=== PATIENT | female | born 1955 | race Native Hawaiian/Other Pacific Islander ===

== ENCOUNTER 2019-10-23 14:26 | Inpatient (IN) | payer MEDICARE, SELFPAY ==
[2019-10-23] VITALS (15 sets, daily range): BP systolic 60–92; BP diastolic 25–66; PULSE 73–92; RESP 15–28; TEMP 36.1–36.7; O2SAT 91–99; BMI 44.5
--- NOTE | ~2019-10-23 | XR_ITS ---
EXAMINATION: XR chest 1V portable DATE: 10/29/2019 11:11 INDICATION: Shortness of breath. TECHNIQUE: A single frontal view of the chest was obtained. COMPARISON: Chest single view 10/25/2019, chest CT 09/04/2019 FINDINGS: There is no pneumonia, pleural effusion, or pneumothorax. Cardiomegaly is noted. There is a left chest pacer/defibrillator with leads in right atrium, right ventricle, and coronary sinus. Ther e are changes of vertebroplasty in thoracic spine. Surgical clips in the right upper quadrant are lik asa from cholecystectomy. IMPRESSION: 1. Cardiomegaly. Reviewed, dictated and finalized at location A. IMPRESSION: 1. Cardiomegaly.
--- NOTE | ~2019-10-23 | XR_ITS ---
EXAMINATION: XR chest port-a-cath/central DATE: 10/23/2019 16:11 INDICATION: Central line placement TECHNIQUE: A single frontal view of the chest was obtained. COMPARISON: Chest single view at 3:08 PM FINDINGS: There is a diffuse interstitial pattern, consistent with mild pulmonary edema. No pleural e ffusion or pneumothorax. Cardiomegaly is noted. There are changes of vertebroplasty at 2 levels. Ther e is a left chest pacer/defibrillator with lead in right atrium and 2 leads in right ventricle. A rig ht internal jugular central venous catheter is seen with tip in the right axilla. IMPRESSION: 1. Central line tip in the right axilla. Repositioning is recommended. 2. Mild pulmonary edema. 3. Cardiomegaly. Reviewed, dictated and finalized at location A. NING ROOM ATTENDANT
--- NOTE | ~2019-10-23 | US_ITS ---
EXAMINATION: US renal BI DATE: 10/24/2019 10:00 INDICATION: Acute renal insufficiency. TECHNIQUE: Multiple ultrasound grayscale images of the kidneys were obtained. COMPARISON: None. FINDINGS: The right kidney measures 11.4 x 4.2 x 5.7 cm. The left kidney measures 10.4 x 4.8 x 4.3 cm. The kidn eys demonstrate normal echogenicity. 1.7 cm anechoic cyst at the upper pole of the right kidney. Ther e is no hydronephrosis in either kidney. No stones identified. The bladder is decompressed around a Rebol[place]o catheter which limits evaluation. IMPRESSION: 1. 1.7 cm right renal cyst. Otherwise normal kidneys without hydronephrosis. Reviewed, dictated and finalized at location A. ILE COATING MACHINE OPERATOR
--- NOTE | ~2019-10-23 | XR_ITS ---
EXAMINATION: XR chest 1V portable DATE: 10/23/2019 15:18 INDICATION: Shortness of breath. TECHNIQUE: A single frontal view of the chest was obtained. COMPARISON: Thoracic spine CT 02/14/2007 FINDINGS: There is a diffuse interstitial pattern, consistent with mild pulmonary edema. No pleural e ffusion or pneumothorax. Cardiomegaly is noted. There are changes of vertebroplasty at 2 levels in th oracic spine. There is a left chest pacer/defibrillator with lead in right atrium and 2 leads in righ t ventricle. IMPRESSION: 1. Mild pulmonary edema. 2. Cardiomegaly. Reviewed, dictated and finalized at location A. TENANCE PERSON
--- NOTE | ~2019-10-23 | XR_ITS ---
EXAMINATION: XR chest 1V portable DATE: 10/25/2019 05:44 INDICATION: Septic shock. TECHNIQUE: A single frontal view of the chest was obtained. COMPARISON: Chest single view 10/23/2019, chest CT 09/04/2019 FINDINGS: There is a diffuse interstitial pattern, consistent with mild pulmonary edema. No pleural e ffusion or pneumothorax. Cardiomegaly is noted. There are changes of vertebroplasty at 2 levels in th oracic spine. There is a left chest pacer/defibrillator with lead in right atrium and 2 leads in righ t ventricle. IMPRESSION: 1. Mild pulmonary edema. 2. Cardiomegaly. Reviewed, dictated and finalized at location A. SERVICE TECHNICIAN
--- NOTE | ~2019-10-23 | XR_ITS ---
EXAMINATION: XR chest 1V portable DATE: 10/31/2019 10:46 INDICATION: Shortness of breath. Wheezing. TECHNIQUE: A single frontal view of the chest was obtained. COMPARISON: Chest single view 10/29/2019, chest CT 09/04/2019 FINDINGS: There is a diffuse interstitial pattern, consistent with mild pulmonary edema. No pleural e ffusion or pneumothorax. Cardiomegaly is noted. There is a left chest pacer with leads in right atriu m, right ventricle, and coronary sinus. There are changes of vertebroplasty at 2 levels. IMPRESSION: 1. Mild pulmonary edema. 2. Cardiomegaly. Reviewed, dictated and finalized at location A.
--- NOTE | 2019-10-23 14:34 | ED.LOWEXIN ---
HPI - Extremity Injury (Lower) General Chief Complaint: Unspecified Stated Complaint: lower leg pain. Time Seen by Provider: 10/23/19 14:31 Source: patient, EMS and RN notes reviewed Mode of arrival: EMS Limitations: other (poor historian) History of Present Illness HPI Narrative: A 64 y/o female presents to the ED via EMS from home with CHRISTINA lower leg edema and pain. The pt is a poor historian and is unable to state how long her symptoms have been going on for. She reports that the pain is aggravated when she tries to walk. She denies any numbness, tingling, fevers, or chills. complaint: other (CHRISTINA lower leg edema and pain) Onset (ago): unknown Place: home Exacerbating factors: other (tying to walk) Other symptoms: none Review of Systems Review of Systems: All systems reviewed & are unremarkable except as noted in HPI and below Constitutional: Constitutional: Denies chills and Denies fever(s) Cardiovascular: Cardiovascular: Reports leg edema (CHRISTINA lower) Musculoskeletal: Musculoskeletal: Reports other (CHRISTINA lower leg pain) Neurologic: Denies numbness and Denies tingling PMFSH Past Medical History Medical History (Updated 10/23/19 @ 18:45 by Derrell Lehman MD) CAD (coronary artery disease) CHF (congestive heart failure) CKD (chronic kidney disease) ISAURO (generalized anxiety disorder) Ischemic cardiomyopathy MDD (major depressive disorder) Medical history unknown Myocardial infarction SBO (small bowel obstruction) Surgical History Surgical History (Updated 10/23/19 @ 14:46 by Edil Sotelo) Surgical history unknown Social History Social History (Updated 10/23/19 @ 14:46 by Edil Sotelo) Smoking status: Unknown if ever smoked Exam Const: General: healthy appearing, no acute distress and lethargic Nutritional Appearance: obese Orientation/consciousness: Other orientation findings (somnolent) HENMT: Mouth: Yes lip normal and Yes moist mucous membranes Eyes: Conjunctivae: conjunctivae normal Pupils: Equal, round and reactive pupils present Resp: Effort & Inspection: normal respiratory effort Auscultation: rales diffuse Cardio: Rate: regular rate Rhythm: regular rhythm Heart sounds: no murmurs GI: GI Palp: Yes Soft to palpation and No Tenderness to palpation present (GI) Auscultation: normal bowel sounds Back/Spine/Pelvis: Other: Full ROM. Skin: General skin exam: normal color, dry skin and other (warm) Neuro: General: patient oriented x3 (alert) Speech: normal speech Extrem: General: full ROM and edema (2+ pitting edema BLE) Psych: Mental Status: mental status grossly normal Affect: normal affect Course Consultations Consultation #1: Discussed case with Dr. Hope (Network Designer). Accepts the pt to the ICU. Date: 10/23/19 Time: 18:07 Consultation #2: Discussed case with Fouzia Wolfe (WRAPPER OFF to Hospitalist). Accepts the pt. Date: 10/23/19 Time: 18:24 Vital Signs Vital signs: Vital Signs Temperature 36.6 C 10/23/19 14:36 Pulse Rate 74 10/23/19 14:36 Respiratory Rate 19 10/23/19 14:36 Blood Pressure 90/66 L 10/23/19 14:36 Pulse Oximetry 99 10/23/19 14:36 Temperature 36.7 C 10/23/19 18:39 Pulse Rate 85 10/23/19 18:39 Respiratory Rate 15 10/23/19 18:39 Blood Pressure 92/50 L 10/23/19 18:39 Pulse Oximetry 94 10/23/19 18:39 Procedures Central Line Placement Right IJ: Central Line Date: 10/23/19 Time Out Performed: Yes Patient Placed on Monitor/Pulse Ox: Yes Max. Sterile Barrier Technique: Caps, large sterile sheet and hand hygiene Central Line Prep: 2% chlorhexidine scrub and sterile drapes applied Technique: US-Guided Local Anesthetic: lidocaine 1% Ultrasound Used for Placement: Yes Central Line Lumen Inserted: triple Post Procedure: sutured in place, good blood return, all ports aspirated, flushed, capped and sterile dressing applied Post Procedure X-Ray: other (tip of catheter in
--- NOTE | 2019-10-23 14:39 | ECG_ITS ---
Measurements Intervals [place] Rate: 76 P: -67 MS: 155 QRS: -65 QRSD: 105 T: 93 QT: 393 QTc: 444 Interpretive Statements ATRIAL SENSE- ELECTRONIC VENTRICULAR PACEMAKER ATRIAL PREMATURE COMPLEX BASELINE ARTIFACT- I, II, AVR, AVL, V1 NO FURTHER INTERPRETATION IS POSSIBLE ATYPICAL ECG Electronically Signed On 10-23-2019 15:00:29 RUG CLEANER HELPER by Gabe Garcia D.O.
[2019-10-23 14:59] LABS: Alveolar/Arterial O2 Gradient 18.4 mmHg; Base Excess ABG -11.9 mEq/l (+/-2.0); Fractional Inspired Oxygen 21 %; HCO3 ABG 15.7 mEq/l (22.0-26.0); Oxygen Content ABG 13.9 %vol (16.0-22.0); Oxygen Saturation ABG 93.2 % (95.0-100.0); Oxyhemoglobin 93.4 % THb (90.0-100.0); PCO2 ABG 42.1 mmHg (35.0-45.0); PO2 ABG 80.9 mmHg (80.0-100.0); PO2 FiO2 Ratio Arterial Blood 3.85 %; Total Hemoglobin 10.5 g/dL (12.0-18.0)
[2019-10-23 15:00] LABS: Device ROOM AIR; Modified Allen's Test Pass; Site Drawn RIGHT RADIAL; pH ABG 7.189 (7.350-7.450)
[2019-10-23 15:31] LABS: Basophils Percent Auto 0.3 % (0.2-1.2); Eosinophils Absolute Auto 0.1 K/mm3 (0-0.3); Eosinophils Percent Auto 1.1 % (0-4.4); Hematocrit 31.7 % (37.0-47.0); Hemoglobin 9.8 g/dL (12.0-15.0); Immature Granulocyte Absolute 0.01 K/mm3 (0.00-0.031); Immature Granulocyte Percent A 0.2 % (0-0.5); Lymphocytes Absolute Auto 0.81 K/mm3 (0.9-3.2); Lymphocytes Percent Auto 12.3 % (18.3-44.2); Mean Corpuscular HGB Conc 30.9 g/dl (32-36); Mean Corpuscular Hemoglobin 28.6 pg (26-34); Mean Corpuscular Volume 92.4 fl (80-100); Mean Platelet Volume 10.2 fl (7.4-10.4); Monocytes Absolute Auto 0.6 K/mm3 (0.1-0.6); Monocytes Percent Auto 8.4 % (2.6-8.5); Neutrophils Absolute Auto 5.1 K/mm3 (1.3-6.7); Neutrophils Percent Auto 77.7 % (45.5-73.1); Platelet Count Result 222 k/mm3 (150-375); Red Blood Count 3.43 M/mm3 (4.2-5.4); Red Cell Distribution Width 17.5 % (11.5-14.5); White Blood Count 6.6 K/mm3 (4.5-10.0)
[2019-10-23 15:41] LABS: INR 1.3; Prothrombin Time 15.7 Seconds (11.1-14.7)
[2019-10-23 15:42] LABS: Partial Thromboplastin Time 37.3 SECONDS (22.3-36.8)
[2019-10-23 15:43] LABS: Potassium 4.6 mmol/L (3.4-5.0)
[2019-10-23 15:45] LABS: Alanine Aminotransferase 10 U/L (4-35); Albumin Level 2.8 g/dL (3.5-5.1); Alkaline Phosphatase 117 U/L (38-126); Aspartate Amino Transferase 16 U/L (14-36); Bilirubin,Total 0.2 mg/dL (0.2-1.3); Blood Urea Nitrogen 53 mg/dL (7-17); Calcium 6.5 mg/dL (8.4-10.2); Carbon Dioxide 15 mmol/L (22-30); Chloride 100 mmol/L (98-107); Estimated CRCL calculation 15 ml/min; Estimated Glomerular Filt Rate 9; Glucose 84 mg/dL (65-105); Sodium 133 mmol/L (137-145)
[2019-10-23 15:47] LABS: Beta-Hydroxybutyrate/Acetoacetate 0.09 mmol/L (0.02-0.27)
[2019-10-23 15:56] LABS: NT Pro B Type Natriuretic Pept 1080 PG/ML (5-100); Troponin I < 0.012 ng/mL (0.000-0.034)
[2019-10-23] MEDS: SODIUM CHLORIDE 0.9% IV 500 ML 999 ML IV CONT (15:56)
--- NOTE | 2019-10-23 16:15 | PC.NURSE ---
Central line verification xray reveals tip in right axilla. EDP aware. Line not being used at this time.
--- NOTE | 2019-10-23 16:30 | PC.NURSE ---
Right IJ central line was removed by the EDP. site was dressed. patient tolerated well.
[2019-10-23] MEDS: NOREPINEPHRINE 8 MG/D5W 250 ML 8 MG/250 ML BAG 9.4 MG IV CONT (17:57)
[2019-10-23] MEDS: SODIUM CHLORIDE 0.9% IV 1,000 ML 30 ML IV CONT (17:57)
[2019-10-23 18:01] LABS: Add Urine Microscopic? YES; Appearance Urine Turbid (Clear); Bacteria Urine 3+ /hpf; Bilirubin Urine Negative (Negative); Blood Urine 1+ (Negative); Color Urine Yellow (Yellow); Glucose Urine UA Negative (Negative); Ketones Urine Negative (Negative); Leukocyte Esterase Ur 3+ LEU/UL (Negative); Mucus Urine Rare /lpf; Nitrate Urine Negative (Negative); Protein Urine 2+ mg/dL (Negative); RBC Urine 21-50 /hpf (0-2); Specific Grav Ur 1.013 (1.001-1.035); Urobilinogen Urine Negative mg/dL (<2.0); WBC Urine >75 /hpf
[2019-10-23 18:18] LABS: Lactic Acid Reflex < 0.5 mmol/L (0.7-2.1)
--- NOTE | 2019-10-23 19:36 | PM.IMHP ---
H&P: HPI History of Present Illness Chief complaint: Hypotension Narrative: This is a 64 year old with known history of ischemic cardiomyopathy and systolic heart failure w/ a known EF of 20%, HTN, GERD, CKD, chronic diarrhea due to several bowel resections, chronic pain syndrome with narcotic dependence who presented to the hospital for lower extremity swelling and pain. The patient is very confused and not a reliable historian. She believes that she is 56 years old and cannot tell me why she came to the hospital tonight. The patient on arrival to the hospital was found to be hypotensive. She was also found to have pulmonary congestion and a central line was placed in the ER. She was started on vasopressors for her hypotension. No family is present on my encounter with the patient. She denies any chest pain, palpitations, fevers, headache, shortness of breath, sore throat, abdominal pain, dysuria, hematuria or other symptoms. Review of Systems Review of Systems: All systems reviewed & are unremarkable except as noted in HPI and below PMFSH Past Medical History Medical History Abnormality of gait and mobility Acquired hypothyroidism Ambulatory dysfunction Anemia Chronic Anxiety Artificial pacemaker Atherosclerotic heart disease of [place] coronary artery without angina pectoris Benzodiazepine abuse Bowel obstruction With multiple bowel resections CAD (coronary artery disease) CAD (coronary artery disease) Cardiomyopathy CHF (congestive heart failure) Chronic abdominal wound infection Chronic anemia Chronic combined systolic (congestive) and diastolic (congestive) heart failure Chronic diarrhea Chronic kidney disease Chronic pain syndrome Chronic pain syndrome CKD (chronic kidney disease) Combined systolic and diastolic cardiac dysfunction Echo April 2017 demonstrating EF of 20% with diastolic dysfunction Combined systolic and diastolic heart failure DDD (degenerative disc disease) With chronic back pain Depression Edema due to congestive heart failure Essential (primary) hypertension Extreme obesity with alveolar hypoventilation ISAURO (generalized anxiety disorder) Generalized anxiety disorder GERD (gastroesophageal reflux disease) With reflux esophagitis and gastric ulcer May 2016 Headache Heart attack Hernia History of blood transfusion HTN (hypertension) Hyperlipidemia Hyponatremia Ischemic cardiomyopathy Ischemic cardiomyopathy Ischemic cardiomyopathy with implantable cardioverter-defibrillator (ICD) Echocardiogram April 2017 with EF of 20% MDD (major depressive disorder) MDD (major depressive disorder), recurrent severe, without psychosis Medical history unknown Mixed hyperlipidemia Morbid (severe) obesity due to excess calories Myocardial infarction Open wound anterior abdominal wall chronic Open wound of abdominal wall w/o penetration into peritoneal cavity Osteoporosis Pancreatitis Post-menopausal Primary generalized (osteo)arthritis Radius fracture SBO (small bowel obstruction) Slow transit constipation Urinary retention with incomplete bladder emptying UTI (urinary tract infection) With incomplete bladder emptying resulting in septic shock January 2019 Ventral incisional hernia without obstruction or gangrene Vitamin D deficiency, unspecified Vocal cord paralysis Surgical History Surgical History AICD (automatic cardioverter/defibrillator) present H/O ventral hernia repair H/O vertebroplasty H/O vertebroplasty H/O: hysterectomy H/O: hysterectomy History of angioplasty History of appendectomy History of appendectomy History of bowel resection Resulting in chronic diarrhea History of cardiac catheterization History of cholecystectomy History of cholecystectomy History of colostomy History of orthopedic surgery ORIF left radius Hx of CABG Hx of CABG Status post femorof
[2019-10-23 22:40] LABS: Amphetamine Screen Urine Negative (Negative); Barbiturate Screen Urine Negative (Negative); Benzodiazepines Screen Urine Negative (Negative); Cannabinoid Screen Urine Negative (Negative); Cocaine Screen Urine Negative (Negative); Methadone Screen Urine Negative (Negative); Opiate Screen Urine Negative (Negative); Phencyclidine Screen Urine Negative (Negative)
--- NOTE | 2019-10-23 23:45 | PC.NURSE ---
10/23/20192029 This patient, Shiela Barraza, was admitted to Intensive Care Unit-11. Patient/family oriented to hospital policies and general routines including ID bracelet, bed and alarms, visiting hours, pain management, procedures, bathroom and other care routines, personal items, smoking policy, room service/diet, and visiting hours. Valuables list has been completed. Information on how to activate the Rapid Response Team has been discussed. Patient/Family are encouraged to report perceived risks to care and to ask questions if they do not understand what they are told or what they should do.
[2019-10-24] VITALS (19 sets, daily range): BP systolic 79–149; BP diastolic 45–80; PULSE 85–109; RESP 14–26; TEMP 34.3–36.9; O2SAT 97–100
[2019-10-24] MEDS: SODIUM CHLORIDE 0.9% IV 1,000 ML 500 ML IV CONT (00:05)
[2019-10-24] MEDS: VASOPRESSIN INJ 100 UNITS in DEXTROSE 5% 95 ML IV CONT (02:07)
[2019-10-24] MEDS: HYDROCORTISONE SODIUM SUCCINATE 100 MG/2 ML VIAL IV PUSH ×4 (02:09→21:44)
[2019-10-24] MEDS: ENOXAPARIN 30 MG/0.3 ML SYRINGE SUB-Q (02:23)
[2019-10-24] MEDS: NOREPINEPHRINE 8 MG/D5W 250 ML 8 MG/250 ML BAG 46.9 MG IV CONT ×2 (03:09→09:32)
[2019-10-24 03:48] LABS: Basophils Percent Auto 0.2 % (0.2-1.2); Eosinophils Percent Auto 0.4 % (0-4.4); Hematocrit 31.6 % (37.0-47.0); Hemoglobin 9.8 g/dL (12.0-15.0); Immature Granulocyte Absolute 0.08 K/mm3 (0.00-0.031); Lymphocytes Absolute Auto 0.56 K/mm3 (0.9-3.2); Lymphocytes Percent Auto 6.7 % (18.3-44.2); Mean Corpuscular Hemoglobin 28.6 pg (26-34); Mean Corpuscular Volume 92.1 fl (80-100); Mean Platelet Volume 9.8 fl (7.4-10.4); Monocytes Absolute Auto 0.5 K/mm3 (0.1-0.6); Monocytes Percent Auto 5.7 % (2.6-8.5); Neutrophils Absolute Auto 7.2 K/mm3 (1.3-6.7); Platelet Count Result 233 k/mm3 (150-375); Red Blood Count 3.43 M/mm3 (4.2-5.4); Red Cell Distribution Width 17.4 % (11.5-14.5); White Blood Count 8.4 K/mm3 (4.5-10.0)
[2019-10-24 04:07] LABS: Blood Urea Nitrogen 50 mg/dL (7-17); Calcium 6.5 mg/dL (8.4-10.2); Carbon Dioxide 14 mmol/L (22-30); Chloride 106 mmol/L (98-107); Estimated CRCL calculation 16 ml/min; Estimated Glomerular Filt Rate 10; Glucose 103 mg/dL (65-105); Magnesium 1.3 mg/dL (1.6-2.3); Potassium 4.6 mmol/L (3.4-5.0); Sodium 132 mmol/L (137-145)
[2019-10-24 05:11] LABS: Alveolar/Arterial O2 Gradient 20.1 mmHg; Base Excess ABG -14.6 mEq/l (+/-2.0); Fractional Inspired Oxygen 28 %; HCO3 ABG 13.7 mEq/l (22.0-26.0); Oxygen Content ABG 17.3 %vol (16.0-22.0); Oxygen Saturation ABG 97.7 % (95.0-100.0); Oxyhemoglobin 96.7 % THb (90.0-100.0); PO2 ABG 131.2 mmHg (80.0-100.0); PO2 FiO2 Ratio Arterial Blood 4.69 %; Total Hemoglobin 12.6 g/dL (12.0-18.0)
[2019-10-24 05:14] LABS: Device NASAL CANNULA; Modified Allen's Test Pass; Site Drawn LEFT RADIAL; pH ABG 7.143 (7.350-7.450)
[2019-10-24] MEDS: SODIUM BICARBONATE 8.4% 50 MEQ/50 ML VIAL IV PUSH (06:07)
[2019-10-24 06:23] LABS: Lactic Acid Reflex < 0.5 mmol/L (0.7-2.1)
[2019-10-24] MEDS: SODIUM BICARBONATE 8.4% 150 MEQ in DEXTROSE 5% 1,000 ML 950 ML 100 ML IV CONT ×2 (06:29→19:00)
[2019-10-24] MEDS: PERFLUTREN LIPID MICROSPHERES 1.5 ML VIAL DILUTED TO 10 ML TOTAL VOLUME IV PUSH (08:53)
--- NOTE | 2019-10-24 09:08 | WPDCNINT ---
Assessment and Plan Assessment and plan (1) Septic shock: Code(s): A41.9 - Sepsis, unspecified organism; R65.21 - Severe sepsis with septic shock Status: Acute Assessment and Plan: patient presented with hypotension altered mental status, metabolic acidosis, acute kidney injury. - Likely source urinary tract infection - WBC count within normal limits, lactic acid is normal - patient on ceftriaxone, will add vancomycin - patient on Levophed and vasopressin, maintain mean arterial pressures > 65 mmHg - blood cultures and urine cultures have been obtained and pending (2) Acute on chronic renal failure: Qualifiers: Acute renal failure type: unspecified Chronic kidney disease stage: stage 4 (severe) Qualified Code(s): N17.9 - Acute kidney failure, unspecified; N18.4 - Chronic kidney disease, stage 4 (severe) Code(s): N17.9 - Acute kidney failure, unspecified; N18.9 - Chronic kidney disease, unspecified Status: Acute Assessment and Plan: patient presented with creatinine of 4.9 ( baseline creatinine 1.1 in February 2019) - patient given will have L IV fluid bolus due to EF of 20% - patient started on bicarb infusion - urine output has picked up, creatinine down to 4.5, - will obtain renal ultrasound, urine lytes, CK level - significant metabolic acidosis, will give additional mom bicarb IV push - monitor urine output, electrolytes and kidney function (3) UTI (urinary tract infection): Qualifiers: Urinary tract infection type: site unspecified Hematuria presence: without hematuria Qualified Code(s): N39.0 - Urinary tract infection, site not specified Code(s): N39.0 - Urinary tract infection, site not specified Status: Acute Assessment and Plan: patient presented with UTI, septic shock on ceftriaxone, urine cultures pending (4) Acute encephalopathy: Code(s): G93.40 - Encephalopathy, unspecified Status: Acute Assessment and Plan: patient presented with acute encephalopathy likely related to hypotension, UTI - continue to monitor - will add ammonia level - patient also has a history of opiate overdose with encephalopathy in the past (5) Acute on chronic systolic and diastolic heart failure, NYHA class 4: Code(s): I50.43 - Acute on chronic combined systolic (congestive) and diastolic (congestive) heart failure Status: Acute Assessment and Plan: patient with history of ischemic cardiomyopathy with a known EF of 20% - proBNP of 1080 - continue to monitor hemodynamics closely, will watch for volume overload with IV fluids (6) Chronic pain syndrome: Code(s): G89.4 - Chronic pain syndrome Status: Chronic Assessment and Plan: history of chronic pain syndrome with chronic back pain - if patient complains too much about her pain will order lidocaine patches (7) Chronic abdominal wound infection: Qualifiers: Encounter type: subsequent encounter Qualified Code(s): S31.109D - Unspecified open wound of abdominal wall, unspecified quadrant without penetration into peritoneal cavity, subsequent encounter; L08.9 - Local infection of the skin and subcutaneous tissue, unspecified Code(s): S31.109A - Unspecified open wound of abdominal wall, unspecified quadrant without penetration into peritoneal cavity, initial encounter; L08.9 - Local infection of the skin and subcutaneous tissue, unspecified Status: Chronic Assessment and Plan: chronic abdominal wound infection from previous surgeries, wound Care has been consulted - patient follow-up with the wound care in the past (8) DVT prophylaxis: Code(s): Z29.9 - Encounter for prophylactic measures, unspecified Status: Acute Assessment and Plan: DVT prophylaxis: Heparin SQ stress ulcer prophylaxis: Protonix IV Additional Plan discussed with patient updated her with her condition and plan of care.
[2019-10-24] MEDS: MAGNESIUM SULF 2 GM/WATER 50ML 2 GM/50 ML BAG IVPB (09:31)
[2019-10-24] MEDS: CALCIUM GLUC 2,000 MG/NS 100ML 2,000 MG/100 ML BAG 100 MG IVPB (09:31)
[2019-10-24] MEDS: SODIUM BICARBONATE 8.4% 50 MEQ/50 ML VIAL 100 MEQ IV PUSH (09:31)
[2019-10-24] MEDS: PANTOPRAZOLE SODIUM IV 40 MG VIAL IV PUSH (10:02)
[2019-10-24 10:08] LABS: Ammonia < 9 umol/L (9-30); Creatine Kinase 36 U/L (30-135)
[2019-10-24 14:57] LABS: Blood Urea Nitrogen 47 mg/dL (7-17); Calcium 6.8 mg/dL (8.4-10.2); Carbon Dioxide 20 mmol/L (22-30); Chloride 97 mmol/L (98-107); Estimated CRCL calculation 19 ml/min; Estimated Glomerular Filt Rate 12; Glucose 260 mg/dL (65-105); Potassium 4.2 mmol/L (3.4-5.0); Sodium 132 mmol/L (137-145)
[2019-10-24] MEDS: NOREPINEPHRINE 8 MG/D5W 250 ML 8 MG/250 ML BAG 28.1 MG IV CONT (19:01)
--- NOTE | 2019-10-24 19:52 | ECHO_ITS ---
Patient Info Name: Shiela Barraza Age: 64 years : 1955 Gender: Female Ht: 67 in Wt: 271 lbs BSA: 2.47 m2 HR: 103 bpm BP: 122 / 61 mmHg Technical Quality: Good Exam Date: 10/24/2019 8:24 AM Exam Location: [facility] Patient Status: Inpatient Admit Date: 10/23/2019 Staff Ordering Physician: Roscoe Strauss MD Commodity Analyst: Marcos Guillory, TANYA, RT Attending Provider: Nicole Murcia MD Referring Physician: Carlos A JHAVERI; Exam Type: CA echo doppler color flow Study Info Indications R06.02 - Shortness of breath Complete two-dimensional, color flow and Doppler transthoracic echocardiogram is performed. Summary 1. Left ventricular chamber dimension is severely enlarged. 2. Definity contrast administered improved wall motion interpretation. 3. Entire apex and anteroapex are akinetic. 4. Left ventricular systolic function is severely reduced, estimated at 20-25%. 5. The left ventricular diastolic function is abnormal. 6. E/e' 31 is significantly elevated. 7. Left atrial chamber dimension is mildly enlarged. 8. There is mild aortic valve sclerosis. 9. There is mild to moderate mitral valve regurgitation. 10. Mild pulmonary hypertension, estimated pulmonary arterial systolic pressure is 47 mmHg. 11. Dilated inferior vena cava with <50% collapse upon inspiration consistent with significantly elevated right atrial pressure, 15 mmHg. 12. There is small circumferential pericardial effusion. Left Ventricle Definity contrast administered improved wall motion interpretation. E/e' 31 is significantly elevated. Entire apex and anteroapex are akinetic. Left ventricular chamber dimension is severely enlarged. Left ventricular systolic function is severely reduced, estimated at 20-25%. The left ventricular diastolic function is abnormal. Right Ventricle Right ventricular chamber dimension is normal. Right ventricular systolic function is normal. Left Atria Left atrial chamber dimension is mildly enlarged. Right Atria Right atrial chamber dimension is normal. Aortic Valve The aortic valve is trileaflet. There is mild aortic valve sclerosis. There is no aortic valve stenosis. There is no aortic valve regurgitation. Pulmonic Valve There is no pulmonic regurgitation. Mitral Valve There is no mitral valve stenosis. There is mild to moderate mitral valve regurgitation. Tricuspid Valve There is no tricuspid valve regurgitation. Mild pulmonary hypertension, estimated pulmonary arterial systolic pressure is 47 mmHg. Pericardium/Pleural There is small circumferential pericardial effusion. Inferior Vena Cava Dilated inferior vena cava with <50% collapse upon inspiration consistent with significantly elevated right atrial pressure, 15 mmHg. Aorta The aortic root size at the sinus of Valsalva is normal. Left Ventricular Outflow Tract Name Value Normal LVOT 2D LVOT Diameter 2.1 cm LVOT Doppler LVOT Peak Gradient 7 mmHg LVOT Mean Gradient 3 mmHg LVOT VTI 26 cm LVOT VTI/AV VTI Ratio
[2019-10-24 20:09] LABS: Creatinine Urine 47.2 mg/dL
[2019-10-24 20:11] LABS: Potassium Urine Random 36.7 meq/L; Sodium Urine Random 28 meq/L
[2019-10-24] MEDS: HEPARIN SODIUM 5,000 UNITS/ML VIAL 5000 UNITS SUB-Q (21:44)
[2019-10-25] VITALS (13 sets, daily range): BP systolic 90–119; BP diastolic 46–85; PULSE 76–110; RESP 13–23; TEMP 36.1–37.1; O2SAT 95–100
[2019-10-25] MEDS: SODIUM BICARBONATE 8.4% 150 MEQ in DEXTROSE 5% 1,000 ML 950 ML 100 ML IV CONT ×2 (03:30→16:50)
[2019-10-25 05:02] LABS: Hematocrit 24.6 % (37.0-47.0); Hemoglobin 8.2 g/dL (12.0-15.0); Mean Corpuscular HGB Conc 33.3 g/dl (32-36); Mean Corpuscular Hemoglobin 28.6 pg (26-34); Mean Corpuscular Volume 85.7 fl (80-100); Mean Platelet Volume 10.2 fl (7.4-10.4); Platelet Count Result 200 k/mm3 (150-375); Red Blood Count 2.87 M/mm3 (4.2-5.4); Red Cell Distribution Width 17.1 % (11.5-14.5)
[2019-10-25 05:14] LABS: Alanine Aminotransferase 9 U/L (4-35); Albumin Level 2.3 g/dL (3.5-5.1); Alkaline Phosphatase 97 U/L (38-126); Aspartate Amino Transferase 12 U/L (14-36); Bilirubin,Total < 0.1 mg/dL (0.2-1.3); Blood Urea Nitrogen 44 mg/dL (7-17); Calcium 7.1 mg/dL (8.4-10.2); Carbon Dioxide 24 mmol/L (22-30); Chloride 95 mmol/L (98-107); Estimated CRCL calculation 23 ml/min; Estimated Glomerular Filt Rate 15; Glucose 147 mg/dL (65-105); Lactic Acid 0.6 mmol/L (0.7-2.1); Magnesium 1.5 mg/dL (1.6-2.3); Phosphorus 5.4 mg/dL (2.5-4.5); Potassium 2.9 mmol/L (3.4-5.0); Sodium 132 mmol/L (137-145)
[2019-10-25 05:20] LABS: Alveolar/Arterial O2 Gradient 45.6 mmHg; Base Excess ABG 0.1 mEq/l (+/-2.0); Carboxyhemoglobin 0.2 % THb (0-2.0); Fractional Inspired Oxygen 21 %; HCO3 ABG 24.5 mEq/l (22.0-26.0); Methemoglobin ABG 0.2 %THb (0-1.5); Oxygen Content ABG 11.6 %vol (16.0-22.0); Oxygen Saturation ABG 90.8 % (95.0-100.0); Oxyhemoglobin 88.4 % THb (90.0-100.0); PCO2 ABG 38.5 mmHg (35.0-45.0); PO2 FiO2 Ratio Arterial Blood 2.76 %; Reduced Hemoglobin 11.2 %THb (0-5.0); Total Hemoglobin 9.3 g/dL (12.0-18.0); pH ABG 7.421 (7.350-7.450)
[2019-10-25 05:21] LABS: Device ROOM AIR; Modified Allen's Test Pass; Site Drawn LEFT RADIAL
[2019-10-25] MEDS: HYDROCORTISONE SODIUM SUCCINATE 100 MG/2 ML VIAL IV PUSH ×3 (05:48→22:02)
[2019-10-25] MEDS: MAGNESIUM SULF 2 GM/WATER 50ML 2 GM/50 ML BAG IVPB (08:48)
[2019-10-25] MEDS: HEPARIN SODIUM 5,000 UNITS/ML VIAL 5000 UNITS SUB-Q ×2 (08:58→22:02)
[2019-10-25] MEDS: PANTOPRAZOLE SODIUM IV 40 MG VIAL IV PUSH (08:58)
[2019-10-25] MEDS: SILVERGEL (ELTA) 45 ML 1 APPLIC TOPICAL (08:59)
--- NOTE | 2019-10-25 11:39 | PCOTNOTE ---
Unable to complete OT evaluation at this time due to triple Lumen femoral line. Will attempt OT evaluation when femoral line is removed and patient is medically stable.
[2019-10-25] MEDS: SUCRALFATE 1 GM TABLET PO ×3 (11:45→22:02)
[2019-10-25] MEDS: ACETAMINOPHEN 325 MG TABLET 650 MG PO ×2 (11:45→19:39)
--- NOTE | 2019-10-25 13:49 | WPDINTPN ---
Progress Note: A&P Assessment and Plan (1) Septic shock: Code(s): A41.9 - Sepsis, unspecified organism; R65.21 - Severe sepsis with septic shock Status: Acute Assessment and Plan: patient presented with hypotension altered mental status, metabolic acidosis, acute kidney injury. - Likely source urinary tract infection - WBC count within normal limits, lactic acid is normal - patient on ceftriaxone and vancomycin - patient OFF Levophed - blood cultures negative x2, cultures growing Klebsiella sensitive to ceftriaxone (2) Acute on chronic renal failure: Qualifiers: Acute renal failure type: unspecified Chronic kidney disease stage: stage 4 (severe) Qualified Code(s): N17.9 - Acute kidney failure, unspecified; N18.4 - Chronic kidney disease, stage 4 (severe) Code(s): N17.9 - Acute kidney failure, unspecified; N18.9 - Chronic kidney disease, unspecified Status: Acute Assessment and Plan: patient presented with Admission creatinine of 4.9 ( baseline creatinine 1.1 in February 2019) - patient given adequate IV fluid bolus but with caution as a EF is 20% - remains on bicarb infusion improvement in blood pressures, kidney function, urine output - urine output has picked up, creatinine down to 3.10 - renal ultrasound shows 1.7 cm right renal cyst otherwise normal kidneys without hydronephrosis. - monitor urine output, electrolytes and kidney function (3) UTI (urinary tract infection): Qualifiers: Urinary tract infection type: site unspecified Hematuria presence: without hematuria Qualified Code(s): N39.0 - Urinary tract infection, site not specified Code(s): N39.0 - Urinary tract infection, site not specified Status: Acute Assessment and Plan: patient was diagnosed with UTI in the ED, urine cultures growing Klebsiella susceptible to ceftriaxone (4) Encephalopathy: Code(s): G93.40 - Encephalopathy, unspecified Status: Acute Assessment and Plan: patient presented with acute encephalopathy likely related to hypotension, UTI, much improved this morning. Patient is awake, alert, oriented x3 - continue to monitor - ammonia levels within normal limits - patient also has a history of opiate overdose with encephalopathy in the past (5) Acute on chronic systolic and diastolic heart failure, NYHA class 4: Code(s): I50.43 - Acute on chronic combined systolic (congestive) and diastolic (congestive) heart failure Status: Acute Assessment and Plan: patient with history of ischemic cardiomyopathy with a known EF of 20% - proBNP of 1080 - continue to monitor hemodynamics closely, will watch for volume overload with IV fluids (6) Chronic pain syndrome: Code(s): G89.4 - Chronic pain syndrome Status: Acute Assessment and Plan: history of chronic pain syndrome with chronic back pain - if patient complains too much about her pain will order lidocaine patches (7) Chronic abdominal wound infection: Qualifiers: Encounter type: subsequent encounter Qualified Code(s): S31.109D - Unspecified open wound of abdominal wall, unspecified quadrant without penetration into peritoneal cavity, subsequent encounter; L08.9 - Local infection of the skin and subcutaneous tissue, unspecified Code(s): S31.109A - Unspecified open wound of abdominal wall, unspecified quadrant without penetration into peritoneal cavity, initial encounter; L08.9 - Local infection of the skin and subcutaneous tissue, unspecified Status: Chronic Assessment and Plan: chronic abdominal wound infection from previous surgeries, wound Care has been consulted - patient follow-up with the wound care in the past - Tylenol for pain (8) DVT prophylaxis: Code(s): Z29.9 - Encounter for prophylactic measures, unspecified Status: Acute Assessment and Plan: DVT prophylaxis: Heparin SQ stress ulcer pro
[2019-10-25] MEDS: GABAPENTIN 100 MG CAPSULE PO ×2 (13:50→16:52)
--- NOTE | 2019-10-25 14:46 | PCPTNOTE ---
Unable to complete PT evaluation at this time due to triple Lumen femoral line. Will attempt PT evaluation when femoral line is removed and patient is medically stable.
[2019-10-25] MEDS: LOPERAMIDE HCL 2 MG CAPSULE PO (16:56)
--- NOTE | 2019-10-25 18:37 | PC.NURSE ---
Patient was transferred to [facility]. Medication sent with patient.
[2019-10-25] MEDS: risperiDONE 1 MG TABLET 2 MG PO (22:02)
[2019-10-25] MEDS: ATORVASTATIN 10 MG TABLET PO (22:02)
[2019-10-26] VITALS (11 sets, daily range): BP systolic 105–145; BP diastolic 65–107; PULSE 50–101; RESP 14–18; TEMP 36.2–36.5; O2SAT 97–100
[2019-10-26] MEDS: ACETAMINOPHEN 325 MG TABLET 650 MG PO ×4 (02:40→21:06)
[2019-10-26] MEDS: HYDROCORTISONE SODIUM SUCCINATE 100 MG/2 ML VIAL IV PUSH ×3 (06:45→21:04)
[2019-10-26] MEDS: SUCRALFATE 1 GM TABLET PO ×4 (06:45→21:04)
[2019-10-26 07:03] LABS: Hematocrit 26.4 % (37.0-47.0); Hemoglobin 8.7 g/dL (12.0-15.0); Mean Corpuscular Hemoglobin 28.3 pg (26-34); Mean Platelet Volume 10.1 fl (7.4-10.4); Platelet Count Result 194 k/mm3 (150-375); Red Blood Count 3.07 M/mm3 (4.2-5.4); Red Cell Distribution Width 17.2 % (11.5-14.5); White Blood Count 3.8 K/mm3 (4.5-10.0)
[2019-10-26 07:21] LABS: Blood Urea Nitrogen 36 mg/dL (7-17); Calcium 7.8 mg/dL (8.4-10.2); Carbon Dioxide 33 mmol/L (22-30); Chloride 93 mmol/L (98-107); Estimated CRCL calculation 31 ml/min; Estimated Glomerular Filt Rate 21; Glucose 155 mg/dL (65-105); Magnesium 1.8 mg/dL (1.6-2.3); Phosphorus 4.7 mg/dL (2.5-4.5); Potassium 2.6 mmol/L (3.4-5.0); Sodium 132 mmol/L (137-145)
[2019-10-26] MEDS: SODIUM BICARBONATE 8.4% 150 MEQ in DEXTROSE 5% 1,000 ML 950 ML 75 ML IV CONT ×2 (08:42→21:13)
[2019-10-26] MEDS: HEPARIN SODIUM 5,000 UNITS/ML VIAL 5000 UNITS SUB-Q ×2 (08:43→21:04)
[2019-10-26] MEDS: LORATADINE 10 MG TABLET PO (08:44)
[2019-10-26] MEDS: GABAPENTIN 100 MG CAPSULE PO ×3 (08:44→17:32)
[2019-10-26] MEDS: PANTOPRAZOLE SODIUM IV 40 MG VIAL IV PUSH (08:44)
[2019-10-26] MEDS: SILVERGEL (ELTA) 45 ML 1 APPLIC TOPICAL (08:45)
[2019-10-26] MEDS: buPROPion HCL XL (24 HR) 150 MG TABCR PO (08:45)
[2019-10-26] MEDS: risperiDONE 1 MG TABLET 2 MG PO ×2 (08:45→21:04)
[2019-10-26] MEDS: POTASSIUM CHLORIDE 20 MEQ TABLET 40 MEQ PO ×2 (08:55→19:23)
--- NOTE | 2019-10-26 11:21 | P.CDI_ITS ---
CDI Query Clarification Request - patient presented with acute encephalopathy likely related to hypotension, UTI has been documented Please further specify type of encephalopathy: * Metabolic * Toxic * Hepatic * Hypertensive * Other * Unable to determine
--- NOTE | 2019-10-26 11:21 | WPDCDIQUERY2 ---
CDI Query Clarification Request - patient presented with acute encephalopathy likely related to hypotension, UTI has been documented Please further specify type of encephalopathy: Metabolic Toxic Hepatic Hypertensive Other Unable to determine
[2019-10-26 14:55] LABS: Blood Urea Nitrogen 32 mg/dL (7-17); Calcium 7.9 mg/dL (8.4-10.2); Carbon Dioxide 32 mmol/L (22-30); Chloride 93 mmol/L (98-107); Estimated CRCL calculation 33 ml/min; Estimated Glomerular Filt Rate 22; Glucose 209 mg/dL (65-105); Potassium 3.7 mmol/L (3.4-5.0); Sodium 132 mmol/L (137-145)
--- NOTE | 2019-10-26 17:42 | PM.IMPN ---
Progress Note: A&P Assessment and Plan (1) Encephalopathy: Code(s): G93.40 - Encephalopathy, unspecified Status: Acute Assessment and Plan: Most likely secondary to metabolic due to UTI (2) Severe sepsis: Code(s): A41.9 - Sepsis, unspecified organism; R65.20 - Severe sepsis without septic shock Status: Acute Assessment and Plan: 10/26/19 17:42 Patient is 64-year-old female presented to [facility] came to emergency department patient was quite confused and was found to have hypotensive, was unable to provide any review of symptom, in the ER central line was placed and Levophed was started and transfer the patient to ICU, patient is found to have a sepsis most likely secondary to UTI urine culture is growing Klebsiella pneumonia sensitive to Rocephin patient is being treated, today patient is more alert and oriented denies any abdominal pain nausea or vomiting fever or chills, continue to monitor patient have PT OT work with the patient patient will benefit from acute rehab (3) Acute on chronic systolic and diastolic heart failure, NYHA class 4: Code(s): I50.43 - Acute on chronic combined systolic (congestive) and diastolic (congestive) heart failure Status: Acute Assessment and Plan: Patient with history of severe systolic dysfunction with ejection fraction of 20% patient presented to emergency department with sepsis and hypotension patient was vigorously hydrated however patient does not appear any volume overloaded (4) UTI (urinary tract infection): Qualifiers: Urinary tract infection type: site unspecified Hematuria presence: without hematuria Qualified Code(s): N39.0 - Urinary tract infection, site not specified Code(s): N39.0 - Urinary tract infection, site not specified Status: Acute Assessment and Plan: Patient with UTI with Klebsiella pneumonia sensitive to Rocephin will continue (5) Acute on chronic renal failure: Qualifiers: Acute renal failure type: unspecified Chronic kidney disease stage: stage 4 (severe) Qualified Code(s): N17.9 - Acute kidney failure, unspecified; N18.4 - Chronic kidney disease, stage 4 (severe) Code(s): N17.9 - Acute kidney failure, unspecified; N18.9 - Chronic kidney disease, unspecified Status: Acute Assessment and Plan: Most likely secondary to hypovolemia ATN due to sepsis and hypotension patient is being hydrated her kidney function is improving (6) Metabolic acidosis with increased anion gap and reduced excretion of inorganic acids: Code(s): E87.2 - Acidosis Status: Acute Time Spent With Patient Time with patient: 15 - 25 minutes Subjective Date/time seen: 10/26/19 17:42 Patient is 64-year-old female presented to detention came to emergency department patient was quite confused and was found to have hypotensive, was unable to provide any review of symptom, in the ER central line was placed and Levophed was started and transfer the patient to ICU, patient is found to have a sepsis most likely secondary to UTI urine culture is growing Klebsiella pneumonia sensitive to Rocephin patient is being treated, today patient is more alert and oriented denies any abdominal pain nausea or vomiting fever or chills Review of Systems Review of Systems: All systems reviewed & are unremarkable except as noted in HPI and below Exam Narrative: Exam Narrative: Morbidly obese Const: General: comfortable and no acute distress HENMT: General nose exam: Normal nares present Mouth: Yes moist mucous membranes Eyes: General: appearance normal, both eyes and all related structures Sclera: sclerae normal Neck: Neck: supple Resp: Effort & Inspection: normal respiratory effort Auscultation: clear to auscultation bilaterally Cardio: Rate: regular rate Rhythm: regular rhythm GI: Auscultation: normal bowel sounds Skin: General skin exam: normal color and no rashes or lesions note
[2019-10-26] MEDS: TOLNAFTATE 1% POWDER 45 GM BTL 1 APPLIC TOPICAL (21:03)
[2019-10-26] MEDS: ATORVASTATIN 10 MG TABLET PO (21:04)
[2019-10-27] VITALS (14 sets, daily range): BP systolic 125–130; BP diastolic 59–82; PULSE 61–135; RESP 14–18; TEMP 36–36.3; O2SAT 94–100
[2019-10-27] MEDS: HYDROCORTISONE SODIUM SUCCINATE 100 MG/2 ML VIAL IV PUSH (05:54)
[2019-10-27] MEDS: ACETAMINOPHEN 325 MG TABLET 650 MG PO (05:54)
[2019-10-27] MEDS: SUCRALFATE 1 GM TABLET PO ×4 (05:54→21:20)
[2019-10-27 06:14] LABS: Hematocrit 29.3 % (37.0-47.0); Hemoglobin 9.4 g/dL (12.0-15.0); Mean Corpuscular HGB Conc 32.1 g/dl (32-36); Mean Corpuscular Hemoglobin 28.1 pg (26-34); Mean Corpuscular Volume 87.7 fl (80-100); Mean Platelet Volume 10.1 fl (7.4-10.4); Platelet Count Result 212 k/mm3 (150-375); Red Blood Count 3.34 M/mm3 (4.2-5.4); Red Cell Distribution Width 17.2 % (11.5-14.5)
[2019-10-27 06:27] LABS: Blood Urea Nitrogen 29 mg/dL (7-17); Calcium 8.4 mg/dL (8.4-10.2); Carbon Dioxide 37 mmol/L (22-30); Chloride 93 mmol/L (98-107); Estimated CRCL calculation 40 ml/min; Estimated Glomerular Filt Rate 28; Glucose 170 mg/dL (65-105); Magnesium 1.7 mg/dL (1.6-2.3); Phosphorus 3.6 mg/dL (2.5-4.5); Potassium 3.4 mmol/L (3.4-5.0); Sodium 131 mmol/L (137-145)
[2019-10-27] MEDS: POTASSIUM CHLORIDE 20 MEQ PACKET (FOR LIQUID) 40 MEQ PO (09:14)
[2019-10-27] MEDS: GABAPENTIN 100 MG CAPSULE PO ×3 (09:15→17:15)
[2019-10-27] MEDS: TOLNAFTATE 1% POWDER 45 GM BTL 1 APPLIC TOPICAL ×2 (09:15→21:22)
[2019-10-27] MEDS: HEPARIN SODIUM 5,000 UNITS/ML VIAL 5000 UNITS SUB-Q ×2 (09:16→21:21)
[2019-10-27] MEDS: PANTOPRAZOLE SODIUM IV 40 MG VIAL IV PUSH (09:16)
[2019-10-27] MEDS: LORATADINE 10 MG TABLET PO (09:16)
[2019-10-27] MEDS: risperiDONE 1 MG TABLET 2 MG PO ×2 (09:16→21:19)
[2019-10-27] MEDS: buPROPion HCL XL (24 HR) 150 MG TABCR PO (09:16)
[2019-10-27] MEDS: SILVERGEL (ELTA) 45 ML 1 APPLIC TOPICAL (09:16)
--- NOTE | 2019-10-27 10:20 | PCPTNOTE ---
PT orders to evaluate and treat....pt still has femoral line, so unable to mobilize...nursing will check with MD to see if line is going to be dc'd anytime soon. will see later today as appropriate
[2019-10-27] MEDS: NEOMYCIN/POLYMYXIN/BACITRACIN OINTMENT PACKET 1 PACKET (11:55)
[2019-10-27] MEDS: CEFDINIR 300 MG CAPSULE PO ×2 (12:54→21:20)
[2019-10-27] MEDS: LORAZEPAM 1 MG TABLET PO (14:28)
[2019-10-27] MEDS: lisinopriL 2.5 MG TABLET PO (15:33)
[2019-10-27] MEDS: carvediloL 6.25 MG TABLET PO (15:33)
--- NOTE | 2019-10-27 16:41 | PM.IMPN ---
Progress Note: A&P Assessment and Plan (1) Encephalopathy: Code(s): G93.40 - Encephalopathy, unspecified Status: Acute Assessment and Plan: Most likely secondary to metabolic due to UTI (2) Severe sepsis: Code(s): A41.9 - Sepsis, unspecified organism; R65.20 - Severe sepsis without septic shock Status: Acute Assessment and Plan: 10/27/19 16:41 Patient is 64-year-old female presented to custodial came to emergency department patient was quite confused and was found to have hypotensive, was unable to provide any review of symptom, in the ER central line was placed and Levophed was started and transfer the patient to ICU, patient is found to have a sepsis most likely secondary to UTI urine culture is growing Klebsiella pneumonia sensitive to Rocephin patient is being treated, today patient is more alert and oriented denies any abdominal pain nausea or vomiting fever or chills, patient has PICC line in her lower extremity and unable to participate in PT, patient clinical symptoms as well BP and WBC have improved, will dc PICC swtiche over to oral abx so she participate in PT/OT, continue to monitor patient have PT OT work with the patient patient will benefit from acute rehab (3) Acute on chronic systolic and diastolic heart failure, NYHA class 4: Code(s): I50.43 - Acute on chronic combined systolic (congestive) and diastolic (congestive) heart failure Status: Acute Assessment and Plan: Patient with history of severe systolic dysfunction with ejection fraction of 20% patient presented to emergency department with sepsis and hypotension patient was vigorously hydrated however patient does not appear any volume overloaded (4) UTI (urinary tract infection): Qualifiers: Urinary tract infection type: site unspecified Hematuria presence: without hematuria Qualified Code(s): N39.0 - Urinary tract infection, site not specified Code(s): N39.0 - Urinary tract infection, site not specified Status: Acute Assessment and Plan: Patient with UTI with Klebsiella pneumonia sensitive to Rocephin, will switch her over to oral antibiotic with cefdinir (5) Acute on chronic renal failure: Qualifiers: Acute renal failure type: unspecified Chronic kidney disease stage: stage 4 (severe) Qualified Code(s): N17.9 - Acute kidney failure, unspecified; N18.4 - Chronic kidney disease, stage 4 (severe) Code(s): N17.9 - Acute kidney failure, unspecified; N18.9 - Chronic kidney disease, unspecified Status: Acute Assessment and Plan: Most likely secondary to hypovolemia ATN due to sepsis and hypotension patient is being hydrated her kidney function is improving (6) Metabolic acidosis with increased anion gap and reduced excretion of inorganic acids: Code(s): E87.2 - Acidosis Status: Acute Subjective Date/time seen: 10/27/19 16:41 Patient is 64-year-old female presented to custodial came to emergency department patient was quite confused and was found to have hypotensive, was unable to provide any review of symptom, in the ER central line was placed and Levophed was started and transfer the patient to ICU, patient is found to have a sepsis most likely secondary to UTI urine culture is growing Klebsiella pneumonia sensitive to Rocephin patient is being treated, today patient is more alert and oriented denies any abdominal pain nausea or vomiting fever or chills, patient has PICC line in her lower extremity and unable to participate in PT, patient clinical symptoms as well BP and WBC have improved, will dc PICC swtiche over to oral abx so she participate in PT/OT, continue to monitor patient have PT OT work with the patient patient will benefit from acute rehab Review of Systems Review of Systems: All systems reviewed & are unremarkable except as noted in HPI and below Exam Narrative: Exam Narrative: Patient is morbidly obese Const: General: co
--- NOTE | 2019-10-27 17:28 | PC.NURSE ---
Dr. Robison notified of persistent high HR for this patient that elevates in the range of 110s to 160s. He was notified of the time of the coreg and lisinopril given. He says that it still needs time to peek. He thinks another 2 hours. He says to contact him if it is still elevated after that time.
[2019-10-27] MEDS: ZOLPIDEM TARTRATE 5 MG TABLET 10 MG PO (21:19)
[2019-10-27] MEDS: TRAZODONE HCL 50 MG TABLET 100 MG PO (21:19)
[2019-10-27] MEDS: ATORVASTATIN 10 MG TABLET PO (21:20)
[2019-10-28] VITALS (11 sets, daily range): BP systolic 106–118; BP diastolic 54–76; PULSE 60–123; RESP 18; TEMP 36.8–36.9; O2SAT 95–99
--- NOTE | 2019-10-28 03:13 | PC.NURSE ---
Daylight Savings Time For Daylight Savings Time Ending in the Fall - Clocks are moved back. For Daylight Savings Time Beginning in the Spring - Clocks are moved ahead. For [facility], the time of change occurs at 0200 hrs. Time is taken from the fast food server. This entry on the patient's chart recognizes the change in time reflected during documentation. Example: 2 entries for vital signs may be charted for 0200 hrs.
[2019-10-28] MEDS: SUCRALFATE 1 GM TABLET PO ×4 (05:44→20:48)
[2019-10-28] MEDS: LEVOTHYROXINE SODIUM 25 MCG TABLET PO (05:44)
[2019-10-28 06:17] LABS: Hematocrit 32.9 % (37.0-47.0); Hemoglobin 10.2 g/dL (12.0-15.0); Mean Corpuscular Hemoglobin 28.5 pg (26-34); Mean Corpuscular Volume 91.9 fl (80-100); Mean Platelet Volume 10.4 fl (7.4-10.4); Platelet Count Result 250 k/mm3 (150-375); Red Blood Count 3.58 M/mm3 (4.2-5.4); Red Cell Distribution Width 17.2 % (11.5-14.5); White Blood Count 8.4 K/mm3 (4.5-10.0)
[2019-10-28 06:36] LABS: Blood Urea Nitrogen 29 mg/dL (7-17); Calcium 8.5 mg/dL (8.4-10.2); Carbon Dioxide > 40 mmol/L (22-30); Chloride 93 mmol/L (98-107); Estimated CRCL calculation 45 ml/min; Estimated Glomerular Filt Rate 32; Glucose 86 mg/dL (65-105); Magnesium 1.7 mg/dL (1.6-2.3); Phosphorus 3.2 mg/dL (2.5-4.5); Potassium 3.4 mmol/L (3.4-5.0); Sodium 134 mmol/L (137-145)
[2019-10-28] MEDS: CELECOXIB 200 MG CAPSULE PO (09:22)
[2019-10-28] MEDS: carvediloL 6.25 MG TABLET PO ×2 (09:23→17:57)
[2019-10-28] MEDS: lisinopriL 2.5 MG TABLET PO (09:23)
[2019-10-28] MEDS: SPIRONOLACTONE 25 MG TABLET 50 MG PO (09:24)
[2019-10-28] MEDS: LORATADINE 10 MG TABLET PO (09:24)
[2019-10-28] MEDS: PANTOPRAZOLE 40 MG TABLET PO (09:25)
[2019-10-28] MEDS: GABAPENTIN 100 MG CAPSULE PO ×3 (09:25→17:58)
[2019-10-28] MEDS: FUROSEMIDE 20 MG TABLET PO (09:25)
[2019-10-28] MEDS: risperiDONE 1 MG TABLET 2 MG PO ×2 (09:25→20:48)
[2019-10-28] MEDS: buPROPion HCL XL (24 HR) 150 MG TABCR PO (09:25)
[2019-10-28] MEDS: MAGNESIUM OXIDE 400 MG TABLET PO (09:25)
[2019-10-28] MEDS: POTASSIUM CHLORIDE 10 MEQ TABLET.ER PO (09:26)
[2019-10-28] MEDS: CEFDINIR 300 MG CAPSULE PO ×2 (09:26→20:48)
[2019-10-28] MEDS: CITALOPRAM HYDROBROMIDE 20 MG TABLET 40 MG PO (09:26)
[2019-10-28] MEDS: HEPARIN SODIUM 5,000 UNITS/ML VIAL 5000 UNITS SUB-Q ×2 (09:26→20:46)
[2019-10-28] MEDS: MELOXICAM 7.5 MG TABLET PO ×2 (09:26→17:58)
[2019-10-28] MEDS: TOLNAFTATE 1% POWDER 45 GM BTL 1 APPLIC TOPICAL ×2 (09:34→20:49)
[2019-10-28] MEDS: SILVERGEL (ELTA) 45 ML 1 APPLIC TOPICAL (09:35)
--- NOTE | 2019-10-28 11:56 | ECG_ITS ---
Measurements Intervals [place] Rate: 82 P: 72 MA: 134 QRS: -72 QRSD: 119 T: 91 QT: 370 QTc: 434 Interpretive Statements ATRIAL SENSE-ELECTRONIC VENTRICULAR PACEMAKER WITH INHIBITION ATRIAL AND VENTRICULAR PREMATURE COMPLEXES RIGHT BUNDLE BRANCH BLOCK BASELINE ARTIFACT- I, II, III NO FURTHER INTERPRETATION IS POSSIBLE ABNORMAL ECG Electronically Signed On 10-28-2019 15:42:37 CDT by Gabe Garcia D.O.
--- NOTE | 2019-10-28 14:23 | PM.IMPN ---
Progress Note: A&P Assessment and Plan (1) Encephalopathy: Code(s): G93.40 - Encephalopathy, unspecified Status: Acute Assessment and Plan: Most likely secondary to metabolic due to UTI (2) Severe sepsis: Code(s): A41.9 - Sepsis, unspecified organism; R65.20 - Severe sepsis without septic shock Status: Acute Assessment and Plan: 10/28/19 14:23 Patient is 64-year-old female presented to [facility] came to emergency department patient was quite confused and was found to have hypotensive, was unable to provide any review of symptom, in the ER central line was placed and Levophed was started and transfer the patient to ICU, patient is found to have a sepsis most likely secondary to UTI urine culture is growing Klebsiella pneumonia sensitive to Rocephin patient is being treated, today patient is more alert and oriented denies any abdominal pain nausea or vomiting fever or chills, patient has PICC line in her lower extremity and unable to participate in PT, patient clinical symptoms as well BP and WBC have improved, will dc PICC swtiche over to oral abx so she participate in PT/OT, continue to monitor patient have PT OT work with the patient patient will benefit from acute rehab, today patient's heart rate fluctuated and to 150s with exertion and motion, is on Coreg 6.25 mg b.i.d. patient has been the stockroom coordinator will consult further recommendation (3) Acute on chronic systolic and diastolic heart failure, NYHA class 4: Code(s): I50.43 - Acute on chronic combined systolic (congestive) and diastolic (congestive) heart failure Status: Acute Assessment and Plan: Patient with history of severe systolic dysfunction with ejection fraction of 20% patient presented to emergency department with sepsis and hypotension patient was vigorously hydrated however patient does not appear any volume overloaded (4) UTI (urinary tract infection): Qualifiers: Urinary tract infection type: site unspecified Hematuria presence: without hematuria Qualified Code(s): N39.0 - Urinary tract infection, site not specified Code(s): N39.0 - Urinary tract infection, site not specified Status: Acute Assessment and Plan: Patient with UTI with Klebsiella pneumonia sensitive to Rocephin, will switch her over to oral antibiotic with cefdinir (5) Acute on chronic renal failure: Qualifiers: Acute renal failure type: unspecified Chronic kidney disease stage: stage 4 (severe) Qualified Code(s): N17.9 - Acute kidney failure, unspecified; N18.4 - Chronic kidney disease, stage 4 (severe) Code(s): N17.9 - Acute kidney failure, unspecified; N18.9 - Chronic kidney disease, unspecified Status: Acute Assessment and Plan: Most likely secondary to hypovolemia ATN due to sepsis and hypotension patient is being hydrated her kidney function is improving (6) Metabolic acidosis with increased anion gap and reduced excretion of inorganic acids: Code(s): E87.2 - Acidosis Status: Acute Subjective Date/time seen: 10/28/19 14:23 Patient is 64-year-old female presented to [facility] came to emergency department patient was quite confused and was found to have hypotensive, was unable to provide any review of symptom, in the ER central line was placed and Levophed was started and transfer the patient to ICU, patient is found to have a sepsis most likely secondary to UTI urine culture is growing Klebsiella pneumonia sensitive to Rocephin patient is being treated, today patient is more alert and oriented denies any abdominal pain nausea or vomiting fever or chills, patient has PICC line in her lower extremity and unable to participate in PT, patient clinical symptoms as well BP and WBC have improved, will dc PICC swtiche over to oral abx so she participate in PT/OT, continue to monitor patient have PT OT work with the patient patient will benefit from acute rehab, today patient's heart ra
--- NOTE | 2019-10-28 15:16 | PCPTNOTE ---
Patient refused treatment this session due to increased fatigue. Patient asleep when LINING CEMENTER entered room. Patient woken up to participate in therapy, however patient refused. Patient states that she is too tired and closed eyes and fell back asleep. RN informed. Therapy will attempt to see patient tomorrow for PT.
--- NOTE | 2019-10-28 15:38 | PM.CNCAR ---
Assessment and Plan Assessment and plan (1) Chronic combined systolic (congestive) and diastolic (congestive) heart failure: Code(s): I50.42 - Chronic combined systolic (congestive) and diastolic (congestive) heart failure Status: Acute Assessment and Plan: reasonably euvolemic despite lower extremity edema. Monitor volume status closely. Remains on spironolactone. Balance renal function and volume status. Carvedilol and lisinopril restarted. (2) Ischemic cardiomyopathy: Code(s): I25.5 - Ischemic cardiomyopathy Status: Acute Assessment and Plan: as above. Severe LV dysfunction EF 20% as reported. History of VT status post ICD shock. Continue telemetry. Interrogate Medtronic ICD tomorrow morning to determine extent of atrial tachyarrhythmia. Continue Coreg. If ongoing tachyarrhythmia change to Toprol XL. (3) Paroxysmal atrial fibrillation: Code(s): I48.0 - Paroxysmal atrial fibrillation Status: Acute Assessment and Plan: Currently maintaining sinus rhythm. Ideally, patient high risk for embolic stroke due to atrial fibrillation, however, candidacy not entirely clear at this time. Will determine burden with ICD interrogation. CHADS2-Vasc score 5. At a minimum ASA advised, however, pt at increased risk for gastric irritation presently. (4) Acute on chronic renal failure: Qualifiers: Acute renal failure type: unspecified Chronic kidney disease stage: stage 4 (severe) Qualified Code(s): N17.9 - Acute kidney failure, unspecified; N18.4 - Chronic kidney disease, stage 4 (severe) Code(s): N17.9 - Acute kidney failure, unspecified; N18.9 - Chronic kidney disease, unspecified Status: Acute Assessment and Plan: improving. Cautious re-initiation of diuretic therapy. (5) NSVT (nonsustained ventricular tachycardia): Code(s): I47.2 - Ventricular tachycardia Status: Acute Assessment and Plan: More pronounced given critical illness, severe LV dysfunction, history of ventricular arrhythmias status post ICD, and lack of beta-kahlil therapy due to septic shock after presentation. Arrhythmia under better control with resumption of AV andree blocking agents. History of Present Illness History of Present Illness Consult date/time: Date of service: 10/28/19 15:38 This is a cardiology consultation at the request of Dr. Murcia for our opinion regarding intermittent tachycardia and atrial fibrillation on telemetry. Requesting physician: Nicole Murcia MD Consult reason: atrial fibrillation Reason For Visit: Hypotension Narrative: patient is a 64-year-old female with a significant past medical history significant for coronary disease, ischemic cardiomyopathy, severe LV systolic dysfunction EF 20% status post ICD, paroxysmal atrial fibrillation, chronic kidney disease, hypertension, morbid obesity, history depression history of small-bowel obstruction, recurrent UTI who was originally admitted October 23, 2019 with lower extremity edema and altered mental status. PT was transfer to [facility] August 2019 for management of small-bowel obstruction, vocal cord paralysis, septic shock related to SBO. Echo at that time revealed EF 20%. Due to runs of ventricular tachycardia that time she had been on amiodarone Patient was noted to be hypotensive systolic blood pressure in the 60-70 mm Hg range, acidotic with acute renal failure with creatinine of 4.9 requiring admission to the ICU with treatment including antibiotics UTI/sepsis, yazmin hugger for hypothermia, and septic shock requiring Levophed and vasopressin. Upon further review of electronic medical records she has a history of paroxysmal atrial fibrillation as well as coagulopathy during her last hospitalization at [facility]. She also has a history of ventricular tachycardia status post ICD discharge September 09, 2019 per outside medical records. Patient is mouthing answers to questions but was able
--- NOTE | 2019-10-28 15:49 | PCOTNOTE ---
The patient treatment was not able to be completed on 10/28/2019. Will plan to continue treatment per plan of care.
[2019-10-28] MEDS: ZOLPIDEM TARTRATE 5 MG TABLET 10 MG PO (20:48)
[2019-10-28] MEDS: TRAZODONE HCL 50 MG TABLET 100 MG PO (20:48)
[2019-10-28] MEDS: ATORVASTATIN 10 MG TABLET PO (20:48)
[2019-10-29] VITALS (15 sets, daily range): BP systolic 100–110; BP diastolic 44–63; PULSE 74–114; RESP 16–20; TEMP 36.2–36.9; O2SAT 91–99
[2019-10-29] MEDS: SUCRALFATE 1 GM TABLET PO ×4 (05:58→20:05)
[2019-10-29] MEDS: LEVOTHYROXINE SODIUM 25 MCG TABLET PO (05:58)
[2019-10-29 06:43] LABS: Hematocrit 33.9 % (37.0-47.0); Hemoglobin 10.8 g/dL (12.0-15.0); Mean Corpuscular HGB Conc 31.9 g/dl (32-36); Mean Corpuscular Hemoglobin 28.7 pg (26-34); Mean Corpuscular Volume 90.2 fl (80-100); Mean Platelet Volume 9.8 fl (7.4-10.4); Platelet Count Result 238 k/mm3 (150-375); Red Blood Count 3.76 M/mm3 (4.2-5.4); Red Cell Distribution Width 17.2 % (11.5-14.5); White Blood Count 15.3 K/mm3 (4.5-10.0)
[2019-10-29 06:51] LABS: Blood Urea Nitrogen 32 mg/dL (7-17); Calcium 8.4 mg/dL (8.4-10.2); Carbon Dioxide 34 mmol/L (22-30); Chloride 97 mmol/L (98-107); Estimated CRCL calculation 42 ml/min; Estimated Glomerular Filt Rate 30; Glucose 82 mg/dL (65-105); Magnesium 1.6 mg/dL (1.6-2.3); Phosphorus 3.3 mg/dL (2.5-4.5); Potassium 3.9 mmol/L (3.4-5.0); Sodium 134 mmol/L (137-145)
[2019-10-29] MEDS: LORATADINE 10 MG TABLET PO (09:35)
[2019-10-29] MEDS: POTASSIUM CHLORIDE 10 MEQ TABLET.ER PO (09:35)
[2019-10-29] MEDS: CITALOPRAM HYDROBROMIDE 20 MG TABLET 40 MG PO (09:35)
[2019-10-29] MEDS: SPIRONOLACTONE 25 MG TABLET 50 MG PO (09:35)
[2019-10-29] MEDS: PANTOPRAZOLE 40 MG TABLET PO (09:35)
[2019-10-29] MEDS: CEFDINIR 300 MG CAPSULE PO (09:35)
[2019-10-29] MEDS: carvediloL 6.25 MG TABLET PO (09:36)
[2019-10-29] MEDS: FUROSEMIDE 20 MG TABLET PO (09:36)
[2019-10-29] MEDS: CELECOXIB 200 MG CAPSULE PO (09:36)
[2019-10-29] MEDS: buPROPion HCL XL (24 HR) 150 MG TABCR PO (09:36)
[2019-10-29] MEDS: MAGNESIUM OXIDE 400 MG TABLET PO (09:37)
[2019-10-29] MEDS: SILVERGEL (ELTA) 45 ML 1 APPLIC TOPICAL (09:37)
[2019-10-29] MEDS: lisinopriL 2.5 MG TABLET PO (09:37)
[2019-10-29] MEDS: GABAPENTIN 100 MG CAPSULE PO ×3 (09:37→17:21)
[2019-10-29] MEDS: risperiDONE 1 MG TABLET 2 MG PO ×2 (09:37→20:05)
[2019-10-29] MEDS: MELOXICAM 7.5 MG TABLET PO ×2 (09:37→17:21)
[2019-10-29] MEDS: TOLNAFTATE 1% POWDER 45 GM BTL 1 APPLIC TOPICAL ×2 (09:37→20:04)
[2019-10-29] MEDS: HEPARIN SODIUM 5,000 UNITS/ML VIAL 5000 UNITS SUB-Q ×2 (09:38→20:05)
--- NOTE | 2019-10-29 11:01 | PM.PNCARD ---
Progress Note: A&P Assessment and Plan (1) Chronic combined systolic (congestive) and diastolic (congestive) heart failure: Code(s): I50.42 - Chronic combined systolic (congestive) and diastolic (congestive) heart failure Status: Acute Assessment and Plan: Medications have been restarted. Continue lisinopril 2.5 mg daily, carvedilol 6.25 mg b.i.d., spironolactone 50 mg daily. Furosemide has been resumed at 20 mg daily as well as potassium 10 mEq daily. Monitor renal function and electrolytes closely. (2) Ischemic cardiomyopathy: Code(s): I25.5 - Ischemic cardiomyopathy Status: Acute Assessment and Plan: Severe LV dysfunction. EF 20%. History of VT status post ICD shock. Had an 11 beat run of nonsustained VT this morning. ICD interrogation reveals a normally functioning Medtronic Viva XT HOME HEALTH REGISTERED NURSE-D [id number]. No sustained atrial fibrillation. Intermittent atrial fibrillation noted on interrogation. 17 nonsustained ventricular tachycardia events since September 10, 2019 (> 4 beats, > 188 beats per minute). No ICD shocks (3) Paroxysmal atrial fibrillation: Code(s): I48.0 - Paroxysmal atrial fibrillation Status: Acute Assessment and Plan: HOME HEALTH REGISTERED NURSE-D interrogation: No sustained atrial fibrillation. Tachycardia is sinus tach with appropriate biventricular pacing. Anxiety, shortness of breath could certainly be driving sinus tachycardia. Oxygen 2 L.. Stat chest x-ray. Stat nebulizer treatment with Xopenex. Furosemide 40 mg IV push now. Will not adjust any medications at this time. (4) Acute on chronic renal failure: Qualifiers: Acute renal failure type: unspecified Chronic kidney disease stage: stage 4 (severe) Qualified Code(s): N17.9 - Acute kidney failure, unspecified; N18.4 - Chronic kidney disease, stage 4 (severe) Code(s): N17.9 - Acute kidney failure, unspecified; N18.9 - Chronic kidney disease, unspecified Status: Acute Assessment and Plan: Monitor closely with diuretics. Creatinine 1.7 this morning. (5) NSVT (nonsustained ventricular tachycardia): Code(s): I47.2 - Ventricular tachycardia Status: Acute Assessment and Plan: Episode of nonsustained ventricular tachycardia as above. Asymptomatic. Potassium within normal limits. Magnesium 1.6. Will give 2 g IV piggyback today. Check potassium and magnesium in the morning. Subjective Date/time seen: 10/29/19 11:01 Interval history: Follow-up for: Chronic systolic and diastolic heart failure, ischemic cardiomyopathy, paroxysmal atrial fibrillation, sustained ventricular tachycardia, chronic kidney disease stage 4 Date of service: 10/29/2019 Subjective: Does not feel well today. Short of breath, feeling hot, coughing. Feels that her heart is racing. Denied chest discomfort. Review of Systems Constitutional: Constitutional: Denies excessive sweating, Reports fatigue, Denies headache(s) and Reports weakness Eyes: Eyes: Denies blurry vision ENT: Denies headache(s) and Denies neck pain Cardiovascular: Cardiovascular: Denies chest pain, Denies diaphoresis, Reports pedal edema, Reports leg edema, Denies lightheadedness, Reports palpitations, Reports dyspnea and Denies dyspnea on exertion Respiratory: Respiratory: Reports dyspnea and Denies dyspnea on exertion Gastrointestinal: Gastrointestinal: Denies nausea and Denies vomiting Genitourinary: Genitourinary: Denies hematuria, Denies dysuria and Denies flank pain Musculoskeletal: Musculoskeletal: Denies back pain, Denies neck pain and Denies numbness Integumentary/Breasts: Skin/Breast: Denies rash Neurologic: Denies behavioral changes, Denies headache(s), Denies numbness and Reports weakness Psychiatric: Psychiatric: Reports anxiety Endocrine: Endocrine: Denies excessive sweating, Reports fatigue and Rep
[2019-10-29] MEDS: FUROSEMIDE INJ 40 MG/4 ML VIAL IV PUSH (12:15)
[2019-10-29] MEDS: MAGNESIUM SULF 2 GM/WATER 50ML 2 GM/50 ML BAG IVPB (12:18)
[2019-10-29] MEDS: LEVALBUTEROL NEB 1.25 MG/3 ML 0.63 MG INHALATION ×2 (14:24→21:55)
[2019-10-29] MEDS: IPRATROPIUM BR 0.02% INH SOLN 0.5 MG/2.5 ML VIAL INHALATION ×2 (14:24→21:53)
[2019-10-29] MEDS: BUDESONIDE RESPULE NEB 0.5 MG/2 ML AMP INHALATION ×2 (14:24→21:53)
--- NOTE | 2019-10-29 15:54 | PM.IMPN ---
Progress Note: A&P Assessment and Plan (1) Encephalopathy: Code(s): G93.40 - Encephalopathy, unspecified Status: Acute Assessment and Plan: Most likely secondary to metabolic due to UTI (2) Severe sepsis: Code(s): A41.9 - Sepsis, unspecified organism; R65.20 - Severe sepsis without septic shock Status: Acute Assessment and Plan: 10/29/19 15:54 Patient is 64-year-old female presented to care home came to emergency department patient was quite confused and was found to have hypotensive, was unable to provide any review of symptom, in the ER central line was placed and Levophed was started and transfer the patient to ICU, patient is found to have a sepsis most likely secondary to UTI urine culture is growing Klebsiella pneumonia sensitive to Rocephin patient is being treated, today patient is more alert and oriented denies any abdominal pain nausea or vomiting fever or chills, patient has PICC line in her lower extremity and unable to participate in PT, patient clinical symptoms as well BP and WBC have improved, will dc PICC swtiche over to oral abx so she participate in PT/OT, continue to monitor patient have PT OT work with the patient patient will benefit from acute rehab, today patient's heart rate fluctuated and to 150s with exertion and motion, is on Coreg 6.25 mg b.i.d. tp c/o shortness of breath and wheezing does not feel well, Had an 11 beat run of nonsustained VT this morning. and ICD interrogation reveals a normally functioning Medtronic Viva XT LIFESTYLE COORDINATOR-D [id number]. No medication changes recommended will get the patient Xopenex Atrovent and Pulmicort neb every 6 hours as needed, patient white count is elevated too, patient is high risk of UTI will start the patient on and ceftriaxone and follow up on urine culture. (3) Acute on chronic systolic and diastolic heart failure, NYHA class 4: Code(s): I50.43 - Acute on chronic combined systolic (congestive) and diastolic (congestive) heart failure Status: Acute Assessment and Plan: Patient with history of severe systolic dysfunction with ejection fraction of 20% patient presented to emergency department with sepsis and hypotension patient was vigorously hydrated, it seems patient is now volume overload and being diuresed seen by sports lawyer (4) UTI (urinary tract infection): Qualifiers: Urinary tract infection type: site unspecified Hematuria presence: without hematuria Qualified Code(s): N39.0 - Urinary tract infection, site not specified Code(s): N39.0 - Urinary tract infection, site not specified Status: Acute Assessment and Plan: Patient with UTI with Klebsiella pneumonia sensitive to Rocephin, patient was switched to cefdinir patient white counts are trending up will do the urine culture again and start the patient on Rocephin (5) Acute on chronic renal failure: Qualifiers: Acute renal failure type: unspecified Chronic kidney disease stage: stage 4 (severe) Qualified Code(s): N17.9 - Acute kidney failure, unspecified; N18.4 - Chronic kidney disease, stage 4 (severe) Code(s): N17.9 - Acute kidney failure, unspecified; N18.9 - Chronic kidney disease, unspecified Status: Acute Assessment and Plan: Most likely secondary to hypovolemia ATN due to sepsis and hypotension patient is being hydrated her kidney function is improving (6) Metabolic acidosis with increased anion gap and reduced excretion of inorganic acids: Code(s): E87.2 - Acidosis Status: Acute Subjective Date/time seen: 10/29/19 15:54 Patient is 64-year-old female presented to care home came to emergency department patient was quite confused and was found to have hypotensive, was unable to provide any review of symptom, in the ER central line was placed and Levophed was started and transfer the patient to ICU, patient is found to have a sepsis most likely secondary to UTI urine culture is growing Klebsi
[2019-10-29] MEDS: LORAZEPAM 1 MG TABLET PO (20:04)
[2019-10-29] MEDS: ATORVASTATIN 10 MG TABLET PO (20:05)
[2019-10-29] MEDS: ZOLPIDEM TARTRATE 5 MG TABLET 10 MG PO (20:05)
[2019-10-29] MEDS: TRAZODONE HCL 50 MG TABLET 100 MG PO (20:05)
[2019-10-30] VITALS (14 sets, daily range): BP systolic 92–118; BP diastolic 45–59; PULSE 82–123; RESP 16–22; TEMP 36.3–36.6; O2SAT 90–98
[2019-10-30 06:16] LABS: Blood Urea Nitrogen 29 mg/dL (7-17); Calcium 8.2 mg/dL (8.4-10.2); Carbon Dioxide 36 mmol/L (22-30); Chloride 94 mmol/L (98-107); Estimated CRCL calculation 45 ml/min; Estimated Glomerular Filt Rate 32; Glucose 99 mg/dL (65-105); Magnesium 1.7 mg/dL (1.6-2.3); Potassium 3.7 mmol/L (3.4-5.0); Sodium 132 mmol/L (137-145)
[2019-10-30] MEDS: SUCRALFATE 1 GM TABLET PO ×4 (06:52→20:05)
[2019-10-30] MEDS: LEVOTHYROXINE SODIUM 25 MCG TABLET PO (06:52)
[2019-10-30 08:36] LABS: Hematocrit 29.1 % (37.0-47.0); Hemoglobin 8.9 g/dL (12.0-15.0); Mean Corpuscular HGB Conc 30.6 g/dl (32-36); Mean Corpuscular Hemoglobin 28.4 pg (26-34); Mean Platelet Volume 10.7 fl (7.4-10.4); Platelet Count Result 226 k/mm3 (150-375); Red Blood Count 3.13 M/mm3 (4.2-5.4); Red Cell Distribution Width 17.7 % (11.5-14.5); White Blood Count 13.7 K/mm3 (4.5-10.0)
[2019-10-30] MEDS: risperiDONE 1 MG TABLET 2 MG PO ×2 (09:29→20:05)
[2019-10-30] MEDS: HEPARIN SODIUM 5,000 UNITS/ML VIAL 5000 UNITS SUB-Q ×2 (09:29→20:04)
[2019-10-30] MEDS: MAGNESIUM OXIDE 400 MG TABLET PO (09:30)
[2019-10-30] MEDS: CITALOPRAM HYDROBROMIDE 20 MG TABLET 40 MG PO (09:30)
[2019-10-30] MEDS: MELOXICAM 7.5 MG TABLET PO (09:30)
[2019-10-30] MEDS: GABAPENTIN 100 MG CAPSULE PO ×3 (09:30→17:18)
[2019-10-30] MEDS: TOLNAFTATE 1% POWDER 45 GM BTL 1 APPLIC TOPICAL ×2 (09:30→20:06)
[2019-10-30] MEDS: PANTOPRAZOLE 40 MG TABLET PO (09:30)
[2019-10-30] MEDS: LORATADINE 10 MG TABLET PO (09:30)
[2019-10-30] MEDS: POTASSIUM CHLORIDE 10 MEQ TABLET.ER PO (09:30)
[2019-10-30] MEDS: CELECOXIB 200 MG CAPSULE PO (09:30)
[2019-10-30] MEDS: SILVERGEL (ELTA) 45 ML 1 APPLIC TOPICAL (09:30)
[2019-10-30] MEDS: buPROPion HCL XL (24 HR) 150 MG TABCR PO (09:30)
[2019-10-30] MEDS: IPRATROPIUM BR 0.02% INH SOLN 0.5 MG/2.5 ML VIAL INHALATION ×2 (10:04→21:18)
[2019-10-30] MEDS: LEVALBUTEROL NEB 1.25 MG/3 ML 0.63 MG INHALATION ×2 (10:04→21:18)
[2019-10-30] MEDS: BUDESONIDE RESPULE NEB 0.5 MG/2 ML AMP INHALATION ×2 (10:04→21:18)
--- NOTE | 2019-10-30 10:16 | PM.PNCARD ---
Progress Note: A&P Assessment and Plan (1) Chronic combined systolic (congestive) and diastolic (congestive) heart failure: Code(s): I50.42 - Chronic combined systolic (congestive) and diastolic (congestive) heart failure Status: Acute Assessment and Plan: Medications have been restarted. Continue lisinopril 2.5 mg daily, carvedilol 6.25 mg b.i.d., spironolactone 50 mg daily. Furosemide has been resumed at 20 mg daily as well as potassium 10 mEq daily. Monitor renal function and electrolytes closely. (2) Ischemic cardiomyopathy: Code(s): I25.5 - Ischemic cardiomyopathy Status: Acute Assessment and Plan: Severe LV dysfunction. EF 20%. History of VT status post ICD shock. No nonsustained VT on telemetry for the last 24 hours Blood pressure this morning 92/48. Will hold furosemide, spironolactone, carvedilol and lisinopril. Will restart as able. Supplement potassium (potassium 3.7). Supplement magnesium with 3 gm IV piggyback (magnesium 1.7). (3) Paroxysmal atrial fibrillation: Code(s): I48.0 - Paroxysmal atrial fibrillation Status: Acute Assessment and Plan: RUBBER GASKET INSPECTOR TRIMMER-D interrogation 10/29/2019 did not reveal any sustained episodes of atrial fibrillation. (4) Acute on chronic renal failure: Qualifiers: Acute renal failure type: unspecified Chronic kidney disease stage: stage 4 (severe) Qualified Code(s): N17.9 - Acute kidney failure, unspecified; N18.4 - Chronic kidney disease, stage 4 (severe) Code(s): N17.9 - Acute kidney failure, unspecified; N18.9 - Chronic kidney disease, unspecified Status: Acute Assessment and Plan: Stable. Creatinine 1.6 this morning. Continue to monitor. (5) NSVT (nonsustained ventricular tachycardia): Code(s): I47.2 - Ventricular tachycardia Status: Acute Assessment and Plan: Potassium and magnesium supplementation as above. Additional Plan Respiratory treatments continue q.6 hours. PT/OT. Plan discussed with Dr Hammond 1045 10/30/2019 Time Spent With Patient Time with patient: less than 15 minutes Subjective Date/time seen: 10/30/19 10:00 Interval history: Follow-up for: Chronic systolic and diastolic heart failure, ischemic cardiomyopathy, paroxysmal atrial fibrillation, sustained ventricular tachycardia, chronic kidney disease stage 4 Date of service: 10/30/2019 Subjective: Just woke up so she is not sure how she feels today. Cough with some chest tightness and wheezing. Chronic back pain. No lightheadedness or palpitations. Review of Systems Constitutional: Constitutional: Denies excessive sweating, Reports fatigue, Denies headache(s) and Reports weakness Eyes: Eyes: Denies blurry vision ENT: Denies headache(s) and Denies neck pain Cardiovascular: Cardiovascular: Denies chest pain, Denies diaphoresis, Reports pedal edema, Reports leg edema, Denies lightheadedness, Reports palpitations, Reports dyspnea and Denies dyspnea on exertion Respiratory: Respiratory: Reports dyspnea and Denies dyspnea on exertion Gastrointestinal: Gastrointestinal: Denies nausea and Denies vomiting Genitourinary: Genitourinary: Denies hematuria, Denies dysuria and Denies flank pain Musculoskeletal: Musculoskeletal: Denies back pain, Denies neck pain and Denies numbness Integumentary/Breasts: Skin/Breast: Denies rash Neurologic: Denies headache(s), Denies numbness and Reports weakness Psychiatric: Psychiatric: Reports anxiety Endocrine: Endocrine: Denies excessive sweating, Reports fatigue and Reports palpitations Hematologic/Lymphatic: Hematologic/Lymphatic: Denies easy bleeding and Denies easy bruising Allergic/Immunologic: Allergic/Immunologic: Denies GI upset with certain foods Exam Narrative: Exam Narrative: General: Morbidly obese female whis
[2019-10-30] MEDS: POTASSIUM CHLORIDE 20 MEQ TABLET 40 MEQ PO (10:30)
[2019-10-30] MEDS: MAGNESIUM SULF 2 GM/WATER 50ML 2 GM/50 ML BAG IVPB (10:31)
[2019-10-30] MEDS: MAGNESIUM SULF 1 GM/D5W 100 ML 1 GM/100 ML BAG IVPB (11:23)
--- NOTE | 2019-10-30 14:39 | PCRCNOTE ---
patient refusing to take treatment
--- NOTE | 2019-10-30 15:41 | PCPTNOTE ---
The PT treatment was unable to be completed today. Will continue per Plan of Care frequency and duration.
--- NOTE | 2019-10-30 16:52 | PM.IMPN ---
Progress Note: A&P Assessment and Plan (1) Encephalopathy: Code(s): G93.40 - Encephalopathy, unspecified Status: Acute Assessment and Plan: Most likely secondary to metabolic due to UTI (2) Severe sepsis: Code(s): A41.9 - Sepsis, unspecified organism; R65.20 - Severe sepsis without septic shock Status: Acute Assessment and Plan: 10/30/19 16:52 Patient is 64-year-old female presented to [facility] came to emergency department patient was quite confused and was found to have hypotensive, was unable to provide any review of symptom, in the ER central line was placed and Levophed was started and transfer the patient to ICU, patient is found to have a sepsis most likely secondary to UTI urine culture is growing Klebsiella pneumonia sensitive to Rocephin patient is being treated, today patient is more alert and oriented denies any abdominal pain nausea or vomiting fever or chills, patient has PICC line in her lower extremity and unable to participate in PT, patient clinical symptoms as well BP and WBC have improved, will dc PICC swtiche over to oral abx so she participate in PT/OT, continue to monitor patient have PT OT work with the patient patient will benefit from acute rehab, today patient's heart rate fluctuated and to 150s with exertion and motion, is on Coreg 6.25 mg b.i.d. tp c/o shortness of breath and wheezing does not feel well, Had an 11 beat run of nonsustained VT this morning. and ICD interrogation reveals a normally functioning Medtronic Viva XT TASSEL MAKING MACHINE OPERATOR-D [id number]. No medication changes recommended will get the patient Xopenex Atrovent and Pulmicort neb every 6 hours as needed, patient white count is elevated too, patient is high risk of UTI will start the patient on and ceftriaxone and follow up on urine culture. on 10/29 repeat culture a pending, patient is will pressure is soft heart rates are low patient Coreg lisinopril were on hold this morning patient was seen by heat treat furnace operator and resume her medication patient clinically stable (3) Acute on chronic systolic and diastolic heart failure, NYHA class 4: Code(s): I50.43 - Acute on chronic combined systolic (congestive) and diastolic (congestive) heart failure Status: Acute Assessment and Plan: Patient with history of severe systolic dysfunction with ejection fraction of 20% patient presented to emergency department with sepsis and hypotension patient was vigorously hydrated, it seems patient is now volume overload and being diuresed seen by heat treat furnace operator (4) UTI (urinary tract infection): Qualifiers: Urinary tract infection type: site unspecified Hematuria presence: without hematuria Qualified Code(s): N39.0 - Urinary tract infection, site not specified Code(s): N39.0 - Urinary tract infection, site not specified Status: Acute Assessment and Plan: Patient with UTI with Klebsiella pneumonia sensitive to Rocephin, patient was switched to cefdinir patient white counts are trending up will do the urine culture again and start the patient on Rocephin (5) Acute on chronic renal failure: Qualifiers: Acute renal failure type: unspecified Chronic kidney disease stage: stage 4 (severe) Qualified Code(s): N17.9 - Acute kidney failure, unspecified; N18.4 - Chronic kidney disease, stage 4 (severe) Code(s): N17.9 - Acute kidney failure, unspecified; N18.9 - Chronic kidney disease, unspecified Status: Acute Assessment and Plan: Most likely secondary to hypovolemia ATN due to sepsis and hypotension patient is being hydrated her kidney function is improving (6) Metabolic acidosis with increased anion gap and reduced excretion of inorganic acids: Code(s): E87.2 - Acidosis Status: Acute Subjective Date/time seen: 10/30/19 16:52 Patient is 64-year-old female presented [facility] came to emergency department patient was quite confused and was found to have hypotensive, was unabl
[2019-10-30] MEDS: carvediloL 6.25 MG TABLET PO (17:18)
[2019-10-30] MEDS: TRAZODONE HCL 50 MG TABLET 100 MG PO (20:05)
[2019-10-30] MEDS: ATORVASTATIN 10 MG TABLET PO (20:05)
[2019-10-30] MEDS: ACETAMINOPHEN 325 MG TABLET 650 MG PO (22:25)
[2019-10-31] VITALS (18 sets, daily range): BP systolic 109; BP diastolic 60–63; PULSE 69–118; RESP 16–18; TEMP 36.6–36.8; O2SAT 93–95
[2019-10-31] MEDS: LIDOCAINE 5% PATCH 1 PATCH TRANSDERM (00:27)
--- NOTE | 2019-10-31 04:05 | PCRCNOTE ---
patient refused 0200 neb tx; pt did not want to be awakened for tx
[2019-10-31] MEDS: ACETAMINOPHEN 325 MG TABLET 650 MG PO ×2 (05:41→20:34)
[2019-10-31] MEDS: SUCRALFATE 1 GM TABLET PO ×4 (05:42→20:36)
[2019-10-31] MEDS: LEVOTHYROXINE SODIUM 25 MCG TABLET PO (05:42)
[2019-10-31 05:53] LABS: Hematocrit 28.2 % (37.0-47.0); Hemoglobin 8.8 g/dL (12.0-15.0); Mean Corpuscular HGB Conc 31.2 g/dl (32-36); Mean Corpuscular Hemoglobin 28.3 pg (26-34); Mean Corpuscular Volume 90.7 fl (80-100); Mean Platelet Volume 10.2 fl (7.4-10.4); Platelet Count Result 233 k/mm3 (150-375); Red Blood Count 3.11 M/mm3 (4.2-5.4); Red Cell Distribution Width 17.6 % (11.5-14.5); White Blood Count 13.7 K/mm3 (4.5-10.0)
[2019-10-31 06:28] LABS: Blood Urea Nitrogen 24 mg/dL (7-17); Calcium 8.1 mg/dL (8.4-10.2); Carbon Dioxide 35 mmol/L (22-30); Chloride 97 mmol/L (98-107); Estimated CRCL calculation 52 ml/min; Estimated Glomerular Filt Rate 38; Glucose 117 mg/dL (65-105); Potassium 3.5 mmol/L (3.4-5.0); Sodium 136 mmol/L (137-145)
[2019-10-31] MEDS: lisinopriL 2.5 MG TABLET PO (09:06)
[2019-10-31] MEDS: carvediloL 6.25 MG TABLET PO ×2 (09:06→16:48)
[2019-10-31] MEDS: SPIRONOLACTONE 25 MG TABLET 50 MG PO (09:07)
[2019-10-31] MEDS: PANTOPRAZOLE 40 MG TABLET PO (09:08)
[2019-10-31] MEDS: GABAPENTIN 100 MG CAPSULE PO ×3 (09:08→16:49)
[2019-10-31] MEDS: FUROSEMIDE 20 MG TABLET PO (09:08)
[2019-10-31] MEDS: LORATADINE 10 MG TABLET PO (09:08)
[2019-10-31] MEDS: MAGNESIUM OXIDE 400 MG TABLET PO (09:08)
[2019-10-31] MEDS: risperiDONE 1 MG TABLET 2 MG PO ×2 (09:09→20:36)
[2019-10-31] MEDS: buPROPion HCL XL (24 HR) 150 MG TABCR PO (09:09)
[2019-10-31] MEDS: CITALOPRAM HYDROBROMIDE 20 MG TABLET 40 MG PO (09:09)
[2019-10-31] MEDS: CELECOXIB 200 MG CAPSULE PO (09:09)
[2019-10-31] MEDS: POTASSIUM CHLORIDE 10 MEQ TABLET.ER PO (09:10)
[2019-10-31] MEDS: HEPARIN SODIUM 5,000 UNITS/ML VIAL 5000 UNITS SUB-Q ×2 (09:10→20:36)
[2019-10-31] MEDS: SILVERGEL (ELTA) 45 ML 1 APPLIC TOPICAL (09:11)
[2019-10-31] MEDS: TOLNAFTATE 1% POWDER 45 GM BTL 1 APPLIC TOPICAL ×2 (09:11→20:35)
[2019-10-31] MEDS: LEVALBUTEROL NEB 1.25 MG/3 ML 0.63 MG INHALATION ×3 (09:36→21:09)
[2019-10-31] MEDS: BUDESONIDE RESPULE NEB 0.5 MG/2 ML AMP INHALATION ×2 (09:36→21:10)
[2019-10-31] MEDS: IPRATROPIUM BR 0.02% INH SOLN 0.5 MG/2.5 ML VIAL INHALATION ×3 (09:36→21:10)
--- NOTE | 2019-10-31 10:16 | PM.IMPN ---
Progress Note: A&P Assessment and Plan (1) Encephalopathy: Code(s): G93.40 - Encephalopathy, unspecified Status: Resolved (2) Severe sepsis: Code(s): A41.9 - Sepsis, unspecified organism; R65.20 - Severe sepsis without septic shock Status: Resolved (3) Chronic abdominal wound infection: Qualifiers: Encounter type: subsequent encounter Qualified Code(s): S31.109D - Unspecified open wound of abdominal wall, unspecified quadrant without penetration into peritoneal cavity, subsequent encounter; L08.9 - Local infection of the skin and subcutaneous tissue, unspecified Code(s): S31.109A - Unspecified open wound of abdominal wall, unspecified quadrant without penetration into peritoneal cavity, initial encounter; L08.9 - Local infection of the skin and subcutaneous tissue, unspecified Status: Chronic Assessment and Plan: Chronic wound (4) Acute on chronic systolic and diastolic heart failure, NYHA class 4: Code(s): I50.43 - Acute on chronic combined systolic (congestive) and diastolic (congestive) heart failure Status: Acute Assessment and Plan: Today is swollen up to groin and is sob and wheezy in her lungs. Pt is on Xopenex Atrovent and Pulmicort neb every 6 hours as needed, Wcc still high. CXr shows enlarged heart. from 10/28 no infiltrates. will encourage PT/ OT and add iv lasix. Hopeful discharge tomorrow to [facility] (5) UTI (urinary tract infection): Qualifiers: Urinary tract infection type: site unspecified Hematuria presence: without hematuria Qualified Code(s): N39.0 - Urinary tract infection, site not specified Code(s): N39.0 - Urinary tract infection, site not specified Status: Resolved (6) NSVT (nonsustained ventricular tachycardia): Code(s): I47.2 - Ventricular tachycardia Status: Resolved Assessment and Plan: ICD checked over. Pt sen by cardiology, no chamges made with medications. (7) DVT prophylaxis: Code(s): Z29.9 - Encounter for prophylactic measures, unspecified Status: Acute Assessment and Plan: On heparin Subjective Date/time seen: 10/31/19 10:16 Interval history: Patient is 64-year-old female [facility] came to emergency department patient was quite confused and was found to have hypotensive, was unable to provide any review of symptom, in the ER central line was placed and Levophed was started and transfer the patient to ICU, patient is found to have a sepsis most likely secondary to UTI urine culture is growing Klebsiella pneumonia sensitive to Rocephin patient is being treated, today patient is more alert and oriented denies any abdominal pain nausea or vomiting fever or chills, patient has PICC line in her lower extremity and unable to participate in PT, patient clinical symptoms as well BP and WBC have improved, will dc PICC switched over to oral abx so she participate in PT/OT, continue to monitor patient have PT OT work with the patient patient will benefit from acute rehab. Pt had some fluctation in HR. pt is on Medtronic Viva XT SUPERVISOR COLOR PASTE MIXING-D [id number]. pt seen by cardiology. ICD interrogation reveals a normally functioning . No medication changes recommended will get the patient. As per previous notes. Today is swollen up to groin and is sob and wheezy in her lungs. Pt is on Xopenex Atrovent and Pulmicort neb every 6 hours as needed, Wcc still high. CXr shows enlarged heart. from 10/28 no infiltrates. Pt has barker cathter in situ complains of back pain, morbidly obese. Pt has chronic abdominal wound which is healing slowly, looks fine. Review of Systems Review of Systems: All systems reviewed & are unremarkable except as noted in HPI and below Musculoskeletal: Musculoskeletal: Reports back pain Exam Narrative: Exam Narrative: Morbidly obese Const: General: comfortable and no acute distress Nutritional Appearance: obese morbidly obese Resp: Effort & Inspecti
--- NOTE | 2019-10-31 10:33 | PCPTNOTE ---
Patient refused treatment this session due to low back pain and not being able to sleep last night. Patient reports she was not able to sleep at all last night and is having pain in her lower back. Attempted to educate patient on the importance of therapy, however patient refused education and wanted therapy to leave her room. Notified RN of patient's pain.
[2019-10-31] MEDS: CYCLOBENZAPRINE HCL 10 MG TABLET PO (10:48)
[2019-10-31] MEDS: FUROSEMIDE INJ 40 MG/4 ML VIAL 20 MG IV PUSH (11:29)
--- NOTE | 2019-10-31 11:41 | PM.PNCARD ---
Progress Note: A&P Additional Plan 64-year-old lady with advanced ischemic cardiomyopathy with low ejection fraction. She is back on her baseline medical regimen and appears to be hemodynamically stable. No adjustments in medications to be made today. The notes in the chart do not indicate this patient has longstanding outpatient cake inspector who is this following this lady. That is unclear to me as I read the chart Hung Krause MD [facility] Subjective Date/time seen: Date of service:10/31/19 11:41 Interval history: Follow-up visit for 64-year-old lady with severe ischemic cardiomyopathy. Originally seeing the patient because of hypotension. Patient is currently back on her baseline medical regimen and no longer is hypotensive. No cardiovascular complaints today. Has a variety of complaints including back pain and having a poor night's sleep last night Exam Const: General: uncomfortable HENMT: Mouth: Yes dry mucous membranes Eyes: General: appearance normal, both eyes and all related structures Neck: Neck: supple and no JVD Thyroid: thyroid normal Resp: Effort & Inspection: normal respiratory effort Auscultation: clear to auscultation bilaterally Cardio: Rhythm: abnormal rhythm irregularly irregular GI: Auscultation: normal bowel sounds Skin: General skin exam: normal color Neuro: Cognition (Neuro): normal cognition Extrem: Other: lower extremities well perfused, still has moderate chronic appearing edema Objective Data Vital Signs Vital Signs: Vital Signs - 24 hr 10/30/19 12:00 10/30/19 16:00 10/30/19 17:16 Temperature 36.6 C Pulse Rate 113 H 86 Respiratory Rate 22 H Blood Pressure 103/56 L 116/59 L Pulse Oximetry 98 10/30/19 17:18 10/30/19 19:45 10/30/19 20:00 Temperature 36.4 C Pulse Rate 97 90 94 Respiratory Rate 16 Blood Pressure 118/45 L Pulse Oximetry 95 10/30/19 21:20 10/30/19 21:46 10/31/19 00:00 Temperature Pulse Rate 85 82 87 Respiratory Rate 20 20 Blood Pressure Pulse Oximetry 90 10/31/19 04:00 10/31/19 09:06 10/31/19 09:19 Temperature 36.8 C Pulse Rate 98 102 H 118 H Respiratory Rate 16 Blood Pressure 109/63 Pulse Oximetry 95 10/31/19 09:37 Temperature Pulse Rate 69 Respiratory Rate 16 Blood Pressure Pulse Oximetry Intake/Output Intake/Output: Intake & Output 10/28/19 10/29/19 10/30/19 10/31/19 23:59 23:59 23:59 23:59 Intake Total 1210 1250 240 Output Total 750 2350 1000 Balance 460 1100 -760 Meds/Results Medications: Active Medications Generic Name Dose Route Start Last Admin Trade Name Freq PRN Reason Stop Dose Admin Acetaminophen 650 mg 10/25/19 11:39 10/31/19 05:41 Tylenol Tablet PO 650 mg Q4H PRN Administration Headache Albuterol 2.5 mg 10/27/19 11:26 Albuterol Sulf Neb 2.5mg/0.5ml INHALATION QIDRT PRN shortness of breath Atorvastatin Calcium 10 mg 10/25/19 21:00 10/30/19 20:05 Lipitor PO 10 mg HS ASHVIN Administration Budesonide 0.5 mg 10/29/19 11:05 10/31/19 09:36 Pulmicort Respule Neb INHALATION 0.5 mg Q12HRT ASHVIN Administration Bupropion HCl 150 mg 10/26/19 09:00 10/31/19 09:09 Wellbutrin Xl (24 Hr) PO 150 mg DAILY ASHVIN Administration Carvedilol 6.25 mg 10/27/19 17:00 10/31/19 09:06 Coreg PO 6.25 mg BID ASHVIN Administration Celecoxib 200 mg 10/28/19 09:00 10/31/19 09:09 Celebrex PO 200 mg DAILY ASHVIN Administration Citalopram Hydrobromide 40 mg 10/28/19 09:00 10/31/19 09:09 Celexa PO 40 mg DAILY ASHVIN Administration Cyclobenzaprine HCl 10 mg 10/27/19 11:26 10/31/19 10:48 Flexeril PO 10 mg TID PRN Administration Muscle Spasm Ergocalciferol 50,000 unit 11/02/19 09:00 Drisdol PO Fr@0900 [facility] Furosemide 20 mg 10/31/19 10:55 Lasix Inj IV PUSH DAILY [facility] Gabapentin 100 mg 10/25/19 13:00 10/31/19 09:08 Neurontin PO 100 mg TID [facility] A
--- NOTE | 2019-10-31 12:02 | PCNWS ---
Weekly nutritional screen. Patient is tolerating current diet with adequate intake. No weight loss reported. No nutritional needs at this time.
[2019-10-31 13:42] LABS: Chloride Rand Ur 34 mmol/L (32-290); Chloride/Creatinine Rand Ur 74 (38-318); Creatinine Random Urine 46 mg/dL (20-275)
[2019-10-31] MEDS: ZOLPIDEM TARTRATE 5 MG TABLET 10 MG PO (20:35)
[2019-10-31] MEDS: TRAZODONE HCL 50 MG TABLET 100 MG PO (20:37)
[2019-10-31] MEDS: ATORVASTATIN 10 MG TABLET PO (20:37)
[2019-11-01] VITALS (14 sets, daily range): BP systolic 114–137; BP diastolic 65; PULSE 76–116; RESP 16–18; TEMP 36.3–36.5; O2SAT 90–94
[2019-11-01] MEDS: IPRATROPIUM BR 0.02% INH SOLN 0.5 MG/2.5 ML VIAL INHALATION ×3 (02:46→16:15)
[2019-11-01] MEDS: LEVALBUTEROL NEB 1.25 MG/3 ML 0.63 MG INHALATION ×3 (02:46→16:14)
[2019-11-01 06:21] LABS: Hematocrit 27.7 % (37.0-47.0); Hemoglobin 8.7 g/dL (12.0-15.0); Mean Corpuscular HGB Conc 31.4 g/dl (32-36); Mean Corpuscular Hemoglobin 28.4 pg (26-34); Mean Corpuscular Volume 90.5 fl (80-100); Platelet Count Result 229 k/mm3 (150-375); Red Blood Count 3.06 M/mm3 (4.2-5.4); Red Cell Distribution Width 17.6 % (11.5-14.5)
[2019-11-01 06:45] LABS: Blood Urea Nitrogen 23 mg/dL (7-17); Calcium 8.1 mg/dL (8.4-10.2); Carbon Dioxide 37 mmol/L (22-30); Chloride 95 mmol/L (98-107); Estimated CRCL calculation 56 ml/min; Estimated Glomerular Filt Rate 41; Glucose 73 mg/dL (65-105); Potassium 3.8 mmol/L (3.4-5.0); Sodium 133 mmol/L (137-145)
[2019-11-01] MEDS: SUCRALFATE 1 GM TABLET PO ×4 (06:57→21:23)
[2019-11-01] MEDS: LEVOTHYROXINE SODIUM 25 MCG TABLET PO (06:57)
[2019-11-01] MEDS: ACETAMINOPHEN 325 MG TABLET 650 MG PO ×3 (07:39→18:59)
[2019-11-01] MEDS: CYCLOBENZAPRINE HCL 10 MG TABLET PO ×2 (07:41→13:32)
[2019-11-01] MEDS: FUROSEMIDE INJ 40 MG/4 ML VIAL 20 MG IV PUSH (09:53)
[2019-11-01] MEDS: CELECOXIB 200 MG CAPSULE PO (09:53)
[2019-11-01] MEDS: lisinopriL 2.5 MG TABLET PO (09:53)
[2019-11-01] MEDS: carvediloL 6.25 MG TABLET PO ×2 (09:54→16:39)
[2019-11-01] MEDS: CITALOPRAM HYDROBROMIDE 20 MG TABLET 40 MG PO (09:55)
[2019-11-01] MEDS: POTASSIUM CHLORIDE 10 MEQ TABLET.ER PO (09:55)
[2019-11-01] MEDS: SPIRONOLACTONE 25 MG TABLET 50 MG PO (09:56)
[2019-11-01] MEDS: SILVERGEL (ELTA) 45 ML 1 APPLIC TOPICAL (09:56)
[2019-11-01] MEDS: PANTOPRAZOLE 40 MG TABLET PO (09:56)
[2019-11-01] MEDS: LORATADINE 10 MG TABLET PO (09:57)
[2019-11-01] MEDS: risperiDONE 1 MG TABLET 2 MG PO ×2 (09:57→21:22)
[2019-11-01] MEDS: MAGNESIUM OXIDE 400 MG TABLET PO (09:57)
[2019-11-01] MEDS: HEPARIN SODIUM 5,000 UNITS/ML VIAL 5000 UNITS SUB-Q ×2 (09:58→21:23)
[2019-11-01] MEDS: GABAPENTIN 100 MG CAPSULE PO ×3 (09:58→16:38)
[2019-11-01] MEDS: buPROPion HCL XL (24 HR) 150 MG TABCR PO (09:59)
[2019-11-01] MEDS: TOLNAFTATE 1% POWDER 45 GM BTL 1 APPLIC TOPICAL ×2 (10:00→21:26)
[2019-11-01] MEDS: BUDESONIDE RESPULE NEB 0.5 MG/2 ML AMP INHALATION (10:37)
--- NOTE | 2019-11-01 11:19 | PM.PNCARD ---
Progress Note: A&P Assessment and Plan (1) Chronic combined systolic (congestive) and diastolic (congestive) heart failure: Code(s): I50.42 - Chronic combined systolic (congestive) and diastolic (congestive) heart failure Status: Acute Assessment and Plan: Medications have been restarted. Continue lisinopril 2.5 mg daily, carvedilol 6.25 mg b.i.d., spironolactone 50 mg daily. Received furosemide 20 mg IV push yesterday and today. May need a higher dose than 20 mg of furosemide daily. Monitor renal function and electrolytes an outpatient (2) Ischemic cardiomyopathy: Code(s): I25.5 - Ischemic cardiomyopathy Status: Acute Assessment and Plan: Severe LV dysfunction. EF 20%. History of VT status post ICD shock. No nonsustained VT on telemetry for the last 24 hours Discussed follow-up with supervisor mold yard. She does not want to follow-up with Dr. Krause. She believes that her daughter will be making an appointment to follow-up with supervisor mold yard at [place]. (3) Paroxysmal atrial fibrillation: Code(s): I48.0 - Paroxysmal atrial fibrillation Status: Acute Assessment and Plan: INTEGRATION PROJECT MANAGER-D interrogation 10/29/2019 did not reveal any sustained episodes of atrial fibrillation. (4) Acute on chronic renal failure: Qualifiers: Acute renal failure type: unspecified Chronic kidney disease stage: stage 4 (severe) Qualified Code(s): N17.9 - Acute kidney failure, unspecified; N18.4 - Chronic kidney disease, stage 4 (severe) Code(s): N17.9 - Acute kidney failure, unspecified; N18.9 - Chronic kidney disease, unspecified Status: Acute Assessment and Plan: Stable. Creatinine 1.6 this morning. Continue to monitor. (5) NSVT (nonsustained ventricular tachycardia): Code(s): I47.2 - Ventricular tachycardia Status: Resolved Assessment and Plan: Telemetry has revealed rare episodes of nonsustained VT. No longer than 6 beats. Discontinue telemetry. Additional Plan OK to discharge from cardiac standpoint. She is to make follow-up appointment to see a supervisor mold yard within the next [address] Plan discussed with Dr Hammond 1125 11/01/2019 Subjective Date/time seen: 11/01/19 11:19 Interval history: Follow-up for: Chronic systolic and diastolic heart failure, ischemic cardiomyopathy, paroxysmal atrial fibrillation, sustained ventricular tachycardia, chronic kidney disease stage 4 Date of service: 11/01/2019 Subjective: Nervous about leaving today. Denied any chest discomfort. Short of breath with exertional activities but is improved.. Review of Systems Constitutional: Constitutional: Denies excessive sweating, Reports fatigue, Denies headache(s) and Reports weakness Eyes: Eyes: Denies blurry vision ENT: Denies headache(s) and Denies neck pain Cardiovascular: Cardiovascular: Denies chest pain, Denies diaphoresis, Reports pedal edema, Reports leg edema ( improved), Denies lightheadedness, Denies palpitations and Reports dyspnea on exertion ( Improved) Respiratory: Respiratory: Reports dyspnea and Reports dyspnea on exertion ( improving) Gastrointestinal: Gastrointestinal: Denies nausea and Denies vomiting Genitourinary: Genitourinary: Denies hematuria, Denies dysuria and Denies flank pain Musculoskeletal: Musculoskeletal: Reports back pain, Denies neck pain and Denies numbness Integumentary/Breasts: Skin/Breast: Denies rash Neurologic: Denies headache(s), Denies numbness and Reports weakness Psychiatric: Psychiatric: Reports anxiety Endocrine: Endocrine: Denies excessive sweating, Reports fatigue and Reports palpitations Hematologic/Lymphatic: Hematologic/Lymphatic: Denies easy bleeding and Denies easy bruising Allergic/Immunologic: Allergic/Immunologic: Denies GI upset with certain foods
--- NOTE | 2019-11-01 11:26 | PCPTNOTE ---
Attempted to see patient for PT, however patient refused. As soon as therapy walked into patient's room, patient reports she is getting to leave and is not working with therapy today at all. Patient then started to point figure at [employer] and then to the door for therapy to leave. RN was present in room.
[2019-11-01] MEDS: LIDOCAINE 5% PATCH 1 PATCH TRANSDERM (11:49)
--- NOTE | 2019-11-01 12:34 | PM.DS ---
DS: Diagnosis Admitting Diagnosis Admitting Diagnosis: Sepsis, unspecified organism Discharge Diagnosis (1) Encephalopathy: Code(s): G93.40 - Encephalopathy, unspecified Status: Resolved (2) Severe sepsis: Code(s): A41.9 - Sepsis, unspecified organism; R65.20 - Severe sepsis without septic shock Status: Resolved (3) Chronic abdominal wound infection: Qualifiers: Encounter type: subsequent encounter Qualified Code(s): S31.109D - Unspecified open wound of abdominal wall, unspecified quadrant without penetration into peritoneal cavity, subsequent encounter; L08.9 - Local infection of the skin and subcutaneous tissue, unspecified Code(s): S31.109A - Unspecified open wound of abdominal wall, unspecified quadrant without penetration into peritoneal cavity, initial encounter; L08.9 - Local infection of the skin and subcutaneous tissue, unspecified Status: Chronic Assessment and Plan: Chronic wound (4) Acute on chronic systolic and diastolic heart failure, NYHA class 4: Code(s): I50.43 - Acute on chronic combined systolic (congestive) and diastolic (congestive) heart failure Status: Acute Assessment and Plan: Today is swollen up to groin and is sob and wheezy in her lungs. Pt is on Xopenex Atrovent and Pulmicort neb every 6 hours as needed, Wcc still high. CXR shows enlarged heart from 10/28 no infiltrates. Will encourage PT/ OT and had iv lasix. Pt is stable for discharge today to rehab placement. Swelling improving pt discharged on lasix and spironolactone orally. (5) UTI (urinary tract infection): Qualifiers: Hematuria presence: without hematuria Urinary tract infection type: site unspecified Qualified Code(s): N39.0 - Urinary tract infection, site not specified Code(s): N39.0 - Urinary tract infection, site not specified Status: Resolved (6) NSVT (nonsustained ventricular tachycardia): Code(s): I47.2 - Ventricular tachycardia Status: Resolved Assessment and Plan: ICD checked over. Pt seen by cardiology, no changes made with medications. DS: Summary Time Spent with Patient Time attestation: Total time spent providing and/or coordinating discharge services:38 minutes on day of discharge Exam Narrative: Exam Narrative: Morbidly obese Const: General: comfortable and no acute distress Nutritional Appearance: obese morbidly obese Orientation/consciousness: oriented to person HENMT: Head: normal to inspection General nose exam: Normal external nose present and Normal nares present Face and sinus: normal facial exam Mouth: Yes Normal oral and palatal mucosa present, Yes oropharynx normal and Yes moist mucous membranes Eyes: General: appearance normal, both eyes and all related structures Sclera: sclerae normal Pupils: Equal, round and reactive pupils present EOM: EOMs intact bilaterally Neck: Neck: supple and no JVD Thyroid: thyroid normal Lymphatic: lymphadenopathy not noted Resp: Effort & Inspection: normal respiratory effort Auscultation: clear to auscultation bilaterally and crackles bilateral and diffuse Other: Clear lungs Cardio: Rate: regular rate Rhythm: regular rhythm Heart sounds: no murmurs GI: Inspection: other (chronic andominal wound healing well with granulation tissue ) Auscultation: normal bowel sounds Skin: General skin exam: normal color, no rashes or lesions noted and other (abdominal wound w/ dressing++ ) Neuro: General: oriented to person Cranial nerves: Yes CN's II-XII intact bilaterally and Yes Equal, round and reactive pupils present Speech: normal speech Motor exam (neuro): 5/5 motor strength present throughout Sensory Exam: normal sensation Extrem: General: edema (4 plus up to her groin ) bilateral Psych: Mental Status: mental status grossly abnormal Affect: Anxious affect present DS: Data Data Completed and Pending Labs on day of discharge: Labs from last 24 hours
[2019-11-01] MEDS: FLUCONAZOLE 150 MG TABLET PO (14:05)
[2019-11-01] MEDS: TRAZODONE HCL 50 MG TABLET 100 MG PO (21:22)
[2019-11-01] MEDS: ATORVASTATIN 10 MG TABLET PO (21:23)
[2019-11-01] MEDS: ZOLPIDEM TARTRATE 5 MG TABLET 10 MG PO (21:23)
== END 2019-11-01 22:40 | DRG 871 ==
LOC: ANHED 18:45 → ANHICU 19:40 → ANH3MED 10-26 19:12 → ANHICU 11-05 16:39
PROVIDERS: Family Medicine; Internal Medicine; Nurse Practitioner Adult Health; Admitting Provider Family Medicine; Emergency Provider Emergency Medicine; Visit Provider Family Medicine
DX: A41.9 Sepsis, unspecified organism (principal); R65.21 Severe sepsis with septic shock; G93.41 Metabolic encephalopathy; I13.0 Hypertensive heart and chronic kidney disease with heart failure and stage 1 through stage 4 chronic kidney disease, or unspecified chronic kidney disease; F11.20 Opioid dependence, uncomplicated; I50.42 Chronic combined systolic (congestive) and diastolic (congestive) heart failure; Z68.42 Body mass index [BMI] 45.0-49.9, adult; N17.9 Acute kidney failure, unspecified; N18.4 Chronic kidney disease, stage 4 (severe); E87.2 Acidosis; N39.0 Urinary tract infection, site not specified; I47.2 Ventricular tachycardia; I25.5 Ischemic cardiomyopathy; K21.9 Gastro-esophageal reflux disease without esophagitis; N18.9 Chronic kidney disease, unspecified; G89.4 Chronic pain syndrome; R19.7 Diarrhea, unspecified; R26.9 Unspecified abnormalities of gait and mobility; E03.9 Hypothyroidism, unspecified; D64.9 Anemia, unspecified; I25.10 Atherosclerotic heart disease of native coronary artery without angina pectoris; M54.9 Dorsalgia, unspecified; F41.8 Other specified anxiety disorders; I25.2 Old myocardial infarction; M81.0 Age-related osteoporosis without current pathological fracture; M15.0 Primary generalized (osteo)arthritis; E54 Ascorbic acid deficiency; J38.00 Paralysis of vocal cords and larynx, unspecified; Z95.810 Presence of automatic (implantable) cardiac defibrillator; Z90.710 Acquired absence of both cervix and uterus; Z90.49 Acquired absence of other specified parts of digestive tract; Z95.1 Presence of aortocoronary bypass graft; B96.1 Klebsiella pneumoniae [K. pneumoniae] as the cause of diseases classified elsewhere; L98.8 Other specified disorders of the skin and subcutaneous tissue; E86.1 Hypovolemia; E66.01 Morbid (severe) obesity due to excess calories; I48.0 Paroxysmal atrial fibrillation
CPT/HCPCS: 36415; 36556; 36600; 51701; 71045; 76775; 80048; 80053; 80202; 80307; 81001; 82010; 82140; 82375; 82436; 82550; 82570; 82805; 83050; 83605; 83735; 83880; 84100; 84133; 84300; 84443; 84484; 85025; 85027; 85610; 85730; 85999; 87040; 87070; 87077; 87081; 87086; 87088; 87186; 87205; 93005; 93306; 94640; 96361; 96365; 97110; 97161; 97165; 97530; 97535; 99285; A9270; C1751; C9113; J0131; J0610; J0696; J1644; J1650; J1720; J1940; J3370; J3475; J3480; J7030; J7040; J7070; Q9957

== ENCOUNTER 2020-02-01 20:05 | Emergency (ER) | payer MEDICARE, MEDICAID, SELFPAY ==
--- NOTE | ~2020-02-01 | CT_ITS ---
EXAMINATION: CT brain wo con DATE: 02/01/2020 20:28 INDICATION: Altered mental status. TECHNIQUE: Computed tomography (CT) of the head was performed without intravenous contrast. The mA wa s adjusted according to patient size. Iterative reconstruction technique was employed. The dose-lengt h product was 1437.67 mGy-cm. COMPARISON: Head CT 09/04/2019 FINDINGS: There are scattered areas of low attenuation in the cerebral white matter. There is no intr acranial hemorrhage, acute infarction, or abnormal intracranial mass lesion. The ventricles are guerda l in size. The paranasal sinuses are clear. The mastoid air cells are normal. There is a 10 mm subepi dermal mass in the left cheek, likely benign. The orbits are normal. IMPRESSION: 1. Stable mild nonspecific cerebral white matter disease, which likely represents chronic small vesse l ischemic disease. Reviewed, dictated and finalized at location A. IMPRESSION: 1. Stable mild nonspecific cerebral white matter disease, which likely represen ts chronic small vessel ischemic disease.
[2020-02-01 19:58] VITALS: BP 118/57; PULSE 102; RESP 15; TEMP 37; O2SAT 96
--- NOTE | 2020-02-01 20:06 | ECG_ITS ---
Measurements Intervals [place] Rate: 101 P: -44 [place]: 160 QRS: -75 QRSD: 102 T: 99 QT: 321 QTc: 416 Interpretive Statements ATRIAL SENSE- ELECTRONIC VENTRICULAR PACEMAKER UNDERLYING SINUS TACHYCARDIA BASELINE ARTIFACT- I, II, AVR, AVL NO FURTHER INTERPRETATION IS POSSIBLE BORDERLINE ECG Electronically Signed On 02-02-2020 7:20:07 CDT by Gabe Garcia D.O.
--- NOTE | 2020-02-01 20:11 | ED.AMS ---
HPI - Altered Mental Status General Chief Complaint: Altered Mental Status Stated Complaint: increasing confusion Time Seen by Provider: 02/01/20 20:06 History of Present Illness HPI narrative: She was feeling weak today and used life alert to call for help getting to the bathroom. When EMS arrived the patient seemed to be confused and her BP was low, about 80 systolic. EMS states that they are familiar with the patient and this was unusual for her. On arrival to the ED she is fully oriented. She complains of mild abdominal discomfort. She is noted to have extensive bruising of face and extremities from a fall 1 week ago. History limited by poor historian. Related Data Home Medications Medication Instructions Recorded Confirmed bupropion HCl 150 mg PO DAILY 10/23/19 10/24/19 cetirizine 10 mg PO DAILY 10/23/19 10/24/19 cyclobenzaprine 10 mg PO TID PRN 10/23/19 10/24/19 ergocalciferol (vitamin D2) 50,000 unit PO WEEKLY 10/23/19 10/24/19 [Vitamin D2] loperamide 2 mg PO TID PRN 10/23/19 10/24/19 magnesium oxide 400 mg PO DAILY 10/23/19 10/24/19 risperidone 2 mg PO BID 10/23/19 10/24/19 trazodone 100 mg PO HS 10/23/19 10/24/19 zolpidem 10 mg PO HS 10/23/19 10/24/19 carvedilol 6.25 mg PO BID 10/27/19 10/27/19 citalopram 40 mg DAILY 10/27/19 10/27/19 pantoprazole 40 mg PO DAILY 10/27/19 10/27/19 Allergies Allergy/AdvReac Type Severity Reaction Status Date / Time No Known Allergies Allergy Verified 02/01/20 20:05 Review of Systems Review of Systems: All systems reviewed & are unremarkable except as noted in HPI and below Constitutional: Constitutional: Denies fever(s) Cardiovascular: Cardiovascular: Denies chest pain Respiratory: Respiratory: Denies dyspnea Gastrointestinal: Gastrointestinal: Reports abdominal pain Genitourinary: Genitourinary: Denies dysuria Neurologic: Denies dizziness and Reports weakness PMFSH Past Medical History Medical History Abnormality of gait and mobility Acquired hypothyroidism Ambulatory dysfunction Anemia Chronic Anxiety Artificial pacemaker Atherosclerotic heart disease of [place] coronary artery without angina pectoris Benzodiazepine abuse Bowel obstruction With multiple bowel resections CAD (coronary artery disease) CAD (coronary artery disease) Cardiomyopathy CHF (congestive heart failure) Chronic abdominal wound infection Chronic anemia Chronic combined systolic (congestive) and diastolic (congestive) heart failure Chronic diarrhea Chronic kidney disease Chronic pain syndrome Chronic pain syndrome CKD (chronic kidney disease) Combined systolic and diastolic cardiac dysfunction Echo April 2017 demonstrating EF of 20% with diastolic dysfunction Combined systolic and diastolic heart failure DDD (degenerative disc disease) With chronic back pain Depression Edema due to congestive heart failure Essential (primary) hypertension Extreme obesity with alveolar hypoventilation ISAURO (generalized anxiety disorder) Generalized anxiety disorder GERD (gastroesophageal reflux disease) With reflux esophagitis and gastric ulcer May 2016 Headache Heart attack Hernia History of blood transfusion HTN (hypertension) Hyperlipidemia Hyponatremia Ischemic cardiomyopathy Ischemic cardiomyopathy Ischemic cardiomyopathy with implantable cardioverter-defibrillator (ICD) Echocardiogram April 2017 with EF of 20% MDD (major depressive disorder) MDD (major depressive disorder), recurrent severe, without psychosis Medical history unknown Mixed hyperlipidemia Morbid (severe) obesity due to excess calories Myocardial infarction Open wound anterior abdominal wall chronic Open wound of abdominal wall w/o penetration into peritoneal cavity Osteoporosis Pancreatitis Post-menopausal Primary generalized (osteo)arthritis Radius fracture SBO (small bowel obstruction) Slow transit constipation Urinary retention with incomplete bl
--- NOTE | 2020-02-01 21:10 | PC.NURSE ---
ATTEMPT IV X1. UNSUCCESSFUL. ANOTHER RN ATTEMPT X2. UNSUCESSFUL. LAB CALLED TO DRAW PT BLOOD. ALARM SIGNALER AND MD NOTIFIED.
[2020-02-01 21:11] VITALS: BP 114/96; PULSE 101; RESP 20; O2SAT 100
[2020-02-01 21:27] LABS: Add Urine Microscopic? YES; Appearance Urine Clear (Clear); Bacteria Urine Trace /hpf; Bilirubin Urine Negative (Negative); Blood Urine Negative (Negative); Color Urine Straw (Yellow); Glucose Urine UA Negative (Negative); Hyaline Casts Urine 15-19 /lpf; Ketones Urine Negative (Negative); Leukocyte Esterase Ur Negative LEU/UL (Negative); Mucus Urine Few /lpf; Nitrate Urine Positive (Negative); Protein Urine Negative (Negative); RBC Urine 0-2 /hpf (0-2); Specific Grav Ur 1.015 (1.001-1.035); Squamous Epithelial Cell Urine Rare /hpf (Few); Urobilinogen Urine Negative mg/dL (<2.0); WBC Urine 0-3 /hpf
[2020-02-01 21:28] LABS: Basophils Percent Auto 0.2 % (0.2-1.2); Eosinophils Percent Auto 0.4 % (0-4.4); Hemoglobin 10.6 g/dL (12.0-15.0); Immature Granulocyte Absolute 0.05 K/mm3 (0.00-0.031); Immature Granulocyte Percent A 0.4 % (0-0.5); Lymphocytes Absolute Auto 0.55 K/mm3 (0.9-3.2); Lymphocytes Percent Auto 4.9 % (18.3-44.2); Mean Corpuscular HGB Conc 32.1 g/dl (32-36); Mean Corpuscular Hemoglobin 31.1 pg (26-34); Mean Corpuscular Volume 96.8 fl (80-100); Mean Platelet Volume 9.4 fl (7.4-10.4); Monocytes Absolute Auto 0.7 K/mm3 (0.1-0.6); Monocytes Percent Auto 5.9 % (2.6-8.5); Neutrophils Percent Auto 88.2 % (45.5-73.1); Platelet Count Result 169 k/mm3 (150-375); Red Blood Count 3.41 M/mm3 (4.2-5.4); Red Cell Distribution Width 19.8 % (11.5-14.5); White Blood Count 11.3 K/mm3 (4.5-10.0)
[2020-02-01 21:39] LABS: INR 1.2; Lactic Acid Reflex 0.5 mmol/L (0.7-2.1); Prothrombin Time 14.8 Seconds (11.1-14.7)
[2020-02-01 21:40] LABS: Alanine Aminotransferase 13 U/L (4-35); Albumin Level 3.2 g/dL (3.5-5.1); Alkaline Phosphatase 122 U/L (38-126); Aspartate Amino Transferase 16 U/L (14-36); Bilirubin,Total 0.3 mg/dL (0.2-1.3); Blood Urea Nitrogen 38 mg/dL (7-17); Calcium 8.9 mg/dL (8.4-10.2); Carbon Dioxide 19 mmol/L (22-30); Chloride 102 mmol/L (98-107); Estimated CRCL calculation 40 ml/min; Estimated Glomerular Filt Rate 30; Glucose 76 mg/dL (65-105); Partial Thromboplastin Time 32.2 SECONDS (22.3-36.8); Potassium 4.9 mmol/L (3.4-5.0); Sodium 128 mmol/L (137-145)
--- NOTE | 2020-02-01 22:18 | PC.NURSE ---
SPOKE WITH PT DAUGHTER TANYA (RAJAN) UPDATES GIVEN.
[2020-02-01 22:19] VITALS: BP 109/70; PULSE 97; RESP 20; O2SAT 98
[2020-02-01 23:35] VITALS: BP 113/69; PULSE 100; RESP 20; O2SAT 98
[2020-02-01] MEDS: CIPROFLOXACIN 500 MG TAB PO (23:38)
[2020-02-02 00:32] VITALS: BP 111/97; PULSE 105; RESP 20; O2SAT 99
--- NOTE | 2020-02-02 00:32 | PC.NURSE ---
PT AMBULATED TO ROOM DOOR AND BACK WITH WALKER WITH STEADY GAIT
--- NOTE | 2020-02-02 01:22 | PC.NURSE ---
Called [facility] to transport to residence....[phone]
[2020-02-02 01:34] VITALS: BP 106/67; PULSE 88; RESP 20; O2SAT 98
[2020-02-02 01:35] VITALS: BP 106/67; PULSE 88; RESP 20; O2SAT 98
[2020-02-02 02:55] VITALS: BP 107/58; PULSE 90; RESP 20; O2SAT 98
--- NOTE | 2020-02-02 03:49 | PC.NURSE ---
EMS HERE TO TO TRANSPORT PT BACK HOME. REPORT GIVEN.
== END 2020-02-02 03:50 | disposition home or self-care (01) ==
PROVIDERS: Emergency Provider Emergency Medicine; PCP Family Medicine
DX: N39.0 Urinary tract infection, site not specified (principal); E03.9 Hypothyroidism, unspecified; Z95.0 Presence of cardiac pacemaker; F41.9 Anxiety disorder, unspecified; F32.9 Major depressive disorder, single episode, unspecified; I25.10 Atherosclerotic heart disease of native coronary artery without angina pectoris; I50.42 Chronic combined systolic (congestive) and diastolic (congestive) heart failure; I13.0 Hypertensive heart and chronic kidney disease with heart failure and stage 1 through stage 4 chronic kidney disease, or unspecified chronic kidney disease; N18.9 Chronic kidney disease, unspecified; K21.9 Gastro-esophageal reflux disease without esophagitis; I25.2 Old myocardial infarction; I25.5 Ischemic cardiomyopathy; E78.2 Mixed hyperlipidemia; E66.01 Morbid (severe) obesity due to excess calories; Z68.42 Body mass index [BMI] 45.0-49.9, adult; M81.0 Age-related osteoporosis without current pathological fracture; E55.9 Vitamin D deficiency, unspecified
CPT/HCPCS: 36415; 51701; 70450; 80053; 81001; 83605; 85025; 85610; 85730; 87040; 87077; 87086; 87088; 87186; 93005; 99284; A9270

== ENCOUNTER 2020-02-11 15:09 | Inpatient (IN) | payer MEDICARE, MEDICAID, SELFPAY ==
[2020-02-11] VITALS (11 sets, daily range): BP systolic 95–143; BP diastolic 42–108; PULSE 72–84; RESP 13–20; TEMP 36.6; O2SAT 94–98; BMI 39.8
--- NOTE | ~2020-02-11 | CT_ITS ---
EXAMINATION: CT cervical spine wo con DATE: 02/11/2020 20:10 INDICATION: Neck pain TECHNIQUE: Computed tomography (CT) of the cervical spine was performed without intravenous contrast. The dose-length product (DLP) was 474.65 mGy-cm. Automated exposure control and iterative reconstruc tion technique were employed. COMPARISON: 01/19/2019 FINDINGS: There is no fracture. Severe loss of intervertebral disc space height at C5-6 and C6-7 is u nchanged. There are 2 mm of unchanged retrolisthesis of C5 on C6. The vertebral body heights are main tained. The odontoid is intact. There is fusion of the C2-C4 facets with severe facet osteoarthritis throughout the remainder of the cervical spine. IMPRESSION: 1. Severe cervical spondylosis without acute findings or significant interval change. Reviewed, dictated and finalized at location A. IMPRESSION: 1. Severe cervical spondylosis without acute findings or significant interval el finley
--- NOTE | ~2020-02-11 | US_ITS ---
EXAMINATION: US renal BI EXAM DATE: 02/12/2020 15:26 INDICATION: Acute kidney insufficiency. TECHNIQUE: Multiple grayscale and Doppler images of the kidneys were obtained (by a technologist who performed the scan) and subsequently reviewed. Comparison is made to prior examination from 10/24/2019. FINDINGS: Right kidney: There is normal contour and echogenicity. It measures 9.8 x 5.1 x 6.4 centimeters. Sev eral small lesions consistent with cysts, largest measuring 2.3 cm. There is no hydronephrosis. Left kidney: There is normal contour and echogenicity. It measures 10.3 x 5.1 x 5.8 centimeters. Sma ll lesion likely cyst measuring 1.5 cm. There is no hydronephrosis. Bladder unremarkable. IMPRESSION: 1. Small renal cysts. Reviewed, dictated and finalized at location B. IMPRESSION: 1. Small renal cysts.
--- NOTE | ~2020-02-11 | XR_ITS ---
EXAMINATION: XR chest 2V DATE: 02/11/2020 16:14 INDICATION: Weakness, overdose TECHNIQUE: AP and lateral views of the chest are obtained. COMPARISON: 10/31/2019, 09/04/2019 FINDINGS: The lungs are free of acute opacities. There is no pleural effusion or pneumothorax. There is stable cardiomegaly. Vertebroplasty changes noted at T5 and T6 and there is a chronic T11 burst fr acture. A triple lead cardiac pacemaker of the left chest wall ends with leads in expected locations. IMPRESSION: 1. No acute cardiopulmonary abnormality. 2. Stable cardiomegaly. Reviewed, dictated and finalized at location A.
--- NOTE | ~2020-02-11 | CT_ITS ---
EXAMINATION: CT brain wo con INDICATION: Head injury COMPARISON: 02/01/2020 TECHNIQUE: Standard unenhanced head CT. The dose-length product (DLP) was 832.33 mGy-cm. The mA was a djusted according to patient size. Iterative reconstruction technique was employed. FINDINGS: There is no acute intraparenchymal hemorrhage. No evidence of mass lesion. No evidence of a cute infarction. There is mild periventricular and subcortical hypodensity probably related to small vessel ischemic disease. There is mild prominence of the sulci and ventricles related to cerebral atr ophy. Intracranial calcified cerebral atherosclerosis is noted. There are no extra-axial collections. There is no mass effect or midline shift. The orbits and soft tissues are unremarkable. The visuali zed sinuses and mastoid air cells are well aerated. IMPRESSION: 1. No acute intracranial abnormality. 2. Age related findings. Reviewed, dictated and finalized at location A.
--- NOTE | 2020-02-11 15:09 | ECG_ITS ---
Measurements Intervals [place] Rate: 76 P: -77 [place]: 146 QRS: -70 QRSD: 100 T: 161 QT: 410 QTc: 461 Interpretive Statements ELECTRONIC ATRIAL PACEMAKER WITH INHIBITION ELECTRONIC VENTRICULAR PACEMAKER ATRIAL PREMATURE COMPLEX BASELINE WANDER- I, II, AVR, AVL, AVF, V1-V6 NO FURTHER INTERPRETATION IS POSSIBLE ATYPICAL ECG Electronically Signed On 02-11-2020 17:41:34 CDT by Gabe Garcia D.O.
[2020-02-11 15:18] LABS: Glucose Point of Care 99 (65-105)
--- NOTE | 2020-02-11 15:42 | PC.NURSE ---
Unsuccessful IV/LAB draw attempt. Efforts to contact [facility] x 4 unsuccessful. This RN will have another nurse attempt.
[2020-02-11 15:57] LABS: Add Urine Microscopic? YES; Appearance Urine Cloudy (Clear); Bacteria Urine 2+ /hpf; Bilirubin Urine Negative (Negative); Blood Urine 1+ (Negative); Color Urine Yellow (Yellow); Glucose Urine UA Negative (Negative); Hyaline Casts Urine 20-29 /lpf; Ketones Urine Negative (Negative); Leukocyte Esterase Ur 3+ LEU/UL (Negative); Mucus Urine Rare /lpf; Nitrate Urine Negative (Negative); Protein Urine 1+ mg/dL (Negative); Specific Grav Ur 1.017 (1.001-1.035); Squamous Epithelial Cell Urine Occasional /hpf (Few); Urobilinogen Urine Negative mg/dL (<2.0); WBC Urine >75 /hpf
[2020-02-11 16:37] LABS: Basophils Percent Auto 0.3 % (0.2-1.2); Eosinophils Absolute Auto 0.1 K/mm3 (0-0.3); Eosinophils Percent Auto 1.6 % (0-4.4); Hematocrit 34.4 % (37.0-47.0); Hemoglobin 10.8 g/dL (12.0-15.0); Immature Granulocyte Absolute 0.03 K/mm3 (0.00-0.031); Immature Granulocyte Percent A 0.4 % (0-0.5); Lymphocytes Absolute Auto 0.73 K/mm3 (0.9-3.2); Mean Corpuscular HGB Conc 31.4 g/dl (32-36); Mean Corpuscular Hemoglobin 31.7 pg (26-34); Mean Corpuscular Volume 100.9 fl (80-100); Mean Platelet Volume 9.4 fl (7.4-10.4); Monocytes Absolute Auto 0.3 K/mm3 (0.1-0.6); Monocytes Percent Auto 4.4 % (2.6-8.5); Neutrophils Absolute Auto 6.1 K/mm3 (1.3-6.7); Neutrophils Percent Auto 83.3 % (45.5-73.1); Nucleated Red Blood Cells Perc 0.4 % (0.0-0.2); Platelet Count Result 183 k/mm3 (150-375); Red Blood Count 3.41 M/mm3 (4.2-5.4); Red Cell Distribution Width 20.5 % (11.5-14.5); White Blood Count 7.3 K/mm3 (4.5-10.0)
[2020-02-11 16:48] LABS: Amphetamine Screen Urine Negative (Negative); Barbiturate Screen Urine Negative (Negative); Benzodiazepines Screen Urine Negative (Negative); Cannabinoid Screen Urine Negative (Negative); Cocaine Screen Urine Negative (Negative); Methadone Screen Urine Negative (Negative); Opiate Screen Urine Positive (Negative); Phencyclidine Screen Urine Negative (Negative)
--- NOTE | 2020-02-11 16:57 | ED.GENADULT ---
HPI - General Adult General Chief complaint: Weakness Stated complaint: weakness Time Seen by Provider: 02/11/20 15:22 History of Present Illness HPI narrative: Patient is a 64 y/o female complaining of severe, generalized weakness for 2 days. There is no alleviating or exacerbating factor. EMS suspects that patient may have taken too much Ambien. However, patient denies when asked about this. She states that she fell recently about 1-2 weeks ago. She denies any pain. Related Data Home Medications Medication Instructions Recorded Confirmed bupropion HCl 150 mg PO DAILY 10/23/19 10/24/19 cetirizine 10 mg PO DAILY 10/23/19 10/24/19 ergocalciferol (vitamin D2) 50,000 unit PO WEEKLY 10/23/19 10/24/19 [Vitamin D2] magnesium oxide 400 mg PO DAILY 10/23/19 10/24/19 risperidone 2 mg PO BID 10/23/19 10/24/19 zolpidem 10 mg PO HS 10/23/19 10/24/19 carvedilol 6.25 mg PO BID 10/27/19 10/27/19 citalopram 40 mg DAILY 10/27/19 10/27/19 pantoprazole 40 mg PO DAILY 10/27/19 10/27/19 lorazepam 0.5 mg PO 6XD PRN 02/11/20 Allergies Allergy/AdvReac Type Severity Reaction Status Date / Time No Known Allergies Allergy Verified 02/11/20 17:51 Review of Systems Constitutional: Constitutional: Denies chills, Denies fever(s), Denies headache(s), Reports malaise and Reports weakness Eyes: Eyes: Denies blurry vision ENT: Denies headache(s) and Denies neck pain Cardiovascular: Cardiovascular: Denies chest pain and Denies dyspnea Respiratory: Respiratory: Denies cough and Denies dyspnea Gastrointestinal: Gastrointestinal: Denies abdominal pain, Denies diarrhea, Denies nausea and Denies vomiting Genitourinary: Genitourinary: Denies hematuria and Denies dysuria Musculoskeletal: Musculoskeletal: Denies back pain and Denies neck pain Neurologic: Denies headache(s) and Denies weakness PMFSH Past Medical History Medical History Abnormality of gait and mobility Acquired hypothyroidism Ambulatory dysfunction Anemia Chronic Anxiety Artificial pacemaker Atherosclerotic heart disease of [place] coronary artery without angina pectoris Benzodiazepine abuse Bowel obstruction With multiple bowel resections CAD (coronary artery disease) CAD (coronary artery disease) Cardiomyopathy CHF (congestive heart failure) Chronic abdominal wound infection Chronic anemia Chronic combined systolic (congestive) and diastolic (congestive) heart failure Chronic diarrhea Chronic kidney disease Chronic pain syndrome Chronic pain syndrome CKD (chronic kidney disease) Combined systolic and diastolic cardiac dysfunction Echo April 2017 demonstrating EF of 20% with diastolic dysfunction Combined systolic and diastolic heart failure DDD (degenerative disc disease) With chronic back pain Depression Edema due to congestive heart failure Essential (primary) hypertension Extreme obesity with alveolar hypoventilation ISAURO (generalized anxiety disorder) Generalized anxiety disorder GERD (gastroesophageal reflux disease) With reflux esophagitis and gastric ulcer May 2016 Headache Heart attack Hernia History of blood transfusion HTN (hypertension) Hyperlipidemia Hyponatremia Ischemic cardiomyopathy Ischemic cardiomyopathy Ischemic cardiomyopathy with implantable cardioverter-defibrillator (ICD) Echocardiogram April 2017 with EF of 20% MDD (major depressive disorder) MDD (major depressive disorder), recurrent severe, without psychosis Medical history unknown Mixed hyperlipidemia Morbid (severe) obesity due to excess calories Myocardial infarction Open wound anterior abdominal wall chronic Open wound of abdominal wall w/o penetration into peritoneal cavity Osteoporosis Pancreatitis Post-menopausal Primary generalized (osteo)arthritis Radius fracture SBO (small bowel obstruction) Slow transit constipation Urinary retention with incomplete bladder emptying UTI (urinary tract infection) With in
[2020-02-11 17:23] LABS: Alanine Aminotransferase 9 U/L (4-35); Albumin Level 2.8 g/dL (3.5-5.1); Alkaline Phosphatase 108 U/L (38-126); Aspartate Amino Transferase 12 U/L (14-36); Bilirubin,Total < 0.1 mg/dL (0.2-1.3); Blood Urea Nitrogen 51 mg/dL (7-17); Calcium 8.4 mg/dL (8.4-10.2); Carbon Dioxide 12 mmol/L (22-30); Chloride 109 mmol/L (98-107); Estimated Glomerular Filt Rate 16; Glucose 91 mg/dL (65-105); Potassium 4.7 mmol/L (3.4-5.0); Sodium 132 mmol/L (137-145)
[2020-02-11 17:25] LABS: Acetaminophen 11 ug/mL (10-30)
[2020-02-11 17:26] LABS: Base Excess ABG -16.9 mEq/l (+/-2.0); Fractional Inspired Oxygen 21 %; HCO3 ABG 12.8 mEq/l (22.0-26.0); Oxygen Saturation ABG 93.3 % (95.0-100.0); Oxyhemoglobin 93.8 % THb (90.0-100.0); PCO2 ABG 45.8 mmHg (35.0-45.0); PO2 ABG 91.9 mmHg (80.0-100.0); PO2 FiO2 Ratio Arterial Blood 4.38 %; Total Hemoglobin 11.3 g/dL (12.0-18.0)
[2020-02-11 17:28] LABS: Device ROOM AIR; Site Drawn RIGHT BRACHIAL; pH ABG 7.064 (7.350-7.450)
--- NOTE | 2020-02-11 18:38 | PC.NURSE ---
Fani from Phlebotomy unable to draw ordered Lactic. Mult attempts by mult RNs and techs were unsuccessful. EDP aware.
[2020-02-11] MEDS: SODIUM CHLORIDE 0.9% IV 1,000 ML 150 ML IV CONT (18:52)
--- NOTE | 2020-02-11 19:56 | PM.IMHP ---
H&P: HPI History of Present Illness Chief complaint: casey, weakness Narrative: This is a 64 year old female with a myriad of chronic illnesses including combined systolic and diastolic heart failure, chronic pain syndrome, CKD, HTN with a chronic ventral abdominal wound among other comorbidites who presented to the hospital today with a complaint of increased weakness for the past two days. The patient is very somnolent during my encounter with her and cannot answer my questions appropriately. She falls asleep as she begins to answer my questions. The patient has brusing under her eyes bilaterally and does admit to falling this past week. She was evaluated in the ER tonight and found to have a significant metabolic acidosis with a pH of 7.0 and a serum bicarbonate level of 12. Her Cr has gone from 1.7 to 3.0 and her urinalysis is suspicious for an acute urinary tract infection. Nursing reports that the patient was refusing a brain CT scan today. Its unknown whether or not the patient has had any further falls. Review of Systems Review of Systems: ROS unobtainable: Yes unobtainable due to mental status [facility] Past Medical History Medical History Abnormality of gait and mobility Acquired hypothyroidism Ambulatory dysfunction Anemia Chronic Anxiety Artificial pacemaker Atherosclerotic heart disease of [place] coronary artery without angina pectoris Benzodiazepine abuse Bowel obstruction With multiple bowel resections CAD (coronary artery disease) CAD (coronary artery disease) Cardiomyopathy CHF (congestive heart failure) Chronic abdominal wound infection Chronic anemia Chronic combined systolic (congestive) and diastolic (congestive) heart failure Chronic diarrhea Chronic kidney disease Chronic pain syndrome Chronic pain syndrome CKD (chronic kidney disease) Combined systolic and diastolic cardiac dysfunction Echo April 2017 demonstrating EF of 20% with diastolic dysfunction Combined systolic and diastolic heart failure DDD (degenerative disc disease) With chronic back pain Depression Edema due to congestive heart failure Essential (primary) hypertension Extreme obesity with alveolar hypoventilation ISAURO (generalized anxiety disorder) Generalized anxiety disorder GERD (gastroesophageal reflux disease) With reflux esophagitis and gastric ulcer May 2016 Headache Heart attack Hernia History of blood transfusion HTN (hypertension) Hyperlipidemia Hyponatremia Ischemic cardiomyopathy Ischemic cardiomyopathy Ischemic cardiomyopathy with implantable cardioverter-defibrillator (ICD) Echocardiogram April 2017 with EF of 20% MDD (major depressive disorder) MDD (major depressive disorder), recurrent severe, without psychosis Medical history unknown Mixed hyperlipidemia Morbid (severe) obesity due to excess calories Myocardial infarction Open wound anterior abdominal wall chronic Open wound of abdominal wall w/o penetration into peritoneal cavity Osteoporosis Pancreatitis Post-menopausal Primary generalized (osteo)arthritis Radius fracture SBO (small bowel obstruction) Slow transit constipation Urinary retention with incomplete bladder emptying UTI (urinary tract infection) With incomplete bladder emptying resulting in septic shock January 2019 Ventral incisional hernia without obstruction or gangrene Vitamin D deficiency, unspecified Vocal cord paralysis Surgical History Surgical History AICD (automatic cardioverter/defibrillator) present H/O ventral hernia repair H/O vertebroplasty H/O vertebroplasty H/O: hysterectomy H/O: hysterectomy History of angioplasty History of appendectomy History of appendectomy History of bowel resection Resulting in chronic diarrhea History of cardiac catheterization History of cholecystectomy History of cholecystectomy History of colostomy History of orthopedic surgery
[2020-02-11 20:39] LABS: Alveolar/Arterial O2 Gradient 7.2 mmHg; Base Excess ABG -17.3 mEq/l (+/-2.0); Fractional Inspired Oxygen 21 %; HCO3 ABG 12.3 mEq/l (22.0-26.0); Oxygen Content ABG 14.2 %vol (16.0-22.0); Oxygen Saturation ABG 92.6 % (95.0-100.0); Oxyhemoglobin 93.7 % THb (90.0-100.0); PCO2 ABG 44.7 mmHg (35.0-45.0); PO2 FiO2 Ratio Arterial Blood 4.24 %; Total Hemoglobin 10.7 g/dL (12.0-18.0)
[2020-02-11 20:42] LABS: Site Drawn RIGHT BRACHIAL; pH ABG 7.059 (7.350-7.450)
[2020-02-11 20:43] LABS: Device ROOM AIR
[2020-02-11 21:12] LABS: Lactic Acid Reflex < 0.5 mmol/L (0.7-2.1)
--- NOTE | 2020-02-11 21:17 | ADMGEN ---
This patient, Princess Barraza, was admitted to IMU Room 204-01 on 02/11/20 at 2100. Patient/family oriented to hospital policies and general routines including ID bracelet, bed and alarms, visiting hours, pain management, procedures, bathroom and other care routines, personal items, smoking policy, room service/diet, and visiting hours. Valuables list has been completed. Information on how to activate the Rapid Response Team has been discussed. Patient/Family are encouraged to report perceived risks to care and to ask questions if they do not understand what they are told or what they should do.
[2020-02-11] MEDS: SODIUM CHLORIDE 0.9% IV 1,000 ML 100 ML IV CONT (21:37)
[2020-02-11 21:41] LABS: Ammonia < 9 umol/L (9-30)
--- NOTE | 2020-02-11 22:02 | PCRCNOTE ---
abg late in er due to pt in ct scan
[2020-02-11] MEDS: ALBUTEROL SULFATE NEB 2.5 MG/0.5 ML INH INHALATION (22:10)
[2020-02-11 22:58] LABS: Folic Acid 5.4 ng/mL (2.76->20)
[2020-02-11 23:00] LABS: Free T4 Free Thyroxine Reflex 0.87 ng/dL (0.78-2.19)
[2020-02-11 23:58] LABS: Total Triiodothyronine (T3) 0.81 NG/ML (0.97-1.69)
[2020-02-12] VITALS (22 sets, daily range): BP systolic 85–134; BP diastolic 43–98; PULSE 70–109; RESP 16–20; TEMP 33.7–36.8; O2SAT 95–100
[2020-02-12 04:46] LABS: Basophils Percent Auto 0.3 % (0.2-1.2); Eosinophils Absolute Auto 0.1 K/mm3 (0-0.3); Eosinophils Percent Auto 1.8 % (0-4.4); Hematocrit 29.7 % (37.0-47.0); Hemoglobin 9.5 g/dL (12.0-15.0); Immature Granulocyte Absolute 0.05 K/mm3 (0.00-0.031); Immature Granulocyte Percent A 0.7 % (0-0.5); Lymphocytes Absolute Auto 0.63 K/mm3 (0.9-3.2); Lymphocytes Percent Auto 8.8 % (18.3-44.2); Mean Corpuscular Hemoglobin 32.3 pg (26-34); Mean Platelet Volume 9.6 fl (7.4-10.4); Monocytes Absolute Auto 0.4 K/mm3 (0.1-0.6); Monocytes Percent Auto 6.1 % (2.6-8.5); Neutrophils Absolute Auto 5.9 K/mm3 (1.3-6.7); Neutrophils Percent Auto 82.3 % (45.5-73.1); Platelet Count Result 150 k/mm3 (150-375); Red Blood Count 2.94 M/mm3 (4.2-5.4); Red Cell Distribution Width 20.3 % (11.5-14.5); White Blood Count 7.2 K/mm3 (4.5-10.0)
[2020-02-12 04:59] LABS: Blood Urea Nitrogen 55 mg/dL (7-17); Calcium 7.9 mg/dL (8.4-10.2); Carbon Dioxide 11 mmol/L (22-30); Chloride 112 mmol/L (98-107); Estimated CRCL calculation 24 ml/min; Estimated Glomerular Filt Rate 15; Glucose 75 mg/dL (65-105); Sodium 130 mmol/L (137-145)
[2020-02-12 06:02] LABS: Alveolar/Arterial O2 Gradient 4.3 mmHg; Base Excess ABG -17.7 mEq/l (+/-2.0); Device ROOM AIR; Fractional Inspired Oxygen 21 %; HCO3 ABG 11.7 mEq/l (22.0-26.0); Oxyhemoglobin 94.1 % THb (90.0-100.0); PCO2 ABG 41.8 mmHg (35.0-45.0); PO2 ABG 95.4 mmHg (80.0-100.0); PO2 FiO2 Ratio Arterial Blood 4.54 %; Site Drawn RIGHT BRACHIAL; Total Hemoglobin 10.5 g/dL (12.0-18.0); pH ABG 7.065 (7.350-7.450)
[2020-02-12] MEDS: SODIUM BICARBONATE 8.4% 150 MEQ in DEXTROSE 5% 1,000 ML 950 ML 100 MEQ IV CONT ×2 (06:25→17:31)
[2020-02-12] MEDS: LEVOTHYROXINE SODIUM INJ 100 MCG/5 ML VIAL 12.5 MCG IV PUSH (06:25)
[2020-02-12] MEDS: ACETAMINOPHEN 325 MG TABLET 650 MG PO (06:28)
[2020-02-12] MEDS: ALBUTEROL SULFATE NEB 2.5 MG/0.5 ML INH INHALATION ×3 (08:12→19:52)
--- NOTE | 2020-02-12 09:27 | PM.IMPN ---
Progress Note: A&P Assessment and Plan (1) Encephalopathy: Code(s): G93.40 - Encephalopathy, unspecified Status: Acute Assessment and Plan: May be secondary to overmedication, renal failure with acidosis, and/or UTI consistent with metabolic encephalopathy. Brain CT showing no acute findings. Appears improved but with emotional lability. Will resume some of her psychiatric mediations and monitor. Okay to start diet. (2) Acute on chronic renal failure: Qualifiers: Acute renal failure type: unspecified Chronic kidney disease stage: stage 4 (severe) Qualified Code(s): N17.9 - Acute kidney failure, unspecified; N18.4 - Chronic kidney disease, stage 4 (severe) Code(s): N17.9 - Acute kidney failure, unspecified; N18.9 - Chronic kidney disease, unspecified Status: Acute Assessment and Plan: Creatinine 3.0 on admission and higher this morning. May be seconadry to poor PO intake given the patient's mental status. Currently on IV fluids with bicarb related to the severe metabolic acidosis. Will check renal ultrasound to exclude urine retention given the physical findings and lack of urine output. Nephrology consult. pH still 7.09 but better. Suspect mixed venous gas. Bicarb better at 14 but BUN 54 and Cr 3.3. COntinue IV fluids with bicarb. (3) Metabolic acidosis: Code(s): E87.2 - Acidosis Status: Acute Assessment and Plan: Likely secondary to UTI, acute renal failure, and poor PO intake. Patient a bicarb drip. Will have nephrology consulted since renal function is not improved significantly. Repeat lab work later today. Follow closely. (4) UTI (urinary tract infection): Qualifiers: Hematuria presence: without hematuria Urinary tract infection type: site unspecified Qualified Code(s): N39.0 - Urinary tract infection, site not specified Code(s): N39.0 - Urinary tract infection, site not specified Status: Acute Assessment and Plan: UA noted. Urine culture pending. Continue ceftriaxone. (5) Chronic anemia: Code(s): D64.9 - Anemia, unspecified Status: Chronic Assessment and Plan: Hemoglobin in the 9-10 range chronically and currently at baseline. No signs of acute blood loss. Monitor H/H periodically and transfuse prn. (6) Chronic pain syndrome: Code(s): G89.4 - Chronic pain syndrome Status: Chronic Assessment and Plan: We are currently holding narcotics secondary to encephalopathy. Patient more awake and alert. Add back medications as tolerated. (7) Chronic combined systolic (congestive) and diastolic (congestive) heart failure: Code(s): I50.42 - Chronic combined systolic (congestive) and diastolic (congestive) heart failure Status: Chronic Assessment and Plan: Currently compensated. Monitor fluid status closely on IV fluids. Resume home CHF meds as tolerated. (8) Open wound anterior abdominal wall: Qualifiers: Encounter type: initial encounter Qualified Code(s): S31.109A - Unspecified open wound of abdominal wall, unspecified quadrant without penetration into peritoneal cavity, initial encounter Code(s): S31.109A - Unspecified open wound of abdominal wall, unspecified quadrant without penetration into peritoneal cavity, initial encounter Status: Chronic Assessment and Plan: Continue local wound care. Continue surgery recommendations. (9) Essential (primary) hypertension: Code(s): I10 - Essential (primary) hypertension Status: Chronic Assessment and Plan: Blood pressure reviewed on 02/12/2020. Blood pressure better controlled. Will add back Coreg. Monitor blood pressure and resume other home meds when appropriate. Subjective Date/time seen: 02/12/20 09:27 Interval history: 64yo female with CHF, CKD stage 3 and chronic pain syndrome here for weakness and altered mental status an
--- NOTE | 2020-02-12 10:33 | PM.CNNEP ---
Assessment and Plan Assessment and plan (1) ISABELLE (acute kidney injury): Code(s): N17.9 - Acute kidney failure, unspecified Status: Acute (2) Chronic kidney disease, stage 3: Code(s): N18.3 - Chronic kidney disease, stage 3 (moderate) Status: Chronic (3) Metabolic acidosis: Code(s): E87.2 - Acidosis Status: Acute (4) Altered mental status: Qualifiers: Altered mental status type: unspecified Qualified Code(s): R41.82 - Altered mental status, unspecified Code(s): R41.82 - Altered mental status, unspecified Status: Acute (5) UTI (urinary tract infection): Qualifiers: Hematuria presence: without hematuria Urinary tract infection type: site unspecified Qualified Code(s): N39.0 - Urinary tract infection, site not specified Code(s): N39.0 - Urinary tract infection, site not specified Status: Acute Assessment and Plan: . Additional Plan Princess has acute kidney injury/acute renal failure on top of her baseline kidney disease in association with a severe metabolic acidosis. I am not entirely clear on the chronological issue/events that led to these abnormalities but the assumption is that her urinary tract infection may have caused her acute kidney injury which thereby worsen and/or exacerbated her underlying metabolic acidosis. She has already been instituted on bicarb IV fluids in effort trying compensate for her metabolic acidosis which is probably worsened by her acute kidney injury on top of things. My better concern of course is that she is not making very much urine but if she is significantly volume depleted, and may require further aggressive IV fluids to actually assess urine output in general. For further evaluation of her acute kidney injury, a renal ultrasound has been ordered and I will also check urine electrolytes, urine eosinophilia, and follow up on her urine culture as for urinary tract infection may be partly responsible for her worsening kidney disease. Her acute kidney injury may have been also precipitated by her continued use of an AR-inhibitor as well as NSAID therapy based on her outpatient medication list. I will continue follow the patient with you while she remains hospitalized and make further recommendations during hospital course. Thank for allowing me to participate in the care this patient. History of Present Illness Reason for Consult Consult date: 02/12/20 Reason for consult: acute renal failure (on chronic kidney disease) and metabolic acidosis Chief Complaint Chief complaint: isabelle, weakness History of Present Illness Narrative: The patient is a 64 year old female with multiple medical problems as outlined below who presented to the [facility] ER with complaints of increased weakness for the past 2 - 3 days. Apparently on presentation, she was quite lethargic and there was significant difficulty in assess the events that led to her presentaton. Her mentation has improved but still difficult to a full and complete history. She apparently has been falling over the past week with noted trauma (bilateral bruising around her eyes) and reports significant soreness from these falls. Work-up and evaluation in the ER demonstrated a severe metabolic acidosis in association with acute kidney injury on top of her known CKD along with a urinalysis suggestive for an acute urinary tract infection. Given these significant findings, she was admitted to the hospital for further evaluation and therapy. Renal consultation was requested due to her acute kidney injury on chronic kidney disease in association with her severe metabolic acidosis. Since admission, she has been on bicarb fluids in effort to correct this abnormality but more concerning is the fact that she is not making much urine despite the institution of IV fluids. Her baseline creatinine normally runs around 1.3-1.7 mg/dL but has fluctuated to signifi
[2020-02-12 10:39] LABS: Alveolar/Arterial O2 Gradient 49.3 mmHg; Base Excess ABG -15.6 mEq/l (+/-2.0); Fractional Inspired Oxygen 21 %; HCO3 ABG 13.4 mEq/l (22.0-26.0); Oxygen Content ABG 12.4 %vol (16.0-22.0); Oxyhemoglobin 82.2 % THb (90.0-100.0); PCO2 ABG 44.9 mmHg (35.0-45.0); PO2 FiO2 Ratio Arterial Blood 2.22 %; Total Hemoglobin 10.7 g/dL (12.0-18.0)
[2020-02-12 10:45] LABS: pH ABG 7.094 (7.350-7.450)
[2020-02-12 10:46] LABS: Device ROOM AIR; Modified Allen's Test Pass; PO2 ABG 46.7 mmHg (80.0-100.0); Site Drawn LEFT RADIAL
[2020-02-12] MEDS: PANTOPRAZOLE 40 MG TABLET PO (11:00)
[2020-02-12] MEDS: CITALOPRAM HYDROBROMIDE 20 MG TABLET 40 MG PO (11:00)
[2020-02-12] MEDS: risperiDONE 1 MG TABLET 2 MG PO ×2 (11:00→20:44)
[2020-02-12] MEDS: carvediloL 6.25 MG TABLET PO ×2 (11:02→17:32)
[2020-02-12] MEDS: buPROPion HCL XL (24 HR) 150 MG TABCR PO (11:03)
[2020-02-12] MEDS: GABAPENTIN 100 MG CAPSULE PO ×3 (11:03→17:32)
[2020-02-12] MEDS: SILVERGEL (ELTA) 45 ML 1 APPLIC TOPICAL (11:05)
[2020-02-12] MEDS: ENOXAPARIN 30 MG/0.3 ML SYRINGE SUB-Q (11:05)
[2020-02-12] MEDS: LORAZEPAM 1 MG TABLET 0.5 MG PO ×2 (11:07→17:36)
[2020-02-12 13:26] LABS: Blood Urea Nitrogen 54 mg/dL (7-17); Carbon Dioxide 14 mmol/L (22-30); Chloride 108 mmol/L (98-107); Estimated CRCL calculation 23 ml/min; Estimated Glomerular Filt Rate 14; Glucose 109 mg/dL (65-105); Potassium 3.7 mmol/L (3.4-5.0); Sodium 130 mmol/L (137-145)
[2020-02-12] MEDS: ATORVASTATIN 10 MG TABLET PO (20:44)
[2020-02-13] VITALS (9 sets, daily range): BP systolic 83–155; BP diastolic 42–69; PULSE 69–89; RESP 12–20; TEMP 35.2–36.9; O2SAT 92–99
[2020-02-13] MEDS: LORAZEPAM 1 MG TABLET 0.5 MG PO ×3 (00:34→22:22)
[2020-02-13 02:39] LABS: Creatinine Urine 65.5 mg/dL; Total Protein Urine Random 25 mg/dL
[2020-02-13 03:11] LABS: Sodium Urine Random 27 meq/L
[2020-02-13] MEDS: SODIUM BICARBONATE 8.4% 150 MEQ in DEXTROSE 5% 1,000 ML 950 ML 100 MEQ IV CONT (04:54)
[2020-02-13] MEDS: LEVOTHYROXINE SODIUM INJ 100 MCG/5 ML VIAL 12.5 MCG IV PUSH (04:54)
[2020-02-13 05:37] LABS: Albumin Level 2.1 g/dL (3.5-5.1); Blood Urea Nitrogen 58 mg/dL (7-17); Calcium 7.8 mg/dL (8.4-10.2); Carbon Dioxide 15 mmol/L (22-30); Chloride 106 mmol/L (98-107); Estimated CRCL calculation 28 ml/min; Estimated Glomerular Filt Rate 18; Glucose 97 mg/dL (65-105); Magnesium 1.8 mg/dL (1.6-2.3); Phosphorus 5.6 mg/dL (2.5-4.5); Potassium 3.4 mmol/L (3.4-5.0); Sodium 128 mmol/L (137-145)
[2020-02-13 07:09] LABS: Hematocrit 27.7 % (37.0-47.0); Hemoglobin 9.1 g/dL (12.0-15.0); Mean Corpuscular HGB Conc 32.9 g/dl (32-36); Mean Corpuscular Hemoglobin 31.9 pg (26-34); Mean Corpuscular Volume 97.2 fl (80-100); Mean Platelet Volume 9.9 fl (7.4-10.4); Platelet Count Result 131 k/mm3 (150-375); Red Blood Count 2.85 M/mm3 (4.2-5.4)
--- NOTE | 2020-02-13 07:42 | PCRCNOTE ---
pt refused breathing tx
[2020-02-13] MEDS: SILVERGEL (ELTA) 45 ML 1 APPLIC TOPICAL (08:41)
[2020-02-13] MEDS: risperiDONE 1 MG TABLET 2 MG PO ×2 (08:41→21:07)
[2020-02-13] MEDS: GABAPENTIN 100 MG CAPSULE PO ×3 (08:41→18:14)
[2020-02-13] MEDS: ENOXAPARIN 30 MG/0.3 ML SYRINGE SUB-Q (08:41)
[2020-02-13] MEDS: PANTOPRAZOLE 40 MG TABLET PO (08:41)
[2020-02-13] MEDS: carvediloL 6.25 MG TABLET PO (08:42)
[2020-02-13] MEDS: CITALOPRAM HYDROBROMIDE 20 MG TABLET 40 MG PO (08:44)
[2020-02-13] MEDS: buPROPion HCL XL (24 HR) 150 MG TABCR PO (08:44)
[2020-02-13] MEDS: ACETAMINOPHEN 325 MG TABLET 650 MG PO ×2 (08:50→22:11)
--- NOTE | 2020-02-13 09:00 | P.CDI_ITS ---
CDI Query Clarification Request - Encephalopathy, May be secondary to overmedication, renal failure, and/or UTI has been documented. Please further clarify type of encephalopathy: * Metabolic * Toxic * Hypertensive * Hepatic * Other * Unable to determine <Lauryn Llanos RN - Last Filed: 02/13/20 09:08>
--- NOTE | 2020-02-13 09:00 | WPDCDIQUERY2 ---
CDI Query Clarification Request - Encephalopathy, May be secondary to overmedication, renal failure, and/or UTI has been documented. Please further clarify type of encephalopathy: Metabolic Toxic Hypertensive Hepatic Other Unable to determine <Lauryn Llanos RN - Last Filed: 02/13/20 09:08>
--- NOTE | 2020-02-13 10:17 | PM.IMPN ---
Progress Note: A&P Assessment and Plan (1) Metabolic encephalopathy: Code(s): G93.41 - Metabolic encephalopathy Status: Acute Assessment and Plan: May be secondary to overmedication, renal failure with acidosis, and/or UTI consistent with metabolic encephalopathy. Brain CT showing no acute findings. Mental status improved. Patient with significant complaints of back pain. Stable with the emotionally ability despite resuming her Wellbutrin, Celexa and Risperdal. Will add pain medications and monitor blood pressure and mental status closely. Ativan available for anxiety and can be used for muscle spasm. Advance diet. Continue PT and OT. (2) Acute on chronic renal failure: Qualifiers: Acute renal failure type: unspecified Chronic kidney disease stage: stage 4 (severe) Qualified Code(s): N17.9 - Acute kidney failure, unspecified; N18.4 - Chronic kidney disease, stage 4 (severe) Code(s): N17.9 - Acute kidney failure, unspecified; N18.9 - Chronic kidney disease, unspecified Status: Acute Assessment and Plan: Creatinine 3.0 on admission and peaked to 3.3. May be seconadry to poor PO intake given the patient's mental status. Currently on IV fluids with bicarb related to the severe metabolic acidosis. Creatinine today is 2.7. Renal ultrasound showing no acute findings. Appreciate Nephrology input. (3) Metabolic acidosis: Code(s): E87.2 - Acidosis Status: Acute Assessment and Plan: Likely secondary to UTI, acute renal failure, and poor PO intake. Patient on a bicarb drip. Metabolic acidosis slowly improving. Continue bicarb drip. Appreciate Nephrology input. (4) UTI (urinary tract infection): Qualifiers: Hematuria presence: without hematuria Urinary tract infection type: site unspecified Qualified Code(s): N39.0 - Urinary tract infection, site not specified Code(s): N39.0 - Urinary tract infection, site not specified Status: Acute Assessment and Plan: UA noted. Urine culture EColi sensitive to ceftriaxone. Continue the same. (5) Chronic anemia: Code(s): D64.9 - Anemia, unspecified Status: Chronic Assessment and Plan: Hemoglobin in the 9-10 range chronically and currently at baseline. No signs of acute blood loss. Monitor H/H periodically and transfuse prn. (6) Chronic pain syndrome: Code(s): G89.4 - Chronic pain syndrome Status: Chronic Assessment and Plan: We are currently holding narcotics secondary to encephalopathy. Patient more awake and alert so will add back [place]. Called by RN about low BP (at 1850). She had dose of [place] at 1814. Could be causing the HoTN. Hold narcotics again (7) Chronic combined systolic (congestive) and diastolic (congestive) heart failure: Code(s): I50.42 - Chronic combined systolic (congestive) and diastolic (congestive) heart failure Status: Chronic Assessment and Plan: Currently compensated. Monitor fluid status closely on IV fluids. Resume home CHF meds as tolerated. (8) Open wound anterior abdominal wall: Qualifiers: Encounter type: initial encounter Qualified Code(s): S31.109A - Unspecified open wound of abdominal wall, unspecified quadrant without penetration into peritoneal cavity, initial encounter Code(s): S31.109A - Unspecified open wound of abdominal wall, unspecified quadrant without penetration into peritoneal cavity, initial encounter Status: Chronic Assessment and Plan: Continue local wound care. Continue surgery wound care recommendations. (9) Essential (primary) hypertension: Code(s): I10 - Essential (primary) hypertension Status: Chronic Assessment and Plan: Blood pressure reviewed on 02/13/2020. Blood pressure low at times still so will continue to monitor. Monitor blood pressure and resume other home meds when appropriate. Jhonatan
[2020-02-13] MEDS: LORATADINE 10 MG TABLET PO (12:02)
[2020-02-13] MEDS: MAGNESIUM OXIDE 400 MG TABLET PO (12:02)
--- NOTE | 2020-02-13 13:10 | PC.NURSE ---
This patient, Princess Barraza, was transferred to [facility] on 02/13/20 at 1310. Personal belongings sent with patient. Report given to DAVID Corbett. Appropriate documentation sent with patient.
--- NOTE | 2020-02-13 13:13 | PCRCNOTE ---
pt continues to refuse tx
[2020-02-13] MEDS: SODIUM BICARBONATE 8.4% 150 MEQ in DEXTROSE 5% 1,000 ML 950 ML 50 MEQ IV CONT (16:40)
--- NOTE | 2020-02-13 16:50 | PM.PNNEP ---
Progress Note: A&P Assessment and Plan (1) ISABELLE (acute kidney injury): Code(s): N17.9 - Acute kidney failure, unspecified Status: Acute Assessment and Plan: presumed secondary: - volume depletion/dehydration - acute infection (UTI) - concurrent use of AR-I - NSAID use (?) -- meloxicam listed as outpatient medication some improvement in BUN and creatinine better UOP today follow repeat labs and urine output (2) Chronic kidney disease, stage 3: Code(s): N18.3 - Chronic kidney disease, stage 3 (moderate) Status: Chronic Assessment and Plan: creatinine has fluctuated to extremes over the last few years creatinine seems to average ~ 1.3 - 1.7mg/dl presumably secondary to cardiovascular disease and age (3) Metabolic acidosis: Code(s): E87.2 - Acidosis Status: Acute Assessment and Plan: some improvement noted with use of bicarb IVFs etiology? - probably UTI + renal failure + diminished oral intake continue supporitve therapy (4) Altered mental status: Qualifiers: Altered mental status type: unspecified Qualified Code(s): R41.82 - Altered mental status, unspecified Code(s): R41.82 - Altered mental status, unspecified Status: Acute Assessment and Plan: improvement noted follow trend of mentation (5) UTI (urinary tract infection): Qualifiers: Hematuria presence: without hematuria Urinary tract infection type: site unspecified Qualified Code(s): N39.0 - Urinary tract infection, site not specified Code(s): N39.0 - Urinary tract infection, site not specified Status: Acute Assessment and Plan: urine culture with E. coli on antibiotics Will continue to follow. Subjective Date/time seen: 02/13/20 16:50 Mentation seems to be slowly improving but on the verge of tears at the time of my visit secondary to her chronic pain issues; better urine output since after midnight; no new issues/events overnight or earlier today. Exam Narrative: Exam Narrative: General: WD/WN female in NAD Heart: normal S1 and S2; no rub Lungs: clear to auscultation Abdomen: soft and nondistended, positive bowel sounds; + suprapubic pain Extremities: no cyanosis or clubbing; 1+ edema Skin: warm and dry Objective Data Vital Signs Vital Signs: Vital Signs Temp Pulse Resp BP Pulse Ox 02/13/20 14:15 35.9 C L 69 16 101/69 95 02/13/20 10:00 76 02/13/20 08:42 86 02/13/20 08:00 35.2 C L 89 12 107/52 L 92 02/13/20 06:00 71 02/13/20 04:00 36.9 C 72 20 90/42 L 99 02/13/20 02:00 81 02/13/20 00:00 36.6 C 78 18 155/62 H 97 02/12/20 22:00 70 02/12/20 20:04 77 18 02/12/20 20:00 36.8 C 73 20 86/43 L 98 02/12/20 19:52 71 18 02/12/20 18:00 74 02/12/20 17:32 76 Intake/Output Intake/Output: Intake & Output 02/10/20 02/11/20 02/12/20 02/13/20 23:59 23:59 23:59 23:59 Intake Total 200 1660 3558 Output Total 400 1350 Balance -200 1660 2208 Meds/Results Medications: Active Medications Generic Name Dose Route Start Last Admin Trade Name Freq PRN Reason Stop Dose Admin Acetaminophen 650 mg 02/11/20 20:02 02/13/20 08:50 Tylenol Tablet PO 650 mg Q4H PRN Administration Mild Pain (1-3) or Fever Hydrocodone Bitart/Acetaminophen 1 tab 02/13/20 10:25 02/13/20 12:02 [place] 5-325 Mg PO 1 tab Q6H PRN Administration Pain Rated 4-6 Albuterol 2.5 mg 02/13/20 16:49 Albuterol Sulf Neb 2.5mg/0.5ml INHALATION Q6HRT PRN Shortness Of Breath Or Wheezing Atorvastatin Calcium 10 mg 02/12/20 21:00 02/12/20 20:44 Lipitor PO 10 mg HS ASHVIN Administration Bupropion HCl 150 mg 02/12/20 09:00 02/13/20 08:44 Wellbutrin Xl (24 Hr) PO 150 mg DAILY ASHVIN Administration Carvedilol 6.25 mg 02/12/20 09:00 02/13/20 08:42 Coreg PO 6.25 mg BID ASHVIN
[2020-02-13] MEDS: ATORVASTATIN 10 MG TABLET PO (21:08)
[2020-02-14] VITALS (7 sets, daily range): BP systolic 80–110; BP diastolic 44–89; PULSE 64–98; RESP 18–20; TEMP 36.3–36.4; O2SAT 98–99
[2020-02-14 05:04] LABS: Base Excess ABG -5.9 mEq/l (+/-2.0); Fractional Inspired Oxygen 21 %; HCO3 ABG 20.9 mEq/l (22.0-26.0); Oxygen Content ABG 13.5 %vol (16.0-22.0); Oxygen Saturation ABG 95.1 % (95.0-100.0); Oxyhemoglobin 93.5 % THb (90.0-100.0); PCO2 ABG 46.9 mmHg (35.0-45.0); PO2 ABG 85.6 mmHg (80.0-100.0); PO2 FiO2 Ratio Arterial Blood 4.08 %; Total Hemoglobin 10.2 g/dL (12.0-18.0)
[2020-02-14 05:06] LABS: Device ROOM AIR; Modified Allen's Test Pass; Site Drawn RIGHT RADIAL; pH ABG 7.267 (7.350-7.450)
[2020-02-14 05:51] LABS: Hematocrit 29.1 % (37.0-47.0); Hemoglobin 9.7 g/dL (12.0-15.0); Mean Corpuscular HGB Conc 33.3 g/dl (32-36); Mean Corpuscular Hemoglobin 31.7 pg (26-34); Mean Corpuscular Volume 95.1 fl (80-100); Mean Platelet Volume 9.8 fl (7.4-10.4); Platelet Count Result 156 k/mm3 (150-375); Red Blood Count 3.06 M/mm3 (4.2-5.4); Red Cell Distribution Width 20.1 % (11.5-14.5); White Blood Count 4.5 K/mm3 (4.5-10.0)
[2020-02-14 06:05] LABS: Albumin Level 2.4 g/dL (3.5-5.1); Blood Urea Nitrogen 52 mg/dL (7-17); Carbon Dioxide 24 mmol/L (22-30); Chloride 100 mmol/L (98-107); Estimated CRCL calculation 30 ml/min; Estimated Glomerular Filt Rate 19; Glucose 84 mg/dL (65-105); Magnesium 1.7 mg/dL (1.6-2.3); Phosphorus 5.5 mg/dL (2.5-4.5); Potassium 3.3 mmol/L (3.4-5.0); Sodium 130 mmol/L (137-145)
[2020-02-14] MEDS: MAGNESIUM SULF 1 GM/D5W 100 ML 1 GM/100 ML BAG IVPB (08:22)
[2020-02-14] MEDS: POTASSIUM CHLORIDE 20 MEQ TABLET PO (08:25)
[2020-02-14] MEDS: SILVERGEL (ELTA) 45 ML 1 APPLIC TOPICAL (08:36)
[2020-02-14] MEDS: LEVOTHYROXINE SODIUM 25 MCG TABLET PO (08:36)
[2020-02-14] MEDS: carvediloL 3.125 MG TABLET PO ×2 (08:36→18:10)
[2020-02-14] MEDS: risperiDONE 1 MG TABLET 2 MG PO ×2 (08:37→20:50)
[2020-02-14] MEDS: buPROPion HCL XL (24 HR) 150 MG TABCR PO (08:37)
[2020-02-14] MEDS: ENOXAPARIN 30 MG/0.3 ML SYRINGE SUB-Q (08:37)
[2020-02-14] MEDS: CITALOPRAM HYDROBROMIDE 20 MG TABLET 40 MG PO (08:37)
[2020-02-14] MEDS: PANTOPRAZOLE 40 MG TABLET PO (08:37)
[2020-02-14] MEDS: GABAPENTIN 100 MG CAPSULE PO ×3 (08:38→18:10)
[2020-02-14] MEDS: BENZOCAINE/MENTHOL (*BKC) 18 EA LOZENGE 1 LOZENGE PO (08:51)
[2020-02-14] MEDS: LORATADINE 10 MG TABLET PO (09:55)
[2020-02-14] MEDS: MAGNESIUM OXIDE 400 MG TABLET PO (09:55)
[2020-02-14] MEDS: ACETAMINOPHEN 325 MG TABLET 650 MG PO ×2 (09:58→21:56)
--- NOTE | 2020-02-14 14:13 | P.PNNP_ITS ---
Progress Note: A&P Assessment and Plan (1) ISABELLE (acute kidney injury): Code(s): N17.9 - Acute kidney failure, unspecified Status: Acute Assessment and Plan: * presumed secondary: - volume depletion/dehydration -- suspect poor oral intake [employer] -- urine electrolytes seem to support this as well - acute infection (UTI) - concurrent use of AR-I - NSAID use (?) -- meloxicam listed as outpatient medication * some improvement in BUN and creatinine with IVF hydration * better UOP in the last 24 - 48 hours * if adequate oral intake today, consider weaning off bicarb fluids * follow repeat labs and urine output (2) Chronic kidney disease, stage 3: Code(s): N18.3 - Chronic kidney disease, stage 3 (moderate) Status: Chronic Assessment and Plan: * creatinine has fluctuated to extremes over the last few years * creatinine seems to average ~ 1.3 - 1.7mg/dl * presumably secondary to cardiovascular disease and age (3) Metabolic acidosis: Code(s): E87.2 - Acidosis Status: Acute Assessment and Plan: * some improvement noted with use of bicarb IVFs - repeat ABG this AM noted * etiology? - probably UTI + renal failure + diminished oral intake * continue supportive therapy (4) Altered mental status: Qualifiers: Altered mental status type: unspecified Qualified Code(s): R41.82 - Altered mental status, unspecified Code(s): R41.82 - Altered mental status, unspecified Status: Acute Assessment and Plan: * improvement noted * follow trend of mentation (5) UTI (urinary tract infection): Qualifiers: Hematuria presence: without hematuria Urinary tract infection type: site unspecified Qualified Code(s): N39.0 - Urinary tract infection, site not specified Code(s): N39.0 - Urinary tract infection, site not specified Status: Acute Assessment and Plan: * urine culture with E. coli * on antibiotics Will continue to follow. Subjective Date/time seen: 02/14/20 14:13 No acute distress noted at this time; feels as though she is improving; no is sues or events overnight or earlier this AM; some emotional lability but seems stable. Exam Narrative: Exam Narrative: General: WD/WN female in NAD Heart: normal S1 and S2; no rub Lungs: clear to auscultation Abdomen: soft and nondistended, positive bowel sounds Extremities: no cyanosis or clubbing; 1+ edema (pitting + nonpitting) Skin: warm and intact Objective Data Vital Signs Vital Signs: Vital Signs Temp Pulse Resp BP Pulse Ox 02/14/20 08:36 84 02/14/20 00:00 36.3 C L 80 20 110/60 99 02/13/20 18:45 79 83/42 L 02/13/20 14:15 35.9 C L 69 16 101/69 95 Intake/Output Intake/Output: Intake & Output 02/11/20 02/12/20 02/13/20 02/14/20 23:59 23:59 23:59 23:59 Intake Total 200 1660 4031 830 Output Total 400 1700 500 Balance -200 1660 2331 330 Meds/Results Medications: Active Medications Generic Name Dose Route Start Last Admin Trade Name Freq PRN Reason Stop Dose Admin Acetaminophen 650 mg 02/11/20 20:02 02/14/20 09:58 Tylenol Tablet PO 650 mg Q4H PRN Administration Mild Pain (1-3) or Fever Hydrocodo
--- NOTE | 2020-02-14 14:13 | PM.PNNEP ---
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 as well - acute infection (UTI) - concurrent use of AR-I - NSAID use (?) -- meloxicam listed as outpatient medication some improvement in BUN and creatinine with IVF hydration better UOP in the last 24 - 48 hours if adequate oral intake today, consider weaning off bicarb fluids follow repeat labs and urine output (2) Chronic kidney disease, stage 3: Code(s): N18.3 - Chronic kidney disease, stage 3 (moderate) Status: Chronic Assessment and Plan: creatinine has fluctuated to extremes over the last few years creatinine seems to average ~ 1.3 - 1.7mg/dl presumably secondary to cardiovascular disease and age (3) Metabolic acidosis: Code(s): E87.2 - Acidosis Status: Acute Assessment and Plan: some improvement noted with use of bicarb IVFs - repeat ABG this AM noted etiology? - probably UTI + renal failure + diminished oral intake continue supportive therapy (4) Altered mental status: Qualifiers: Altered mental status type: unspecified Qualified Code(s): R41.82 - Altered mental status, unspecified Code(s): R41.82 - Altered mental status, unspecified Status: Acute Assessment and Plan: improvement noted follow trend of mentation (5) UTI (urinary tract infection): Qualifiers: Hematuria presence: without hematuria Urinary tract infection type: site unspecified Qualified Code(s): N39.0 - Urinary tract infection, site not specified Code(s): N39.0 - Urinary tract infection, site not specified Status: Acute Assessment and Plan: urine culture with E. coli on antibiotics Will continue to follow. Subjective Date/time seen: 02/14/20 14:13 No acute distress noted at this time; feels as though she is improving; no issues or events overnight or earlier this AM; some emotional lability but seems stable. Exam Narrative: Exam Narrative: General: WD/WN female in NAD Heart: normal S1 and S2; no rub Lungs: clear to auscultation Abdomen: soft and nondistended, positive bowel sounds Extremities: no cyanosis or clubbing; 1+ edema (pitting + nonpitting) Skin: warm and intact Objective Data Vital Signs Vital Signs: Vital Signs Temp Pulse Resp BP Pulse Ox 02/14/20 08:36 84 02/14/20 00:00 36.3 C L 80 20 110/60 99 02/13/20 18:45 79 83/42 L 02/13/20 14:15 35.9 C L 69 16 101/69 95 Intake/Output Intake/Output: Intake & Output 02/11/20 02/12/20 02/13/20 02/14/20 23:59 23:59 23:59 23:59 Intake Total 200 1660 4031 830 Output Total 400 1700 500 Balance -200 1660 2331 330 Meds/Results Medications: Active Medications Generic Name Dose Route Start Last Admin Trade Name Freq PRN Reason Stop Dose Admin Acetaminophen 650 mg 02/11/20 20:02 02/14/20 09:58 Tylenol Tablet PO 650 mg Q4H PRN Administration Mild Pain (1-3) or Fever Hydrocodone Bitart/Acetaminophen 1 tab 02/13/20 10:25 02/13/20 18:14 [place] 5-325 Mg PO 1 tab Q6H PRN Administration Pain Rated 4-6 Albuterol 2.5 mg 02/13/20 16:49 Albuterol Sulf Neb 2.5mg/0.5ml INHALATION Q6HRT PRN Shortness Of Breath Or Wheezing Atorvastatin Calcium 10 mg 02/15/20 21:00 Lipitor PO HS [facility] Atorvastatin Calcium 10 mg 02/14/20 21:00 Lipitor PO 02/14/20 21:01 HS [facility] Benzocaine 1 lozenge 02/14/20 06:29 02/14/20 08:51 Chloraseptic Lozenge PO 1 lozenge PRN PRN Administration Sore Throat Bupropion HCl 150 mg 02/12/20 09:00 02/14/20 08:37 Wellbutrin Xl (24 Hr) PO 150 mg DAILY ASHVIN Administration Car
--- NOTE | 2020-02-14 14:26 | PM.IMPN ---
Progress Note: A&P Assessment and Plan (1) Metabolic encephalopathy: Code(s): G93.41 - Metabolic encephalopathy Status: Acute Assessment and Plan: May be secondary to overmedication, renal failure with acidosis, and/or UTI consistent with metabolic encephalopathy. Brain CT showing no acute findings. Mental status improved and appears back to baseline. Her emotional lability improved. Continue her Wellbutrin, Celexa and Risperdal. Ativan available for anxiety and can be used for muscle spasm. Continue PT and OT. (2) Acute on chronic renal failure: Qualifiers: Acute renal failure type: unspecified Chronic kidney disease stage: stage 4 (severe) Qualified Code(s): N17.9 - Acute kidney failure, unspecified; N18.4 - Chronic kidney disease, stage 4 (severe) Code(s): N17.9 - Acute kidney failure, unspecified; N18.9 - Chronic kidney disease, unspecified Status: Acute Assessment and Plan: Baseline Cr unclear but probably 1.7 range. Creatinine 3.0 on admission and peaked to 3.3. May be secondary to poor PO intake given the patient's mental status. Currently on IV fluids with bicarb related to the severe metabolic acidosis. Creatinine today is 2.6. Renal ultrasound showing no acute findings. Appreciate Nephrology input. (3) Metabolic acidosis: Code(s): E87.2 - Acidosis Status: Acute Assessment and Plan: Likely secondary to UTI, acute renal failure, and poor PO intake. Patient on a bicarb drip still. Metabolic acidosis slowly improving. Continue bicarb drip one more day. Appreciate Nephrology input. (4) UTI (urinary tract infection): Qualifiers: Hematuria presence: without hematuria Urinary tract infection type: site unspecified Qualified Code(s): N39.0 - Urinary tract infection, site not specified Code(s): N39.0 - Urinary tract infection, site not specified Status: Acute Assessment and Plan: UA noted. Urine culture EColi sensitive to ceftriaxone. Continue the same. (5) Chronic anemia: Code(s): D64.9 - Anemia, unspecified Status: Chronic Assessment and Plan: Hemoglobin in the 9-10 range chronically and currently at baseline. No signs of acute blood loss. Monitor H/H periodically and transfuse prn. (6) Chronic pain syndrome: Code(s): G89.4 - Chronic pain syndrome Status: Chronic Assessment and Plan: We are currently holding narcotics secondary to encephalopathy and HoTN. Add lidocaine patch (7) Chronic combined systolic (congestive) and diastolic (congestive) heart failure: Code(s): I50.42 - Chronic combined systolic (congestive) and diastolic (congestive) heart failure Status: Chronic Assessment and Plan: Currently compensated. Monitor fluid status closely on IV fluids. Resume home CHF meds as tolerated. (8) Open wound anterior abdominal wall: Qualifiers: Encounter type: initial encounter Qualified Code(s): S31.109A - Unspecified open wound of abdominal wall, unspecified quadrant without penetration into peritoneal cavity, initial encounter Code(s): S31.109A - Unspecified open wound of abdominal wall, unspecified quadrant without penetration into peritoneal cavity, initial encounter Status: Chronic Assessment and Plan: Continue local wound care. Continue surgery wound care recommendations. (9) Essential (primary) hypertension: Code(s): I10 - Essential (primary) hypertension Status: Chronic Assessment and Plan: Blood pressure reviewed on 02/14/2020. Blood pressure low at times still so will continue to monitor. Monitor blood pressure and resume other home meds when appropriate. Parameters on the Coreg Subjective Date/time seen: 02/14/20 14:26 Interval history: 64yo female with CHF, CKD stage 3 and chronic pain syndrome here for weakness and altered mental status and found to have brendan
[2020-02-14] MEDS: SODIUM BICARBONATE 8.4% 150 MEQ in DEXTROSE 5% 1,000 ML 950 ML 50 MEQ IV CONT (18:08)
[2020-02-14] MEDS: LORAZEPAM 1 MG TABLET 0.5 MG PO (20:44)
[2020-02-14] MEDS: ATORVASTATIN 5 MG TABLET 10 MG PO (20:50)
--- NOTE | 2020-02-15 00:14 | PC.NURSE ---
No IV access at shift change, electrician apprentice powerhouse Lauryn was unable to place new access. Dr. Castillo informed of situation and agrees to wait for next electrician apprentice powerhouse Ruthann to attempt new access at 2230.
--- NOTE | 2020-02-15 00:25 | PC.NURSE ---
Access placed by household chores, fluids continued and antibiotic administered.
[2020-02-15] MEDS: ACETAMINOPHEN 325 MG TABLET 650 MG PO ×4 (03:51→22:32)
[2020-02-15 06:00] VITALS: BP 96/53; PULSE 91; RESP 18; TEMP 36.3; O2SAT 96
[2020-02-15 06:11] LABS: Albumin Level 2.5 g/dL (3.5-5.1); Blood Urea Nitrogen 49 mg/dL (7-17); Calcium 8.3 mg/dL (8.4-10.2); Carbon Dioxide 25 mmol/L (22-30); Chloride 103 mmol/L (98-107); Estimated CRCL calculation 38 ml/min; Estimated Glomerular Filt Rate 25; Glucose 84 mg/dL (65-105); Phosphorus 4.7 mg/dL (2.5-4.5); Potassium 3.5 mmol/L (3.4-5.0); Sodium 132 mmol/L (137-145)
[2020-02-15] MEDS: LEVOTHYROXINE SODIUM 25 MCG TABLET PO (06:50)
[2020-02-15] MEDS: CITALOPRAM HYDROBROMIDE 20 MG TABLET 40 MG PO (09:41)
[2020-02-15] MEDS: buPROPion HCL XL (24 HR) 150 MG TABCR PO (09:41)
[2020-02-15] MEDS: GABAPENTIN 100 MG CAPSULE PO ×3 (09:41→16:57)
[2020-02-15] MEDS: PANTOPRAZOLE 40 MG TABLET PO (09:42)
[2020-02-15] MEDS: MAGNESIUM OXIDE 400 MG TABLET PO (09:42)
[2020-02-15] MEDS: ENOXAPARIN 30 MG/0.3 ML SYRINGE SUB-Q (09:42)
[2020-02-15] MEDS: ERGOCALCIFEROL 50,000 UNIT CAPSULE 50000 UNITS PO (09:42)
[2020-02-15] MEDS: LORATADINE 10 MG TABLET PO (09:42)
[2020-02-15] MEDS: risperiDONE 1 MG TABLET 2 MG PO ×2 (09:42→20:59)
[2020-02-15 09:44] VITALS: PULSE 88
[2020-02-15] MEDS: carvediloL 3.125 MG TABLET PO ×2 (09:44→17:00)
[2020-02-15] MEDS: SILVERGEL (ELTA) 45 ML 1 APPLIC TOPICAL (09:46)
[2020-02-15] MEDS: LIDOCAINE 5% PATCH 1 PATCH TRANSDERM (09:46)
[2020-02-15] MEDS: TOLNAFTATE 1% POWDER 45 GM BTL 1 APPLIC TOPICAL ×2 (09:47→21:00)
--- NOTE | 2020-02-15 10:39 | PM.DS ---
DS: Admitting Diagnosis Admitting Diagnosis Admitting Diagnosis: Acute kidney failure, unspecified DS: Discharge Diagnosis Discharge Diagnosis (1) Metabolic encephalopathy: Code(s): G93.41 - Metabolic encephalopathy Status: Acute Assessment and Plan: May be secondary to overmedication, renal failure with acidosis, and/or UTI consistent with metabolic encephalopathy. Brain CT showing no acute findings. Mental status improved and appears back to baseline. Her emotional lability improved. We continued her Wellbutrin, Celexa and Risperdal. Ativan available for anxiety and can be used for muscle spasm. PT and OT. (2) Acute on chronic renal failure: Qualifiers: Acute renal failure type: unspecified Chronic kidney disease stage: stage 4 (severe) Qualified Code(s): N17.9 - Acute kidney failure, unspecified; N18.4 - Chronic kidney disease, stage 4 (severe) Code(s): N17.9 - Acute kidney failure, unspecified; N18.9 - Chronic kidney disease, unspecified Status: Acute Assessment and Plan: Baseline Cr unclear but probably 1.7 range. Creatinine 3.0 on admission and peaked to 3.3. May be secondary to poor PO intake given the patient's mental status. Treated with IV fluids with bicarb related for the severe metabolic acidosis. Creatinine today is 2.0. Renal ultrasound showing no acute findings. Appreciate Nephrology input. (3) Metabolic acidosis: Code(s): E87.2 - Acidosis Status: Acute Assessment and Plan: Likely secondary to UTI, acute renal failure, and poor PO intake. Patient treated with IV fluids with bicarb. Metabolic acidosis resolved. (4) UTI (urinary tract infection): Qualifiers: Hematuria presence: without hematuria Urinary tract infection type: site unspecified Qualified Code(s): N39.0 - Urinary tract infection, site not specified Code(s): N39.0 - Urinary tract infection, site not specified Status: Acute Assessment and Plan: UA noted. Urine culture EColi sensitive to ceftriaxone. Received 4 doses. (5) Chronic anemia: Code(s): D64.9 - Anemia, unspecified Status: Chronic Assessment and Plan: Hemoglobin in the 9-10 range chronically and currently at baseline. No signs of acute blood loss. (6) Chronic pain syndrome: Code(s): G89.4 - Chronic pain syndrome Status: Chronic Assessment and Plan: We are currently holding narcotics secondary to encephalopathy and HoTN. Added lidocaine patch (7) Chronic combined systolic (congestive) and diastolic (congestive) heart failure: Code(s): I50.42 - Chronic combined systolic (congestive) and diastolic (congestive) heart failure Status: Chronic Assessment and Plan: Currently compensated. We monitored fluid status closely on IV fluids. Resumed Coreg but lowered the dose due to HoTN (8) Open wound anterior abdominal wall: Qualifiers: Encounter type: initial encounter Qualified Code(s): S31.109A - Unspecified open wound of abdominal wall, unspecified quadrant without penetration into peritoneal cavity, initial encounter Code(s): S31.109A - Unspecified open wound of abdominal wall, unspecified quadrant without penetration into peritoneal cavity, initial encounter Status: Chronic Assessment and Plan: Continue local wound care. Continue surgery wound care recommendations. (9) Essential (primary) hypertension: Code(s): I10 - Essential (primary) hypertension Status: Chronic Assessment and Plan: Blood pressure monitored closely. Blood pressure low at times so antiHTN home meds held. Low dose Coreg resumed with parameters DS: Summary Hospital Course Reason for hospitalization: 64yo female with CKD here for AMS and found to have metabolic acidosis, UTI and ISABELLE. Hospital Course: As above Time Spent with Patient Time attestation: Total time spent provi
[2020-02-15] MEDS: LORAZEPAM 1 MG TABLET 0.5 MG PO ×3 (13:20→22:32)
[2020-02-15 14:00] VITALS: BP 87/52; PULSE 96; RESP 18; TEMP 36.4; O2SAT 99
--- NOTE | 2020-02-15 14:28 | PCOTNOTE ---
Attempted to see patient this pm, however patient unavailable with PT at this time.
[2020-02-15 17:00] VITALS: PULSE 92
--- NOTE | 2020-02-15 17:12 | PM.PNNEP ---
Progress Note: A&P Assessment and Plan (1) ISABELLE (acute kidney injury): Code(s): N17.9 - Acute kidney failure, unspecified Status: Acute Assessment and Plan: resolving presumed secondary: - volume depletion/dehydration -- suspect poor oral intake NURSE OB -- urine electrolytes seem to support this as well - acute infection (UTI) - concurrent use of AR-I - NSAID use (?) -- meloxicam listed as outpatient medication improvement in BUN and creatinine with IVF hydration reasonable urine output follow repeat labs and urine output (2) Chronic kidney disease, stage 3: Code(s): N18.3 - Chronic kidney disease, stage 3 (moderate) Status: Chronic Assessment and Plan: creatinine has fluctuated to extremes over the last few years creatinine seems to average ~ 1.3 - 1.7mg/dl presumably secondary to cardiovascular disease and age (3) Metabolic acidosis: Code(s): E87.2 - Acidosis Status: Acute Assessment and Plan: some improvement noted with use of bicarb IVFs etiology? - probably UTI + renal failure + diminished oral intake continue supportive therapy (4) Altered mental status: Qualifiers: Altered mental status type: unspecified Qualified Code(s): R41.82 - Altered mental status, unspecified Code(s): R41.82 - Altered mental status, unspecified Status: Acute Assessment and Plan: improvement noted follow trend of mentation (5) UTI (urinary tract infection): Qualifiers: Hematuria presence: without hematuria Urinary tract infection type: site unspecified Qualified Code(s): N39.0 - Urinary tract infection, site not specified Code(s): N39.0 - Urinary tract infection, site not specified Status: Acute Assessment and Plan: urine culture with E. coli on antibiotics Will continue to follow intermittently Not opposed to discharge from renal perspective. Subjective Date/time seen: 02/15/20 16:12 Discharge planning noted - no other acute issues or problems to report at this time; no events or issues overnight or earlier this AM; no apparent distress voiced. Exam Narrative: Exam Narrative: General: WD/WN female in NAD Heart: normal S1 and S2; no rub Lungs: clear to auscultation Abdomen: soft and nondistended, positive bowel sounds Extremities: no cyanosis or clubbing; 1+ edema (pitting + nonpitting) Skin: no rash or nodules Objective Data Vital Signs Vital Signs: Vital Signs Temp Pulse Resp BP Pulse Ox 02/15/20 14:00 36.4 C 96 18 87/52 L 99 02/15/20 09:44 88 02/15/20 06:00 36.3 C L 91 18 96/53 L 96 02/14/20 22:00 36.3 C L 64 20 90/45 L 98 02/14/20 18:00 98 90/48 L Intake/Output Intake/Output: Intake & Output 02/12/20 02/13/20 02/14/20 02/15/20 23:59 23:59 23:59 23:59 Intake Total 1660 4031 2137 1840 Output Total 1700 1350 1500 Balance 1660 2331 787 340 Meds/Results Medications: Active Medications Generic Name Dose Route Start Last Admin Trade Name Freq PRN Reason Stop Dose Admin Acetaminophen 650 mg 02/11/20 20:02 02/15/20 13:21 Tylenol Tablet PO 650 mg Q4H PRN Administration Mild Pain (1-3) or Fever Albuterol 2.5 mg 02/13/20 16:49 Albuterol Sulf Neb 2.5mg/0.5ml INHALATION Q6HRT PRN Shortness Of Breath Or Wheezing Atorvastatin Calcium 10 mg 02/15/20 21:00 Lipitor PO HS ASHVIN Benzocaine 1 lozenge 02/14/20 06:29 02/14/20 08:51 Chloraseptic Lozenge PO 1 lozenge PRN PRN Administration Sore Throat Bupropion HCl 150 mg 02/12/20 09:00 02/15/20 09:41 Wellbutrin Xl (24 Hr) PO 150 mg DAILY ASHVIN Administration Carvedilol 3.125 mg 02/14/20 09:00 02/15/20 17:00 Coreg PO 3.125 mg BID ASHVIN Administration Citalopram Hydrobromide 40 mg 02/12/20 09:00 02/15/20 09:41 Celexa PO 40 mg DAILY ASHVIN Administration Edyta
[2020-02-15 17:16] LABS: SARS-CoV-2 RNA PCR Negative
[2020-02-15] MEDS: ATORVASTATIN 10 MG TABLET PO (20:58)
[2020-02-15 22:00] VITALS: BP 107/71; PULSE 86; RESP 20; TEMP 36; O2SAT 99
[2020-02-16] VITALS (10 sets, daily range): BP systolic 92–113; BP diastolic 50–73; PULSE 72–116; RESP 16–20; TEMP 36.1–36.3; O2SAT 96–97
[2020-02-16 06:00] LABS: Albumin Level 2.5 g/dL (3.5-5.1); Blood Urea Nitrogen 42 mg/dL (7-17); Calcium 8.4 mg/dL (8.4-10.2); Carbon Dioxide 26 mmol/L (22-30); Chloride 105 mmol/L (98-107); Estimated CRCL calculation 54 ml/min; Estimated Glomerular Filt Rate 38; Glucose 84 mg/dL (65-105); Phosphorus 3.7 mg/dL (2.5-4.5); Potassium 3.5 mmol/L (3.4-5.0); Sodium 134 mmol/L (137-145)
[2020-02-16] MEDS: LEVOTHYROXINE SODIUM 25 MCG TABLET PO (06:05)
--- NOTE | 2020-02-16 06:34 | PC.NURSE ---
Pt refused to have her vitals done this morning.
[2020-02-16] MEDS: ACETAMINOPHEN 325 MG TABLET 650 MG PO ×3 (08:29→20:55)
[2020-02-16] MEDS: PANTOPRAZOLE 40 MG TABLET PO (08:30)
[2020-02-16] MEDS: LORATADINE 10 MG TABLET PO (08:30)
[2020-02-16] MEDS: GABAPENTIN 100 MG CAPSULE PO ×3 (08:30→17:08)
[2020-02-16] MEDS: CITALOPRAM HYDROBROMIDE 20 MG TABLET 40 MG PO (08:30)
--- NOTE | 2020-02-16 08:30 | PC.NURSE ---
Addendum entered by Mechelle Guzmán RN 02/16/20 10:47: I spoke with Dr. Anderson again about the administration of Ativan. He said he is okay if I administer the Ativan once the systolic blood pressure is over 100. Original Note: Patient is requesting PRN dose of Ativan. I explained to the patient that ativan can lower your blood pressure and since her blood pressure was only 92/50 that we would not be able to administer Ativan until her blood pressure comes up to a normal range. I discussed this with Dr. Anderson and he agreed that until the blood pressure comes up to hold the Ativan.
[2020-02-16] MEDS: LIDOCAINE 5% PATCH 1 PATCH TRANSDERM (08:31)
[2020-02-16] MEDS: buPROPion HCL XL (24 HR) 150 MG TABCR PO (08:31)
[2020-02-16] MEDS: MAGNESIUM OXIDE 400 MG TABLET PO (08:31)
[2020-02-16] MEDS: risperiDONE 1 MG TABLET 2 MG PO ×2 (08:31→20:49)
[2020-02-16] MEDS: ENOXAPARIN 30 MG/0.3 ML SYRINGE SUB-Q (08:31)
[2020-02-16] MEDS: SILVERGEL (ELTA) 45 ML 1 APPLIC TOPICAL (08:33)
[2020-02-16] MEDS: TOLNAFTATE 1% POWDER 45 GM BTL 1 APPLIC TOPICAL ×2 (08:33→20:50)
[2020-02-16] MEDS: ALBUTEROL SULFATE NEB 2.5 MG/0.5 ML INH INHALATION ×2 (10:40→17:20)
[2020-02-16] MEDS: LORAZEPAM 0.5 MG TABLET PO ×2 (15:43→20:55)
[2020-02-16] MEDS: carvediloL 3.125 MG TABLET PO (17:08)
[2020-02-16] MEDS: ATORVASTATIN 10 MG TABLET PO (20:49)
[2020-02-17] VITALS (7 sets, daily range): BP systolic 96–112; BP diastolic 50–78; PULSE 90–110; RESP 18–20; TEMP 36.3–36.4; O2SAT 95–97
[2020-02-17] MEDS: ACETAMINOPHEN 325 MG TABLET 650 MG PO ×3 (02:30→20:35)
[2020-02-17] MEDS: LORAZEPAM 0.5 MG TABLET PO ×2 (02:30→17:30)
[2020-02-17 05:23] LABS: Albumin Level 2.5 g/dL (3.5-5.1); Blood Urea Nitrogen 31 mg/dL (7-17); Calcium 8.7 mg/dL (8.4-10.2); Carbon Dioxide 27 mmol/L (22-30); Chloride 105 mmol/L (98-107); Estimated CRCL calculation 54 ml/min; Estimated Glomerular Filt Rate 38; Glucose 90 mg/dL (65-105); Magnesium 1.9 mg/dL (1.6-2.3); Phosphorus 3.5 mg/dL (2.5-4.5); Potassium 3.4 mmol/L (3.4-5.0); Sodium 134 mmol/L (137-145)
[2020-02-17] MEDS: LEVOTHYROXINE SODIUM 25 MCG TABLET PO (06:21)
[2020-02-17] MEDS: GABAPENTIN 100 MG CAPSULE PO ×3 (10:09→17:27)
[2020-02-17] MEDS: ENOXAPARIN 30 MG/0.3 ML SYRINGE SUB-Q (10:09)
[2020-02-17] MEDS: LIDOCAINE 5% PATCH 1 PATCH TRANSDERM (10:09)
[2020-02-17] MEDS: MAGNESIUM OXIDE 400 MG TABLET PO (10:10)
[2020-02-17] MEDS: buPROPion HCL XL (24 HR) 150 MG TABCR PO (10:10)
[2020-02-17] MEDS: risperiDONE 1 MG TABLET 2 MG PO ×2 (10:10→20:45)
[2020-02-17] MEDS: LORATADINE 10 MG TABLET PO (10:10)
[2020-02-17] MEDS: PANTOPRAZOLE 40 MG TABLET PO (10:10)
[2020-02-17] MEDS: SILVERGEL (ELTA) 45 ML 1 APPLIC TOPICAL (10:11)
[2020-02-17] MEDS: CITALOPRAM HYDROBROMIDE 20 MG TABLET 40 MG PO (10:11)
[2020-02-17] MEDS: TOLNAFTATE 1% POWDER 45 GM BTL 1 APPLIC TOPICAL ×2 (10:11→20:47)
[2020-02-17] MEDS: ALBUTEROL SULFATE NEB 2.5 MG/0.5 ML INH INHALATION (10:59)
--- NOTE | 2020-02-17 15:02 | PM.IMPN ---
Progress Note: A&P Assessment and Plan (1) Metabolic encephalopathy: Code(s): G93.41 - Metabolic encephalopathy Status: Acute Assessment and Plan: Metabolic encephalopathy secondary to overmedication, renal failure with acidosis, and/or UTI. Brain CT showing no acute findings. Mental status improved and appears back to baseline. Her emotional lability improved. We continued her Wellbutrin, Celexa and Risperdal. Ativan available for anxiety and can be used for muscle spasm. PT and OT. (2) Acute on chronic renal failure: Qualifiers: Acute renal failure type: unspecified Chronic kidney disease stage: stage 4 (severe) Qualified Code(s): N17.9 - Acute kidney failure, unspecified; N18.4 - Chronic kidney disease, stage 4 (severe) Code(s): N17.9 - Acute kidney failure, unspecified; N18.9 - Chronic kidney disease, unspecified Status: Acute Assessment and Plan: Baseline Cr unclear but probably 1.7 range. Creatinine 3.0 on admission and peaked to 3.3. May be secondary to poor PO intake given the patient's mental status. Treated with IV fluids with bicarb related for the severe metabolic acidosis. Creatinine dropped to 1.4. Renal ultrasound showing no acute findings. Nephrology followed along. (3) Metabolic acidosis: Code(s): E87.2 - Acidosis Status: Acute Assessment and Plan: Likely secondary to UTI, acute renal failure, and poor PO intake. Patient treated with IV fluids with bicarb. Metabolic acidosis resolved and IV fluids stopped. (4) UTI (urinary tract infection): Qualifiers: Urinary tract infection type: site unspecified Hematuria presence: without hematuria Qualified Code(s): N39.0 - Urinary tract infection, site not specified Code(s): N39.0 - Urinary tract infection, site not specified Status: Acute Assessment and Plan: UA noted. Urine culture EColi sensitive to ceftriaxone. Day 6 of abx. (5) Chronic anemia: Code(s): D64.9 - Anemia, unspecified Status: Chronic Assessment and Plan: Hemoglobin in the 9-10 range chronically and currently at baseline. No signs of acute blood loss. (6) Chronic pain syndrome: Code(s): G89.4 - Chronic pain syndrome Status: Chronic Assessment and Plan: We are currently holding narcotics secondary to encephalopathy and HoTN. Added lidocaine patch (7) Chronic combined systolic (congestive) and diastolic (congestive) heart failure: Code(s): I50.42 - Chronic combined systolic (congestive) and diastolic (congestive) heart failure Status: Chronic Assessment and Plan: Currently compensated. We monitored fluid status closely on IV fluids. Coreg resumed at lower dose due to the HoTN. (8) Open wound anterior abdominal wall: Qualifiers: Encounter type: initial encounter Qualified Code(s): S31.109A - Unspecified open wound of abdominal wall, unspecified quadrant without penetration into peritoneal cavity, initial encounter Code(s): S31.109A - Unspecified open wound of abdominal wall, unspecified quadrant without penetration into peritoneal cavity, initial encounter Status: Chronic Assessment and Plan: Stable. We continued local wound care. We continued surgery wound care recommendations. (9) Essential (primary) hypertension: Code(s): I10 - Essential (primary) hypertension Status: Chronic Assessment and Plan: Blood pressure monitored closely. Blood pressure low at times so most of her anti-HTN home meds held. Low dose Coreg resumed with parameters. Subjective Date/time seen: 02/17/20 15:02 Interval history: 64yo female with CHF, CKD stage 3 and chronic pain syndrome here for weakness and altered mental status and found to have severe metabolic acidosis. Slept well last night. No CP or SOB. Out of bed. No n/v. No CP or SOB. Eating okay. Exam Narrat
[2020-02-17] MEDS: carvediloL 3.125 MG TABLET PO (17:27)
[2020-02-17] MEDS: ATORVASTATIN 10 MG TABLET PO (20:45)
--- NOTE | 2020-02-18 01:39 | PC.NURSE ---
IV removed due to leaking following antibiotic admin, no leaking noted prior to flushing post antibiotic admin. poly area supervisor unable to acquire access, IV specialist has been called and message has been left, Dr. Castillo is aware patient has no IV access.
[2020-02-18] MEDS: ACETAMINOPHEN 325 MG TABLET 650 MG PO ×2 (02:50→10:52)
[2020-02-18] MEDS: LORAZEPAM 0.5 MG TABLET PO ×2 (05:05→13:18)
[2020-02-18 06:00] VITALS: BP 112/57; PULSE 108; RESP 18; TEMP 36.5; O2SAT 96
[2020-02-18] MEDS: LEVOTHYROXINE SODIUM 25 MCG TABLET PO (06:15)
[2020-02-18] MEDS: ENOXAPARIN 30 MG/0.3 ML SYRINGE SUB-Q (09:23)
[2020-02-18 09:24] VITALS: PULSE 100
[2020-02-18] MEDS: PANTOPRAZOLE 40 MG TABLET PO (09:24)
[2020-02-18] MEDS: LORATADINE 10 MG TABLET PO (09:24)
[2020-02-18] MEDS: MAGNESIUM OXIDE 400 MG TABLET PO (09:24)
[2020-02-18] MEDS: CITALOPRAM HYDROBROMIDE 20 MG TABLET 40 MG PO (09:24)
[2020-02-18] MEDS: LIDOCAINE 5% PATCH 1 PATCH TRANSDERM (09:24)
[2020-02-18] MEDS: carvediloL 3.125 MG TABLET PO (09:24)
[2020-02-18] MEDS: risperiDONE 1 MG TABLET 2 MG PO (09:24)
[2020-02-18] MEDS: GABAPENTIN 100 MG CAPSULE PO ×2 (09:24→13:18)
[2020-02-18] MEDS: buPROPion HCL XL (24 HR) 150 MG TABCR PO (09:24)
[2020-02-18] MEDS: SILVERGEL (ELTA) 45 ML 1 APPLIC TOPICAL (09:27)
[2020-02-18] MEDS: TOLNAFTATE 1% POWDER 45 GM BTL 1 APPLIC TOPICAL (09:27)
--- NOTE | 2020-02-18 10:08 | PM.IMPN ---
Progress Note: A&P Assessment and Plan (1) Metabolic encephalopathy: Code(s): G93.41 - Metabolic encephalopathy Status: Acute Assessment and Plan: Metabolic encephalopathy secondary to overmedication, renal failure with acidosis, and/or UTI. Brain CT showing no acute findings. Mental status improved and now back to baseline. Her emotional lability resolved. We continued her Wellbutrin, Celexa and Risperdal. Ativan available for anxiety and can be used for muscle spasm. Continue PT and OT. (2) Acute on chronic renal failure: Qualifiers: Acute renal failure type: unspecified Chronic kidney disease stage: stage 4 (severe) Qualified Code(s): N17.9 - Acute kidney failure, unspecified; N18.4 - Chronic kidney disease, stage 4 (severe) Code(s): N17.9 - Acute kidney failure, unspecified; N18.9 - Chronic kidney disease, unspecified Status: Acute Assessment and Plan: Baseline Cr unclear but probably 1.7 range. Creatinine 3.0 on admission and peaked to 3.3. May be secondary to poor PO intake given the patient's mental status. Treated with IV fluids with bicarb related for the severe metabolic acidosis. Creatinine dropped to 1.4 and has remained stable at this level. Renal ultrasound showing no acute findings. Nephrology followed along. (3) Metabolic acidosis: Code(s): E87.2 - Acidosis Status: Acute Assessment and Plan: Likely secondary to UTI, acute renal failure, and poor PO intake. Patient treated with IV fluids with bicarb. Metabolic acidosis resolved and IV fluids stopped. (4) UTI (urinary tract infection): Qualifiers: Hematuria presence: without hematuria Urinary tract infection type: site unspecified Qualified Code(s): N39.0 - Urinary tract infection, site not specified Code(s): N39.0 - Urinary tract infection, site not specified Status: Acute Assessment and Plan: UA noted. Urine culture EColi sensitive to ceftriaxone. Completed 7 days of abx. (5) Chronic anemia: Code(s): D64.9 - Anemia, unspecified Status: Chronic Assessment and Plan: Hemoglobin in the 9-10 range chronically and currently at baseline. No signs of acute blood loss. (6) Chronic pain syndrome: Code(s): G89.4 - Chronic pain syndrome Status: Chronic Assessment and Plan: We are currently holding narcotics secondary to encephalopathy and HoTN. Added lidocaine patch (7) Chronic combined systolic (congestive) and diastolic (congestive) heart failure: Code(s): I50.42 - Chronic combined systolic (congestive) and diastolic (congestive) heart failure Status: Chronic Assessment and Plan: Currently compensated. We monitored fluid status closely on IV fluids. Coreg resumed at lower dose due to the HoTN with parameters. (8) Open wound anterior abdominal wall: Qualifiers: Encounter type: initial encounter Qualified Code(s): S31.109A - Unspecified open wound of abdominal wall, unspecified quadrant without penetration into peritoneal cavity, initial encounter Code(s): S31.109A - Unspecified open wound of abdominal wall, unspecified quadrant without penetration into peritoneal cavity, initial encounter Status: Chronic Assessment and Plan: Stable. We continued local wound care. We continued surgery wound care recommendations. (9) Essential (primary) hypertension: Code(s): I10 - Essential (primary) hypertension Status: Chronic Assessment and Plan: Blood pressure monitored closely. Blood pressure low at times so most of her anti-HTN home meds held. Low dose Coreg resumed with parameters. Additional Plan Iregular rhythm - Has hx of of pAFib and ischemic cardiomyopathy with Echo in October showing EF 20-25%, diastolic dysfunction with moderate MR. No evidence of fluid overload. Coreg resumed but lisinopril and Spironolactone on hold. Was
--- NOTE | 2020-02-18 10:09 | ECG_ITS ---
Measurements Intervals [place] Rate: 113 P: -47 MI: 124 QRS: -75 QRSD: 116 T: 95 QT: 305 QTc: 418 Interpretive Statements ELECTRONIC VENTRICULAR PACEMAKER WITH INHIBITION LEFT AXIS DEVIATION UNDERLYING ATRIAL FLUTTER/ATACHYCARDIA VENTRICULAR PREMATURE COMPLEX POOR R WAVE PROGRESSION, CONSIDER ANTERIOR INFARCT HIGH LATERAL INFARCT, AGE INDETERMINATE ABNORMAL ECG Electronically Signed On 02-18-2020 11:18:40 CDT by Gabe Garcia D.O.
[2020-02-18] MEDS: CALCIUM CARBONATE (TUMS) 500 MG (200 MG ELEMENTAL) PO (10:52)
--- NOTE | 2020-02-18 11:14 | PCNWS ---
Weekly nutritional screen. Patient is tolerating current diet with adequate intake. No weight loss reported. No nutritional needs at this time.
[2020-02-18 13:20] VITALS: BP 104/64
[2020-02-18 14:00] VITALS: BP 100/71; PULSE 100; RESP 18; TEMP 36.5; O2SAT 96
--- NOTE | 2020-02-18 14:42 | PM.DS ---
DS: Admitting Diagnosis Admitting Diagnosis Admitting Diagnosis: Acute kidney failure, unspecified DS: Discharge Diagnosis Discharge Diagnosis (1) Metabolic encephalopathy: Code(s): G93.41 - Metabolic encephalopathy Status: Acute Assessment and Plan: Metabolic encephalopathy secondary to overmedication, renal failure with acidosis, and/or UTI. Brain CT showing no acute findings. Mental status improved and now back to baseline. Her emotional lability resolved. We continued her Wellbutrin, Celexa and Risperdal. Ativan available for anxiety and can be used for muscle spasm. Continue PT and OT. (2) Acute on chronic renal failure: Qualifiers: Acute renal failure type: unspecified Chronic kidney disease stage: stage 4 (severe) Qualified Code(s): N17.9 - Acute kidney failure, unspecified; N18.4 - Chronic kidney disease, stage 4 (severe) Code(s): N17.9 - Acute kidney failure, unspecified; N18.9 - Chronic kidney disease, unspecified Status: Acute Assessment and Plan: Baseline Cr unclear but probably 1.7 range. Creatinine 3.0 on admission and peaked to 3.3. May be secondary to poor PO intake given the patient's mental status. Treated with IV fluids with bicarb related for the severe metabolic acidosis. Creatinine dropped to 1.4 and has remained stable at this level. Renal ultrasound showing no acute findings. Nephrology followed along. (3) Metabolic acidosis: Code(s): E87.2 - Acidosis Status: Acute Assessment and Plan: Likely secondary to UTI, acute renal failure, and poor PO intake. Patient treated with IV fluids with bicarb. Metabolic acidosis resolved and IV fluids stopped. (4) UTI (urinary tract infection): Qualifiers: Urinary tract infection type: site unspecified Hematuria presence: without hematuria Qualified Code(s): N39.0 - Urinary tract infection, site not specified Code(s): N39.0 - Urinary tract infection, site not specified Status: Acute Assessment and Plan: UA noted. Urine culture EColi sensitive to ceftriaxone. Completed 7 days of abx. (5) Chronic anemia: Code(s): D64.9 - Anemia, unspecified Status: Chronic Assessment and Plan: Hemoglobin in the 9-10 range chronically and currently at baseline. No signs of acute blood loss. (6) Chronic pain syndrome: Code(s): G89.4 - Chronic pain syndrome Status: Chronic Assessment and Plan: We are currently holding narcotics secondary to encephalopathy and HoTN. Added lidocaine patch (7) Chronic combined systolic (congestive) and diastolic (congestive) heart failure: Code(s): I50.42 - Chronic combined systolic (congestive) and diastolic (congestive) heart failure Status: Chronic Assessment and Plan: Currently compensated. We monitored fluid status closely on IV fluids. Coreg resumed at lower dose due to the HoTN with parameters. (8) Open wound anterior abdominal wall: Qualifiers: Encounter type: initial encounter Qualified Code(s): S31.109A - Unspecified open wound of abdominal wall, unspecified quadrant without penetration into peritoneal cavity, initial encounter Code(s): S31.109A - Unspecified open wound of abdominal wall, unspecified quadrant without penetration into peritoneal cavity, initial encounter Status: Chronic Assessment and Plan: Stable. We continued local wound care. We continued surgery wound care recommendations. (9) Essential (primary) hypertension: Code(s): I10 - Essential (primary) hypertension Status: Chronic Assessment and Plan: Blood pressure monitored closely. Blood pressure low at times so most of her anti-HTN home meds held. Low dose Coreg resumed with parameters. DS: Summary Hospital Course Reason for hospitalization: 64yo female with CKD here for AMS and found to have metabolic acidosis, UTI and ISABELLE.
[2020-02-18 18:54] LABS: SARS-CoV-2 RNA PCR Negative
[2020-02-19 17:08] LABS: Chloride Rand Ur <20 mmol/L (32-290); Creatinine Random Urine 63 mg/dL (20-275)
--- NOTE | 2020-04-21 20:54 | WPDPN ---
Objective Data Meds/Results Radiology Results: ITS Impressions Chest X-Ray 02/11/20 16:17 IMPRESSION: 1. No acute cardiopulmonary abnormality. 2. Stable cardiomegaly. Head CT 02/11/20 20:15 IMPRESSION: 1. No acute intracranial abnormality. 2. Age related findings. Cervical Spine CT 02/11/20 20:18 IMPRESSION: 1. Severe cervical spondylosis without acute findings or significant interval change. Renal Ultrasound 02/12/20 15:30 IMPRESSION: 1. Small renal cysts. Quality VTE Prophylaxis VTE prophylaxis: pharmacologic ordered Subjective Date/time seen: 02/16/20 10:49 Interval history: Patient held overnight due to no insurance authorization. COVID test negative yesterday. She slept poorly last night. Complains of left sided fleeting sharp chest pain that is long standing. No appetite but denies nausea. AF, 92/50, 106. NARD. Few expiratory wheezes anteriorly. Irregular. Abs soft, obese, NT. Pitting and nonpitting edema. A/P Metabolic encephalopathy. ISABELLE. CKD 4. Metabolic acidosis. UTI. Chronic anemia. Irregular rhythm- recent EKG showing PAC. Chronic pain syndrome. S/D CHF. Open abdominal wound. Continue current treatment plan. Patient has albuterol prn: Neb treatment x 1. Awaiting insurance authorization. Spoke with dtr yesterday and she was updated. All questions answered.
== END 2020-02-18 15:50 | DRG 682 ==
LOC: ANHED 19:43 → ANHIMU 20:12 → ANH2MED 02-13 13:09
PROVIDERS: Emergency Medicine; Internal Medicine Nephrology; Admitting Provider Family Medicine; Emergency Provider Emergency Medicine; PCP Family Medicine; Visit Provider Internal Medicine
DX: N17.9 Acute kidney failure, unspecified (principal); G93.41 Metabolic encephalopathy; E87.2 Acidosis; I13.0 Hypertensive heart and chronic kidney disease with heart failure and stage 1 through stage 4 chronic kidney disease, or unspecified chronic kidney disease; I50.42 Chronic combined systolic (congestive) and diastolic (congestive) heart failure; N39.0 Urinary tract infection, site not specified; B96.20 Unspecified Escherichia coli [E. coli] as the cause of diseases classified elsewhere; T50.905A Adverse effect of unspecified drugs, medicaments and biological substances, initial encounter; N18.4 Chronic kidney disease, stage 4 (severe); Z11.59 Encounter for screening for other viral diseases; S31.109A Unspecified open wound of abdominal wall, unspecified quadrant without penetration into peritoneal cavity, initial encounter; D64.9 Anemia, unspecified; G89.4 Chronic pain syndrome; I25.10 Atherosclerotic heart disease of native coronary artery without angina pectoris; I25.5 Ischemic cardiomyopathy; F41.1 Generalized anxiety disorder; E78.2 Mixed hyperlipidemia; I25.2 Old myocardial infarction; Z87.891 Personal history of nicotine dependence; Z91.81 History of falling; Z95.1 Presence of aortocoronary bypass graft; Z95.810 Presence of automatic (implantable) cardiac defibrillator
CPT/HCPCS: 36415; 36600; 51701; 70450; 71046; 72125; 76775; 80048; 80053; 80069; 80307; 81001; 81050; 82140; 82436; 82570; 82607; 82746; 82805; 82948; 83605; 83735; 84156; 84300; 84439; 84443; 84480; 85025; 85027; 85999; 87077; 87086; 87088; 87186; 87635; 93005; 94640; 96360; 96361; 97110; 97161; 97165; 97530; 99285; A9270; C9803; J0696; J1650; J3475; J7030; J7070; U0003

== ENCOUNTER 2020-06-16 16:48 | Inpatient (IN) | payer MEDICARE, MEDICAID, SELFPAY ==
[2020-06-16] VITALS (10 sets, daily range): BP systolic 102–115; BP diastolic 67–86; PULSE 80–92; RESP 16–22; TEMP 36.6–36.8; O2SAT 96–100; BMI 44.4
--- NOTE | ~2020-06-16 | XR_ITS ---
EXAMINATION: XR chest 1V portable DATE: 06/20/2020 13:27 INDICATION: Congestive heart failure TECHNIQUE: frontal view of the chest was obtained. COMPARISON: Chest radiograph dated 06/19/2020 FINDINGS: Interval improvement in the prior pulmonary vascular congestion and diffuse pulmonary edema. There collado s however been increase in airspace opacities at the bilateral lung bases. No pneumothorax. Cardiomeg solange. Reactive pacemaker/AICD seen with only terminating in the right atrial appendage and [address] minating in the right ventricle. Dense air change of prior vertebroplasty at a couple levels in the m id thoracic spine. IMPRESSION: 1. Increasing opacities at the bilateral lung bases which could represent atelectasis, pneumonia, sma ll pleural effusions were some combination thereof. 2. Interval improvement in pulmonary vascular congestion and pulmonary edema. 3. Cardiomegaly. Reviewed, dictated and finalized at location B. IMPRESSION: 1. Increasing opacities at the bilateral lung bases which could represent atele ctasis, pneumonia, small pleural effusions were some combination thereof. 2. Interval improvement in pulmonary vascular congestion and pulmonary edema. 3. Cardiomegaly.
--- NOTE | ~2020-06-16 | XR_ITS ---
XR chest 1V portable DATE: 06/18/2020 05:41 INDICATION: Congestive heart failure TECHNIQUE: Portable AP chest on 06/18/2020 at 0540 hours COMPARISON: 06/16/2020 portable AP chest at 1719 hours 02/11/2020 AP and lateral chest FINDINGS: Cardiomegaly. There is pulmonary vascular congestion and redistribution, mild prominence of minor fissure (subpleural edema). Mild diffuse pulmonary interstitial prominence compared to 02/11/2020 may represent interstitial edema . There is chronic mild blunting of left costophrenic angle. Left-sided triple lead cardiac pacemaker device is again noted. Status post vertebroplasty at 2 contiguous levels in the mid thoracic spine. Diffuse osteopenia. No pulmonary consolidation is evident. IMPRESSION: Cardiomegaly, mild congestive heart failure, stable or minimally increased since 06/16/20 20 Reviewed, dictated and finalized at location A. IMPRESSION: Cardiomegaly, mild congestive heart failure, stable or minimally in creased since 06/16/2020
--- NOTE | ~2020-06-16 | XR_ITS ---
EXAMINATION: XR chest 1V portable DATE: 06/16/2020 17:17 INDICATION: Productive cough. TECHNIQUE: A single frontal view of the chest was obtained. COMPARISON: Chest 2 views 02/11/2020, chest CT 09/04/2019 FINDINGS: There is a diffuse interstitial pattern, consistent with mild pulmonary edema. No pleural e ffusion or pneumothorax. Cardiomegaly is noted. There is a prominent left paracardial fat pad. There is a left chest pacer with leads in right atrium, right ventricle, and coronary sinus. There are villalpando ges of vertebroplasty at 2 levels. IMPRESSION: 1. Mild pulmonary edema. 2. Cardiomegaly. Reviewed, dictated and finalized at location A.
--- NOTE | ~2020-06-16 | XR_ITS ---
XR chest 1V portable DATE: 06/19/2020 05:35 INDICATION: Congestive heart failure TECHNIQUE: Portable AP chest on 06/19/2020 at 0528 hours COMPARISON: Portable AP chest on 06/18/2020 at 0540 hours FINDINGS: Left sided triple lead pacemaker device. Cardiomegaly. There is pulmonary vascular congestion and redistribution, mild prominence of the minor fissure, probable small pleural effusions. There are left mid and bilateral lower lung infiltrates a nd/or atelectasis. Diffuse osteopenia. Vertebroplasty is noted. 2 contiguous midthoracic vertebral bodies. IMPRESSION: Cardiomegaly, congestive changes Left mid and bilateral lower lung infiltrate and/atelectasis, increased since 06/18/2020 Reviewed, dictated and finalized at location A. IMPRESSION: Cardiomegaly, congestive changes Left mid and bilateral lower lung infiltrate and/atelectasis, increased since 1
[2020-06-16 17:38] LABS: Basophils Percent Auto 0.3 % (0.2-1.2); Eosinophils Absolute Auto 0.1 K/mm3 (0-0.3); Eosinophils Percent Auto 0.7 % (0-4.4); Hematocrit 38.4 % (37.0-47.0); Hemoglobin 12.4 g/dL (12.0-15.0); Immature Granulocyte Absolute 0.03 K/mm3 (0.00-0.031); Immature Granulocyte Percent A 0.4 % (0-0.5); Lymphocytes Absolute Auto 0.96 K/mm3 (0.9-3.2); Lymphocytes Percent Auto 12.6 % (18.3-44.2); Mean Corpuscular HGB Conc 32.3 g/dl (32-36); Mean Corpuscular Hemoglobin 30.2 pg (26-34); Mean Corpuscular Volume 93.7 fl (80-100); Mean Platelet Volume 9.8 fl (7.4-10.4); Monocytes Absolute Auto 0.9 K/mm3 (0.1-0.6); Monocytes Percent Auto 12.1 % (2.6-8.5); Neutrophils Absolute Auto 5.6 K/mm3 (1.3-6.7); Neutrophils Percent Auto 73.9 % (45.5-73.1); Platelet Count Result 142 k/mm3 (150-375); Red Cell Distribution Width 20.4 % (11.5-14.5); White Blood Count 7.6 K/mm3 (4.5-10.0)
[2020-06-16 17:49] LABS: INR 1.9; Prothrombin Time 21.4 Seconds (11.1-14.7)
[2020-06-16 18:30] LABS: Alanine Aminotransferase 36 U/L (4-35); Albumin Level 2.3 g/dL (3.5-5.1); Alkaline Phosphatase 149 U/L (38-126); Anion Gap 11.99999 mmol/L (8-16); Aspartate Amino Transferase 52 U/L (14-36); Bilirubin,Total 1.5 mg/dL (0.2-1.3); Blood Urea Nitrogen 13 mg/dL (7-17); Calcium 7.5 mg/dL (8.4-10.2); Carbon Dioxide > 40 mmol/L (22-30); Chloride 85 mmol/L (98-107); Estimated CRCL calculation 73 ml/min; Estimated Glomerular Filt Rate > 60; Glucose 70 mg/dL (65-105); Potassium 2.9 mmol/L (3.4-5.0); Sodium 137 mmol/L (137-145)
[2020-06-16 18:40] LABS: NT Pro B Type Natriuretic Pept 5030 PG/ML (5-100); Troponin I < 0.012 ng/mL (0.000-0.034)
[2020-06-16] MEDS: HYDROcodone/acetaminophen (*CRX) 5-325 MG TABLET 1 TAB (19:07)
[2020-06-16] MEDS: POTASSIUM CHLORIDE 20 MEQ PACKET (FOR LIQUID) 40 MEQ PO (19:07)
--- NOTE | 2020-06-16 19:07 | PC.NURSE ---
vrbo to give pt norco 5 mg -325 po x1 for abd pain
--- NOTE | 2020-06-16 19:31 | PM.IMHP ---
H&P: HPI History of Present Illness Date/Time: 06/16/20 19:31 Chief complaint: CHF/Chest Pain Narrative: This is a 64 year old female known to me from a recent hospitalization over the summer with a myriad of chronic illnesses including combined systolic and diastolic heart failure, chronic pain syndrome, CKD, HTN with a chronic ventral abdominal wound among other comorbidites who presented to the hospital today with a complaint of increased shortness of breath and a wet cough for the past four days. The patient had a virtual visit with her Cement Mason Apprentice today who advised her to come to the hospital for evaluation. She also has been complaining of intermittent midsternal chest pain tonight as well as back pain. She admits to increased lower extremity swelling over the past few weeks. The patient was just seen by ENT for vocal cord paralysis and history is limited as she is having a hard time speaking. Associated symptoms today include nausea but she denies any vomiting or diarrhea. She also denies abdominal pain, dysuria, or focal neurological symptoms. In the ER tonight the patient was found to have pulmonary edema on CXR and she has required 3L of oxygen to maintain her oxygen saturations. She was treated with IV lasix and oral potassium for hypokalemia. Review of Systems Review of Systems: All systems reviewed & are unremarkable except as noted in HPI and below PMFSH Past Medical History Medical History Abnormality of gait and mobility Acquired hypothyroidism Ambulatory dysfunction Anemia Chronic Anxiety Artificial pacemaker Atherosclerotic heart disease of [place] coronary artery without angina pectoris Benzodiazepine abuse Bowel obstruction With multiple bowel resections CAD (coronary artery disease) CAD (coronary artery disease) Cardiomyopathy CHF (congestive heart failure) Chronic abdominal wound infection Chronic anemia Chronic combined systolic (congestive) and diastolic (congestive) heart failure Chronic diarrhea Chronic kidney disease Chronic pain syndrome Chronic pain syndrome CKD (chronic kidney disease) Combined systolic and diastolic cardiac dysfunction Echo April 2017 demonstrating EF of 20% with diastolic dysfunction Combined systolic and diastolic heart failure DDD (degenerative disc disease) With chronic back pain Depression Edema due to congestive heart failure Essential (primary) hypertension Extreme obesity with alveolar hypoventilation ISAURO (generalized anxiety disorder) Generalized anxiety disorder GERD (gastroesophageal reflux disease) With reflux esophagitis and gastric ulcer May 2016 Headache Heart attack Hernia History of blood transfusion HTN (hypertension) Hyperlipidemia Hyponatremia Ischemic cardiomyopathy Ischemic cardiomyopathy Ischemic cardiomyopathy with implantable cardioverter-defibrillator (ICD) Echocardiogram April 2017 with EF of 20% MDD (major depressive disorder) MDD (major depressive disorder), recurrent severe, without psychosis Medical history unknown Mixed hyperlipidemia Morbid (severe) obesity due to excess calories Myocardial infarction Open wound anterior abdominal wall chronic Open wound of abdominal wall w/o penetration into peritoneal cavity Osteoporosis Pancreatitis Post-menopausal Primary generalized (osteo)arthritis Radius fracture SBO (small bowel obstruction) Slow transit constipation Urinary retention with incomplete bladder emptying UTI (urinary tract infection) With incomplete bladder emptying resulting in septic shock January 2019 Ventral incisional hernia without obstruction or gangrene Vitamin D deficiency, unspecified Vocal cord paralysis Surgical History Surgical History AICD (automatic cardioverter/defibrillator) present H/O ventral hernia repair H/O vertebroplasty H/O vertebroplasty H/O: hysterectomy H/O: hysterectomy
--- NOTE | 2020-06-16 19:37 | ED.GENADULT ---
HPI - General Adult General Chief complaint: Shortness of Breath/Dyspnea Stated complaint: Wet cough Source: patient Mode of arrival: EMS Limitations: no limitations History of Present Illness HPI narrative: 64-year-old with a history of CKD, CHF, hypertension, atherosclerotic heart disease morbid obesity was sent from a halfway with the complaints of cough and shortness of breath. Patient states that she had a televisit by her petroleum refinery worker this afternoon who recommended to go to the emergency room for evaluation of possible aspiration pneumonia. Patient denies any fever or chills. No history of nausea or vomiting. She states that she has chronic cough at times. She also complains of back pain which radiates to her left side. Onset (ago): day(s) (1) Location: chest Radiation: back Severity: moderate Quality: aching Pain Consistency: constant Relieving factors: none Related Data Home Medications Medication Instructions Recorded Confirmed bupropion HCl 150 mg PO DAILY 10/23/19 02/11/20 cetirizine 10 mg PO DAILY 10/23/19 02/11/20 ergocalciferol (vitamin D2) 50,000 unit PO WEEKLY 10/23/19 02/11/20 [Vitamin D2] magnesium oxide 400 mg PO DAILY 10/23/19 02/11/20 risperidone 2 mg PO BID 10/23/19 02/11/20 citalopram 40 mg DAILY 10/27/19 02/11/20 pantoprazole 40 mg PO DAILY 10/27/19 02/11/20 Allergies Allergy/AdvReac Type Severity Reaction Status Date / Time No Known Allergies Allergy Verified 02/11/20 17:51 Review of Systems Review of Systems: All systems reviewed & are unremarkable except as noted in HPI and below Constitutional: Constitutional: Reports no additional constitutional complaints Eyes: Eyes: Reports as per HPI Cardiovascular: Cardiovascular: Reports no additional cardiovascular complaints Respiratory: Respiratory: Reports no additional respiratory complaints Gastrointestinal: Gastrointestinal: Reports as per HPI Genitourinary: Genitourinary: Reports as per HPI Musculoskeletal: Musculoskeletal: Reports no additional musculoskeletal complaints Neurologic: Reports system reviewed and no additional complaints, except as documented PMF Past Medical History Medical History (Updated 06/16/20 @ 19:43 by Roscoe Strauss MD) Abnormality of gait and mobility Acquired hypothyroidism Ambulatory dysfunction Anemia Chronic Anxiety Artificial pacemaker Atherosclerotic heart disease of [place] coronary artery without angina pectoris Benzodiazepine abuse Bowel obstruction With multiple bowel resections CAD (coronary artery disease) CAD (coronary artery disease) Cardiomyopathy CHF (congestive heart failure) Chronic abdominal wound infection Chronic anemia Chronic combined systolic (congestive) and diastolic (congestive) heart failure Chronic diarrhea Chronic kidney disease Chronic pain syndrome Chronic pain syndrome CKD (chronic kidney disease) Combined systolic and diastolic cardiac dysfunction Echo April 2017 demonstrating EF of 20% with diastolic dysfunction Combined systolic and diastolic heart failure DDD (degenerative disc disease) With chronic back pain Depression Edema due to congestive heart failure Essential (primary) hypertension Extreme obesity with alveolar hypoventilation ISAURO (generalized anxiety disorder) Generalized anxiety disorder GERD (gastroesophageal reflux disease) With reflux esophagitis and gastric ulcer May 2016 Headache Heart attack Hernia History of blood transfusion HTN (hypertension) Hyperlipidemia Hyponatremia Ischemic cardiomyopathy Ischemic cardiomyopathy Ischemic cardiomyopathy with implantable cardioverter-defibrillator (ICD) Echocardiogram April 2017 with EF of 20% MDD (major depressive disorder) MDD (major depressive disorder), recurrent severe, without psychosis Medical history unknown Mixed hyperlipidemia Morbid (severe) obesity due to excess calories Myocardial infarction Open wound anterior abdominal wall chronic Open wound of
--- NOTE | 2020-06-16 20:00 | ECG_ITS ---
Measurements Intervals Melbeta Rate: 81 P: -35 MO: 175 QRS: -59 QRSD: 91 T: 65 QT: 368 QTc: 428 Interpretive Statements ATRIAL SENSE- ELECTRONIC VENTRICULAR PACEMAKER WITH INHIBITION ATRIAL AND VENTRICULAR PREMATURE COMPLEXES BASELINE ARTIFACT- I, II, III, AVR, AVL, AVF, V1-V6 NO FURTHER INTERPRETATION IS POSSIBLE BORDERLINE ECG Electronically Signed On 06-16-2020 20:21:51 CDT by Gabe Garcia D.O.
--- NOTE | 2020-06-16 20:06 | ED.SOB ---
HPI - SOB/Dyspnea General Chief Complaint: Shortness of Breath/Dyspnea Stated Complaint: Wet cough Source: patient Mode of arrival: EMS Limitations: no limitations History of Present Illness HPI Narrative: 64-year-old with multiple medical problems here with the complaints of shortness of breath and cough. Patient states that she had a telemetry visit by her primary doctor and electric blanket wirer this morning and was told to go to the ER for possible aspiration pneumonia. Patient denies any fever or chills. Patient states that she has chronic cough. Patient also complains of left-sided pain which starts from her back and radiates to the front. She denies any nausea or vomiting. MD elicited complaint: cough Exacerbating factors: nothing Known history of: congestive heart failure Related Data Home Medications Medication Instructions Recorded Confirmed bupropion HCl 150 mg PO DAILY 10/23/19 02/11/20 cetirizine 10 mg PO DAILY 10/23/19 02/11/20 ergocalciferol (vitamin D2) 50,000 unit PO WEEKLY 10/23/19 02/11/20 [Vitamin D2] magnesium oxide 400 mg PO DAILY 10/23/19 02/11/20 risperidone 2 mg PO BID 10/23/19 02/11/20 citalopram 40 mg DAILY 10/27/19 02/11/20 pantoprazole 40 mg PO DAILY 10/27/19 02/11/20 Allergies Allergy/AdvReac Type Severity Reaction Status Date / Time No Known Allergies Allergy Verified 02/11/20 17:51 Review of Systems Review of Systems: All systems reviewed & are unremarkable except as noted in HPI and below Constitutional: Constitutional: Reports no additional constitutional complaints Eyes: Eyes: Reports no additional eye complaints ENT: Reports system reviewed and no additional complaints, except as documented Cardiovascular: Cardiovascular: Reports no additional cardiovascular complaints Respiratory: Respiratory: Reports as per HPI Gastrointestinal: Gastrointestinal: Reports no additional gastrointestinal complaints Integumentary/Breasts: Skin/Breast: Reports system reviewed and no additional complaints, except as docu Psychiatric: Psychiatric: Reports no additional psychiatric complaints [facility] Past Medical History Medical History Abnormality of gait and mobility Acquired hypothyroidism Ambulatory dysfunction Anemia Chronic Anxiety Artificial pacemaker Atherosclerotic heart disease of [place] coronary artery without angina pectoris Benzodiazepine abuse Bowel obstruction With multiple bowel resections CAD (coronary artery disease) CAD (coronary artery disease) Cardiomyopathy CHF (congestive heart failure) Chronic abdominal wound infection Chronic anemia Chronic combined systolic (congestive) and diastolic (congestive) heart failure Chronic diarrhea Chronic kidney disease Chronic pain syndrome Chronic pain syndrome CKD (chronic kidney disease) Combined systolic and diastolic cardiac dysfunction Echo April 2017 demonstrating EF of 20% with diastolic dysfunction Combined systolic and diastolic heart failure DDD (degenerative disc disease) With chronic back pain Depression Edema due to congestive heart failure Essential (primary) hypertension Extreme obesity with alveolar hypoventilation ISAURO (generalized anxiety disorder) Generalized anxiety disorder GERD (gastroesophageal reflux disease) With reflux esophagitis and gastric ulcer May 2016 Headache Heart attack Hernia History of blood transfusion HTN (hypertension) Hyperlipidemia Hyponatremia Ischemic cardiomyopathy Ischemic cardiomyopathy Ischemic cardiomyopathy with implantable cardioverter-defibrillator (ICD) Echocardiogram April 2017 with EF of 20% MDD (major depressive disorder) MDD (major depressive disorder), recurrent severe, without psychosis Medical history unknown Mixed hyperlipidemia Morbid (severe) obesity due to excess calories Myocardial infarction Open wound anterior abdominal wall chronic Open wound of abdominal wall w/o penetration into peritonea
--- NOTE | 2020-06-16 20:22 | PC.NURSE ---
Patient still refusing administration of Lasix at this time. EDP Rossy notified.
[2020-06-16] MEDS: FUROSEMIDE INJ 40 MG/4 ML VIAL IV PUSH (20:34)
--- NOTE | 2020-06-16 21:59 | PC.NURSE ---
This patient, Princess Barraza, was admitted to IMU Room 201-01 at 2130. Patient/family oriented to hospital policies and general routines including ID bracelet, bed and alarms, visiting hours, pain management, procedures, bathroom and other care routines, personal items, smoking policy, room service/diet, and visiting hours. Information on how to activate the Rapid Response Team has been discussed. Patient/Family are encouraged to report perceived risks to care and to ask questions if they do not understand what they are told or what they should do.
[2020-06-16 22:17] LABS: Anion Gap 10.99999 mmol/L (8-16); Blood Urea Nitrogen 13 mg/dL (7-17); Calcium 7.7 mg/dL (8.4-10.2); Carbon Dioxide > 40 mmol/L (22-30); Chloride 86 mmol/L (98-107); Estimated CRCL calculation 66 ml/min; Estimated Glomerular Filt Rate 56; Glucose 87 mg/dL (65-105); Sodium 137 mmol/L (137-145)
[2020-06-16 22:27] LABS: Troponin I < 0.012 ng/mL (0.000-0.034)
[2020-06-17] VITALS (22 sets, daily range): BP systolic 82–111; BP diastolic 49–66; PULSE 77–114; RESP 18–26; TEMP 36.3–37.2; O2SAT 94–100
[2020-06-17] MEDS: NITROGLYCERIN OINTMENT 1 INCH DOSE TRANSDERM ×3 (00:36→13:34)
[2020-06-17 01:04] LABS: Troponin I < 0.012 ng/mL (0.000-0.034)
[2020-06-17] MEDS: ALBUTEROL SULFATE NEB 2.5 MG/0.5 ML INH 5 MG INHALATION ×3 (02:30→19:03)
[2020-06-17 07:18] LABS: Basophils Percent Auto 0.4 % (0.2-1.2); Eosinophils Percent Auto 0.6 % (0-4.4); Hematocrit 33.9 % (37.0-47.0); Hemoglobin 11.3 g/dL (12.0-15.0); Immature Granulocyte Absolute 0.04 K/mm3 (0.00-0.031); Immature Granulocyte Percent A 0.6 % (0-0.5); Lymphocytes Absolute Auto 0.93 K/mm3 (0.9-3.2); Lymphocytes Percent Auto 13.1 % (18.3-44.2); Mean Corpuscular HGB Conc 33.3 g/dl (32-36); Mean Corpuscular Hemoglobin 30.1 pg (26-34); Mean Corpuscular Volume 90.2 fl (80-100); Monocytes Absolute Auto 0.9 K/mm3 (0.1-0.6); Monocytes Percent Auto 12.7 % (2.6-8.5); Neutrophils Absolute Auto 5.2 K/mm3 (1.3-6.7); Neutrophils Percent Auto 72.6 % (45.5-73.1); Nucleated Red Blood Cells Perc 0.3 % (0.0-0.2); Platelet Count Result 119 k/mm3 (150-375); Red Blood Count 3.76 M/mm3 (4.2-5.4); Red Cell Distribution Width 20.4 % (11.5-14.5); White Blood Count 7.1 K/mm3 (4.5-10.0)
[2020-06-17 07:47] LABS: Anion Gap 8.99999 mmol/L (8-16); Blood Urea Nitrogen 13 mg/dL (7-17); Calcium 7.3 mg/dL (8.4-10.2); Carbon Dioxide > 40 mmol/L (22-30); Chloride 86 mmol/L (98-107); Estimated CRCL calculation 81 ml/min; Estimated Glomerular Filt Rate > 60; Glucose 96 mg/dL (65-105); Magnesium 1.3 mg/dL (1.6-2.3); Potassium 3.3 mmol/L (3.4-5.0); Sodium 135 mmol/L (137-145)
[2020-06-17 09:21] LABS: Free T4 Free Thyroxine Reflex 1.16 ng/dL (0.78-2.19)
[2020-06-17 10:13] LABS: Total Triiodothyronine (T3) 0.58 NG/ML (0.97-1.69)
[2020-06-17] MEDS: MAGNESIUM SULF 2 GM/WATER 50ML 2 GM/50 ML BAG IVPB (10:17)
[2020-06-17] MEDS: LEVOTHYROXINE SODIUM 25 MCG TABLET PO (10:17)
[2020-06-17] MEDS: METOCLOPRAMIDE HCL 5 MG TABLET PO ×3 (10:20→16:12)
[2020-06-17] MEDS: POTASSIUM CHLORIDE 20 MEQ TABLET 40 MEQ PO (10:20)
[2020-06-17] MEDS: carvediloL 6.25 MG TABLET PO ×2 (10:21→20:59)
[2020-06-17] MEDS: PANTOPRAZOLE 40 MG TABLET PO (10:21)
[2020-06-17] MEDS: guaiFENesin 200 MG/10 ML UDC 400 MG PO ×2 (10:22→13:46)
[2020-06-17] MEDS: SPIRONOLACTONE 25 MG TABLET PO (10:22)
[2020-06-17] MEDS: LIDOCAINE 5% PATCH 1 PATCH TRANSDERM (10:22)
[2020-06-17] MEDS: ENOXAPARIN 40 MG/0.4 ML SYRINGE SUB-Q (10:23)
[2020-06-17] MEDS: FLUTICASONE PROPIONATE 0.05% NA SPR 16 GM BTL (*BKC) 1 SPRAY NASAL ×2 (10:23→16:13)
[2020-06-17] MEDS: FUROSEMIDE INJ 40 MG/4 ML VIAL IV PUSH (10:24)
[2020-06-17] MEDS: POTASSIUM CHLORIDE 20 MEQ TABLET.ER PO (13:34)
--- NOTE | 2020-06-17 14:01 | PCCARD ---
PER RN DENIS) PER DR. LOGAN - ECHO ON HOLD UNTIL 06/18/2020 IN AM. PATIENT HAS REFUSED ECHO 3 TIMES (10:00, 11:30, 2:00). HE WANTS US TO TRY AGAIN TOMORROW MORNING.
--- NOTE | 2020-06-17 15:05 | PM.IMPN ---
Progress Note: A&P Assessment and Plan (1) Acute respiratory failure with hypoxia: Code(s): J96.01 - Acute respiratory failure with hypoxia Status: Acute Assessment and Plan: Appears to be secondary to acute heart failure exacerbation. Continue oxygen supplementation and wean off as tolerated. Continue treatment for acute CHF. RT assess and treat. P.r.n. bronchodilators. (2) Acute on chronic systolic and diastolic heart failure, NYHA class 4: Code(s): I50.43 - Acute on chronic combined systolic (congestive) and diastolic (congestive) heart failure Status: Acute Assessment and Plan: BNP 5030. CXR showing mild pulmonary edema, She has been started on Lasix IV. Renal function remaining stable. Rebolledo ordered to obtain accurate I/Os. Continue fluid restricted sodium prudent diet. Wean O2 as toelrated. (3) Chest pain: Qualifiers: Chest pain type: unspecified Qualified Code(s): R07.9 - Chest pain, unspecified Code(s): R07.9 - Chest pain, unspecified Status: Acute Assessment and Plan: No recurrence. Troponin negative x3. EKG showing mostly paced rhythm. She is refusing Echo per RN. (4) Hypokalemia: Code(s): E87.6 - Hypokalemia Status: Acute Assessment and Plan: Potassium 2.9 on admisison and has been replaced. Repeat potassium today is 3.3. Mag low to and this was also replaced. Continue to replace. (5) Elevated liver enzymes: Code(s): R74.8 - Abnormal levels of other serum enzymes Status: Acute Assessment and Plan: AST/ALT mildly elevated felt related to acute heart failure exacerbation and hypoperfusion to the liver. We will check morning liver function tests. Consider right upper quadrant ultrasound in a.m. if patient's liver function is still abnormal. (6) Paralysis of left vocal cord: Code(s): J38.01 - Paralysis of vocal cords and larynx, unilateral Status: Acute Assessment and Plan: Stable. Continue ENT recommendations. (7) Chronic kidney disease, stage 3: Qualifiers: Chronic kidney disease stage 3 subtype: unspecified whether 3a or 3b Qualified Code(s): N18.30 - Chronic kidney disease, stage 3 unspecified Code(s): N18.3 - Chronic kidney disease, stage 3 (moderate) Status: Chronic Assessment and Plan: Stable. Creatinine normal range on admisison with CrCl 60-80 range and remaining stable. Avoid nephrotoxin agents. Renally dose medications. (8) Chronic pain syndrome: Code(s): G89.4 - Chronic pain syndrome Status: Chronic Assessment and Plan: Stable. Continue home medications (9) Open wound anterior abdominal wall: Qualifiers: Encounter type: initial encounter Qualified Code(s): S31.109A - Unspecified open wound of abdominal wall, unspecified quadrant without penetration into peritoneal cavity, initial encounter Code(s): S31.109A - Unspecified open wound of abdominal wall, unspecified quadrant without penetration into peritoneal cavity, initial encounter Status: Chronic Assessment and Plan: Stable and chronic. Continue local wound care. (10) Essential (primary) hypertension: Code(s): I10 - Essential (primary) hypertension Status: Chronic Assessment and Plan: Patient's blood pressure was reviewed on 06/17 Blood pressure remains well controlled and even low at times. Will continue current medications Coreg and lisinopril. Take off NTP. (11) Acquired hypothyroidism: Code(s): E03.9 - Hypothyroidism, unspecified Status: Chronic Assessment and Plan: TSH 10.3 now and has been climbing. Will advance Synthroid. (12) UTI (urinary tract infection): Qualifiers: Hematuria presence: without hematuria Urinary tract infection type: site unspecified Qualified Code(s): N39.0 - Urinary tract infection, site not sp
[2020-06-17 18:02] LABS: Add Urine Microscopic? YES; Appearance Urine Clear (Clear); Bacteria Urine Trace /hpf; Bilirubin Urine Negative (Negative); Blood Urine Negative (Negative); Color Urine Yellow (Yellow); Glucose Urine UA Negative (Negative); Ketones Urine Negative (Negative); Leukocyte Esterase Ur 3+ LEU/UL (Negative); Mucus Urine Rare /lpf; Nitrate Urine Negative (Negative); Protein Urine Negative (Negative); Specific Grav Ur 1.008 (1.001-1.035); Squamous Epithelial Cell Urine Rare /hpf (Few); Urobilinogen Urine Negative mg/dL (<2.0); WBC Clumps Urine Present /HPF; WBC Urine >75 /hpf
[2020-06-17] MEDS: GABAPENTIN 100 MG CAPSULE PO (20:58)
[2020-06-17] MEDS: MICONAZOLE NITRATE 2% CREAM 30 GM TUBE 1 APPLIC TOPICAL (20:58)
[2020-06-17] MEDS: traZODone HCL 50 MG TABLET PO (20:59)
[2020-06-17] MEDS: MELATONIN 5 MG TABLET 10 MG PO (20:59)
[2020-06-17] MEDS: risperiDONE 1 MG TABLET 2 MG PO (20:59)
[2020-06-17] MEDS: ATORVASTATIN 10 MG TABLET PO (21:00)
--- NOTE | 2020-06-17 21:45 | PC.NURSE ---
This patient, Princess Barraza, was received from [ [facility]] on 06/17/20 at 2146. Personal belongings list checked and signed. Patient/family oriented to unit policies and routines
[2020-06-18] VITALS (13 sets, daily range): BP systolic 95–120; BP diastolic 44–62; PULSE 57–108; RESP 16–20; TEMP 35.7–36.6; O2SAT 93–100
[2020-06-18 05:39] LABS: Hematocrit 33.8 % (37.0-47.0); Hemoglobin 11.3 g/dL (12.0-15.0); Immature Platelet Fraction Pct 4.2 % (0.9-11.2); Mean Corpuscular HGB Conc 33.4 g/dl (32-36); Mean Corpuscular Hemoglobin 30.5 pg (26-34); Mean Corpuscular Volume 91.4 fl (80-100); Mean Platelet Volume 10.3 fl (7.4-10.4); Platelet Count Result 135 k/mm3 (150-375); Red Cell Distribution Width 20.1 % (11.5-14.5); White Blood Count 5.9 K/mm3 (4.5-10.0)
[2020-06-18 05:57] LABS: Alanine Aminotransferase 25 U/L (4-35); Albumin Level 1.9 g/dL (3.5-5.1); Alkaline Phosphatase 124 U/L (38-126); Anion Gap 11.99999 mmol/L (8-16); Aspartate Amino Transferase 32 U/L (14-36); Bilirubin,Total 0.9 mg/dL (0.2-1.3); Blood Urea Nitrogen 10 mg/dL (7-17); Calcium 7.4 mg/dL (8.4-10.2); Carbon Dioxide > 40 mmol/L (22-30); Chloride 85 mmol/L (98-107); Estimated CRCL calculation 60 ml/min; Estimated Glomerular Filt Rate 50; Glucose 80 mg/dL (65-105); Magnesium 1.5 mg/dL (1.6-2.3); Potassium 3.1 mmol/L (3.4-5.0); Sodium 137 mmol/L (137-145)
[2020-06-18] MEDS: GABAPENTIN 100 MG CAPSULE PO ×3 (06:04→21:25)
[2020-06-18] MEDS: LEVOTHYROXINE SODIUM 50 MCG TABLET PO (06:04)
--- NOTE | 2020-06-18 07:00 | ECG_ITS ---
Measurements Intervals [place] Rate: 75 P: 39 CO: 127 QRS: -66 QRSD: 135 T: 78 QT: 407 QTc: 457 Interpretive Statements ATRIAL SENSE- ELECTRONIC VENTRICULAR PACEMAKER WITH INHIBITION ATRIAL AND VENTRICULAR PREMATURE COMPLEXES BASELINE ARTIFACT- I, II, AVR NO FURTHER INTERPRETATION IS POSSIBLE ATYPICAL ECG Electronically Signed On 06-18-2020 11:33:17 CDT by Gabe Garcia D.O.
[2020-06-18] MEDS: ALBUTEROL SULFATE NEB 2.5 MG/0.5 ML INH 5 MG INHALATION ×2 (07:22→21:00)
[2020-06-18] MEDS: POTASSIUM CHLORIDE 20 MEQ TABLET 40 MEQ PO (07:57)
[2020-06-18] MEDS: MAGNESIUM SULF 2 GM/WATER 50ML 2 GM/50 ML BAG IVPB (07:58)
[2020-06-18] MEDS: carvediloL 6.25 MG TABLET PO ×2 (08:19→21:25)
[2020-06-18] MEDS: FUROSEMIDE INJ 40 MG/4 ML VIAL IV PUSH (08:20)
[2020-06-18] MEDS: LORATADINE 10 MG TABLET PO (08:20)
[2020-06-18] MEDS: METOCLOPRAMIDE HCL 5 MG TABLET PO ×3 (08:20→16:58)
[2020-06-18] MEDS: FLUTICASONE PROPIONATE 0.05% NA SPR 16 GM BTL (*BKC) 1 SPRAY NASAL ×2 (08:21→16:58)
[2020-06-18] MEDS: buPROPion HCL XL (24 HR) 150 MG TABCR PO (08:21)
[2020-06-18] MEDS: POTASSIUM CHLORIDE 20 MEQ TABLET.ER PO (08:21)
[2020-06-18] MEDS: LIDOCAINE 5% PATCH 1 PATCH TRANSDERM (08:22)
[2020-06-18] MEDS: ERGOCALCIFEROL 50,000 UNIT CAPSULE 50000 UNITS PO (08:22)
[2020-06-18] MEDS: ENOXAPARIN 40 MG/0.4 ML SYRINGE SUB-Q (08:22)
[2020-06-18] MEDS: CITALOPRAM HYDROBROMIDE 20 MG TABLET 40 MG PO (08:24)
[2020-06-18] MEDS: PANTOPRAZOLE 40 MG TABLET PO (08:24)
[2020-06-18] MEDS: risperiDONE 1 MG TABLET 2 MG PO ×2 (08:24→21:25)
--- NOTE | 2020-06-18 09:26 | PM.IMPN ---
Progress Note: A&P Assessment and Plan (1) Acute respiratory failure with hypoxia: Code(s): J96.01 - Acute respiratory failure with hypoxia Status: Acute Assessment and Plan: Appears to be secondary to acute heart failure exacerbation. Continue oxygen supplementation and wean O2 as tolerated. Continue treatment for acute CHF. RT assess and treat. P.r.n. bronchodilators. (2) Acute on chronic systolic and diastolic heart failure, NYHA class 4: Code(s): I50.43 - Acute on chronic combined systolic (congestive) and diastolic (congestive) heart failure Status: Acute Assessment and Plan: BNP 5030. CXR showing mild pulmonary edema, She has been started on Lasix IV. Renal function noted. Continue fluid restricted sodium prudent diet. Wean O2 as tolerated. (3) Chest pain: Qualifiers: Chest pain type: unspecified Qualified Code(s): R07.9 - Chest pain, unspecified Code(s): R07.9 - Chest pain, unspecified Status: Acute Assessment and Plan: No recurrence. Troponin negative x3. EKG showing mostly paced rhythm. Echo pending (4) Hypokalemia: Code(s): E87.6 - Hypokalemia Status: Acute Assessment and Plan: Potassium 2.9 on admisison and has been replaced. Repeat potassium today is 3.1 with Mag 1.5. Replace Mag and Potassium again. Continue to follow (5) Elevated liver enzymes: Code(s): R74.8 - Abnormal levels of other serum enzymes Status: Acute Assessment and Plan: AST/ALT mildly elevated felt related to acute heart failure exacerbation and hypoperfusion to the liver. Repeat liver function tests normal. (6) Paralysis of left vocal cord: Code(s): J38.01 - Paralysis of vocal cords and larynx, unilateral Status: Acute Assessment and Plan: Stable. Continue ENT recommendations. (7) Chronic kidney disease, stage 3: Qualifiers: Chronic kidney disease stage 3 subtype: unspecified whether 3a or 3b Qualified Code(s): N18.30 - Chronic kidney disease, stage 3 unspecified Code(s): N18.3 - Chronic kidney disease, stage 3 (moderate) Status: Chronic Assessment and Plan: Stable. Creatinine normal range on admisison with CrCl 60-80 range and remaining stable. Cr up today felt related to the Lasix. Continue to monitor. (8) Chronic pain syndrome: Code(s): G89.4 - Chronic pain syndrome Status: Chronic Assessment and Plan: Stable. Continue home medications (9) Open wound anterior abdominal wall: Qualifiers: Encounter type: initial encounter Qualified Code(s): S31.109A - Unspecified open wound of abdominal wall, unspecified quadrant without penetration into peritoneal cavity, initial encounter Code(s): S31.109A - Unspecified open wound of abdominal wall, unspecified quadrant without penetration into peritoneal cavity, initial encounter Status: Chronic Assessment and Plan: Stable and chronic. Continue local wound care. (10) Essential (primary) hypertension: Code(s): I10 - Essential (primary) hypertension Status: Chronic Assessment and Plan: Patient's blood pressure was reviewed on 06/18 Blood pressure remains well controlled and even low at times. Will continue current medications Coreg. Aldactone held. (11) Acquired hypothyroidism: Code(s): E03.9 - Hypothyroidism, unspecified Status: Chronic Assessment and Plan: TSH 10.3 now and has been climbing. Synthroid advanced. (12) UTI (urinary tract infection): Qualifiers: Hematuria presence: without hematuria Urinary tract infection type: site unspecified Qualified Code(s): N39.0 - Urinary tract infection, site not specified Code(s): N39.0 - Urinary tract infection, site not specified Status: Acute Assessment and Plan: UA noted. UCx pending. COntinue Rocephin.
[2020-06-18] MEDS: PERFLUTREN LIPID MICROSPHERES 1.5 ML VIAL DILUTED TO 10 ML TOTAL VOLUME IV PUSH (09:34)
[2020-06-18] MEDS: MICONAZOLE NITRATE 2% CREAM 30 GM TUBE 1 APPLIC TOPICAL ×2 (10:24→21:26)
[2020-06-18] MEDS: MORPHINE SULFATE (*CRX) 4 MG/ML INJ IV PUSH (11:55)
[2020-06-18] MEDS: SILVERGEL (ELTA) 45 ML 1 APPLIC TOPICAL (15:10)
--- NOTE | 2020-06-18 19:59 | ECHO_ITS ---
Patient Info Name: Princess Barraza Age: 64 years : 1955 Gender: Female Ht: 65 in Wt: 273 lbs BSA: 2.45 m2 HR: 86 bpm BP: 93 / 54 mmHg Heart Rhythm: Indeterminant Technical Quality: Fair Exam Date: 06/18/2020 9:07 AM Exam Location: [facility] Room: 342 Patient Status: Outpatient Admit Date: 06/16/2020 Staff Ordering Physician: Roscoe Strauss MD Insulation Applicator: Lin Small RDCS Attending Provider: Deshawn Anderson MD Referring Physician: Carlos A JHAVERI; Exam Type: CA echo dop color flow w con Study Info Complete two-dimensional, color flow and Doppler transthoracic echocardiogram is performed with contrast to opacify the left ventricle and to improve the deliniation of the left ventricle endocardial borders. Contrast/Agitated Saline Contrast/Ag. Saline: Definity Amount: 1.00 ml Administered By: Duncan Schilling RN Existing IV Access: Yes IV Access Condition: patent with no signs of infiltration Summary 1. Severe left ventricular enlargement, normal left ventricular thickness. Severe left ventricular dysfunction, estimated ejection fraction 20%, measured ejection fraction 23%. Akinesis of the mid and distal septum, anterior wall and inferior wall as well as apex. Grade 2 diastolic dysfunction is present. 2. Right atrial chamber dimension is mildly enlarged. 3. Left atrial chamber dimension is severely enlarged. 4. There is mild mitral valve regurgitation. 5. There is mild tricuspid valve regurgitation. 6. Mild pulmonary hypertension, estimated pulmonary arterial systolic pressure is 39 mmHg. 7. There is trivial pericardial effusion. 8. Rhythm indeterminant. Left Ventricle Left ventricular Empty are normal with no regional wall motion abnormalities with an estimated ejection fraction of Empty. Left ventricular chamber dimension is normal. Left ventricular systolic function is severely reduced, estimated at 20-25%. There is no increased left ventricular wall thickness. Left ventricular septal wall motion is normal. The left ventricular diastolic function is grade II diastolic dysfunction. Right Ventricle Right ventricular chamber dimension is normal. Right ventricular systolic function is normal. Left Atria Left atrial chamber dimension is severely enlarged. Right Atria Right atrial chamber dimension is mildly enlarged. Aortic Valve The aortic valve is trileaflet. There is no aortic valve sclerosis. There is no aortic valve stenosis. There is no aortic valve regurgitation. Pulmonic Valve The pulmonic valve is normal. There is no pulmonic valve stenosis. There is trace pulmonic regurgitation. Mitral Valve The mitral valve has normal leaflets. There is no mitral valve stenosis. There is mild mitral valve regurgitation. Tricuspid Valve The tricuspid valve leaflets are normal. There is no significant tricuspid valve stenosis. There is mild tricuspid valve regurgitation. Mild pulmonary hypertension, estimated pulmonary arterial systolic pressure is 39 mmHg. Pericardium/Pleural The pericardium appears normal. There is trivial pericardial effusion. Inferior Vena Cava Normal inferior vena cava with >50% collapse upon inspiration consistent with normal right atrial pressure, 10 mmHg. Aorta The aortic root size at the sinus of Valsalva is normal. The prox ascending aorta size is normal. Left Ventricular Outflow Tract
[2020-06-18] MEDS: ATORVASTATIN 10 MG TABLET PO (21:25)
[2020-06-18] MEDS: MELATONIN 5 MG TABLET 10 MG PO (21:25)
[2020-06-18] MEDS: traZODone HCL 50 MG TABLET PO (21:25)
[2020-06-19] VITALS (10 sets, daily range): BP systolic 94–111; BP diastolic 47–62; PULSE 60–82; RESP 14–20; TEMP 36.2–36.6; O2SAT 92–96
[2020-06-19] MEDS: LEVOTHYROXINE SODIUM 50 MCG TABLET PO (05:13)
[2020-06-19] MEDS: GABAPENTIN 100 MG CAPSULE PO ×3 (05:13→21:01)
[2020-06-19 05:56] LABS: Albumin Level 2.2 g/dL (3.5-5.1); Anion Gap 10.99999 mmol/L (8-16); Blood Urea Nitrogen 11 mg/dL (7-17); Calcium 7.7 mg/dL (8.4-10.2); Carbon Dioxide > 40 mmol/L (22-30); Chloride 85 mmol/L (98-107); Estimated CRCL calculation 79 ml/min; Estimated Glomerular Filt Rate > 60; Glucose 104 mg/dL (65-105); Magnesium 1.8 mg/dL (1.6-2.3); Phosphorus 2.3 mg/dL (2.5-4.5); Sodium 136 mmol/L (137-145)
[2020-06-19] MEDS: ALBUTEROL SULFATE NEB 2.5 MG/0.5 ML INH 5 MG INHALATION ×2 (07:08→19:51)
--- NOTE | 2020-06-19 08:24 | PC.NURSE ---
Patient refused morning medications until breakfast is delivered; potassium will be administered past time of administration r/t delivery of breakfast tray.
[2020-06-19] MEDS: LIDOCAINE 5% PATCH 1 PATCH TRANSDERM (08:31)
[2020-06-19] MEDS: SILVERGEL (ELTA) 45 ML 1 APPLIC TOPICAL (08:31)
[2020-06-19] MEDS: MICONAZOLE NITRATE 2% CREAM 30 GM TUBE 1 APPLIC TOPICAL ×2 (08:31→20:37)
[2020-06-19] MEDS: PANTOPRAZOLE 40 MG TABLET PO (09:30)
[2020-06-19] MEDS: POTASSIUM/PHOSPHORUS/SODIUM 1.5 GM PACKET 1 PACKET PO (09:30)
[2020-06-19] MEDS: risperiDONE 1 MG TABLET 2 MG PO ×2 (09:30→20:37)
[2020-06-19] MEDS: METOCLOPRAMIDE HCL 5 MG TABLET PO ×3 (09:30→16:50)
[2020-06-19] MEDS: buPROPion HCL XL (24 HR) 150 MG TABCR PO (09:31)
[2020-06-19] MEDS: CITALOPRAM HYDROBROMIDE 20 MG TABLET 40 MG PO (09:31)
[2020-06-19] MEDS: LORATADINE 10 MG TABLET PO (09:31)
[2020-06-19] MEDS: POTASSIUM CHLORIDE 20 MEQ TABLET.ER PO (09:31)
[2020-06-19] MEDS: carvediloL 6.25 MG TABLET PO ×2 (09:32→20:38)
[2020-06-19] MEDS: ENOXAPARIN 40 MG/0.4 ML SYRINGE SUB-Q (09:33)
[2020-06-19] MEDS: FUROSEMIDE INJ 40 MG/4 ML VIAL IV PUSH (09:33)
[2020-06-19] MEDS: FLUTICASONE PROPIONATE 0.05% NA SPR 16 GM BTL (*BKC) 1 SPRAY NASAL ×2 (09:33→16:50)
--- NOTE | 2020-06-19 13:10 | PM.IMPN ---
Progress Note: A&P Assessment and Plan (1) Acute respiratory failure with hypoxia: Code(s): J96.01 - Acute respiratory failure with hypoxia Status: Acute Assessment and Plan: Appears to be secondary to acute heart failure exacerbation. Continue oxygen supplementation and wean O2 as tolerated. Continue treatment for acute CHF. RT assess and treat. P.r.n. bronchodilators. (2) Acute on chronic systolic and diastolic heart failure, NYHA class 4: Code(s): I50.43 - Acute on chronic combined systolic (congestive) and diastolic (congestive) heart failure Status: Acute Assessment and Plan: BNP 5030. CXR showing mild pulmonary edema, Echo showing EF 20% with diastolic dysfunction grade I. No change from prior Echo in October. She has been started on Lasix IV. Renal function remaining normal. Continue fluid restricted sodium prudent diet. Wean O2 as tolerated. Change to oral Lasix tomorrow. Continue Coreg. Spironolactone on hold. Add AR inhibitor if BP allows. (3) Chest pain: Qualifiers: Chest pain type: unspecified Qualified Code(s): R07.9 - Chest pain, unspecified Code(s): R07.9 - Chest pain, unspecified Status: Acute Assessment and Plan: No recurrence. Troponin negative x3. EKG showing mostly paced rhythm. Echo showing EF 20% with diastolic dysfunction grade I. No change from prior Echo in October. CP felt related to the CHF. As above. (4) Hypokalemia: Code(s): E87.6 - Hypokalemia Status: Acute Assessment and Plan: Potassium 2.9 on admisison and has been replaced. Repeat potassium today is 4 with Mag 1.8. Continue to follow (5) Elevated liver enzymes: Code(s): R74.8 - Abnormal levels of other serum enzymes Status: Acute Assessment and Plan: AST/ALT mildly elevated felt related to acute heart failure exacerbation and hypoperfusion to the liver. Repeat liver function tests normal. (6) Paralysis of left vocal cord: Code(s): J38.01 - Paralysis of vocal cords and larynx, unilateral Status: Acute Assessment and Plan: Stable. Continue ENT recommendations. (7) Chronic kidney disease, stage 3: Qualifiers: Chronic kidney disease stage 3 subtype: unspecified whether 3a or 3b Qualified Code(s): N18.30 - Chronic kidney disease, stage 3 unspecified Code(s): N18.3 - Chronic kidney disease, stage 3 (moderate) Status: Chronic Assessment and Plan: Stable. Creatinine normal range on admisison with CrCl 60-80 range and remaining stable. Cr better today. Continue to monitor. (8) Chronic pain syndrome: Code(s): G89.4 - Chronic pain syndrome Status: Chronic Assessment and Plan: Stable. Continue home medications (9) Open wound anterior abdominal wall: Qualifiers: Encounter type: initial encounter Qualified Code(s): S31.109A - Unspecified open wound of abdominal wall, unspecified quadrant without penetration into peritoneal cavity, initial encounter Code(s): S31.109A - Unspecified open wound of abdominal wall, unspecified quadrant without penetration into peritoneal cavity, initial encounter Status: Chronic Assessment and Plan: Stable and chronic. Continue local wound care. (10) Essential (primary) hypertension: Code(s): I10 - Essential (primary) hypertension Status: Chronic Assessment and Plan: Patient's blood pressure was reviewed on 06/19 Blood pressure remains well controlled and even low at times. Will continue current medications Coreg. Aldactone held. No room for AR inhibitor for now. (11) Acquired hypothyroidism: Code(s): E03.9 - Hypothyroidism, unspecified Status: Chronic Assessment and Plan: TSH 10.3 now and has been climbing. Synthroid advanced. (12) UTI (urinary tract infection): Qualifiers: Hematuria presence:
[2020-06-19] MEDS: CEPHALEXIN 250 MG CAPSULE PO ×3 (13:41→23:38)
[2020-06-19] MEDS: ACETAMINOPHEN 325 MG TABLET 650 MG PO (14:01)
[2020-06-19] MEDS: traZODone HCL 50 MG TABLET PO (20:37)
[2020-06-19] MEDS: MELATONIN 5 MG TABLET 10 MG PO (20:37)
[2020-06-19] MEDS: ATORVASTATIN 10 MG TABLET PO (20:38)
[2020-06-20] VITALS (8 sets, daily range): BP systolic 87–96; BP diastolic 38–50; PULSE 64–103; RESP 16–18; TEMP 36.1; O2SAT 90–93; BMI 10.0
[2020-06-20] MEDS: ENOXAPARIN 40 MG/0.4 ML SYRINGE SUB-Q (08:39)
[2020-06-20] MEDS: FUROSEMIDE INJ 40 MG/4 ML VIAL IV PUSH ×2 (08:39→18:37)
[2020-06-20] MEDS: METOCLOPRAMIDE HCL 5 MG TABLET PO ×3 (08:39→18:37)
[2020-06-20] MEDS: carvediloL 6.25 MG TABLET PO ×2 (08:39→21:52)
[2020-06-20] MEDS: LIDOCAINE 5% PATCH 1 PATCH TRANSDERM (08:39)
[2020-06-20] MEDS: POTASSIUM CHLORIDE 20 MEQ TABLET.ER PO (08:40)
[2020-06-20] MEDS: PANTOPRAZOLE 40 MG TABLET PO (08:40)
[2020-06-20] MEDS: LORATADINE 10 MG TABLET PO (08:40)
[2020-06-20] MEDS: CITALOPRAM HYDROBROMIDE 20 MG TABLET 40 MG PO (08:40)
[2020-06-20] MEDS: FLUTICASONE PROPIONATE 0.05% NA SPR 16 GM BTL (*BKC) 1 SPRAY NASAL ×2 (08:40→18:37)
[2020-06-20] MEDS: risperiDONE 1 MG TABLET 2 MG PO ×2 (08:40→21:52)
[2020-06-20] MEDS: buPROPion HCL XL (24 HR) 150 MG TABCR PO (08:40)
[2020-06-20] MEDS: SILVERGEL (ELTA) 45 ML 1 APPLIC TOPICAL (08:41)
[2020-06-20] MEDS: MICONAZOLE NITRATE 2% CREAM 30 GM TUBE 1 APPLIC TOPICAL ×2 (08:42→21:52)
[2020-06-20] MEDS: ALBUTEROL SULFATE NEB 2.5 MG/0.5 ML INH 5 MG INHALATION ×2 (09:23→21:01)
--- NOTE | 2020-06-20 10:49 | PM.IMPN ---
Progress Note: A&P Assessment and Plan (1) Acute respiratory failure with hypoxia: Code(s): J96.01 - Acute respiratory failure with hypoxia Status: Acute Assessment and Plan: CXR on admission showing mild pulm edema. [place] symptoms related to acute/chronic heart failure exacerbation. Treated with IV Lasix with benefit. Sputum Cx has returned positive for pseudomonas. Could be colonizer. CXR 06/19 showing left mid and bilateral lower lung infiltrate and/atelectasis, increased since 06/18/2020. Will add Cefepime and repeat CXR. Continue oxygen supplementation and wean O2 as tolerated. Continue treatment for acute CHF. RT assess and treat. P.r.n. bronchodilators. Patient tested for COVID for placement but sample inadequate so plan for repeat today. CXR reviewed and showing improved pulm congestion but persistent bibasilar disease. COVID negative. WBC normal. CRP 1.8. Potassium 3.3 so maria eugenia replace. BP soft so will stop Lasix. (2) Acute on chronic systolic and diastolic heart failure, NYHA class 4: Code(s): I50.43 - Acute on chronic combined systolic (congestive) and diastolic (congestive) heart failure Status: Acute Assessment and Plan: BNP 5030. CXR showing mild pulmonary edema, Echo showing EF 20% with diastolic dysfunction grade I. No change from prior Echo in October. She was started on Lasix IV. Renal function remaining normal. Continue fluid restricted sodium prudent diet. Wean O2 as tolerated. Continue Coreg. Spironolactone on hold. Add AR inhibitor if BP allows. Will give extra dose of Lasix tonight to help with diuresis since BP better. (3) Chest pain: Qualifiers: Chest pain type: unspecified Qualified Code(s): R07.9 - Chest pain, unspecified Code(s): R07.9 - Chest pain, unspecified Status: Acute Assessment and Plan: No recurrence. Troponin negative x3. EKG showing mostly paced rhythm. Echo showing EF 20% with diastolic dysfunction grade I. No change from prior Echo in October. CP felt related to the CHF. As above. (4) Hypokalemia: Code(s): E87.6 - Hypokalemia Status: Acute Assessment and Plan: Potassium 2.9 on admisison and has been replaced. Repeat potassium yesterday is 4 with Mag 1.8. Repeat labs (5) Elevated liver enzymes: Code(s): R74.8 - Abnormal levels of other serum enzymes Status: Acute Assessment and Plan: AST/ALT mildly elevated felt related to acute heart failure exacerbation and hypoperfusion to the liver. Repeat liver function tests normal. (6) Paralysis of left vocal cord: Code(s): J38.01 - Paralysis of vocal cords and larynx, unilateral Status: Acute Assessment and Plan: Stable. Continue ENT recommendations. (7) Chronic kidney disease, stage 3: Qualifiers: Chronic kidney disease stage 3 subtype: unspecified whether 3a or 3b Qualified Code(s): N18.30 - Chronic kidney disease, stage 3 unspecified Code(s): N18.3 - Chronic kidney disease, stage 3 (moderate) Status: Chronic Assessment and Plan: Stable. Creatinine normal range on admisison with CrCl 60-80 range and remaining stable. Repeat labs today. (8) Chronic pain syndrome: Code(s): G89.4 - Chronic pain syndrome Status: Chronic Assessment and Plan: Stable. Continue home medications (9) Open wound anterior abdominal wall: Qualifiers: Encounter type: initial encounter Qualified Code(s): S31.109A - Unspecified open wound of abdominal wall, unspecified quadrant without penetration into peritoneal cavity, initial encounter Code(s): S31.109A - Unspecified open wound of abdominal wall, unspecified quadrant without penetration into peritoneal cavity, initial encounter Status: Chronic Assessment and Plan: Stable and chronic. Continue local wound care. (10) Essential (primary) hypertension
--- NOTE | 2020-06-20 11:37 | PCOTNOTE ---
On 06/20/20, the student, Shayy Galvin, provided care and completed [facility] documentation on this patient. I have reviewed the student's documentation and agree with the findings.
[2020-06-20 11:42] LABS: Basophils Percent Auto 0.5 % (0.2-1.2); Eosinophils Absolute Auto 0.1 K/mm3 (0-0.3); Eosinophils Percent Auto 0.9 % (0-4.4); Hematocrit 36.8 % (37.0-47.0); Hemoglobin 11.8 g/dL (12.0-15.0); Immature Granulocyte Absolute 0.07 K/mm3 (0.00-0.031); Immature Granulocyte Percent A 0.8 % (0-0.5); Immature Platelet Fraction Pct 5.2 % (0.9-11.2); Lymphocytes Absolute Auto 0.68 K/mm3 (0.9-3.2); Lymphocytes Percent Auto 7.9 % (18.3-44.2); Mean Corpuscular HGB Conc 32.1 g/dl (32-36); Mean Corpuscular Hemoglobin 30.4 pg (26-34); Mean Corpuscular Volume 94.8 fl (80-100); Mean Platelet Volume 10.4 fl (7.4-10.4); Monocytes Absolute Auto 0.6 K/mm3 (0.1-0.6); Monocytes Percent Auto 7.3 % (2.6-8.5); Neutrophils Absolute Auto 7.1 K/mm3 (1.3-6.7); Neutrophils Percent Auto 82.6 % (45.5-73.1); Platelet Count Result 140 k/mm3 (150-375); Red Blood Count 3.88 M/mm3 (4.2-5.4); Red Cell Distribution Width 19.7 % (11.5-14.5); White Blood Count 8.6 K/mm3 (4.5-10.0)
[2020-06-20 11:58] LABS: Anion Gap 12.99999 mmol/L (8-16); Blood Urea Nitrogen 11 mg/dL (7-17); CRP 1.8 mg/dL (<1.0); Calcium 7.7 mg/dL (8.4-10.2); Carbon Dioxide > 40 mmol/L (22-30); Chloride 83 mmol/L (98-107); Estimated CRCL calculation 70 ml/min; Estimated Glomerular Filt Rate > 60; Glucose 137 mg/dL (65-105); Potassium 3.3 mmol/L (3.4-5.0); Sodium 136 mmol/L (137-145)
[2020-06-20] MEDS: GABAPENTIN 100 MG CAPSULE PO ×2 (14:15→21:52)
--- NOTE | 2020-06-20 15:56 | PC.NURSE ---
[facility] confirmation number: [id number] [facility] Authorization: [id number] Assigned to: Lux Alicia 5 Day Approval beginning 06/20/20-06/24/20 *For continued approval, please fax [phone]
[2020-06-20 18:02] LABS: SARS-CoV-2 RNA PCR Negative
[2020-06-20] MEDS: POTASSIUM CHLORIDE 20 MEQ TABLET 40 MEQ PO (21:50)
[2020-06-20] MEDS: ATORVASTATIN 10 MG TABLET PO (21:52)
[2020-06-20] MEDS: MELATONIN 5 MG TABLET 10 MG PO (21:52)
[2020-06-20] MEDS: traZODone HCL 50 MG TABLET PO (21:54)
[2020-06-21] VITALS (7 sets, daily range): PULSE 57–82; RESP 13–18; TEMP 36.1; O2SAT 86–96
[2020-06-21 06:31] LABS: Albumin Level 2.2 g/dL (3.5-5.1); Anion Gap 11.99999 mmol/L (8-16); Blood Urea Nitrogen 12 mg/dL (7-17); Calcium 7.5 mg/dL (8.4-10.2); Carbon Dioxide > 40 mmol/L (22-30); Chloride 82 mmol/L (98-107); Estimated CRCL calculation 78 ml/min; Estimated Glomerular Filt Rate > 60; Glucose 95 mg/dL (65-105); Magnesium 1.4 mg/dL (1.6-2.3); Potassium 3.7 mmol/L (3.4-5.0); Sodium 134 mmol/L (137-145)
[2020-06-21] MEDS: LEVOTHYROXINE SODIUM 50 MCG TABLET PO (06:42)
[2020-06-21] MEDS: GABAPENTIN 100 MG CAPSULE PO ×2 (06:42→13:44)
[2020-06-21] MEDS: MAGNESIUM SULF 2 GM/WATER 50ML 2 GM/50 ML BAG IVPB (07:44)
[2020-06-21] MEDS: POTASSIUM CHLORIDE 20 MEQ TABLET.ER PO (07:51)
[2020-06-21] MEDS: ALBUTEROL SULFATE NEB 2.5 MG/0.5 ML INH 5 MG INHALATION (07:58)
[2020-06-21] MEDS: FLUTICASONE PROPIONATE 0.05% NA SPR 16 GM BTL (*BKC) 1 SPRAY NASAL ×2 (08:38→16:46)
[2020-06-21] MEDS: ENOXAPARIN 40 MG/0.4 ML SYRINGE SUB-Q (08:38)
[2020-06-21] MEDS: risperiDONE 1 MG TABLET 2 MG PO (08:39)
[2020-06-21] MEDS: buPROPion HCL XL (24 HR) 150 MG TABCR PO (08:39)
[2020-06-21] MEDS: METOCLOPRAMIDE HCL 5 MG TABLET PO ×3 (08:40→16:47)
[2020-06-21] MEDS: LORATADINE 10 MG TABLET PO (08:40)
[2020-06-21] MEDS: PANTOPRAZOLE 40 MG TABLET PO (08:43)
[2020-06-21] MEDS: carvediloL 6.25 MG TABLET PO (08:44)
[2020-06-21] MEDS: CITALOPRAM HYDROBROMIDE 20 MG TABLET 40 MG PO (08:44)
[2020-06-21] MEDS: POTASSIUM PHOS,M-BASIC-D-BASIC 20 MMOL in SODIUM CHLORIDE 0.9% IV 250 ML 62.5 MMOL IVPB (08:45)
--- NOTE | 2020-06-21 13:22 | PM.DS ---
DS: Admitting Diagnosis Admitting Diagnosis Admitting Diagnosis: CHF/Chest Pain DS: Discharge Diagnosis Discharge Diagnosis (1) Acute respiratory failure with hypoxia: Code(s): J96.01 - Acute respiratory failure with hypoxia Status: Acute Assessment and Plan: CXR on admission showing mild pulm edema. [place] symptoms related to acute/chronic heart failure exacerbation. Treated with IV Lasix with benefit. Sputum Cx has returned positive for pseudomonas. Could be colonizer. WBC remained normal but she did have a productive cough. CXR 06/20 showing increasing opacities at the bilateral lung bases but improvement in pulmonary vascular congestion and pulmonary edema. We added Cefepime. She remained on 3L NC. Patient was tested for COVID for placement and was negative. (2) Acute on chronic systolic and diastolic heart failure, NYHA class 4: Code(s): I50.43 - Acute on chronic combined systolic (congestive) and diastolic (congestive) heart failure Status: Acute Assessment and Plan: BNP 5030. CXR showing mild pulmonary edema, Echo showing EF 20% with diastolic dysfunction grade I. No change from prior Echo in October. She was started on Lasix IV. Renal function remained normal. Continue fluid restricted sodium prudent diet. We continued Coreg. Spironolactone held. AR inhibitor not added due to soft BP. (3) Chest pain: Qualifiers: Chest pain type: unspecified Qualified Code(s): R07.9 - Chest pain, unspecified Code(s): R07.9 - Chest pain, unspecified Status: Acute Assessment and Plan: No recurrence. Troponin negative x3. EKG showing mostly paced rhythm. Echo showing EF 20% with diastolic dysfunction grade I. No change from prior Echo in October. CP felt related to the CHF. As above. (4) Hypokalemia: Code(s): E87.6 - Hypokalemia Status: Acute Assessment and Plan: Potassium 2.9 on admisison and this was replaced. Repeat potassium remained normal. (5) Elevated liver enzymes: Code(s): R74.8 - Abnormal levels of other serum enzymes Status: Acute Assessment and Plan: AST/ALT mildly elevated felt related to acute heart failure exacerbation and hypoperfusion to the liver. Repeat liver function tests normal. (6) Paralysis of left vocal cord: Code(s): J38.01 - Paralysis of vocal cords and larynx, unilateral Status: Acute Assessment and Plan: Stable. (7) Chronic kidney disease, stage 3: Qualifiers: Chronic kidney disease stage 3 subtype: unspecified whether 3a or 3b Qualified Code(s): N18.30 - Chronic kidney disease, stage 3 unspecified Code(s): N18.3 - Chronic kidney disease, stage 3 (moderate) Status: Chronic Assessment and Plan: Stable. Creatinine clearance remained within a normal range of 60-80 range throughout her hospital course. (8) Chronic pain syndrome: Code(s): G89.4 - Chronic pain syndrome Status: Chronic Assessment and Plan: Stable. We continued home medications (9) Open wound anterior abdominal wall: Qualifiers: Encounter type: initial encounter Qualified Code(s): S31.109A - Unspecified open wound of abdominal wall, unspecified quadrant without penetration into peritoneal cavity, initial encounter Code(s): S31.109A - Unspecified open wound of abdominal wall, unspecified quadrant without penetration into peritoneal cavity, initial encounter Status: Chronic Assessment and Plan: Stable and chronic. Continue local wound care. (10) Essential (primary) hypertension: Code(s): I10 - Essential (primary) hypertension Status: Chronic Assessment and Plan: Patient's blood pressure was followed closely. Blood pressure remained well controlled and even low at times. We continued Coreg but Aldactone held. No room for AR inhibitor for now. (11) Acquire
[2020-06-21] MEDS: LIDOCAINE 5% PATCH 1 PATCH TRANSDERM (13:35)
[2020-06-21] MEDS: SILVERGEL (ELTA) 45 ML 1 APPLIC TOPICAL (13:37)
[2020-06-21] MEDS: MICONAZOLE NITRATE 2% CREAM 30 GM TUBE 1 APPLIC TOPICAL (13:37)
--- NOTE | 2020-06-21 15:07 | PCOTNOTE ---
Attempted to see patient multiple times throughout day, patient with PT or declined when therapist requested to work with patient for OT. Patient not seen for OT this date. Will continue plan of care tomorrow, 06/22/2020.
[2020-06-21] MEDS: CEPHALEXIN 250 MG CAPSULE PO (17:32)
== END 2020-06-21 18:00 | DRG 291 ==
LOC: ANHED 20:20 → ANHIMU 20:36 → ANH3MED 06-17 21:44
PROVIDERS: Admitting Provider Family Medicine; Emergency Provider Family Medicine; PCP Family Medicine; Visit Provider Internal Medicine
DX: I13.0 Hypertensive heart and chronic kidney disease with heart failure and stage 1 through stage 4 chronic kidney disease, or unspecified chronic kidney disease (principal); I50.43 Acute on chronic combined systolic (congestive) and diastolic (congestive) heart failure; J96.01 Acute respiratory failure with hypoxia; N39.0 Urinary tract infection, site not specified; B96.20 Unspecified Escherichia coli [E. coli] as the cause of diseases classified elsewhere; N18.30 Chronic kidney disease, stage 3 unspecified; Z20.828 Contact with and (suspected) exposure to other viral communicable diseases; R84.5 Abnormal microbiological findings in specimens from respiratory organs and thorax; R74.8 Abnormal levels of other serum enzymes; J38.01 Paralysis of vocal cords and larynx, unilateral; R07.9 Chest pain, unspecified; E87.6 Hypokalemia; G89.4 Chronic pain syndrome; S31.109A Unspecified open wound of abdominal wall, unspecified quadrant without penetration into peritoneal cavity, initial encounter; I25.10 Atherosclerotic heart disease of native coronary artery without angina pectoris; E03.9 Hypothyroidism, unspecified; Z87.891 Personal history of nicotine dependence; Z79.899 Other long term (current) drug therapy; Z95.810 Presence of automatic (implantable) cardiac defibrillator
CPT/HCPCS: 36415; 71045; 80048; 80053; 80069; 81001; 83735; 83880; 84439; 84443; 84480; 84484; 85025; 85027; 85055; 85610; 86140; 87040; 87070; 87077; 87086; 87088; 87186; 87205; 87635; 93005; 94640; 96365; 96366; 96367; 96372; 96375; 96376; 97116; 97161; 97165; 97530; 99285; A9270; C8929; C9803; G0378; J0692; J0696; J1650; J1940; J2270; J3475; J3480; J7050; Q9957; U0003

== ENCOUNTER 2020-07-13 04:55 | Inpatient (IN) | payer MEDICARE, MEDICAID, SELFPAY ==
[2020-07-13] VITALS (41 sets, daily range): BP systolic 81–122; BP diastolic 51–98; PULSE 59–111; RESP 15–28; TEMP 31.8–36.3; O2SAT 89–100; BMI 43.4
--- NOTE | ~2020-07-13 | XR_ITS ---
EXAMINATION: XR chest 1V portable EXAM DATE: 07/14/2020 06:16 INDICATION: Acute hypercapnic respiratory failure TECHNIQUE: Portable AP frontal chest x-ray was obtained. Comparison is made to prior examination from , earlier same date and 07/13. FINDINGS: Endotracheal tube tip is 1-2 centimeters above the jose maria. There is a nasogastric tube see n with tip collimated off the study, but below the left hemidiaphragm. There is cardiomegaly and pulmonary vascular congestion. There is small right pleural effusion. Indis tinct bilateral reticulation with some more focal right perihilar airspace disease. Could be edema an d/or infection, clinical correlation. Mid thoracic vertebral plasties. Triple lead pacemaker/AICD in position. The bones are osteopenic. T here are bony degenerative changes. There are cholecystectomy clips. There is no significant interval change. IMPRESSION: 1. Tubes in position. 2. Congestive changes, possible CHF exacerbation. 3. Infection should also be considered/excluded. Reviewed, dictated and finalized at location B. GER FOREIGN
--- NOTE | ~2020-07-13 | XR_ITS ---
EXAMINATION: XR abdomen NG/feed tube insert EXAM DATE: 07/13/2020 08:41 INDICATION: Orogastric tube placement. TECHNIQUE: Frontal projection(s) of the abdomen for interpretation. Comparison is made to prior exami nation from 09/05/2019. FINDINGS: Feeding tube is in position. Nonobstructive upper abdominal bowel gas pattern. Cardiac madelin ds. There are cholecystectomy clips. Small right pleural effusion. IMPRESSION: Feeding tube in position. Reviewed, dictated and finalized at location A. EKEEPING DIRECTOR IMPRESSION: Feeding tube in position.
--- NOTE | ~2020-07-13 | XR_ITS ---
XR chest 1V portable DATE: 07/19/2020 06:21 INDICATION: Congestive heart failure TECHNIQUE: Portable AP chest on 07/19/2020 at 0602 hours COMPARISON: 07/18/2020 portable AP chest at 0541 hours FINDINGS: ET and NG tubes have been removed since 07/18/2020. Right internal jugular central venous catheter tip overlying superior vena cava. Left-sided AICD/triple lead pacemaker device again noted. Cardiomegaly. There is pulmonary vascular c ongestion and redistribution. There are mild bilateral pleural effusions. There are mild infiltrates predominating in the central and lower lung zones. Vertebroplasty at 2 contiguous midthoracic segments. Diffuse osteopenia. IMPRESSION: Removal of ET and NG tubes since 07/18/2020; no other significant change Reviewed, dictated and finalized at location A. ANICAL ENGINEERING SPECIALIST IMPRESSION: Removal of ET and NG tubes since 07/18/2020; no other significant c laura
--- NOTE | ~2020-07-13 | XR_ITS ---
XR chest 1V portable 07/16/2020 06:07 Indication: Pneumonia. Procedure: AP portable chest Comparison: Comparison to multiple prior studies sequentially, with oldest reviewed study dated 03/12. Findings: Endotracheal tube tip 2.5 cm above the jose maria. NG tube in the stomach. Diffuse bilateral ai rspace disease. No significant pleural effusion or pneumothorax. Pacemaker leads are stable. There ar e vertebroplasty changes in the thoracic spine. Impression: 1: Stable diffuse bilateral airspace disease, compatible with pneumonia. Reviewed, dictated and finalized at location A. ATIONS LEAD Impression: 1: Stable diffuse bilateral airspace disease, compatible with pneumonia.
--- NOTE | ~2020-07-13 | XR_ITS ---
XR chest 1V portable DATE: 07/18/2020 05:50 INDICATION: Congestive heart failure TECHNIQUE: Portable AP chest on 07/18/2020 at 0541 hours COMPARISON: 07/17/2020 portable AP chest at 0536 hours FINDINGS: ET tube in satisfactory position approximately 2.5 cm above jose maria. NG tube in body of stom ach. Right internal jugular central venous catheter tip overlies the cephalad aspect of the superior vena cava; no evidence of pneumothorax. Left-sided triple lead pacemaker device with leads in expected position. Cardiomegaly. There is pulmonary vascular congestion and redistribution. There are diffuse bilateral pulmonary interstitial infiltrates and mild pleural effusions. The findings are likely secondary to c ongestive heart failure and pulmonary edema. Interstitial pneumonia is not excluded. Bibasilar infiltrate and/atelectasis. Vertebroplasty is noted at 2 midthoracic vertebral bodies. Diffuse osteopenia. IMPRESSION: Cardiomegaly, congestive changes, bilateral interstitial infiltrates and bibasilar infilt rate and/atelectasis; little interval change since 07/17/2020 Reviewed, dictated and finalized at location A. L OR MOTEL RECEPTIONIST IMPRESSION: Cardiomegaly, congestive changes, bilateral interstitial infiltrate s and bibasilar infiltrate and/atelectasis; little interval change since 2019
--- NOTE | ~2020-07-13 | XR_ITS ---
XR chest 1V portable DATE: 07/17/2020 06:47 INDICATION: Pneumonia TECHNIQUE: Portable AP chest on 07/17/2020 at 0536 hours COMPARISON: 07/16/2020 portable AP chest at 0557 hours FINDINGS: ET tube tip in satisfactory position 2.9 cm above jose maria. NG tube in stomach. Right internal jugular central venous catheter tip overlies the superior vena cava. No pneumothorax. Left AICD/pacemaker device with leads overlying right atrium, right ventricle and coronary sinus. Cardiomegaly. Aortic calcification. There are bilateral lower lung infiltrates and/or atelectasis, increased since 07/16/2020. Stable interstitial infiltrates throughout the remainder of the lungs. These may be due to pulmonary interstitial edema or interstitial pneumonitis superimposed upon chronic interstitial changes. Minimal pleural effusions are suggested. No pneumothorax. Diffuse osteopenia. Vertebroplasty at 2 midthoracic vertebral bodies (T5 and T6) and chronic fracture deformity at T11. IMPRESSION: Increased bilateral lower lung infiltrate and/atelectasis Diffuse interstitial infiltrates which may be due to pulmonary interstitial pneumonitis or pulmonary interstitial edema, likely superimposed upon chronic interstitial fibrosis Reviewed, dictated and finalized at location A. ICE ART THERAPIST IMPRESSION: Increased bilateral lower lung infiltrate and/atelectasis Diffuse interstitial infiltrates which may be due to pulmonary interstitial pne umonitis or pulmonary interstitial edema, likely superimposed upon chronic inte rstitial fibrosis
--- NOTE | ~2020-07-13 | XR_ITS ---
XR chest port-a-cath/central 07/14/2020 07:14 Indication: Central line placement Procedure: AP portable chest Comparison: Comparison to multiple prior studies sequentially, with oldest reviewed study dated 05/24. Findings: Cardiomegaly. Endotracheal tube 2 cm above the jose maria. NG tube in the stomach. Mild interst itial edema. Small right pleural effusion. No pneumothorax. No acute osseous abnormality. Pacemaker l christina stable. No pneumothorax. Impression: 1: Cardiomegaly with interstitial edema. No significant change. Pneumonia less favored. 2: Small right pleural effusion. Reviewed, dictated and finalized at location A. US SECURITY DIRECTOR Impression: 1: Cardiomegaly with interstitial edema. No significant change. Pneumonia less favored. 2: Small right pleural effusion.
--- NOTE | ~2020-07-13 | XR_ITS ---
EXAMINATION: XR chest 1V portable EXAM DATE: 07/13/2020 06:34 INDICATION: Transient alteration of awareness. TECHNIQUE: Portable AP frontal chest x-ray was obtained. Comparison is made to prior examination from 06/20/2020. FINDINGS: There is cardiomegaly and pulmonary vascular congestion. There is small right pleural effus ion. Indistinct bilateral reticulation with some more focal right upper lobe airspace disease. Could be edema and/or infection, clinical correlation. Pacemaker 3 leads in position. The bones are osteope daniel. There are bony degenerative changes. There are cholecystectomy clips. IMPRESSION: 1. Congestive changes, possible CHF exacerbation. 2. Infection should also be considered/excluded. Reviewed, dictated and finalized at location A. ESTATE LOAN PROCESSOR
--- NOTE | ~2020-07-13 | XR_ITS ---
EXAMINATION: XR chest ET placement EXAM DATE: 07/13/2020 08:41 INDICATION: Endotracheal tube placement, respiratory failure. Transient alteration of awareness. TECHNIQUE: Portable AP frontal chest x-ray was obtained. Comparison is made to prior examination from , earlier same date and 06/20/2020. FINDINGS: Endotracheal tube tip is 3-4 centimeters above the jose maria (ideal range is between 2 to 5 cm ). There is a nasogastric tube seen with tip collimated off the study, but below the left hemidiaphr agm. There is cardiomegaly and pulmonary vascular congestion. There is small right pleural effusion. Indis tinct bilateral reticulation with some more focal right upper lobe airspace disease. Could be edema a nd/or infection, clinical correlation. Mid thoracic vertebral plasties. Pacemaker 3 leads in position. The bones are osteopenic. There are bony degenerative changes. There are cholecystectomy clips. IMPRESSION: 1. Tubes in position. 2. Congestive changes, possible CHF exacerbation. 3. Infection should also be considered/excluded. Reviewed, dictated and finalized at location A. ANIMAL TRAINER
--- NOTE | ~2020-07-13 | XR_ITS ---
EXAMINATION: XR barium swallow modified EXAM DATE: 07/21/2020 14:23 INDICATION: Dysphagia. TECHNIQUE: Modified barium esophagram was performed by myself to administered fluoroscopy, in conjun ction with speech pathologist who administered barium in varying consistencies as per speech patholog ist documentation. This was recorded on tape. The DAP for this procedure was 2.7 Gycm2. FINDINGS: Oral stage: Adequate function. Pharyngeal phase: Vallecular pooling. Laryngeal penetration: Demonstrated, thin liquids. Aspiration: Suspected. Laryngeal sensitivity: Absent. IMPRESSION: Oral feedings recommended with limitations as per speech pathologist. Please refer to becky gamboa pathologist findings and specific feeding recommendations. Reviewed, dictated and finalized at location A. LESOFT BUSINESS ANALYST IMPRESSION: Oral feedings recommended with limitations as per speech pathologis t. Please refer to speech pathologist findings and specific feeding recommend ations.
--- NOTE | ~2020-07-13 | CT_ITS ---
EXAMINATION: CT brain wo con EXAM DATE: 07/13/2020 06:54 INDICATION: Altered mental status. TECHNIQUE: Spiral CT of the head was performed without contrast. Axial, coronal and sagittal images were reviewed. The dose-length product (DLP) for this examination was 1059.33 mGy-cm. The exposure was tailored according to patient size, and iterative reconstruction (ASIR) was used as additional do se reduction technique. There is no prior study for comparison. FINDINGS: There is no acute intraparenchymal hemorrhage. No evidence of intraparenchymal brain mass lesion. No evidence of acute infarction. Please note that initial head CT has limited sensitivity f or small or acute infarctions. There is mild periventricular and subcortical hypodensity, nonspecific but probably related to small vessel ischemic disease. There is mild prominence of the sulci and v entricles related to cerebral atrophy. There is intracranial carotid arteriosclerosis. There are n o extra-axial collections. There is no mass effect or midline shift. The orbits are unremarkable. Soft tissue is unremarkable. The visualized sinuses and mastoid air cells are well aerated. IMPRESSION: 1. No acute intracranial findings. 2. Chronic age related findings. Reviewed, dictated and finalized at location A. RVISOR WELDING EQUIPMENT REPAIRER
--- NOTE | 2020-07-13 04:58 | ECG_ITS ---
Measurements Intervals [place] Rate: 87 P: 58 WI: 118 QRS: -87 QRSD: 158 T: 110 QT: 410 QTc: 494 Interpretive Statements AATRIAL SENSE- ELECTRONIC VENTRICULAR PACEMAKER WITH INHIBITION FUSION COMPLEXES NO FURTHER INTERPRETATION IS POSSIBLE ATYPICAL ECG Electronically Signed On 07-13-2020 8:35:13 METROLOGY TECHNICIAN by Gabe Garcia D.O.
--- NOTE | 2020-07-13 05:06 | ED.AMS ---
HPI - Altered Mental Status General Chief Complaint: Altered Mental Status <Frandy Lr DO - Last Filed: 07/13/20 20:05> Stated Complaint: AMS <Frandy Lr DO - Last Filed: 07/13/20 20:05> Time Seen by Provider: 07/13/20 08:28 <Frandy Lr DO - Last Filed: 07/13/20 20:05> Source: RN notes reviewed <Frandy Lr DO - Last Filed: 07/13/20 20:05> History of Present Illness HPI narrative: Patient presents emergency department from [facility] via EMS for altered mental status. History is per EMS and ECF were called [place] reports the patient was checked on this morning and was found to be unresponsive normally ANO x3 patient normally wears 3 L nasal cannula and had taken off of her oxygen at that time she is placed on 6 L nasal cannula and EMS was called for transport. EMS did bag assist patient in route to ED. Patient was given Narcan <Frandy Lr DO - Last Filed: 07/13/20 20:05> Related Data Home Medications: Home Medications Medication Instructions Recorded Confirmed bupropion HCl 150 mg PO DAILY 10/23/19 07/13/20 cetirizine 10 mg PO DAILY 10/23/19 07/13/20 ergocalciferol (vitamin D2) 50,000 unit PO WEEKLY 10/23/19 07/13/20 [Vitamin D2] magnesium oxide 400 mg PO BID 10/23/19 07/13/20 risperidone 2 mg PO BID 10/23/19 07/13/20 citalopram 40 mg PO DAILY 10/27/19 07/13/20 pantoprazole 40 mg PO DAILY 10/27/19 07/13/20 carvedilol 6.25 mg PO BID 06/16/20 07/13/20 fluticasone propionate 1 spray INTRANASAL BID 06/16/20 07/13/20 guaifenesin 400 mg PO TID 06/16/20 07/13/20 lidocaine [Lidoderm] 1 patch TRANSDERMAL DAILY 06/16/20 07/13/20 loperamide 2 mg PO Q4H PRN 06/16/20 07/13/20 melatonin 10 mg PO HS 06/16/20 07/13/20 metoclopramide HCl [Reglan] 5 mg PO TID 06/16/20 07/13/20 potassium chloride 10 meq PO BID 06/16/20 07/13/20 trazodone 50 mg PO HS 06/16/20 07/13/20 ascorbic acid (vitamin C) 1 g PO DAILY 07/13/20 07/13/20 atorvastatin 10 mg PO DAILY 07/13/20 07/13/20 dexamethasone 4 mg PO BID 07/13/20 07/13/20 multivitamin with minerals 1 tablet PO DAILY 07/13/20 07/13/20 [Multiple Vitamin-Minerals] zinc sulfate 220 mg PO DAILY 07/13/20 07/13/20 <Frandy Lr DO - Last Filed: 07/13/20 20:05> Allergies/Adverse Reactions: Allergies Allergy/AdvReac Type Severity Reaction Status Date / Time No Known Allergies Allergy Verified 02/11/20 17:51 <Frandy Lr DO - Last Filed: 07/13/20 20:05> Review of Systems Review of Systems: ROS unobtainable: Yes unobtainable due to medical condition <Frandy Lr DO - Last Filed: 07/13/20 20:05> [facility] Past Medical History Medical History: Medical History (Updated 07/13/20 @ 20:05 by Frandy Lr DO) Abnormality of gait and mobility Acquired hypothyroidism Ambulatory dysfunction Anemia Chronic Anxiety Artificial pacemaker Atherosclerotic heart disease of [place] coronary artery without angina pectoris Benzodiazepine abuse Bowel obstruction With multiple bowel resections CAD (coronary artery disease) CAD (coronary artery disease) Cardiomyopathy CHF (congestive heart failure) Chronic abdominal wound infection Chronic anemia Chronic combined systolic (congestive) and diastolic (congestive) heart failure Chronic diarrhea Chronic kidney disease Chronic pain syndrome Chronic pain syndrome CKD (chronic kidney disease) Combined systolic and diastolic cardiac dysfunction Echo April 2017 demonstrating EF of 20% with diastolic dysfunction Combined systolic and diastolic heart failure DDD (degenerative disc disease) With chronic back pain Depression Edema due to congestive heart failure Essential (primary) hypertension Extreme obesity with alveolar hypoventilation ISAURO (generalized anxiety disorder) Generalized anxiety disorder GERD (gastroesophageal reflux disease) With reflux esophagitis and gastric ulcer May 2016 Headache Heart attack Hernia History of blood transfusion HTN (
[2020-07-13 05:42] LABS: Hematocrit 40.4 % (37.0-47.0); Hemoglobin 12.9 g/dL (12.0-15.0); Immature Platelet Fraction Pct 6.1 % (0.9-11.2); Mean Corpuscular HGB Conc 31.9 g/dl (32-36); Mean Corpuscular Hemoglobin 32.3 pg (26-34); Mean Corpuscular Volume 101.3 fl (80-100); Mean Platelet Volume 11.1 fl (7.4-10.4); Platelet Count Result 127 k/mm3 (150-375); Red Blood Count 3.99 M/mm3 (4.2-5.4); Red Cell Distribution Width 20.8 % (11.5-14.5); White Blood Count 23.3 K/mm3 (4.5-10.0)
[2020-07-13 05:45] LABS: Fractional Inspired Oxygen 28 %; HCO3 ABG 52.6 mEq/l (22.0-26.0); Oxygen Content ABG 13.7 %vol (16.0-22.0); Oxyhemoglobin 78.2 % THb (90.0-100.0); PO2 FiO2 Ratio Arterial Blood 1.76 %; Total Hemoglobin 12.5 g/dL (12.0-18.0)
[2020-07-13 05:49] LABS: pH ABG 7.213 (7.350-7.450)
[2020-07-13] MEDS: SODIUM CHLORIDE 0.9% IV 1,000 ML 999 ML IV CONT (05:49)
[2020-07-13 05:50] LABS: PCO2 ABG 133.5 mmHg (35.0-45.0); PO2 ABG 49.3 mmHg (80.0-100.0)
[2020-07-13 05:51] LABS: Device NASAL CANNULA; Modified Allen's Test Pass; Site Drawn RIGHT RADIAL
[2020-07-13 06:01] LABS: INR 0.9; Prothrombin Time 12.4 Seconds (11.1-14.7)
[2020-07-13 06:02] LABS: Partial Thromboplastin Time 20.3 SECONDS (22.3-36.8)
[2020-07-13 06:11] LABS: Add Urine Microscopic? YES; Appearance Urine Cloudy (Clear); Bacteria Urine 2+ /hpf; Bilirubin Urine 1+ (Negative); Blood Urine Negative (Negative); Color Urine Yellow (Yellow); Glucose Urine UA Negative (Negative); Ketones Urine Negative (Negative); Leukocyte Esterase Ur Trace LEU/UL (Negative); Mucus Urine Moderate /lpf; Nitrate Urine Negative (Negative); Protein Urine 1+ mg/dL (Negative); RBC Urine 0-2 /hpf (0-2); Specific Grav Ur 1.023 (1.001-1.035); Squamous Epithelial Cell Urine Many /hpf (Few); Urobilinogen Urine Negative mg/dL (<2.0)
[2020-07-13 06:36] LABS: Band Neutrophils Percent 1 % (0-6); Lymphocytes Absolute Manual 1.86 K/mm3 (1.1-4.5); Monocytes Absolute Manual 0.69 K/mm3 (0.1-0.90); Monocytes Percent Manual 3 % (3-9); Neutrophils Absolute Manual 20.73 K/mm3 (1.7-7.2); Neutrophils Percent Manual 88 % (46-73); Target Cells 3+ (NORMAL); Total Cells Counted 100
[2020-07-13 06:37] LABS: Hypochromasia 1+ (NORMAL); Ovalocytes 1+ (NORMAL)
[2020-07-13 07:36] LABS: Alanine Aminotransferase 49 U/L (4-35); Albumin Level 2.6 g/dL (3.5-5.1); Alkaline Phosphatase 89 U/L (38-126); Anion Gap 4.99999 mmol/L (8-16); Aspartate Amino Transferase 38 U/L (14-36); Bilirubin,Total 0.8 mg/dL (0.2-1.3); Blood Urea Nitrogen 39 mg/dL (7-17); Calcium 8.1 mg/dL (8.4-10.2); Carbon Dioxide > 40 mmol/L (22-30); Chloride 96 mmol/L (98-107); Estimated Glomerular Filt Rate 45; Glucose 134 mg/dL (65-105); Potassium 3.8 mmol/L (3.4-5.0); Sodium 141 mmol/L (137-145)
[2020-07-13 07:53] LABS: Alveolar/Arterial O2 Gradient 110.1 mmHg; Base Excess ABG 17.5 mEq/l (+/-2.0); Fractional Inspired Oxygen 50 %; HCO3 ABG 52.8 mEq/l (22.0-26.0); Oxygen Content ABG 15.3 %vol (16.0-22.0); Oxyhemoglobin 86.2 % THb (90.0-100.0); PO2 ABG 67.1 mmHg (80.0-100.0); PO2 FiO2 Ratio Arterial Blood 1.34 %; Total Hemoglobin 12.6 g/dL (12.0-18.0)
[2020-07-13 07:54] LABS: Oxygen Saturation ABG 83.6 % (95.0-100.0); PCO2 ABG 159.4 mmHg (35.0-45.0); pH ABG 7.138 (7.350-7.450)
[2020-07-13 07:55] LABS: Device NON-INVASIVE VENT; Non-Invasive Expiratory Pressure 8 CMH2O; Non-Invasive Inspiratory Pressure 14 CMH2O; Non-Invasive Vent Rate 20 /MIN; Site Drawn RIGHT BRACHIAL
[2020-07-13] MEDS: MIDAZOLAM HCL (*CRX) 2 MG/2 ML VIAL IV PUSH ×2 (08:19)
[2020-07-13] MEDS: SUCCINYLCHOLINE CHLORIDE 20 MG/ML 10 ML VIAL 100 MG IV PUSH (08:20)
[2020-07-13 08:44] LABS: Lactic Acid Reflex < 0.5 mmol/L (0.7-2.1)
[2020-07-13] MEDS: ALBUTEROL SULFATE NEB 2.5 MG/0.5 ML INH 5 MG (08:45)
[2020-07-13] MEDS: IPRATROPIUM BR 0.02% INH SOLN 0.5 MG/2.5 ML VIAL (08:45)
--- NOTE | 2020-07-13 10:02 | ADMGEN ---
This patient, Princess Barraza, was admitted to Intensive Care Unit-5. Patient/family oriented to hospital policies and general routines including ID bracelet, bed and alarms, visiting hours, pain management, procedures, bathroom and other care routines, personal items, smoking policy, room service/diet, and visiting hours. Information on how to activate the Rapid Response Team has been discussed. Patient/Family are encouraged to report perceived risks to care and to ask questions if they do not understand what they are told or what they should do.
--- NOTE | 2020-07-13 11:43 | WPDCNINT ---
Assessment and Plan Assessment and plan (1) Severe sepsis: Code(s): A41.9 - Sepsis, unspecified organism; R65.20 - Severe sepsis without septic shock Status: Resolved Assessment and Plan: Elevated WBC count, acute respiratory failure likely related to pneumonia, CHF, UTI -lactic acid was normal -blood pressures have been stable -continue vancomycin and ceftriaxone -blood cultures and urine cultures have been obtained and pending (2) Acute respiratory failure: Qualifiers: Respiratory failure complication: hypercapnia Qualified Code(s): J96.02 - Acute respiratory failure with hypercapnia Code(s): J96.00 - Acute respiratory failure, unspecified whether with hypoxia or hypercapnia Status: Acute Assessment and Plan: Acute hypercapnic respiratory failure. Likely related to congestive heart failure, pneumonia -chest x-ray reveals no congestive changes but cannot rule out infection -will repeat ABGs post intubation -patient be sedated with fentanyl and Versed infusion, maintain RASS of 0 to -2, daily sedation vacation - (3) Chronic combined systolic (congestive) and diastolic (congestive) heart failure: Code(s): I50.42 - Chronic combined systolic (congestive) and diastolic (congestive) heart failure Status: Chronic Assessment and Plan: 04/10/2020 showed severe LV enlargement, severe LV dysfunction, EF 20%, grade 2 diastolic dysfunction, mild pulmonary hypertension with RVSP of 39 mmHg, left atrial chamber severely enlarged -patient does take Lasix, carvedilol at the [facility] -will diurese gentle as patient may have severe sepsis secondary to UTI/pneumonia (4) Generalized anxiety disorder: Code(s): F41.1 - Generalized anxiety disorder Status: Acute Assessment and Plan: Patient with generalized anxiety disorder will continue bupropion citalopram, gabapentin and risperidone (5) Pneumonia: Onset Date: ~09/05/19 Qualifiers: Laterality: unspecified laterality Lung location: unspecified part of lung Pneumonia type: due to unspecified organism Qualified Code(s): J18.9 - Pneumonia, unspecified organism Code(s): J18.9 - Pneumonia, unspecified organism Status: Acute Assessment and Plan: Chest x-ray shows pulmonary vascular congestion and infiltrates bilaterally right greater than left, could also be pneumonia -given elevated WBC count, acute hypercapnic respiratory failure -patient started on ceftriaxone and vancomycin (6) Acute on chronic renal failure: Qualifiers: Acute renal failure type: unspecified Chronic kidney disease stage: stage 4 (severe) Qualified Code(s): N17.9 - Acute kidney failure, unspecified; N18.4 - Chronic kidney disease, stage 4 (severe) Code(s): N17.9 - Acute kidney failure, unspecified; N18.9 - Chronic kidney disease, unspecified Status: Acute Assessment and Plan: Patient history of stage 3 chronic kidney disease, -creatinine elevated, could be related to sepsis -continue to monitor kidney functions (7) UTI (urinary tract infection): Qualifiers: Urinary tract infection type: site unspecified Hematuria presence: without hematuria Qualified Code(s): N39.0 - Urinary tract infection, site not specified Code(s): N39.0 - Urinary tract infection, site not specified Status: Acute Assessment and Plan: UA reflective of a UTI, started on ceftriaxone. Urine cultures have been obtained and pending (8) Paroxysmal atrial fibrillation: Code(s): I48.0 - Paroxysmal atrial fibrillation Status: Acute Assessment and Plan: Patient history of proximal AFib, patient has the AICD/pacemaker, currently paced rhythm, rate controlled, continue to monitor (9) Altered mental status: Qualifiers: Altered mental status type: unspecified Qualified Code(s): R41.82 - Altered mental status, unspecified Code(s): R41.82 - Altered m
[2020-07-13] MEDS: FENTANYL 2,500MCG/NS250ML(*CRX 2,500 MCG/250 ML BAG IV CONT (11:53)
[2020-07-13 12:34] LABS: Alveolar/Arterial O2 Gradient 604.4 mmHg; Base Excess ABG 10.8 mEq/l (+/-2.0); Fractional Inspired Oxygen 100 %; HCO3 ABG 35.9 mEq/l (22.0-26.0); Oxygen Saturation ABG 91.9 % (95.0-100.0); PCO2 ABG 49.5 mmHg (35.0-45.0); PO2 ABG 59.1 mmHg (80.0-100.0); PO2 FiO2 Ratio Arterial Blood 0.59 %; Total Hemoglobin 12.5 g/dL (12.0-18.0); pH ABG 7.478 (7.350-7.450)
[2020-07-13 12:37] LABS: Device VENTILATOR; Modified Allen's Test Pass; Site Drawn RIGHT BRACHIAL
[2020-07-13 12:38] LABS: Arterial Blood Gas PEEP 8 cmH2O; Arterial Blood Gas Tidal Volume 350 ml; Arterial Blood Gas Vent Mode ASSIST CONTROL; Arterial Blood Gas Ventilator rate 24 /MIN
[2020-07-13] MEDS: PANTOPRAZOLE SODIUM IV 40 MG VIAL IV PUSH (14:56)
--- NOTE | 2020-07-13 15:21 | PM.IMHP ---
H&P: HPI History of Present Illness Date/Time: 07/13/20 15:21 Chief complaint: Acute Respiratory Failure w/hypcapnia/metabolic en Narrative: Date of visit 1129. Princess Barraza is a 64 year old female with known congestive heart failure who was found on rounds at rehab to be unresponsive with her O2 off. She was hypoxic and her usual oxygen is 2 L nasal cannula was placed on 6 L. EMS was called and they had to bag her on route here. Emergency room she was at time did with elevated pCO2 which did not improve with BiPAP so she was intubated and mechanically ventilated. Presently in the ICU she is intubated and awake and able to answer yes no questions and follow simple commands. Initial chest x-ray showed what looked be increasing infiltrates compatible with failure and was admitted for evaluation treatment with COVID testing also. Review of Systems Review of Systems: Narrative: Unable to obtain accurate review CC due to mechanical ventilation. Patient did deny any abdominal or chest pain when question [facility] Past Medical History Medical History (Updated 07/13/20 @ 15:31 by David Barriga MD) Abnormality of gait and mobility Acquired hypothyroidism Ambulatory dysfunction Anemia Chronic Anxiety Artificial pacemaker Atherosclerotic heart disease of [place] coronary artery without angina pectoris Benzodiazepine abuse Bowel obstruction With multiple bowel resections CAD (coronary artery disease) CAD (coronary artery disease) Cardiomyopathy CHF (congestive heart failure) Chronic abdominal wound infection Chronic anemia Chronic combined systolic (congestive) and diastolic (congestive) heart failure Chronic diarrhea Chronic kidney disease Chronic pain syndrome Chronic pain syndrome CKD (chronic kidney disease) Combined systolic and diastolic cardiac dysfunction Echo April 2017 demonstrating EF of 20% with diastolic dysfunction Combined systolic and diastolic heart failure DDD (degenerative disc disease) With chronic back pain Depression Edema due to congestive heart failure Essential (primary) hypertension Extreme obesity with alveolar hypoventilation ISAURO (generalized anxiety disorder) Generalized anxiety disorder GERD (gastroesophageal reflux disease) With reflux esophagitis and gastric ulcer May 2016 Headache Heart attack Hernia History of blood transfusion HTN (hypertension) Hyperlipidemia Hyponatremia Ischemic cardiomyopathy Ischemic cardiomyopathy Ischemic cardiomyopathy with implantable cardioverter-defibrillator (ICD) Echocardiogram April 2017 with EF of 20% MDD (major depressive disorder) MDD (major depressive disorder), recurrent severe, without psychosis Medical history unknown Mixed hyperlipidemia Morbid (severe) obesity due to excess calories Myocardial infarction Open wound anterior abdominal wall chronic Open wound of abdominal wall w/o penetration into peritoneal cavity Osteoporosis Pancreatitis Post-menopausal Primary generalized (osteo)arthritis Radius fracture SBO (small bowel obstruction) Slow transit constipation Urinary retention with incomplete bladder emptying UTI (urinary tract infection) With incomplete bladder emptying resulting in septic shock January 2019 Ventral incisional hernia without obstruction or gangrene Vitamin D deficiency, unspecified Vocal cord paralysis Surgical History Surgical History AICD (automatic cardioverter/defibrillator) present H/O ventral hernia repair H/O vertebroplasty H/O vertebroplasty H/O: hysterectomy H/O: hysterectomy History of angioplasty History of appendectomy History of appendectomy History of bowel resection Resulting in chronic diarrhea History of cardiac catheterization History of cholecystectomy History of cholecystectomy History of colostomy History of orthopedic surgery ORIF left radius Hx of CABG Hx of CABG Status post femorofemoral bypass surgery Status
[2020-07-13 15:27] LABS: Amphetamine Screen Urine Negative (Negative); Barbiturate Screen Urine Negative (Negative); Benzodiazepines Screen Urine Positive (Negative); Cannabinoid Screen Urine Negative (Negative); Cocaine Screen Urine Negative (Negative); Methadone Screen Urine Negative (Negative); Opiate Screen Urine Negative (Negative); Phencyclidine Screen Urine Negative (Negative)
[2020-07-13] MEDS: ALBUTEROL SULFATE NEB 2.5 MG/0.5 ML INH INHALATION ×2 (15:54→22:08)
[2020-07-13] MEDS: IPRATROPIUM BR 0.02% INH SOLN 0.5 MG/2.5 ML VIAL INHALATION ×2 (15:55→22:08)
[2020-07-13] MEDS: GABAPENTIN 100 MG CAPSULE PO (17:53)
[2020-07-13] MEDS: DEXAMETHASONE 4 MG TABLET PO (17:53)
[2020-07-13] MEDS: ENOXAPARIN 40 MG/0.4 ML SYRINGE SUB-Q (20:20)
[2020-07-13] MEDS: SODIUM CHLORIDE 0.9% IV 1,000 ML 50 ML IV CONT (20:20)
[2020-07-13 22:24] LABS: SARS-CoV-2 RNA PCR Negative
[2020-07-14] VITALS (40 sets, daily range): BP systolic 79–218; BP diastolic 49–182; PULSE 60–113; RESP 18–28; TEMP 35.1–37; O2SAT 94–98; BMI 42.9
--- NOTE | 2020-07-14 | ECHO_ITS ---
Patient Info Name: Princess Barraza Age: 64 years : 1955 Gender: Female Ht: 62 in Wt: 234 lbs BSA: 2.22 m2 HR: 58 bpm BP: 97 / 63 mmHg Heart Rhythm: Indeterminant Technical Quality: Fair Exam Date: 07/14/2020 4:29 PM Exam Location: [facility] Pulmonary Exam Room: ICU5 Patient Status: Inpatient Admit Date: 07/14/2020 Staff Ordering Physician: David Barriga MD Business Office Manager: Lin Small RDCS Attending Provider: David Barriga MD Referring Physician: Nithya HAMILTON; Exam Type: CA echo dop color flow w con Study Info Indications - positive blood cultures r/o endocarditis Complete two-dimensional, color flow and Doppler transthoracic echocardiogram is performed with contrast to opacify the left ventricle and to improve the deliniation of the left ventricle endocardial borders. Contrast/Agitated Saline Contrast/Ag. Saline: Definity Amount: 1.00 ml Administered By: Duncan Schilling, DAVID Summary 1. Left ventricular chamber dimension is severely enlarged. 2. Left ventricular systolic function is severely reduced, estimated at 20-25%. 3. There is no increased left ventricular wall thickness. 4. The left ventricular diastolic function is grade I diastolic dysfunction. 5. The apical septum, apical lateral wall, apical anterior wall, apical cap, mid anterior wall, and mid anteroseptal are akinetic. 6. The inferior wall, basal anterior wall, basal inferoseptal, mid inferoseptal, basal anterolateral wall, mid anterolateral wall, basal inferolateral wall, and mid inferolateral wall are hypokinetic. 7. Left atrial chamber dimension is moderately enlarged. 8. There is mild mitral valve regurgitation. 9. There is mild tricuspid valve regurgitation. 10. Mild pulmonary hypertension, estimated pulmonary arterial systolic pressure is 41 mmHg. 11. There is mild pulmonic regurgitation. 12. There is small pericardial effusion. Left Ventricle Left ventricular chamber dimension is severely enlarged. Left ventricular systolic function is severely reduced, estimated at 20-25%. There is no increased left ventricular wall thickness. The left ventricular diastolic function is grade I diastolic dysfunction. The apical septum, apical lateral wall, apical anterior wall, apical cap, mid anterior wall, and mid anteroseptal are akinetic. The inferior wall, basal anterior wall, basal inferoseptal, mid inferoseptal, basal anterolateral wall, mid anterolateral wall, basal inferolateral wall, and mid inferolateral wall are hypokinetic. All other [place] appear normal. Right Ventricle Right ventricular chamber dimension is normal. Right ventricular systolic function is normal. Linear artifact in right ventricle suggestive of catheter(s), pacemaker lead(s), or ICD lead(s). Left Atria Left atrial chamber dimension is moderately enlarged. Right Atria Right atrial chamber dimension is normal. Atrial Septum Intact interatrial septum visualized by color flow imaging. Aortic Valve The aortic valve is trileaflet. There is mild aortic valve sclerosis. There is no aortic valve stenosis. There is trace aortic valve regurgitation. Pulmonic Valve The pulmonic valve is normal. There is no pulmonic valve stenosis. There is mild pulmonic regurgitation. Mitral Valve The mitral valve has normal leaflets. There is no mitral valve stenosis. There is mild mitral valve regurgitation. Tricuspid Valve The tricuspid valve leaflets
[2020-07-14] MEDS: ALBUTEROL SULFATE NEB 2.5 MG/0.5 ML INH INHALATION ×4 (02:41→21:02)
[2020-07-14] MEDS: IPRATROPIUM BR 0.02% INH SOLN 0.5 MG/2.5 ML VIAL INHALATION ×4 (02:41→21:01)
[2020-07-14] MEDS: SODIUM CHLORIDE 0.9% IV 250 ML 999 ML IV CONT (03:39)
[2020-07-14 04:31] LABS: Basophils Percent Auto 0.2 % (0.2-1.2); Hematocrit 31.9 % (37.0-47.0); Immature Granulocyte Absolute 0.12 K/mm3 (0.00-0.031); Immature Granulocyte Percent A 0.6 % (0-0.5); Immature Platelet Fraction Pct 7.3 % (0.9-11.2); Lymphocytes Absolute Auto 0.46 K/mm3 (0.9-3.2); Lymphocytes Percent Auto 2.3 % (18.3-44.2); Mean Corpuscular HGB Conc 34.5 g/dl (32-36); Mean Corpuscular Hemoglobin 32.4 pg (26-34); Mean Corpuscular Volume 94.1 fl (80-100); Mean Platelet Volume 11.2 fl (7.4-10.4); Monocytes Absolute Auto 0.4 K/mm3 (0.1-0.6); Monocytes Percent Auto 1.9 % (2.6-8.5); Neutrophils Absolute Auto 18.9 K/mm3 (1.3-6.7); Nucleated Red Blood Cells Perc 0.2 % (0.0-0.2); Platelet Count Result 112 k/mm3 (150-375); Red Blood Count 3.39 M/mm3 (4.2-5.4); Red Cell Distribution Width 19.8 % (11.5-14.5); White Blood Count 19.9 K/mm3 (4.5-10.0)
[2020-07-14 04:45] LABS: D Dimer 0.28 ug/mL (<0.48)
[2020-07-14 05:05] LABS: Alveolar/Arterial O2 Gradient 322.8 mmHg; Base Excess ABG 10.8 mEq/l (+/-2.0); Carboxyhemoglobin 0.2 % THb (0-2.0); Fractional Inspired Oxygen 65 %; HCO3 ABG 34.2 mEq/l (22.0-26.0); Methemoglobin ABG 0.3 %THb (0-1.5); Oxygen Content ABG 15.2 %vol (16.0-22.0); Oxyhemoglobin 95.1 % THb (90.0-100.0); PCO2 ABG 40.4 mmHg (35.0-45.0); PO2 ABG 96.7 mmHg (80.0-100.0); PO2 FiO2 Ratio Arterial Blood 1.49 %; Reduced Hemoglobin 4.4 %THb (0-5.0); Total Hemoglobin 11.3 g/dL (12.0-18.0)
[2020-07-14 05:08] LABS: pH ABG 7.545 (7.350-7.450)
[2020-07-14 05:10] LABS: Alanine Aminotransferase 36 U/L (4-35); Albumin Level 2.2 g/dL (3.5-5.1); Alkaline Phosphatase 84 U/L (38-126); Anion Gap 0 mmol/L (8-16); Aspartate Amino Transferase 32 U/L (14-36); Bilirubin,Total 0.9 mg/dL (0.2-1.3); Blood Urea Nitrogen 35 mg/dL (7-17); Carbon Dioxide 38 mmol/L (22-30); Chloride 100 mmol/L (98-107); Estimated CRCL calculation 53 ml/min; Estimated Glomerular Filt Rate 50; Glucose 104 mg/dL (65-105); Phosphorus 2.3 mg/dL (2.5-4.5); Potassium 3.5 mmol/L (3.4-5.0); Sodium 138 mmol/L (137-145)
[2020-07-14 05:10] LABS: Arterial Blood Gas PEEP 8 cmH2O; Arterial Blood Gas Vent Mode ASSIST CONTROL; Arterial Blood Gas Ventilator rate 24 /MIN; Device VENTILATOR; Modified Allen's Test Pass; Site Drawn RIGHT RADIAL
[2020-07-14 05:11] LABS: Arterial Blood Gas Tidal Volume 350 ml
[2020-07-14 06:16] LABS: Vitamin D 25 Hydroxy 23.5 ng/mL
[2020-07-14] MEDS: MIDAZOLAM HCL (*CRX) 2 MG/2 ML VIAL IV PUSH (06:50)
[2020-07-14] MEDS: ROCURONIUM BROMIDE 50 MG/5 ML VIAL 40 MG IV PUSH (06:50)
--- NOTE | 2020-07-14 06:53 | P.PCNBED_ITS ---
Procedures Central Line Placement Right IJ: Central Line Date: 07/14/20 Central Line Time: 06:33 Performed Emergently - Given emergent patient condition, temporal constraints may have precluded informed consent.: Yes Time Out Performed: Yes Patient Position: supine Patient placed on monitor/pulse ox: Yes Provider Prep: mask, sterile gown, sterile gloves, Max. sterile barrier precautions and hand hygiene with conventional soap/water or alcohol based hand rub Central line prep: 2% Chlorhexidine scrub and sterile full body sheet applied Local anesthesia used: lidocaine 2% Amount of anesthesia used (ml): 4 Sterile US Technique with sterile gel/sterile probe covers: Yes Central line lumen inserted: triple Swedish: 7 Length (cm): 17 Depth of Insertion (cm): 14 Post Procedure: sutured in place, good blood return, all ports aspirated, flushed, capped, transparent dressing, securement product and aseptic technique maintained throughout procedure Patient tolerated procedure: well Complications: none Additional comments: Date of service was 07/14/2020 at 06:30 hrs.
[2020-07-14 07:55] LABS: NT Pro B Type Natriuretic Pept 4140 PG/ML (5-100)
--- NOTE | 2020-07-14 08:08 | PC.NURSE ---
Patient's daughter updated on central line placement and patient's condition.
[2020-07-14 08:32] LABS: Free T4 Free Thyroxine Reflex 2.03 ng/dL (0.78-2.19)
[2020-07-14] MEDS: PANTOPRAZOLE SODIUM IV 40 MG VIAL IV PUSH (08:55)
[2020-07-14] MEDS: ENOXAPARIN 40 MG/0.4 ML SYRINGE SUB-Q ×2 (08:55→20:30)
[2020-07-14] MEDS: FENTANYL 2,500MCG/NS250ML(*CRX 2,500 MCG/250 ML BAG 15 MCG IV CONT (09:17)
[2020-07-14] MEDS: hetaSTARCH 6%/NACL 500 ML 250 ML IV CONT (09:26)
[2020-07-14 10:01] LABS: Total Triiodothyronine (T3) 0.65 NG/ML (0.97-1.69)
[2020-07-14] MEDS: NOREPINEPHRINE 8 MG/D5W 250 ML 8 MG/250 ML BAG 9.38 MG IV CONT ×2 (10:15→10:25)
--- NOTE | 2020-07-14 12:13 | PCDIET ---
Vital 1.2 at 50mL/hr x 22 hours/day will provide 1320kcal, 82g protein and 892mL free water. Agree with 30mL water flush every 4 hours at this time.
--- NOTE | 2020-07-14 12:48 | WPDINTPN ---
Progress Note: A&P Assessment and Plan (1) Septic shock: Code(s): A41.9 - Sepsis, unspecified organism; R65.21 - Severe sepsis with septic shock Status: Acute Assessment and Plan: Patient with presented with leukocytosis, hypotension, acute respiratory failure, UTI, CHF, pneumonia -overnight required right IJ central line insertion and started on Levophed for hypotension, maintain MAP > 65 mmHg -patient was given IV fluids overnight and this morning, continue maintenance IV fluids -continue to monitor urine output and end organ perfusion < 0.5 -a blood cultures growing Gram-positive cocci in clusters 2/2 bottles -urine culture grew E coli -continue vancomycin and ceftriaxone (2) Acute respiratory failure: Qualifiers: Respiratory failure complication: hypercapnia Qualified Code(s): J96.02 - Acute respiratory failure with hypercapnia Code(s): J96.00 - Acute respiratory failure, unspecified whether with hypoxia or hypercapnia Status: Acute Assessment and Plan: Acute hypercapnic respiratory failure. Likely related to congestive heart failure, pneumonia -chest x-ray and ABGs reviewed -patient be sedated with fentanyl and Versed infusion, maintain RASS of 0 to -2, daily sedation vacation - (3) Chronic combined systolic (congestive) and diastolic (congestive) heart failure: Code(s): I50.42 - Chronic combined systolic (congestive) and diastolic (congestive) heart failure Status: Chronic Assessment and Plan: 04/10/2020 showed severe LV enlargement, severe LV dysfunction, EF 20%, grade 2 diastolic dysfunction, mild pulmonary hypertension with RVSP of 39 mmHg, left atrial chamber severely enlarged -patient does take Lasix, carvedilol at [facility] -will continue gentle rehydration as patient currently in septic shock (4) Generalized anxiety disorder: Code(s): F41.1 - Generalized anxiety disorder Status: Acute Assessment and Plan: Patient with generalized anxiety disorder will continue bupropion citalopram, gabapentin and risperidone (5) Pneumonia: Onset Date: ~09/05/19 Qualifiers: Laterality: unspecified laterality Lung location: unspecified part of lung Pneumonia type: due to unspecified organism Qualified Code(s): J18.9 - Pneumonia, unspecified organism Code(s): J18.9 - Pneumonia, unspecified organism Status: Acute Assessment and Plan: Chest x-ray shows pulmonary vascular congestion and infiltrates bilaterally right greater than left, could also be pneumonia -given elevated WBC count, acute hypercapnic respiratory failure -patient started on ceftriaxone and vancomycin -continue bronchodilators (6) Acute on chronic renal failure: Qualifiers: Acute renal failure type: unspecified Chronic kidney disease stage: stage 4 (severe) Qualified Code(s): N17.9 - Acute kidney failure, unspecified; N18.4 - Chronic kidney disease, stage 4 (severe) Code(s): N17.9 - Acute kidney failure, unspecified; N18.9 - Chronic kidney disease, unspecified Status: Acute Assessment and Plan: Patient history of stage 3 chronic kidney disease, -creatinine improving, fluids given this morning, continue maintenance IV fluids of normal saline at 50 mL/hour -continue to monitor kidney functions (7) UTI (urinary tract infection): Qualifiers: Urinary tract infection type: site unspecified Hematuria presence: without hematuria Qualified Code(s): N39.0 - Urinary tract infection, site not specified Code(s): N39.0 - Urinary tract infection, site not specified Status: Acute Assessment and Plan: UA reflective of a UTI, Urine culture growing E coli, continue ceftriaxone (8) Paroxysmal atrial fibrillation: Code(s): I48.0 - Paroxysmal atrial fibrillation Status: Acute Assessment and Plan: Patient history of proximal AFib, patient has the AICD/pacemaker, currently paced r
[2020-07-14] MEDS: CENTRAL LINE FLUSH 10 ML IV PUSH ×3 (13:42→23:05)
[2020-07-14] MEDS: SODIUM CHLORIDE 0.9% IV 1,000 ML 50 ML IV CONT (14:44)
--- NOTE | 2020-07-14 15:02 | PM.IMPN ---
Progress Note: A&P Assessment and Plan (1) Acute respiratory failure: Qualifiers: Respiratory failure complication: hypercapnia Qualified Code(s): J96.02 - Acute respiratory failure with hypercapnia Code(s): J96.00 - Acute respiratory failure, unspecified whether with hypoxia or hypercapnia Status: Acute Assessment and Plan: Acute on chronic thought secondary to congestive heart failure and or pneumonia. Been cultured and placed on broad-spectrum antibiotics ceftriaxone and vancomycin. COVID negative. (2) Severe sepsis: Code(s): A41.9 - Sepsis, unspecified organism; R65.20 - Severe sepsis without septic shock Status: Resolved Assessment and Plan: Marked leukocytosis tachypnea and tachycardia. Afebrile lactic acid negative. Culture urine growing E coli and blood 2/2 growing g positive cocci in clusters On ceftriaxone and vancomycin (3) Acute on chronic systolic and diastolic heart failure, NYHA class 4: Code(s): I50.43 - Acute on chronic combined systolic (congestive) and diastolic (congestive) heart failure Status: Acute Assessment and Plan: Probable some component of acute on chronic combined systolic and diastolic heart failure. Last echo 04/10 was only 20% EF. BNP 4000. But lungs are clear and will continue gentle hydration with the hypotension. (4) Altered mental status: Qualifiers: Altered mental status type: unspecified Qualified Code(s): R41.82 - Altered mental status, unspecified Code(s): R41.82 - Altered mental status, unspecified Status: Acute Assessment and Plan: Secondary to hypercapnia and sepsis. Already better with mechanical ventilation (5) Thrombocytopenia: Code(s): D69.6 - Thrombocytopenia, unspecified Status: Acute Assessment and Plan: Mild thrombocytopenia which has been present intermittently in the past. B12 normal, continue to follow (6) Chronic kidney disease, stage 3: Qualifiers: Chronic kidney disease stage 3 subtype: unspecified whether 3a or 3b Qualified Code(s): N18.30 - Chronic kidney disease, stage 3 unspecified Code(s): N18.3 - Chronic kidney disease, stage 3 (moderate) Status: Chronic Assessment and Plan: Creatinine stable to better than it has been in the past, 1.1 today. Continue to monitor (7) Suspected COVID-19 virus infection: Code(s): Z20.828 - Contact with and (suspected) exposure to other viral communicable diseases Status: Acute Assessment and Plan: Initial droplet isolation and swab was taken and negative (8) UTI (urinary tract infection): Qualifiers: Urinary tract infection type: site unspecified Hematuria presence: without hematuria Qualified Code(s): N39.0 - Urinary tract infection, site not specified Code(s): N39.0 - Urinary tract infection, site not specified Status: Acute Assessment and Plan: Pyuria 10-15 wbc's by prior field with leukocyte Estrace. Cultured and growing Ecoli, placed on ceftriaxone (9) Pneumonia: Onset Date: ~09/05/19 Qualifiers: Laterality: unspecified laterality Lung location: unspecified part of lung Pneumonia type: due to unspecified organism Qualified Code(s): J18.9 - Pneumonia, unspecified organism Code(s): J18.9 - Pneumonia, unspecified organism Status: Acute Assessment and Plan: Possible pneumonia on chest x-ray. No good history of cough or fever but cultured and placed on antibiotics (10) DVT prophylaxis: Code(s): Z29.9 - Encounter for prophylactic measures, unspecified Status: Acute Assessment and Plan: With body habitus will use b.i.d. Lovenox (11) Hypothyroid: Code(s): E03.9 - Hypothyroidism, unspecified Status: Acute Assessment and Plan: TSH elevated at 30. TSH was 10, 1 month ago. Will increase levothyroxine to 75 mcg daily Subjective Date/time seen: 06/23
[2020-07-14] MEDS: PERFLUTREN LIPID MICROSPHERES 1.5 ML VIAL DILUTED TO 10 ML TOTAL VOLUME IV PUSH (16:48)
[2020-07-14 17:44] LABS: Glucose Point of Care 129 (65-105)
[2020-07-14] MEDS: DEXAMETHASONE 4 MG TABLET PO (17:48)
[2020-07-14] MEDS: POTASSIUM CHLORIDE 20 MEQ PACKET (FOR LIQUID) 40 MEQ FEED TUBE (18:58)
[2020-07-14] MEDS: risperiDONE 1 MG TABLET 2 MG PO (20:30)
[2020-07-14 22:29] LABS: Anion Gap 0 mmol/L (8-16); Blood Urea Nitrogen 27 mg/dL (7-17); Calcium 7.4 mg/dL (8.4-10.2); Carbon Dioxide 38 mmol/L (22-30); Chloride 101 mmol/L (98-107); Estimated CRCL calculation 45 ml/min; Estimated Glomerular Filt Rate 41; Glucose 161 mg/dL (65-105); Magnesium 1.9 mg/dL (1.6-2.3); Potassium 3.7 mmol/L (3.4-5.0); Sodium 139 mmol/L (137-145)
[2020-07-14] MEDS: MAGNESIUM SULF 2 GM/WATER 50ML 2 GM/50 ML BAG IVPB (23:05)
[2020-07-14] MEDS: GABAPENTIN 100 MG CAPSULE PO (23:05)
[2020-07-15] VITALS (47 sets, daily range): BP systolic 76–115; BP diastolic 46–74; PULSE 59–93; RESP 18–20; TEMP 35.8–36.9; O2SAT 92–99
[2020-07-15 00:50] LABS: Glucose Point of Care 208 (65-105)
[2020-07-15] MEDS: NOREPINEPHRINE 8 MG/D5W 250 ML 8 MG/250 ML BAG 11.25 MG IV CONT (00:59)
[2020-07-15] MEDS: SODIUM CHLORIDE 0.9% IV 1,000 ML 50 ML IV CONT (01:00)
[2020-07-15] MEDS: IPRATROPIUM BR 0.02% INH SOLN 0.5 MG/2.5 ML VIAL INHALATION ×4 (02:45→20:17)
[2020-07-15] MEDS: ALBUTEROL SULFATE NEB 2.5 MG/0.5 ML INH INHALATION ×4 (02:45→20:17)
[2020-07-15 04:38] LABS: Basophils Percent Auto 0.2 % (0.2-1.2); Hematocrit 31.5 % (37.0-47.0); Hemoglobin 10.7 g/dL (12.0-15.0); Immature Granulocyte Absolute 0.11 K/mm3 (0.00-0.031); Immature Granulocyte Percent A 0.7 % (0-0.5); Lymphocytes Percent Auto 2.5 % (18.3-44.2); Mean Corpuscular Hemoglobin 32.1 pg (26-34); Mean Corpuscular Volume 94.6 fl (80-100); Mean Platelet Volume 11.8 fl (7.4-10.4); Monocytes Absolute Auto 0.3 K/mm3 (0.1-0.6); Monocytes Percent Auto 2.1 % (2.6-8.5); Neutrophils Absolute Auto 15.1 K/mm3 (1.3-6.7); Neutrophils Percent Auto 94.5 % (45.5-73.1); Nucleated Red Blood Cells Perc 0.2 % (0.0-0.2); Platelet Count Result 107 k/mm3 (150-375); Red Blood Count 3.33 M/mm3 (4.2-5.4); Red Cell Distribution Width 21.4 % (11.5-14.5)
[2020-07-15 04:53] LABS: Anion Gap 0 mmol/L (8-16); Blood Urea Nitrogen 26 mg/dL (7-17); Calcium 7.3 mg/dL (8.4-10.2); Carbon Dioxide 37 mmol/L (22-30); Chloride 101 mmol/L (98-107); Estimated CRCL calculation 45 ml/min; Estimated Glomerular Filt Rate 41; Glucose 178 mg/dL (65-105); Magnesium 2.6 mg/dL (1.6-2.3); Sodium 138 mmol/L (137-145)
[2020-07-15] MEDS: GABAPENTIN 100 MG CAPSULE PO ×3 (05:23→23:09)
[2020-07-15] MEDS: CENTRAL LINE FLUSH 10 ML IV PUSH ×4 (05:23→23:09)
[2020-07-15] MEDS: LEVOTHYROXINE SODIUM 75 MCG TABLET PO (05:25)
[2020-07-15 05:35] LABS: Alveolar/Arterial O2 Gradient 130.2 mmHg; Base Excess ABG 6.6 mEq/l (+/-2.0); Carboxyhemoglobin 0.1 % THb (0-2.0); Device VENTILATOR; Fractional Inspired Oxygen 40 %; HCO3 ABG 30.6 mEq/l (22.0-26.0); Methemoglobin ABG 0.2 %THb (0-1.5); Modified Allen's Test Pass; Oxygen Saturation ABG 98.2 % (95.0-100.0); Oxyhemoglobin 95.5 % THb (90.0-100.0); PCO2 ABG 41.2 mmHg (35.0-45.0); PO2 ABG 107.6 mmHg (80.0-100.0); PO2 FiO2 Ratio Arterial Blood 2.69 %; Reduced Hemoglobin 4.2 %THb (0-5.0); Site Drawn RIGHT RADIAL; Total Hemoglobin 11.8 g/dL (12.0-18.0); pH ABG 7.488 (7.350-7.450)
[2020-07-15 05:36] LABS: Arterial Blood Gas PEEP 8 cmH2O; Arterial Blood Gas Tidal Volume 350 ml; Arterial Blood Gas Vent Mode ASSIST CONTROL; Arterial Blood Gas Ventilator rate 20 /MIN
[2020-07-15 07:05] LABS: Anisocytosis 2+ (NORMAL); Platelet Estimate Decreased (Adequate); Target Cells 1+ (NORMAL)
[2020-07-15] MEDS: ENOXAPARIN 40 MG/0.4 ML SYRINGE SUB-Q ×2 (09:27→19:45)
[2020-07-15] MEDS: PANTOPRAZOLE SODIUM IV 40 MG VIAL IV PUSH (09:27)
[2020-07-15] MEDS: THERAPEUTIC MULTIVITAMINS/MINERALS TAB (*BKC) 1 TABLET PO (09:27)
[2020-07-15] MEDS: risperiDONE 1 MG TABLET 2 MG PO ×2 (09:29→23:09)
[2020-07-15] MEDS: ASCORBIC ACID 500 MG TABLET 1000 MG PO (09:29)
[2020-07-15] MEDS: CITALOPRAM HYDROBROMIDE 20 MG TABLET 40 MG PO (09:29)
[2020-07-15] MEDS: buPROPion HCL XL (24 HR) 150 MG TABCR PO (09:30)
[2020-07-15] MEDS: DEXAMETHASONE 4 MG TABLET PO ×2 (09:30→18:04)
[2020-07-15] MEDS: ZINC SULFATE 220 MG CAPSULE PO (09:30)
[2020-07-15] MEDS: ATORVASTATIN 10 MG TABLET PO (09:30)
[2020-07-15] MEDS: SODIUM CHLORIDE 0.9% IV 500 ML IV CONT (10:50)
[2020-07-15] MEDS: SODIUM CHLORIDE 0.9% IV 1,000 ML 75 ML IV CONT (10:50)
[2020-07-15 12:08] LABS: Glucose Point of Care 184 (65-105)
--- NOTE | 2020-07-15 13:21 | PCDIET ---
Nutrition Follow-Up Complete: Nutrition Diagnosis: Inadequate oral intake related to oral intubation as evidenced by NPO status. Nutrition Goal: Patient to meet estimated nutritional needs. Goal in progress. Patient tolerating Vital 1.2 at 40mL/hr which is advancing toward goal of 50mL/hr with 30mL water flush every 4 hours. Last recorded weight is 107.9 kg which is increased from last review. +I/O. Bowel Motility: No documented BM. Labs Reviewed: Hgb (10.7), Hct (31.5), Glu (178), BUN (26), Cr (1.3), Alb (2.2), Sebastien Ca (8.74) Meds Noted: Albuterol, Vitamin C, Lipitor, Rocephin, Dexamethasone, Fentanyl, Atrovent, Synthroid, Versed, MVI, Levophed, Protonix, Zinc Sulfate, NS at 50mL/hr Additional Notes: No change in skin reported. Will continue to monitor with same goal. Nutrition Monitoring and Evaluation: Follow up every Tuesday/Tuesday.
--- NOTE | 2020-07-15 13:55 | WPDINTPN ---
Progress Note: A&P Assessment and Plan (1) Septic shock: Code(s): A41.9 - Sepsis, unspecified organism; R65.21 - Severe sepsis with septic shock Status: Acute Assessment and Plan: Patient with presented with leukocytosis, hypotension, acute respiratory failure, UTI, CHF, pneumonia -overnight required right IJ central line insertion and started on Levophed for hypotension, maintain MAP > 65 mmHg -patient was given IV fluids patient was given additional IV fluids this morning -continue to monitor urine output -blood cultures growing coag-negative staph 2/2, will obtain blood cultures again -urine culture grew E coli, susceptible to ceftriaxone -continue vancomycin and ceftriaxone (2) Acute respiratory failure: Qualifiers: Respiratory failure complication: hypercapnia Qualified Code(s): J96.02 - Acute respiratory failure with hypercapnia Code(s): J96.00 - Acute respiratory failure, unspecified whether with hypoxia or hypercapnia Status: Acute Assessment and Plan: Acute hypercapnic respiratory failure. Likely related to congestive heart failure, pneumonia -chest x-ray and ABGs reviewed -patient be sedated with fentanyl and Versed infusion, maintain RASS of 0 to -2, daily sedation vacation -continue FiO2 of 40% and peep of 8 (3) Chronic combined systolic (congestive) and diastolic (congestive) heart failure: Code(s): I50.42 - Chronic combined systolic (congestive) and diastolic (congestive) heart failure Status: Chronic Assessment and Plan: 04/10/2020 showed severe LV enlargement, severe LV dysfunction, EF 20%, grade 2 diastolic dysfunction, mild pulmonary hypertension with RVSP of 39 mmHg, left atrial chamber severely enlarged -patient does take [facility]ix[facility]ilol at [facility] -will continue gentle rehydration as patient currently in septic shock (4) Generalized anxiety disorder: Code(s): F41.1 - Generalized anxiety disorder Status: Acute Assessment and Plan: Patient with generalized anxiety disorder will continue bupropion citalopram, gabapentin and risperidone (5) Pneumonia: Onset Date: ~09/05/19 Qualifiers: Laterality: unspecified laterality Lung location: unspecified part of lung Pneumonia type: due to unspecified organism Qualified Code(s): J18.9 - Pneumonia, unspecified organism Code(s): J18.9 - Pneumonia, unspecified organism Status: Acute Assessment and Plan: Chest x-ray shows pulmonary vascular congestion and infiltrates bilaterally right greater than left, could also be pneumonia -given elevated WBC count, acute hypercapnic respiratory failure -patient started on ceftriaxone and vancomycin -continue bronchodilators (6) Acute on chronic renal failure: Qualifiers: Acute renal failure type: unspecified Chronic kidney disease stage: stage 4 (severe) Qualified Code(s): N17.9 - Acute kidney failure, unspecified; N18.4 - Chronic kidney disease, stage 4 (severe) Code(s): N17.9 - Acute kidney failure, unspecified; N18.9 - Chronic kidney disease, unspecified Status: Acute Assessment and Plan: Patient history of stage 3 chronic kidney disease, -creatinine improving, fluids given this morning, continue maintenance IV fluids of normal saline at 75 mL/hour -urine output improving, continue to monitor (7) UTI (urinary tract infection): Qualifiers: Urinary tract infection type: site unspecified Hematuria presence: without hematuria Qualified Code(s): N39.0 - Urinary tract infection, site not specified Code(s): N39.0 - Urinary tract infection, site not specified Status: Acute Assessment and Plan: UA reflective of a UTI, Urine culture growing E coli, continue ceftriaxone (8) Paroxysmal atrial fibrillation: Code(s): I48.0 - Paroxysmal atrial fibrillation Status: Acute Assessment and Plan: Patient history of proximal AFib, melvin
[2020-07-15 18:02] LABS: Glucose Point of Care 267 (65-105)
--- NOTE | 2020-07-15 19:25 | PM.IMPN ---
Progress Note: A&P Assessment and Plan (1) Acute respiratory failure: Qualifiers: Respiratory failure complication: hypercapnia Qualified Code(s): J96.02 - Acute respiratory failure with hypercapnia Code(s): J96.00 - Acute respiratory failure, unspecified whether with hypoxia or hypercapnia Status: Acute Assessment and Plan: Acute on chronic respiratory failure thought secondary to congestive heart failure and/or pneumonia. COVID negative. Cultures as mentioned below. Continue broad-spectrum IV antibiotics. Vent managment per wood polisher (2) Severe sepsis: Code(s): A41.9 - Sepsis, unspecified organism; R65.20 - Severe sepsis without septic shock Status: Resolved Assessment and Plan: Severe sepsis with shock seen with leukocytosisn tachypnea and tachycardia. Afebrile. Lactic acid normal. UCx growing E coli. BCx 2/2 growing coag-negative staph. On ceftriaxone and vancomycin. Continue the same. Repeat blood cultures pending. Echo showed does not show any obvious vegetations. Wean Levophed as tolerated. Not sure why she is on dexamethasone at this time but appears that was on her home med list. (3) Acute on chronic systolic and diastolic heart failure, NYHA class 4: Code(s): I50.43 - Acute on chronic combined systolic (congestive) and diastolic (congestive) heart failure Status: Acute Assessment and Plan: Probable some component of acute on chronic combined systolic and diastolic heart failure. Echo with EF 25% in grade 1 diastolic dysfunction with wall motion abnormalities. BNP 4000. But lungs are clear anteriorly. Continue gentle hydration with the hypotension. (4) Altered mental status: Qualifiers: Altered mental status type: unspecified Qualified Code(s): R41.82 - Altered mental status, unspecified Code(s): R41.82 - Altered mental status, unspecified Status: Acute Assessment and Plan: Head CT showing no acute intracranial findings. This felt her altered mental status was secondary to hypercapnia and sepsis. Further evaluation off sedation. (5) Thrombocytopenia: Code(s): D69.6 - Thrombocytopenia, unspecified Status: Acute Assessment and Plan: Mild thrombocytopenia which has been present intermittently in the past. B12 normal. Platelet count trending down slowly. Continue to monitor closely. Continue Lovenox for now. (6) Chronic kidney disease, stage 3: Qualifiers: Chronic kidney disease stage 3 subtype: unspecified whether 3a or 3b Qualified Code(s): N18.30 - Chronic kidney disease, stage 3 unspecified Code(s): N18.3 - Chronic kidney disease, stage 3 (moderate) Status: Chronic Assessment and Plan: Creatinine 1.2 on admission and has climbed to 1 3. This is above her baseline creatinine levels. Related to above. Continue to monitor closely. (7) UTI (urinary tract infection): Qualifiers: Hematuria presence: without hematuria Urinary tract infection type: site unspecified Qualified Code(s): N39.0 - Urinary tract infection, site not specified Code(s): N39.0 - Urinary tract infection, site not specified Status: Acute Assessment and Plan: UA noted. Urine culture growing Ecoli sensitive to ceftriaxone. Contnue the same. (8) Pneumonia: Onset Date: ~07/13/20 Qualifiers: Laterality: unspecified laterality Lung location: unspecified part of lung Pneumonia type: due to unspecified organism Qualified Code(s): J18.9 - Pneumonia, unspecified organism Code(s): J18.9 - Pneumonia, unspecified organism Status: Acute Assessment and Plan: Possible pneumonia on chest x-ray. No history of cough or fever but cultured and placed on antibiotics (9) DVT prophylaxis: Code(s): Z29.9 - Encounter for prophylactic measures, unspecified Status: Acute Assessment and P
[2020-07-15] MEDS: FENTANYL 2,500MCG/NS250ML(*CRX 2,500 MCG/250 ML BAG 15 MCG IV CONT (19:44)
[2020-07-15 23:20] LABS: Glucose Point of Care 272 (65-105)
[2020-07-16] VITALS (43 sets, daily range): BP systolic 93–125; BP diastolic 51–91; PULSE 59–120; RESP 13–22; TEMP 36.3–37.1; O2SAT 90–100
[2020-07-16] MEDS: SODIUM CHLORIDE 0.9% IV 1,000 ML 75 ML IV CONT (02:24)
[2020-07-16] MEDS: NOREPINEPHRINE 8 MG/D5W 250 ML 8 MG/250 ML BAG 11.25 MG IV CONT (02:24)
[2020-07-16] MEDS: IPRATROPIUM BR 0.02% INH SOLN 0.5 MG/2.5 ML VIAL INHALATION ×3 (02:51→22:06)
[2020-07-16] MEDS: ALBUTEROL SULFATE NEB 2.5 MG/0.5 ML INH INHALATION ×3 (02:52→22:07)
[2020-07-16] MEDS: GABAPENTIN 100 MG CAPSULE PO ×3 (05:23→21:10)
[2020-07-16] MEDS: CENTRAL LINE FLUSH 10 ML IV PUSH ×4 (05:23→21:10)
[2020-07-16] MEDS: LEVOTHYROXINE SODIUM 75 MCG TABLET PO (05:23)
[2020-07-16 05:24] LABS: Alveolar/Arterial O2 Gradient 140.7 mmHg; Base Excess ABG 3.9 mEq/l (+/-2.0); Carboxyhemoglobin 0.3 % THb (0-2.0); Fractional Inspired Oxygen 40 %; HCO3 ABG 28.4 mEq/l (22.0-26.0); Methemoglobin ABG 0.3 %THb (0-1.5); Oxygen Content ABG 16.3 %vol (16.0-22.0); Oxygen Saturation ABG 97.5 % (95.0-100.0); Oxyhemoglobin 94.6 % THb (90.0-100.0); PCO2 ABG 42.6 mmHg (35.0-45.0); PO2 ABG 95.5 mmHg (80.0-100.0); PO2 FiO2 Ratio Arterial Blood 2.39 %; Reduced Hemoglobin 4.8 %THb (0-5.0); Total Hemoglobin 12.2 g/dL (12.0-18.0); pH ABG 7.442 (7.350-7.450)
[2020-07-16 05:25] LABS: Arterial Blood Gas Ventilator rate 20 /MIN; Device VENTILATOR; Modified Allen's Test Pass; Site Drawn RIGHT RADIAL
[2020-07-16 05:26] LABS: Arterial Blood Gas PEEP 8 cmH2O; Arterial Blood Gas Tidal Volume 350 ml; Arterial Blood Gas Vent Mode ASSIST CONTROL
[2020-07-16 05:48] LABS: Basophils Percent Auto 0.1 % (0.2-1.2); Hematocrit 29.4 % (37.0-47.0); Immature Granulocyte Absolute 0.19 K/mm3 (0.00-0.031); Immature Granulocyte Percent A 1.4 % (0-0.5); Lymphocytes Absolute Auto 0.47 K/mm3 (0.9-3.2); Lymphocytes Percent Auto 3.5 % (18.3-44.2); Mean Corpuscular Hemoglobin 32.4 pg (26-34); Mean Corpuscular Volume 95.1 fl (80-100); Mean Platelet Volume 12.2 fl (7.4-10.4); Monocytes Absolute Auto 0.5 K/mm3 (0.1-0.6); Monocytes Percent Auto 3.4 % (2.6-8.5); Neutrophils Absolute Auto 12.3 K/mm3 (1.3-6.7); Neutrophils Percent Auto 91.6 % (45.5-73.1); Platelet Count Result 89 k/mm3 (150-375); Red Blood Count 3.09 M/mm3 (4.2-5.4); Red Cell Distribution Width 21.3 % (11.5-14.5); White Blood Count 13.4 K/mm3 (4.5-10.0)
[2020-07-16 05:59] LABS: Alanine Aminotransferase 25 U/L (4-35); Alkaline Phosphatase 110 U/L (38-126); Anion Gap 0 mmol/L (8-16); Aspartate Amino Transferase 18 U/L (14-36); Bilirubin,Total 0.4 mg/dL (0.2-1.3); Blood Urea Nitrogen 25 mg/dL (7-17); Calcium 7.3 mg/dL (8.4-10.2); Carbon Dioxide 33 mmol/L (22-30); Chloride 102 mmol/L (98-107); Estimated CRCL calculation 58 ml/min; Estimated Glomerular Filt Rate 56; Glucose 218 mg/dL (65-105); Magnesium 2.3 mg/dL (1.6-2.3); Phosphorus 2.1 mg/dL (2.5-4.5); Potassium 4.1 mmol/L (3.4-5.0); Sodium 135 mmol/L (137-145)
[2020-07-16 06:27] LABS: CRP 11.7 mg/dL (<1.0)
--- NOTE | 2020-07-16 08:31 | WPDINTPN ---
Progress Note: A&P Assessment and Plan (1) Septic shock: Code(s): A41.9 - Sepsis, unspecified organism; R65.21 - Severe sepsis with septic shock Status: Acute Assessment and Plan: Patient with presented with leukocytosis, hypotension, acute respiratory failure, UTI, CHF, pneumonia -overnight required right IJ central line insertion and started on Levophed for hypotension, maintain MAP > 65 mmHg -continue to monitor urine output -blood cultures growing coag-negative staph 2/2, repeat blood cultures pending -urine culture grew E coli, susceptible to ceftriaxone -continue vancomycin and ceftriaxone (2) Acute respiratory failure with hypercapnia: Code(s): J96.02 - Acute respiratory failure with hypercapnia Status: Acute Assessment and Plan: Acute hypercapnic respiratory failure. Likely related to congestive heart failure, pneumonia -chest x-ray and ABGs reviewed -patient be sedated with fentanyl and Versed infusion, maintain RASS of 0 to -2, daily sedation vacation. The patient is responding well to sedation vacation. -continue FiO2 of 40% and peep of 8 (3) Chronic combined systolic (congestive) and diastolic (congestive) heart failure: Code(s): I50.42 - Chronic combined systolic (congestive) and diastolic (congestive) heart failure Status: Chronic Assessment and Plan: 04/10/2020 showed severe LV enlargement, severe LV dysfunction, EF 20%, grade 2 diastolic dysfunction, mild pulmonary hypertension with RVSP of 39 mmHg, left atrial chamber severely enlarged -the patient's home beta-kahlil and AR-inhibitor and diuretic have been on hold. -Patient is 10 L positive since admission. Will discontinue additional IV fluids and give IV Lasix x1. (4) Generalized anxiety disorder: Code(s): F41.1 - Generalized anxiety disorder Status: Acute Assessment and Plan: Patient with generalized anxiety disorder will continue bupropion citalopram, gabapentin and risperidone per feeding tube (5) Pneumonia: Onset Date: ~07/13/20 Qualifiers: Laterality: unspecified laterality Lung location: unspecified part of lung Pneumonia type: due to unspecified organism Qualified Code(s): J18.9 - Pneumonia, unspecified organism Code(s): J18.9 - Pneumonia, unspecified organism Status: Acute Assessment and Plan: Chest x-ray shows pulmonary vascular congestion and infiltrates bilaterally right greater than left, could also be pneumonia -given elevated WBC count, acute hypercapnic respiratory failure -patient started on ceftriaxone and vancomycin -continue bronchodilators (6) Thrombocytopenia: Code(s): D69.6 - Thrombocytopenia, unspecified Status: Acute Assessment and Plan: Worsening thrombocytopenia. Will hold Lovenox. Hemoglobin also trending down. Will continue to monitor. (7) Renal failure (ARF), acute on chronic: Qualifiers: Acute renal failure type: unspecified Chronic kidney disease stage: stage 3 (moderate) Qualified Code(s): N17.9 - Acute kidney failure, unspecified; N18.3 - Chronic kidney disease, stage 3 (moderate) Code(s): N17.9 - Acute kidney failure, unspecified; N18.9 - Chronic kidney disease, unspecified Status: Acute Assessment and Plan: Patient has chronic kidney disease stage 3. Kidney injury has resolved with IV fluid hydration. (8) UTI (urinary tract infection): Qualifiers: Urinary tract infection type: site unspecified Hematuria presence: without hematuria Qualified Code(s): N39.0 - Urinary tract infection, site not specified Code(s): N39.0 - Urinary tract infection, site not specified Status: Acute Assessment and Plan: Grew E coli sensitive to Rocephin. Antibiotic therapy initiated on admission 07/13/2020 (9) Hyperglycemia: Code(s): R73.9 - Hyperglycemia, unspecified Status: Acute Assessment and Plan: Patient
[2020-07-16] MEDS: ASCORBIC ACID 500 MG TABLET 1000 MG PO (09:02)
[2020-07-16] MEDS: THERAPEUTIC MULTIVITAMINS/MINERALS TAB (*BKC) 1 TABLET PO (09:02)
[2020-07-16] MEDS: ZINC SULFATE 220 MG CAPSULE PO (09:03)
[2020-07-16] MEDS: CITALOPRAM HYDROBROMIDE 20 MG TABLET 40 MG PO (09:03)
[2020-07-16] MEDS: buPROPion HCL XL (24 HR) 150 MG TABCR PO (09:03)
[2020-07-16] MEDS: PANTOPRAZOLE SODIUM IV 40 MG VIAL IV PUSH (09:04)
[2020-07-16] MEDS: DEXAMETHASONE 4 MG TABLET PO ×2 (09:04→18:28)
[2020-07-16] MEDS: ATORVASTATIN 10 MG TABLET PO (09:04)
[2020-07-16] MEDS: risperiDONE 1 MG TABLET 2 MG PO ×2 (09:05→21:09)
[2020-07-16 09:20] LABS: Glucose Point of Care 202 (65-105)
[2020-07-16] MEDS: INSULIN ASPART (*BKC) 100 UNITS/ML SUB-Q (09:22)
[2020-07-16] MEDS: FUROSEMIDE INJ 40 MG/4 ML VIAL IV PUSH (12:32)
[2020-07-16 15:04] LABS: Glucose Point of Care 166 (65-105)
[2020-07-16 15:08] LABS: Alveolar/Arterial O2 Gradient 82.3 mmHg; Carboxyhemoglobin 0.8 % THb (0-2.0); Fractional Inspired Oxygen 30 %; Methemoglobin ABG 0.3 %THb (0-1.5); Oxygen Content ABG 14.1 %vol (16.0-22.0); Oxygen Saturation ABG 89.4 % (95.0-100.0); PO2 ABG 60.4 mmHg (80.0-100.0); PO2 FiO2 Ratio Arterial Blood 2.01 %; Reduced Hemoglobin 10.9 %THb (0-5.0); Total Hemoglobin 11.4 g/dL (12.0-18.0); pH ABG 7.354 (7.350-7.450)
[2020-07-16 15:09] LABS: Arterial Blood Gas PEEP 5 cmH2O; Arterial Blood Gas Pressure Support 8 cmH2O; Arterial Blood Gas Vent Mode SPONTANEOUS; Device VENTILATOR; Modified Allen's Test Pass; PCO2 ABG 60.6 mmHg (35.0-45.0); Site Drawn RIGHT RADIAL
[2020-07-16 15:55] LABS: Vancomycin Trough 17.5 ug/mL (10.0-20.0)
--- NOTE | 2020-07-16 17:36 | PM.IMPN ---
Progress Note: A&P Assessment and Plan (1) Acute respiratory failure: Qualifiers: Respiratory failure complication: hypercapnia Qualified Code(s): J96.02 - Acute respiratory failure with hypercapnia Code(s): J96.00 - Acute respiratory failure, unspecified whether with hypoxia or hypercapnia Status: Acute Assessment and Plan: Acute on chronic respiratory failure thought secondary to congestive heart failure and/or pneumonia. COVID negative. Cultures as mentioned below. Continue broad-spectrum IV antibiotics. Vent management per tire rebuilder. (2) Severe sepsis: Code(s): A41.9 - Sepsis, unspecified organism; R65.20 - Severe sepsis without septic shock Status: Resolved Assessment and Plan: Severe sepsis with shock seen with leukocytosisn tachypnea and tachycardia. Afebrile. Lactic acid normal. UCx growing E coli. BCx 2/2 growing coag-negative staph but unclear if contaminant or true infection. On ceftriaxone and vancomycin. Continue the same. Repeat blood cultures NGTD. Echo showed does not show any obvious vegetations. Able to be weaned off Levophed today. Not sure why she is on dexamethasone at this time but appears that was on her home med list. (3) Acute on chronic systolic and diastolic heart failure, NYHA class 4: Code(s): I50.43 - Acute on chronic combined systolic (congestive) and diastolic (congestive) heart failure Status: Acute Assessment and Plan: Probable some component of acute on chronic combined systolic and diastolic heart failure. Echo with EF 25% in grade 1 diastolic dysfunction with wall motion abnormalities. BNP 4000. +fluid balance (+10.7L) and much more edematous now. Lasix IV once given. Agre with limiting fluids. (4) Altered mental status: Qualifiers: Altered mental status type: unspecified Qualified Code(s): R41.82 - Altered mental status, unspecified Code(s): R41.82 - Altered mental status, unspecified Status: Acute Assessment and Plan: Head CT showing no acute intracranial findings. This felt her altered mental status was secondary to hypercapnia and sepsis. Further evaluation off sedation. (5) Thrombocytopenia: Code(s): D69.6 - Thrombocytopenia, unspecified Status: Acute Assessment and Plan: Mild thrombocytopenia which has been present intermittently in the past. B12 normal. Platelet count trending down and now at 89K. Continue to monitor closely. Lovenox on hold for now (6) Chronic kidney disease, stage 3: Qualifiers: Chronic kidney disease stage 3 subtype: unspecified whether 3a or 3b Qualified Code(s): N18.30 - Chronic kidney disease, stage 3 unspecified Code(s): N18.3 - Chronic kidney disease, stage 3 (moderate) Status: Chronic Assessment and Plan: Creatinine 1.2 on admission and has improved to 1.0. Related to above. Continue to monitor closely. (7) UTI (urinary tract infection): Qualifiers: Hematuria presence: without hematuria Urinary tract infection type: site unspecified Qualified Code(s): N39.0 - Urinary tract infection, site not specified Code(s): N39.0 - Urinary tract infection, site not specified Status: Acute Assessment and Plan: UA noted. Urine culture growing Ecoli sensitive to ceftriaxone. Contnue the same. (8) Pneumonia: Onset Date: ~07/13/20 Qualifiers: Laterality: unspecified laterality Lung location: unspecified part of lung Pneumonia type: due to unspecified organism Qualified Code(s): J18.9 - Pneumonia, unspecified organism Code(s): J18.9 - Pneumonia, unspecified organism Status: Acute Assessment and Plan: Possible pneumonia on chest x-ray. No history of cough or fever but cultured and placed on antibiotics (9) DVT prophylaxis: Code(s): Z29.9 - Encounter for prophylactic measures, unspecified S
[2020-07-16 21:09] LABS: Glucose Point of Care 191 (65-105)
[2020-07-16] MEDS: SODIUM PHOSPHATE 20 MM in DEXTROSE 5% IN WATER 250 ML 50 MM IVPB (21:22)
[2020-07-17] VITALS (27 sets, daily range): BP systolic 88–130; BP diastolic 53–91; PULSE 60–108; RESP 16–22; TEMP 35.8–36.8; O2SAT 90–99
[2020-07-17] MEDS: INSULIN ASPART (*BKC) 100 UNITS/ML SUB-Q ×2 (00:35→14:10)
[2020-07-17 00:43] LABS: Glucose Point of Care 205 (65-105)
[2020-07-17] MEDS: ALBUTEROL SULFATE NEB 2.5 MG/0.5 ML INH INHALATION ×4 (03:59→20:58)
[2020-07-17] MEDS: IPRATROPIUM BR 0.02% INH SOLN 0.5 MG/2.5 ML VIAL INHALATION ×4 (03:59→20:58)
[2020-07-17 04:02] LABS: Alveolar/Arterial O2 Gradient 176.5 mmHg; Base Excess ABG 4.5 mEq/l (+/-2.0); Fractional Inspired Oxygen 40 %; HCO3 ABG 29.1 mEq/l (22.0-26.0); Oxygen Saturation ABG 91.5 % (95.0-100.0); Oxyhemoglobin 89.6 % THb (90.0-100.0); PCO2 ABG 43.2 mmHg (35.0-45.0); PO2 FiO2 Ratio Arterial Blood 1.48 %; Total Hemoglobin 10.3 g/dL (12.0-18.0); pH ABG 7.446 (7.350-7.450)
[2020-07-17 04:04] LABS: Arterial Blood Gas Ventilator rate 20 /MIN; Device VENTILATOR; Modified Allen's Test Unable to perform; Site Drawn RIGHT RADIAL
[2020-07-17 04:05] LABS: Arterial Blood Gas PEEP 5 cmH2O; Arterial Blood Gas Tidal Volume 350 ml; Arterial Blood Gas Vent Mode ASSIST CONTROL
[2020-07-17] MEDS: CENTRAL LINE FLUSH 10 ML IV PUSH ×4 (05:06→20:50)
[2020-07-17] MEDS: LEVOTHYROXINE SODIUM 75 MCG TABLET PO (05:06)
[2020-07-17] MEDS: GABAPENTIN 100 MG CAPSULE PO ×3 (05:06→20:50)
[2020-07-17 05:24] LABS: Basophils Percent Auto 0.2 % (0.2-1.2); Hematocrit 29.2 % (37.0-47.0); Hemoglobin 9.6 g/dL (12.0-15.0); Immature Granulocyte Absolute 0.19 K/mm3 (0.00-0.031); Immature Granulocyte Percent A 1.8 % (0-0.5); Lymphocytes Absolute Auto 0.54 K/mm3 (0.9-3.2); Mean Corpuscular HGB Conc 32.9 g/dl (32-36); Mean Corpuscular Hemoglobin 31.7 pg (26-34); Mean Corpuscular Volume 96.4 fl (80-100); Monocytes Absolute Auto 0.5 K/mm3 (0.1-0.6); Monocytes Percent Auto 4.5 % (2.6-8.5); Neutrophils Absolute Auto 9.6 K/mm3 (1.3-6.7); Neutrophils Percent Auto 88.5 % (45.5-73.1); Platelet Count Result 80 k/mm3 (150-375); Red Blood Count 3.03 M/mm3 (4.2-5.4); Red Cell Distribution Width 21.3 % (11.5-14.5); White Blood Count 10.8 K/mm3 (4.5-10.0)
[2020-07-17 05:45] LABS: Alanine Aminotransferase 28 U/L (4-35); Albumin Level 2.1 g/dL (3.5-5.1); Alkaline Phosphatase 103 U/L (38-126); Anion Gap -1 mmol/L (8-16); Aspartate Amino Transferase 20 U/L (14-36); Bilirubin,Total 0.4 mg/dL (0.2-1.3); Blood Urea Nitrogen 25 mg/dL (7-17); CRP 4.9 mg/dL (<1.0); Calcium 7.5 mg/dL (8.4-10.2); Carbon Dioxide 36 mmol/L (22-30); Chloride 98 mmol/L (98-107); Estimated CRCL calculation 64 ml/min; Estimated Glomerular Filt Rate > 60; Glucose 223 mg/dL (65-105); Magnesium 2.1 mg/dL (1.6-2.3); Phosphorus 3.1 mg/dL (2.5-4.5); Potassium 3.7 mmol/L (3.4-5.0); Sodium 133 mmol/L (137-145)
[2020-07-17 06:25] LABS: Hemoglobin A1C 4.9 % (<5.7)
[2020-07-17] MEDS: FUROSEMIDE INJ 40 MG/4 ML VIAL 20 MG IV PUSH (08:18)
[2020-07-17] MEDS: CITALOPRAM HYDROBROMIDE 20 MG TABLET 40 MG PO (08:19)
[2020-07-17] MEDS: ASCORBIC ACID 500 MG TABLET 1000 MG PO (08:19)
[2020-07-17] MEDS: risperiDONE 1 MG TABLET 2 MG PO ×2 (08:19→20:50)
[2020-07-17] MEDS: ATORVASTATIN 10 MG TABLET PO (08:19)
[2020-07-17] MEDS: THERAPEUTIC MULTIVITAMINS/MINERALS TAB (*BKC) 1 TABLET PO (08:19)
[2020-07-17] MEDS: buPROPion HCL XL (24 HR) 150 MG TABCR PO (08:20)
[2020-07-17] MEDS: PANTOPRAZOLE SODIUM IV 40 MG VIAL IV PUSH (08:20)
[2020-07-17] MEDS: ZINC SULFATE 220 MG CAPSULE PO (08:20)
[2020-07-17] MEDS: DEXAMETHASONE 4 MG TABLET PO ×2 (08:20→17:59)
[2020-07-17 08:24] LABS: Glucose Point of Care 175 (65-105)
--- NOTE | 2020-07-17 09:03 | PM.IMPN ---
Progress Note: A&P Assessment and Plan (1) Acute respiratory failure: Qualifiers: Respiratory failure complication: hypercapnia Qualified Code(s): J96.02 - Acute respiratory failure with hypercapnia Code(s): J96.00 - Acute respiratory failure, unspecified whether with hypoxia or hypercapnia Status: Acute Assessment and Plan: Acute on chronic respiratory failure thought secondary to congestive heart failure and/or pneumonia. COVID negative. Cultures as mentioned below. Continue broad-spectrum IV antibiotics. Vent management per pharmacy operations manager. (2) Severe sepsis: Code(s): A41.9 - Sepsis, unspecified organism; R65.20 - Severe sepsis without septic shock Status: Resolved Assessment and Plan: Severe sepsis with shock seen with leukocytosis, tachypnea and tachycardia. Afebrile. Lactic acid normal. UCx growing E coli. BCx 2/2 growing coag-negative staph but unclear if contaminant or true infection. On ceftriaxone and vancomycin. Repeat blood cultures NGTD. Echo does not show any obvious vegetations. Able to be weaned off Levophed 07/16. Not sure why she is on dexamethasone at this time but appears that was on her home med list. Continue the same. Wean steroids as BP tolerates. (3) Acute on chronic systolic and diastolic heart failure, NYHA class 4: Code(s): I50.43 - Acute on chronic combined systolic (congestive) and diastolic (congestive) heart failure Status: Acute Assessment and Plan: Probable some component of acute on chronic combined systolic and diastolic heart failure. Echo with EF 25% in grade 1 diastolic dysfunction with wall motion abnormalities. BNP 4000. +fluid balance (+10.1L) and much more edematous now. Lasix IV given once yesterday and repeat ordered for today. Watch BP closely. Agree with limiting fluids. (4) Altered mental status: Qualifiers: Altered mental status type: unspecified Qualified Code(s): R41.82 - Altered mental status, unspecified Code(s): R41.82 - Altered mental status, unspecified Status: Acute Assessment and Plan: Head CT showing no acute intracranial findings. Her altered mental status was secondary to hypercapnia and sepsis. Further evaluation once she is off sedation. (5) Thrombocytopenia: Code(s): D69.6 - Thrombocytopenia, unspecified Status: Acute Assessment and Plan: Mild thrombocytopenia which has been present intermittently in the past. B12 normal. Platelet count still trending down and now at 80K. Continue to monitor closely. Lovenox on hold for now (6) Chronic kidney disease, stage 3: Qualifiers: Chronic kidney disease stage 3 subtype: unspecified whether 3a or 3b Qualified Code(s): N18.30 - Chronic kidney disease, stage 3 unspecified Code(s): N18.3 - Chronic kidney disease, stage 3 (moderate) Status: Chronic Assessment and Plan: Creatinine 1.2 on admission and has improved to 0.9. Related to above. Continue to monitor closely. (7) UTI (urinary tract infection): Qualifiers: Hematuria presence: without hematuria Urinary tract infection type: site unspecified Qualified Code(s): N39.0 - Urinary tract infection, site not specified Code(s): N39.0 - Urinary tract infection, site not specified Status: Acute Assessment and Plan: UA noted. Urine culture growing Ecoli sensitive to ceftriaxone. Contnue the same. (8) Pneumonia: Onset Date: ~07/13/20 Qualifiers: Laterality: unspecified laterality Lung location: unspecified part of lung Pneumonia type: due to unspecified organism Qualified Code(s): J18.9 - Pneumonia, unspecified organism Code(s): J18.9 - Pneumonia, unspecified organism Status: Acute Assessment and Plan: Possible pneumonia on chest x-ray. No history of cough or fever. BCx positive but unclear if true infection. Cont
[2020-07-17 14:11] LABS: Glucose Point of Care 202 (65-105)
--- NOTE | 2020-07-17 14:15 | WPDINTPN ---
Progress Note: A&P Assessment and Plan (1) Septic shock: Code(s): A41.9 - Sepsis, unspecified organism; R65.21 - Severe sepsis with septic shock Status: Acute Assessment and Plan: Patient with presented with leukocytosis, hypotension, acute respiratory failure, UTI, CHF, pneumonia -OFF LEVOPHED 07/16 -repeat blood cultures from 07/15/2020 1-x2, -blood cultures growing coag-negative staph 2/2, -urine culture grew E coli, susceptible to ceftriaxone -continue ceftriaxone and discontinue vancomycin since blood cultures are negative (2) Acute respiratory failure: Qualifiers: Respiratory failure complication: hypercapnia Qualified Code(s): J96.02 - Acute respiratory failure with hypercapnia Code(s): J96.00 - Acute respiratory failure, unspecified whether with hypoxia or hypercapnia Status: Acute Assessment and Plan: Acute hypercapnic respiratory failure. Likely related to congestive heart failure, pneumonia -chest x-ray and ABGs reviewed -patient be sedated with fentanyl and Versed infusion, maintain RASS of 0 to -2, daily sedation vacation -continue FiO2 of 40% and peep of 5 -patient is not fully awake for trial of his SBT, also volume overloaded, will diurese patient (3) Chronic combined systolic (congestive) and diastolic (congestive) heart failure: Code(s): I50.42 - Chronic combined systolic (congestive) and diastolic (congestive) heart failure Status: Chronic Assessment and Plan: 04/10/2020 showed severe LV enlargement, severe LV dysfunction, EF 20%, grade 2 diastolic dysfunction, mild pulmonary hypertension with RVSP of 39 mmHg, left atrial chamber severely enlarged -patient does take Lasix, [facility]ilol at the [facility] -will diurese patient now that she is off vasopressors (4) Generalized anxiety disorder: Code(s): F41.1 - Generalized anxiety disorder Status: Acute Assessment and Plan: Patient with generalized anxiety disorder will continue bupropion citalopram, gabapentin and risperidone (5) Pneumonia: Onset Date: ~07/13/20 Qualifiers: Laterality: unspecified laterality Lung location: unspecified part of lung Pneumonia type: due to unspecified organism Qualified Code(s): J18.9 - Pneumonia, unspecified organism Code(s): J18.9 - Pneumonia, unspecified organism Status: Acute Assessment and Plan: Chest x-ray shows pulmonary vascular congestion and infiltrates bilaterally right greater than left, could also be pneumonia -given elevated WBC count, acute hypercapnic respiratory failure -continue ceftriaxone -continue bronchodilators (6) Acute on chronic renal failure: Qualifiers: Acute renal failure type: unspecified Chronic kidney disease stage: stage 4 (severe) Qualified Code(s): N17.9 - Acute kidney failure, unspecified; N18.4 - Chronic kidney disease, stage 4 (severe) Code(s): N17.9 - Acute kidney failure, unspecified; N18.9 - Chronic kidney disease, unspecified Status: Acute Assessment and Plan: Patient history of stage 3 chronic kidney disease, -urine output has been adequate in response to diuresis, creatinine back to baseline -continue to monitor renal function, electrolytes and urine output (7) UTI (urinary tract infection): Qualifiers: Urinary tract infection type: site unspecified Hematuria presence: without hematuria Qualified Code(s): N39.0 - Urinary tract infection, site not specified Code(s): N39.0 - Urinary tract infection, site not specified Status: Acute Assessment and Plan: UA reflective of a UTI, Urine culture growing E coli, continue ceftriaxone (8) Paroxysmal atrial fibrillation: Code(s): I48.0 - Paroxysmal atrial fibrillation Status: Acute Assessment and Plan: Patient history of proximal AFib, patient has the AICD/pacemaker, currently paced rhythm, rate controlled, continue to monitor (9) Altered me
[2020-07-17] MEDS: FENTANYL 2,500MCG/NS250ML(*CRX 2,500 MCG/250 ML BAG IV CONT (17:59)
[2020-07-17 22:39] LABS: Glucose Point of Care 188 (65-105)
[2020-07-18] VITALS (24 sets, daily range): BP systolic 101–132; BP diastolic 57–79; PULSE 61–116; RESP 17–27; TEMP 36.1–36.9; O2SAT 92–98
[2020-07-18] MEDS: IPRATROPIUM BR 0.02% INH SOLN 0.5 MG/2.5 ML VIAL INHALATION ×4 (02:06→21:14)
[2020-07-18] MEDS: ALBUTEROL SULFATE NEB 2.5 MG/0.5 ML INH INHALATION ×4 (02:06→21:14)
[2020-07-18 03:01] LABS: Glucose Point of Care 155 (65-105)
[2020-07-18 04:47] LABS: Basophils Percent Auto 0.2 % (0.2-1.2); Hematocrit 28.1 % (37.0-47.0); Hemoglobin 9.7 g/dL (12.0-15.0); Immature Granulocyte Percent A 1.6 % (0-0.5); Lymphocytes Absolute Auto 0.62 K/mm3 (0.9-3.2); Mean Corpuscular HGB Conc 34.5 g/dl (32-36); Mean Corpuscular Hemoglobin 31.9 pg (26-34); Mean Corpuscular Volume 92.4 fl (80-100); Mean Platelet Volume 12.2 fl (7.4-10.4); Monocytes Absolute Auto 0.6 K/mm3 (0.1-0.6); Monocytes Percent Auto 4.7 % (2.6-8.5); Neutrophils Absolute Auto 10.9 K/mm3 (1.3-6.7); Neutrophils Percent Auto 88.5 % (45.5-73.1); Platelet Count Result 96 k/mm3 (150-375); Red Blood Count 3.04 M/mm3 (4.2-5.4); Red Cell Distribution Width 20.9 % (11.5-14.5); White Blood Count 12.3 K/mm3 (4.5-10.0)
[2020-07-18 04:59] LABS: Alanine Aminotransferase 31 U/L (4-35); Albumin Level 2.2 g/dL (3.5-5.1); Alkaline Phosphatase 107 U/L (38-126); Anion Gap 2 mmol/L (8-16); Aspartate Amino Transferase 22 U/L (14-36); Bilirubin,Total 0.5 mg/dL (0.2-1.3); Blood Urea Nitrogen 24 mg/dL (7-17); Calcium 7.8 mg/dL (8.4-10.2); Carbon Dioxide 36 mmol/L (22-30); Chloride 97 mmol/L (98-107); Estimated CRCL calculation 71 ml/min; Estimated Glomerular Filt Rate > 60; Glucose 179 mg/dL (65-105); Potassium 3.7 mmol/L (3.4-5.0); Sodium 135 mmol/L (137-145)
[2020-07-18] MEDS: GABAPENTIN 100 MG CAPSULE PO (05:02)
[2020-07-18] MEDS: LEVOTHYROXINE SODIUM 75 MCG TABLET PO (05:02)
[2020-07-18 05:33] LABS: Alveolar/Arterial O2 Gradient 167.7 mmHg; Base Excess ABG 6.2 mEq/l (+/-2.0); Fractional Inspired Oxygen 40 %; HCO3 ABG 29.7 mEq/l (22.0-26.0); Oxygen Content ABG 13.9 %vol (16.0-22.0); Oxygen Saturation ABG 95.9 % (95.0-100.0); Oxyhemoglobin 92.9 % THb (90.0-100.0); PCO2 ABG 38.4 mmHg (35.0-45.0); PO2 ABG 73.3 mmHg (80.0-100.0); PO2 FiO2 Ratio Arterial Blood 1.83 %; Total Hemoglobin 10.6 g/dL (12.0-18.0); pH ABG 7.506 (7.350-7.450)
[2020-07-18 05:34] LABS: Anisocytosis 1+ (NORMAL); Device VENTILATOR; Modified Allen's Test Pass; Platelet Estimate Decreased (Adequate); Site Drawn RIGHT RADIAL
[2020-07-18 05:36] LABS: Hypochromasia 1+ (NORMAL)
[2020-07-18 05:37] LABS: Arterial Blood Gas PEEP 5 cmH2O; Arterial Blood Gas Tidal Volume 350 ml; Arterial Blood Gas Vent Mode ASSIST CONTROL; Arterial Blood Gas Ventilator rate 20 /MIN
[2020-07-18] MEDS: CENTRAL LINE FLUSH 10 ML IV PUSH ×4 (07:10→21:56)
[2020-07-18] MEDS: ASCORBIC ACID 500 MG TABLET 1000 MG PO (07:44)
[2020-07-18] MEDS: buPROPion HCL XL (24 HR) 150 MG TABCR PO (07:45)
[2020-07-18] MEDS: CITALOPRAM HYDROBROMIDE 20 MG TABLET 40 MG PO (07:45)
[2020-07-18] MEDS: DEXAMETHASONE 4 MG TABLET PO (07:45)
[2020-07-18] MEDS: ATORVASTATIN 10 MG TABLET PO (07:45)
[2020-07-18] MEDS: THERAPEUTIC MULTIVITAMINS/MINERALS TAB (*BKC) 1 TABLET PO (07:46)
[2020-07-18] MEDS: risperiDONE 1 MG TABLET 2 MG PO (07:46)
[2020-07-18] MEDS: PANTOPRAZOLE SODIUM IV 40 MG VIAL IV PUSH (07:46)
[2020-07-18] MEDS: ZINC SULFATE 220 MG CAPSULE PO (07:47)
[2020-07-18 08:00] LABS: Glucose Point of Care 152 (65-105)
[2020-07-18] MEDS: FUROSEMIDE INJ 40 MG/4 ML VIAL IV PUSH (08:55)
--- NOTE | 2020-07-18 10:50 | PM.IMPN ---
Progress Note: A&P Assessment and Plan (1) Acute respiratory failure: Qualifiers: Respiratory failure complication: hypercapnia Qualified Code(s): J96.02 - Acute respiratory failure with hypercapnia Code(s): J96.00 - Acute respiratory failure, unspecified whether with hypoxia or hypercapnia Status: Acute Assessment and Plan: Acute on chronic respiratory failure thought secondary to congestive heart failure and/or pneumonia. COVID negative. Cultures as mentioned below. Continue broad-spectrum IV antibiotics. Vent management per hr receptionist. (2) Severe sepsis: Code(s): A41.9 - Sepsis, unspecified organism; R65.20 - Severe sepsis without septic shock Status: Resolved Assessment and Plan: Severe sepsis with shock seen with leukocytosis, tachypnea and tachycardia. Afebrile. Lactic acid normal. UCx growing E coli. BCx 2/2 growing coag-negative staph but unclear if contaminant or true infection. On ceftriaxone and vancomycin. Repeat blood cultures NGTD. Echo does not show any obvious vegetations. Able to be weaned off Levophed 07/16. Not sure why she is on dexamethasone at this time but appears that was on her home med list. Continue the same. Wean steroids later as BP tolerates. (3) Acute on chronic systolic and diastolic heart failure, NYHA class 4: Code(s): I50.43 - Acute on chronic combined systolic (congestive) and diastolic (congestive) heart failure Status: Acute Assessment and Plan: Probable some component of acute on chronic combined systolic and diastolic heart failure. Echo with EF 25% in grade 1 diastolic dysfunction with wall motion abnormalities. BNP 4000. +fluid balance (+10.9L) but appears less edematous. CXR showing no significant change today. Continue intermittent Lasix IV as BP tolerates. Watch BP closely. Agree with limiting fluids. (4) Altered mental status: Qualifiers: Altered mental status type: unspecified Qualified Code(s): R41.82 - Altered mental status, unspecified Code(s): R41.82 - Altered mental status, unspecified Status: Acute Assessment and Plan: Head CT showing no acute intracranial findings. Her altered mental status was secondary to hypercapnia and sepsis. Further evaluation once she is off sedation if needed. (5) Thrombocytopenia: Code(s): D69.6 - Thrombocytopenia, unspecified Status: Acute Assessment and Plan: Mild thrombocytopenia which has been present intermittently in the past. B12 normal. Platelet count better today at 96K. Continue to monitor closely. Lovenox on hold for now but will restart. (6) Chronic kidney disease, stage 3: Qualifiers: Chronic kidney disease stage 3 subtype: unspecified whether 3a or 3b Qualified Code(s): N18.30 - Chronic kidney disease, stage 3 unspecified Code(s): N18.3 - Chronic kidney disease, stage 3 (moderate) Status: Chronic Assessment and Plan: Creatinine 1.2 on admission and has become normal. Related to above. Continue to monitor closely. (7) UTI (urinary tract infection): Qualifiers: Hematuria presence: without hematuria Urinary tract infection type: site unspecified Qualified Code(s): N39.0 - Urinary tract infection, site not specified Code(s): N39.0 - Urinary tract infection, site not specified Status: Acute Assessment and Plan: UA noted. Urine culture growing Ecoli sensitive to ceftriaxone. Contnue the same. (8) Pneumonia: Onset Date: ~07/13/20 Qualifiers: Laterality: unspecified laterality Lung location: unspecified part of lung Pneumonia type: due to unspecified organism Qualified Code(s): J18.9 - Pneumonia, unspecified organism Code(s): J18.9 - Pneumonia, unspecified organism Status: Acute Assessment and Plan: Possible pneumonia on chest x-ray. No history of cough or fever. BC
--- NOTE | 2020-07-18 11:37 | PCDIET ---
Nutrition Follow-Up Complete: Nutrition Diagnosis: Inadequate oral intake related to oral intubation as evidenced by NPO status. Nutrition Goal: Patient to meet estimated nutritional needs. Goal met. Continue goal. Last recorded weight is 120kg, up from 107.9 kg two days ago. +298 I/O Question wt accuracy due to large jump Bowel Motility: No documented BM. Labs Reviewed: Hgb (9.7), Hct (28.1), Glu (179), Na 135, BUN 24 Meds Noted: Vitamin C, Dexamethasone, Fentanyl, Synthroid, Versed, MVI, Levophed, Protonix, Zinc Sulfate, Dexamethasone Additional Notes: At goal of vital 1.2 at 50ml/hr, providing 1320kcals. Well tolerated. Off sedation at this time. Breathing trial planned with possible extubation. Recommend heart healthy diet if appropriate and extubation successful. Nutrition Monitoring and Evaluation: Reassessment every Tuesday/Tuesday.
[2020-07-18 13:15] LABS: Alveolar/Arterial O2 Gradient 179.7 mmHg; Carboxyhemoglobin 0.1 % THb (0-2.0); Fractional Inspired Oxygen 40 %; HCO3 ABG 31.3 mEq/l (22.0-26.0); Methemoglobin ABG 0.3 %THb (0-1.5); Oxygen Content ABG 14.1 %vol (16.0-22.0); Oxygen Saturation ABG 93.8 % (95.0-100.0); Oxyhemoglobin 91.8 % THb (90.0-100.0); PCO2 ABG 38.5 mmHg (35.0-45.0); PO2 ABG 61.2 mmHg (80.0-100.0); PO2 FiO2 Ratio Arterial Blood 1.53 %; Reduced Hemoglobin 7.8 %THb (0-5.0); Total Hemoglobin 10.9 g/dL (12.0-18.0)
[2020-07-18 13:16] LABS: Device VENTILATOR; Modified Allen's Test Unable to perform; Site Drawn LEFT RADIAL; pH ABG 7.528 (7.350-7.450)
[2020-07-18 13:18] LABS: Arterial Blood Gas PEEP 5 cmH2O; Arterial Blood Gas Tidal Volume 350 ml; Arterial Blood Gas Vent Mode ASSIST CONTROL; Arterial Blood Gas Ventilator rate 20 /MIN
--- NOTE | 2020-07-18 14:05 | WPDINTPN ---
Progress Note: A&P Assessment and Plan (1) Septic shock: Code(s): A41.9 - Sepsis, unspecified organism; R65.21 - Severe sepsis with septic shock Status: Acute Assessment and Plan: Resolved Patient with presented with leukocytosis, hypotension, acute respiratory failure, UTI, CHF, pneumonia -OFF LEVOPHED 07/16 -repeat blood cultures from 07/15/2020 1-x2, -blood cultures growing coag-negative staph 2/2, -urine culture grew E coli, susceptible to ceftriaxone -continue ceftriaxone (2) Acute respiratory failure: Qualifiers: Respiratory failure complication: hypercapnia Qualified Code(s): J96.02 - Acute respiratory failure with hypercapnia Code(s): J96.00 - Acute respiratory failure, unspecified whether with hypoxia or hypercapnia Status: Acute Assessment and Plan: Acute hypercapnic respiratory failure. Likely related to congestive heart failure, pneumonia -chest x-ray and ABGs reviewed -patient on 40% FiO2, peep of 5 on CMV mode of ventilation -discontinue all sedation will place patient on SBT and evaluate for extubation -will repeat paresis today (3) Chronic combined systolic (congestive) and diastolic (congestive) heart failure: Code(s): I50.42 - Chronic combined systolic (congestive) and diastolic (congestive) heart failure Status: Chronic Assessment and Plan: 04/10/2020 showed severe LV enlargement, severe LV dysfunction, EF 20%, grade 2 diastolic dysfunction, mild pulmonary hypertension with RVSP of 39 mmHg, left atrial chamber severely enlarged -patient does take Lasix, [facility]ol [facility] the [facility] -continue diuresis (4) Generalized anxiety disorder: Code(s): F41.1 - Generalized anxiety disorder Status: Acute Assessment and Plan: Patient with generalized anxiety disorder will continue bupropion citalopram, gabapentin and risperidone (5) Pneumonia: Onset Date: ~07/13/20 Qualifiers: Laterality: unspecified laterality Lung location: unspecified part of lung Pneumonia type: due to unspecified organism Qualified Code(s): J18.9 - Pneumonia, unspecified organism Code(s): J18.9 - Pneumonia, unspecified organism Status: Acute Assessment and Plan: Chest x-ray shows pulmonary vascular congestion and infiltrates bilaterally right greater than left, could also be pneumonia -given elevated WBC count, acute hypercapnic respiratory failure -continue ceftriaxone -continue bronchodilators (6) Acute on chronic renal failure: Qualifiers: Acute renal failure type: unspecified Chronic kidney disease stage: stage 4 (severe) Qualified Code(s): N17.9 - Acute kidney failure, unspecified; N18.4 - Chronic kidney disease, stage 4 (severe) Code(s): N17.9 - Acute kidney failure, unspecified; N18.9 - Chronic kidney disease, unspecified Status: Acute Assessment and Plan: Patient history of stage 3 chronic kidney disease, -urine output has been adequate in response to diuresis, creatinine back to baseline -continue to monitor renal function, electrolytes and urine output (7) UTI (urinary tract infection): Qualifiers: Urinary tract infection type: site unspecified Hematuria presence: without hematuria Qualified Code(s): N39.0 - Urinary tract infection, site not specified Code(s): N39.0 - Urinary tract infection, site not specified Status: Acute Assessment and Plan: UA reflective of a UTI, Urine culture growing E coli, continue ceftriaxone (8) Paroxysmal atrial fibrillation: Code(s): I48.0 - Paroxysmal atrial fibrillation Status: Acute Assessment and Plan: Patient history of proximal AFib, patient has the AICD/pacemaker, currently paced rhythm, rate controlled, continue to monitor (9) Altered mental status: Qualifiers: Altered mental status type: unspecified Qualified Code(s): R41.82 - Altered mental status, unspecified Code
--- NOTE | 2020-07-18 15:51 | PC.NURSE ---
Pt. extubated per Dr. Hope. Subsequently placed on bipap 12/5 per his order. See respiratory documentation for more detail
[2020-07-18 17:34] LABS: Glucose Point of Care 158 (65-105)
[2020-07-18 17:34] LABS: Glucose Point of Care 209 (65-105)
[2020-07-18 22:03] LABS: Glucose Point of Care 118 (65-105)
[2020-07-19] VITALS (26 sets, daily range): BP systolic 97–120; BP diastolic 49–77; PULSE 70–129; RESP 14–24; TEMP 36.1–37.3; O2SAT 90–98
[2020-07-19 01:59] LABS: Glucose Point of Care 89 (65-105)
[2020-07-19] MEDS: ALBUTEROL SULFATE NEB 2.5 MG/0.5 ML INH INHALATION ×4 (02:57→21:59)
[2020-07-19] MEDS: IPRATROPIUM BR 0.02% INH SOLN 0.5 MG/2.5 ML VIAL INHALATION ×4 (02:57→22:00)
[2020-07-19 05:15] LABS: Alveolar/Arterial O2 Gradient 175.7 mmHg; Base Excess ABG 12.2 mEq/l (+/-2.0); Fractional Inspired Oxygen 40 %; HCO3 ABG 38.5 mEq/l (22.0-26.0); Oxygen Content ABG 11.2 %vol (16.0-22.0); Oxyhemoglobin 75.2 % THb (90.0-100.0); PO2 FiO2 Ratio Arterial Blood 1.01 %; Total Hemoglobin 10.6 g/dL (12.0-18.0); pH ABG 7.424 (7.350-7.450)
[2020-07-19 05:16] LABS: PCO2 ABG 60.2 mmHg (35.0-45.0)
[2020-07-19 05:17] LABS: Device NON-INVASIVE VENT; Modified Allen's Test Pass; Oxygen Saturation ABG 74.9 % (95.0-100.0); PO2 ABG 40.3 mmHg (80.0-100.0); Site Drawn LEFT RADIAL
[2020-07-19 05:18] LABS: Non-Invasive Expiratory Pressure 5 CMH2O; Non-Invasive Inspiratory Pressure 10 CMH2O; Non-Invasive Vent Rate 16 /MIN
[2020-07-19] MEDS: CENTRAL LINE FLUSH 10 ML IV PUSH ×4 (06:37→21:52)
[2020-07-19 06:48] LABS: Base Excess ABG 6.8 mEq/l (+/-2.0); Fractional Inspired Oxygen 40 %; HCO3 ABG 32.1 mEq/l (22.0-26.0); Oxygen Content ABG 16.7 %vol (16.0-22.0); Oxygen Saturation ABG 95.5 % (95.0-100.0); Oxyhemoglobin 92.8 % THb (90.0-100.0); PCO2 ABG 48.3 mmHg (35.0-45.0); PO2 ABG 75.7 mmHg (80.0-100.0); PO2 FiO2 Ratio Arterial Blood 1.89 %; Total Hemoglobin 12.8 g/dL (12.0-18.0)
[2020-07-19 06:49] LABS: Device BIPAP; Modified Allen's Test Pass; Site Drawn RIGHT RADIAL
[2020-07-19 06:50] LABS: Expiratory Pressure 5 cmH2O; Inspiratory Pressure 10 cmH2O
[2020-07-19 07:19] LABS: Basophils Percent Auto 0.3 % (0.2-1.2); Eosinophils Absolute Auto 0.1 K/mm3 (0-0.3); Eosinophils Percent Auto 0.3 % (0-4.4); Hematocrit 29.3 % (37.0-47.0); Hemoglobin 9.9 g/dL (12.0-15.0); Immature Granulocyte Absolute 0.22 K/mm3 (0.00-0.031); Immature Granulocyte Percent A 1.4 % (0-0.5); Immature Platelet Fraction Pct 9.2 % (0.9-11.2); Lymphocytes Absolute Auto 0.92 K/mm3 (0.9-3.2); Mean Corpuscular HGB Conc 33.8 g/dl (32-36); Mean Corpuscular Hemoglobin 31.7 pg (26-34); Mean Corpuscular Volume 93.9 fl (80-100); Mean Platelet Volume 11.2 fl (7.4-10.4); Monocytes Absolute Auto 0.5 K/mm3 (0.1-0.6); Monocytes Percent Auto 3.3 % (2.6-8.5); Neutrophils Absolute Auto 13.5 K/mm3 (1.3-6.7); Neutrophils Percent Auto 88.7 % (45.5-73.1); Nucleated Red Blood Cells Perc 0.2 % (0.0-0.2); Platelet Count Result 111 k/mm3 (150-375); Red Blood Count 3.12 M/mm3 (4.2-5.4); White Blood Count 15.2 K/mm3 (4.5-10.0)
--- NOTE | 2020-07-19 08:20 | PM.IMPN ---
Progress Note: A&P Assessment and Plan (1) Acute respiratory failure: Qualifiers: Respiratory failure complication: hypercapnia Qualified Code(s): J96.02 - Acute respiratory failure with hypercapnia Code(s): J96.00 - Acute respiratory failure, unspecified whether with hypoxia or hypercapnia Status: Acute Assessment and Plan: Acute on chronic respiratory failure thought secondary to congestive heart failure and/or pneumonia. COVID negative. Cultures as mentioned below. Continue Vanco and Rocephin Day 7. Wean off BiPAP as toelrated. (2) Severe sepsis: Code(s): A41.9 - Sepsis, unspecified organism; R65.20 - Severe sepsis without septic shock Status: Resolved Assessment and Plan: Severe sepsis with shock seen with leukocytosis, tachypnea and tachycardia. Afebrile. Lactic acid normal. UCx growing E coli. BCx 2/2 growing coag-negative staph but unclear if contaminant or true infection. On ceftriaxone and vancomycin Day 7. Repeat blood cultures NGTD. Echo does not show any obvious vegetations. Able to be weaned off Levophed 07/16. Not sure why she is on dexamethasone at this time but appears that was on her home med list. Continue the same. Wean steroids later as BP tolerates. (3) Acute on chronic systolic and diastolic heart failure, NYHA class 4: Code(s): I50.43 - Acute on chronic combined systolic (congestive) and diastolic (congestive) heart failure Status: Acute Assessment and Plan: Probable some component of acute on chronic combined systolic and diastolic heart failure. Echo with EF 25% in grade 1 diastolic dysfunction with wall motion abnormalities. BNP 4000. +fluid balance (+8L now) and appears less edematous. Continue intermittent Lasix IV as BP tolerates. Coreg on hold at this time. Watch BP closely. (4) Pneumonia: Onset Date: ~07/13/20 Qualifiers: Laterality: unspecified laterality Lung location: unspecified part of lung Pneumonia type: due to unspecified organism Qualified Code(s): J18.9 - Pneumonia, unspecified organism Code(s): J18.9 - Pneumonia, unspecified organism Status: Acute Assessment and Plan: Suspect pneumonia on chest x-ray. No history of cough or fever. BCx positive but unclear if true infection. Repeat BCx NGTD. Continue Rocephin and Vancomycin Day 7. (5) Altered mental status: Qualifiers: Altered mental status type: unspecified Qualified Code(s): R41.82 - Altered mental status, unspecified Code(s): R41.82 - Altered mental status, unspecified Status: Acute Assessment and Plan: Head CT showing no acute intracranial findings. Her altered mental status was secondary to hypercapnia and sepsis. Mental status improved and probably close to baseline but will monitor as she improves (6) Thrombocytopenia: Code(s): D69.6 - Thrombocytopenia, unspecified Status: Acute Assessment and Plan: Mild thrombocytopenia which has been present intermittently in the past. B12 normal. Platelet count better today at 111K. Continue to monitor closely. (7) Chronic kidney disease, stage 3: Qualifiers: Chronic kidney disease stage 3 subtype: unspecified whether 3a or 3b Qualified Code(s): N18.30 - Chronic kidney disease, stage 3 unspecified Code(s): N18.3 - Chronic kidney disease, stage 3 (moderate) Status: Chronic Assessment and Plan: Creatinine 1.2 on admission and has become normal. Related to above. Continue to monitor closely. (8) UTI (urinary tract infection): Qualifiers: Hematuria presence: without hematuria Urinary tract infection type: site unspecified Qualified Code(s): N39.0 - Urinary tract infection, site not specified Code(s): N39.0 - Urinary tract infection, site not specified Status: Acute Assessment and Plan: UA noted. Urine culture growing Ecoli se
[2020-07-19 08:58] LABS: Albumin Level 2.3 g/dL (3.5-5.1); Anion Gap -1.00001 mmol/L (8-16); Blood Urea Nitrogen 22 mg/dL (7-17); CRP 3.4 mg/dL (<1.0); Calcium 8.1 mg/dL (8.4-10.2); Carbon Dioxide > 40 mmol/L (22-30); Chloride 95 mmol/L (98-107); Estimated CRCL calculation 75 ml/min; Estimated Glomerular Filt Rate > 60; Glucose 67 mg/dL (65-105); Phosphorus 2.8 mg/dL (2.5-4.5); Potassium 3.4 mmol/L (3.4-5.0); Sodium 134 mmol/L (137-145)
[2020-07-19 09:03] LABS: Glucose Point of Care 63 (65-105)
[2020-07-19] MEDS: ENOXAPARIN 40 MG/0.4 ML SYRINGE SUB-Q (09:56)
[2020-07-19] MEDS: PANTOPRAZOLE SODIUM IV 40 MG VIAL IV PUSH (09:56)
--- NOTE | 2020-07-19 11:05 | PCSTNOTE ---
Bedside swallow evaluation complete. Please see ST evaluation for details and recommendations.
[2020-07-19 11:14] LABS: Glucose Point of Care 74 (65-105)
--- NOTE | 2020-07-19 13:06 | WPDINTPN ---
Progress Note: A&P Assessment and Plan (1) Septic shock: Code(s): A41.9 - Sepsis, unspecified organism; R65.21 - Severe sepsis with septic shock Status: Acute Assessment and Plan: Patient with presented with leukocytosis, hypotension, acute respiratory failure, UTI, CHF, pneumonia -overnight required right IJ central line insertion and was on Levophed until 07/16/2020 -blood cultures growing coag-negative staph 2/2, repeat blood cultures pending -urine culture grew E coli, susceptible to ceftriaxone -blood cultures grow coag-negative staph 2 of 2 with repeat cultures 07/15/2020 with 1 of 2 (2) Acute respiratory failure with hypercapnia: Code(s): J96.02 - Acute respiratory failure with hypercapnia Status: Acute Assessment and Plan: Acute hypercapnic respiratory failure. Likely related to congestive heart failure, pneumonia -chest x-ray and ABGs reviewed -extubated 07/18/2020. Currently has been weaned from BiPAP to 5 L nasal cannula. -Respiratory status is stable. Will downgrade to IMU. (3) Chronic combined systolic (congestive) and diastolic (congestive) heart failure: Code(s): I50.42 - Chronic combined systolic (congestive) and diastolic (congestive) heart failure Status: Chronic Assessment and Plan: 04/10/2020 showed severe LV enlargement, severe LV dysfunction, EF 20%, grade 2 diastolic dysfunction, mild pulmonary hypertension with RVSP of 39 mmHg, left atrial chamber severely enlarged -the patient's home beta-kahlil and AR-inhibitor and diuretic have been on hold. -Patient is 10 L positive since admission. Will discontinue additional IV fluids and give IV Lasix x1. (4) Generalized anxiety disorder: Code(s): F41.1 - Generalized anxiety disorder Status: Acute Assessment and Plan: Patient with generalized anxiety disorder will continue bupropion citalopram, gabapentin and risperidone. The patient has been screened by speech therapy. Will resume medications by mouth. (5) Thrombocytopenia: Code(s): D69.6 - Thrombocytopenia, unspecified Status: Acute Assessment and Plan: Thrombocytopenia has improved back to baseline. Hemoglobin has remained stable. (6) UTI (urinary tract infection): Qualifiers: Urinary tract infection type: site unspecified Hematuria presence: without hematuria Qualified Code(s): N39.0 - Urinary tract infection, site not specified Code(s): N39.0 - Urinary tract infection, site not specified Status: Acute Assessment and Plan: Grew E coli sensitive to Rocephin. Antibiotic therapy initiated on admission 07/13/2020 (7) Hyperglycemia: Code(s): R73.9 - Hyperglycemia, unspecified Status: Acute Assessment and Plan: . The patient's home med rec indicates that she is on Decadron at home. However no record of this is found in external med history. I suspect this may have been started at the custodial when the patient was suspected to have possible COVID. However testing and negative for COVID. Will decrease Decadron to 2 mg b.i.d. Hyperglycemia has resolved. Continue moderate dose sliding scale insulin q.6 hours with hypoglycemia protocol Speech therapy as recommended. Pureed diet with mildly thickened liquids. Subjective Date/time seen: 07/19/20 13:06 Patient was extubated 07/18/2020. She did well on BiPAP overnight. She has not been transition to 5 L nasal cannula. She reports that she feels cold. Review of Systems Review of Systems: All systems reviewed & are unremarkable except as noted in HPI and below (HPI) Exam Narrative: Exam Narrative: PHYSICAL EXAM: WEIGHT 107.9 kg BMI 43.5 General: Elderly, morbidly obese HEENT: Large neck circumference, right IJ in place Respiratory: Coarse breath sounds bilaterally, normal rate Cardiovascular: Regular rhythm, telemetry demonstrates paced rhythm, 1+ bilateral radial pulses Gastrointestina
[2020-07-19] MEDS: GABAPENTIN 100 MG CAPSULE PO ×2 (14:47→21:52)
--- NOTE | 2020-07-19 14:56 | PC.NURSE ---
Pt transferred to IMU rm 203 report given to Bobbi HERNANDEZ.
[2020-07-19] MEDS: DEXAMETHASONE 2 MG TABLET PO (16:28)
[2020-07-19 18:06] LABS: Glucose Point of Care 102 (65-105)
[2020-07-19] MEDS: carvediloL 6.25 MG TABLET PO (21:50)
[2020-07-19] MEDS: risperiDONE 1 MG TABLET 2 MG PO (21:51)
[2020-07-19] MEDS: LORazepam (*CRX) 0.5 MG TABLET PO (23:20)
[2020-07-20] VITALS (21 sets, daily range): BP systolic 86–123; BP diastolic 36–92; PULSE 73–118; RESP 18–24; TEMP 35.7–36.8; O2SAT 93–99
[2020-07-20 00:11] LABS: Glucose Point of Care 147 (65-105)
[2020-07-20 02:57] LABS: Vancomycin Trough 9.1 ug/mL (10.0-20.0)
[2020-07-20] MEDS: GABAPENTIN 100 MG CAPSULE PO ×3 (05:55→22:34)
[2020-07-20] MEDS: LEVOTHYROXINE SODIUM 75 MCG TABLET PO (05:55)
[2020-07-20] MEDS: CENTRAL LINE FLUSH 10 ML IV PUSH ×2 (06:02→12:59)
[2020-07-20 07:54] LABS: Glucose Point of Care 93 (65-105)
[2020-07-20] MEDS: ASCORBIC ACID 500 MG TABLET 1000 MG PO (10:18)
[2020-07-20] MEDS: ATORVASTATIN 10 MG TABLET PO (10:19)
[2020-07-20] MEDS: buPROPion HCL XL (24 HR) 150 MG TABCR PO (10:20)
[2020-07-20] MEDS: IPRATROPIUM BR 0.02% INH SOLN 0.5 MG/2.5 ML VIAL INHALATION ×2 (10:20→21:01)
[2020-07-20] MEDS: ALBUTEROL SULFATE NEB 2.5 MG/0.5 ML INH INHALATION ×2 (10:20→21:00)
[2020-07-20] MEDS: carvediloL 6.25 MG TABLET PO ×2 (10:22→22:34)
[2020-07-20] MEDS: CITALOPRAM HYDROBROMIDE 20 MG TABLET 40 MG PO (10:23)
[2020-07-20] MEDS: ENOXAPARIN 40 MG/0.4 ML SYRINGE SUB-Q (10:23)
[2020-07-20] MEDS: DEXAMETHASONE 2 MG TABLET PO ×2 (10:23→18:52)
[2020-07-20] MEDS: ZINC SULFATE 220 MG CAPSULE PO (10:24)
[2020-07-20] MEDS: risperiDONE 1 MG TABLET 2 MG PO ×2 (10:24→22:34)
[2020-07-20] MEDS: THERAPEUTIC MULTIVITAMINS/MINERALS TAB (*BKC) 1 TABLET PO (10:24)
[2020-07-20] MEDS: PANTOPRAZOLE SODIUM IV 40 MG VIAL IV PUSH (10:24)
[2020-07-20 12:41] LABS: Glucose Point of Care 115 (65-105)
--- NOTE | 2020-07-20 15:21 | PM.IMPN ---
Progress Note: A&P Assessment and Plan (1) Acute respiratory failure: Qualifiers: Respiratory failure complication: hypercapnia Qualified Code(s): J96.02 - Acute respiratory failure with hypercapnia Code(s): J96.00 - Acute respiratory failure, unspecified whether with hypoxia or hypercapnia Status: Acute Assessment and Plan: Acute on chronic respiratory failure thought secondary to congestive heart failure and/or pneumonia. COVID negative. Cultures as mentioned below. Continue Vanco and Rocephin. Wean o2 as toerlated. (2) Severe sepsis: Code(s): A41.9 - Sepsis, unspecified organism; R65.20 - Severe sepsis without septic shock Status: Resolved Assessment and Plan: Severe sepsis with shock seen with leukocytosis, tachypnea and tachycardia. Afebrile. Lactic acid normal. UCx growing E coli. BCx 2/2 growing coag-negative staph but unclear if contaminant or true infection. On ceftriaxone and vancomycin Day 8. Repeat blood cultures NGTD. Echo does not show any obvious vegetations. Able to be weaned off Levophed 07/16. Not sure why she is on dexamethasone at this time but appears that was on her home med list. Weaning steroids as BP tolerates. (3) Acute on chronic systolic and diastolic heart failure, NYHA class 4: Code(s): I50.43 - Acute on chronic combined systolic (congestive) and diastolic (congestive) heart failure Status: Acute Assessment and Plan: Probable some component of acute on chronic combined systolic and diastolic heart failure. Echo with EF 25% in grade 1 diastolic dysfunction with wall motion abnormalities. BNP 4000. +fluid balance (+6.5L now) and appears less edematous. Continue intermittent Lasix IV as BP tolerates. Coreg able to be resumed. Watch BP closely. Resume Lasix when able (4) Pneumonia: Onset Date: ~07/13/20 Qualifiers: Laterality: unspecified laterality Lung location: unspecified part of lung Pneumonia type: due to unspecified organism Qualified Code(s): J18.9 - Pneumonia, unspecified organism Code(s): J18.9 - Pneumonia, unspecified organism Status: Acute Assessment and Plan: Suspect pneumonia on chest x-ray. No history of cough or fever. BCx positive but unclear if true infection. Repeat BCx NGTD. Continue Rocephin and Vancomycin Day 8. (5) Altered mental status: Qualifiers: Altered mental status type: unspecified Qualified Code(s): R41.82 - Altered mental status, unspecified Code(s): R41.82 - Altered mental status, unspecified Status: Acute Assessment and Plan: Head CT showing no acute intracranial findings. Her altered mental status was secondary to hypercapnia and sepsis. Mental status improved and probably close to baseline but will monitor as she improves (6) Thrombocytopenia: Code(s): D69.6 - Thrombocytopenia, unspecified Status: Acute Assessment and Plan: Mild thrombocytopenia which has been present intermittently in the past. B12 normal. Platelet count better yesterday at 111K. Continue to monitor. (7) Chronic kidney disease, stage 3: Qualifiers: Chronic kidney disease stage 3 subtype: unspecified whether 3a or 3b Qualified Code(s): N18.30 - Chronic kidney disease, stage 3 unspecified Code(s): N18.3 - Chronic kidney disease, stage 3 (moderate) Status: Chronic Assessment and Plan: Creatinine 1.2 on admission and has become normal. Related to above. Continue to monitor. (8) UTI (urinary tract infection): Qualifiers: Hematuria presence: without hematuria Urinary tract infection type: site unspecified Qualified Code(s): N39.0 - Urinary tract infection, site not specified Code(s): N39.0 - Urinary tract infection, site not specified Status: Acute Assessment and Plan: UA noted. Urine culture growing Ecoli sensitive to ceftriaxone. Co
--- NOTE | 2020-07-20 16:51 | PCRCNOTE ---
Window of time for administration has passed. See next scheduled administration.
[2020-07-20 17:37] LABS: Glucose Point of Care 185 (65-105)
[2020-07-20] MEDS: MELATONIN 5 MG TABLET 10 MG PO (22:34)
[2020-07-20] MEDS: LORazepam (*CRX) 0.5 MG TABLET PO (22:35)
[2020-07-21] VITALS (18 sets, daily range): BP systolic 103–134; BP diastolic 54–87; PULSE 63–125; RESP 20–26; TEMP 35.7–36.6; O2SAT 92–100; BMI 10.0
[2020-07-21 00:03] LABS: Glucose Point of Care 191 (65-105)
[2020-07-21] MEDS: ALBUTEROL SULFATE NEB 2.5 MG/0.5 ML INH INHALATION ×3 (04:08→14:10)
[2020-07-21] MEDS: IPRATROPIUM BR 0.02% INH SOLN 0.5 MG/2.5 ML VIAL INHALATION ×3 (04:08→14:20)
[2020-07-21 04:34] LABS: Basophils Percent Auto 0.1 % (0.2-1.2); Eosinophils Percent Auto 0.1 % (0-4.4); Hematocrit 29.7 % (37.0-47.0); Hemoglobin 9.7 g/dL (12.0-15.0); Immature Granulocyte Absolute 0.09 K/mm3 (0.00-0.031); Immature Granulocyte Percent A 0.9 % (0-0.5); Immature Platelet Fraction Pct 13.1 % (0.9-11.2); Lymphocytes Absolute Auto 0.39 K/mm3 (0.9-3.2); Lymphocytes Percent Auto 3.7 % (18.3-44.2); Mean Corpuscular HGB Conc 32.7 g/dl (32-36); Mean Corpuscular Hemoglobin 32.1 pg (26-34); Mean Corpuscular Volume 98.3 fl (80-100); Monocytes Absolute Auto 0.2 K/mm3 (0.1-0.6); Neutrophils Absolute Auto 9.7 K/mm3 (1.3-6.7); Neutrophils Percent Auto 93.2 % (45.5-73.1); Platelet Count Result 102 k/mm3 (150-375); Red Blood Count 3.02 M/mm3 (4.2-5.4); Red Cell Distribution Width 20.5 % (11.5-14.5); White Blood Count 10.4 K/mm3 (4.5-10.0)
[2020-07-21] MEDS: GABAPENTIN 100 MG CAPSULE PO ×3 (06:27→22:27)
[2020-07-21] MEDS: LEVOTHYROXINE SODIUM 75 MCG TABLET PO (06:28)
[2020-07-21 09:12] LABS: Alanine Aminotransferase 28 U/L (4-35); Albumin Level 2.2 g/dL (3.5-5.1); Alkaline Phosphatase 87 U/L (38-126); Anion Gap -1 mmol/L (8-16); Aspartate Amino Transferase 21 U/L (14-36); Bilirubin,Total 0.5 mg/dL (0.2-1.3); Blood Urea Nitrogen 16 mg/dL (7-17); Calcium 8.3 mg/dL (8.4-10.2); Carbon Dioxide 35 mmol/L (22-30); Chloride 103 mmol/L (98-107); Estimated CRCL calculation 97 ml/min; Estimated Glomerular Filt Rate > 60; Glucose 141 mg/dL (65-105); Magnesium 2.2 mg/dL (1.6-2.3); Phosphorus 3.9 mg/dL (2.5-4.5); Sodium 137 mmol/L (137-145)
[2020-07-21] MEDS: buPROPion HCL XL (24 HR) 150 MG TABCR PO (09:16)
[2020-07-21] MEDS: THERAPEUTIC MULTIVITAMINS/MINERALS TAB (*BKC) 1 TABLET PO (09:16)
[2020-07-21] MEDS: risperiDONE 1 MG TABLET 2 MG PO ×2 (09:16→22:27)
[2020-07-21] MEDS: ZINC SULFATE 220 MG CAPSULE PO (09:16)
[2020-07-21] MEDS: carvediloL 6.25 MG TABLET PO ×2 (09:16→22:27)
[2020-07-21] MEDS: CITALOPRAM HYDROBROMIDE 20 MG TABLET 40 MG PO (09:16)
[2020-07-21] MEDS: DEXAMETHASONE 2 MG TABLET PO (09:16)
[2020-07-21] MEDS: ASCORBIC ACID 500 MG TABLET 1000 MG PO (09:16)
[2020-07-21] MEDS: PANTOPRAZOLE SODIUM IV 40 MG VIAL IV PUSH (09:17)
[2020-07-21] MEDS: ATORVASTATIN 10 MG TABLET PO (09:17)
[2020-07-21] MEDS: ENOXAPARIN 40 MG/0.4 ML SYRINGE SUB-Q (09:34)
--- NOTE | 2020-07-21 11:53 | PM.IMPN ---
Progress Note: A&P Assessment and Plan (1) Acute respiratory failure: Qualifiers: Respiratory failure complication: hypercapnia Qualified Code(s): J96.02 - Acute respiratory failure with hypercapnia Code(s): J96.00 - Acute respiratory failure, unspecified whether with hypoxia or hypercapnia Status: Acute Assessment and Plan: Pt found on rounds at rehab to be unresponsive with her O2 off. Intubated in ED. Acute on chronic respiratory failure thought secondary to congestive heart failure and/or pneumonia. COVID negative. Cultures as mentioned below. Continue Vanco and Rocephin. Wean O2 as tolerated. Left message with POA. (2) Severe sepsis: Code(s): A41.9 - Sepsis, unspecified organism; R65.20 - Severe sepsis without septic shock Status: Resolved Assessment and Plan: Severe sepsis with shock seen with leukocytosis, tachypnea and tachycardia. Afebrile. Lactic acid normal. UCx growing E coli. BCx 2/2 growing coag-negative staph but unclear if contaminant or true infection. On ceftriaxone and vancomycin Day 9. Repeat blood cultures NGTD. Echo does not show any obvious vegetations. Able to be weaned off Levophed 07/16. Not sure why she is on dexamethasone at this time but appears that was on her home med list. Weaning steroids as BP tolerates. (3) Acute on chronic systolic and diastolic heart failure, NYHA class 4: Code(s): I50.43 - Acute on chronic combined systolic (congestive) and diastolic (congestive) heart failure Status: Acute Assessment and Plan: Probable some component of acute on chronic combined systolic and diastolic heart failure. Echo with EF 25% in grade 1 diastolic dysfunction with wall motion abnormalities. BNP 4000. +fluid balance (+6.2L now) and appears less edematous. Continue intermittent Lasix IV as BP tolerates. Coreg able to be resumed. Watch BP closely. Resume Lasix at low dose. (4) Pneumonia: Onset Date: ~07/13/20 Qualifiers: Laterality: unspecified laterality Lung location: unspecified part of lung Pneumonia type: due to unspecified organism Qualified Code(s): J18.9 - Pneumonia, unspecified organism Code(s): J18.9 - Pneumonia, unspecified organism Status: Acute Assessment and Plan: Suspect pneumonia on chest x-ray. No history of cough or fever. BCx positive but unclear if true infection. Repeat BCx NGTD. Continue Rocephin and Vancomycin Day 9. Speech therpay has seen the patient and recommends a MBS which will order today. (5) Altered mental status: Qualifiers: Altered mental status type: unspecified Qualified Code(s): R41.82 - Altered mental status, unspecified Code(s): R41.82 - Altered mental status, unspecified Status: Acute Assessment and Plan: Head CT showing no acute intracranial findings. Her altered mental status was secondary to hypercapnia and sepsis. Mental status improved and probably close to baseline but will monitor as she improves. Start PT/OT (6) Thrombocytopenia: Code(s): D69.6 - Thrombocytopenia, unspecified Status: Acute Assessment and Plan: Mild thrombocytopenia which has been present intermittently in the past. B12 normal. Platelet count better overall. Continue to monitor. (7) Chronic kidney disease, stage 3: Qualifiers: Chronic kidney disease stage 3 subtype: unspecified whether 3a or 3b Qualified Code(s): N18.30 - Chronic kidney disease, stage 3 unspecified Code(s): N18.3 - Chronic kidney disease, stage 3 (moderate) Status: Chronic Assessment and Plan: Creatinine 1.2 on admission and has become normal. Related to above. Continue to monitor. (8) UTI (urinary tract infection): Qualifiers: Hematuria presence: without hematuria Urinary tract infection type: site unspecified Qualified Code(s): N39.0 - Urinary tract infection, site no
[2020-07-21 11:55] LABS: Glucose Point of Care 189 (65-105)
--- NOTE | 2020-07-21 14:10 | PCOTNOTE ---
Attempted OT evaluation, but unable to complete as patient gone for a MBS. Will attempt again later.
--- NOTE | 2020-07-21 15:48 | PCDIET ---
Nutrition Follow-Up Complete: Nutrition Diagnosis: Inadequate oral intake related to oral intubation as evidenced by NPO status. Nutrition Goal: Patient to meet estimated nutritional needs. Goal in progress. Patient had MBS today with diet advanced to pureed, level 3 liquids. Last recorded weight is 115.4 kg which is down from last review. -I/O. Bowel Motility: BM x 3 on 07/20/20. Labs Reviewed: Hgb (9.7), Hct (29.7), Glu (141), Cr (0.6), Alb (2.2) Meds Noted: Albuterol, Vitamin C, Coreg, Rocephin, Atrovent, Dexamethasone, Lasix, Synthroid, MVI, Protonix, Zinc Sulfate Additional Notes: Maceration to bilateral thighs. Will continue to monitor with same goal. Nutrition Monitoring and Evaluation: Follow up every 3 days.
[2020-07-21] MEDS: FUROSEMIDE 20 MG TABLET PO (16:51)
[2020-07-21 16:53] LABS: Glucose Point of Care 176 (65-105)
[2020-07-21 20:43] LABS: Glucose Point of Care 154 (65-105)
[2020-07-21 20:45] LABS: SARS-CoV-2 RNA PCR Negative
[2020-07-21] MEDS: LORazepam (*CRX) 0.5 MG TABLET PO (22:27)
[2020-07-21] MEDS: MELATONIN 5 MG TABLET 10 MG PO (22:27)
[2020-07-21] MEDS: TOLNAFTATE 1% POWDER 45 GM BTL 1 APPLIC TOPICAL (22:29)
[2020-07-22] VITALS (14 sets, daily range): BP systolic 98–126; BP diastolic 53–73; PULSE 68–100; RESP 14–24; TEMP 35.6–36.6; O2SAT 94–100
--- NOTE | 2020-07-22 02:55 | ADMGEN ---
This patient, Princess Barraza, was admitted to IMU Room 203-01 as a direct admit from [facility] at 0240. Patient/family oriented to hospital policies and general routines including ID bracelet, bed and alarms, visiting hours, pain management, procedures, bathroom and other care routines, personal items, smoking policy, room service/diet, and visiting hours. Information on how to activate the Rapid Response Team has been discussed. Patient/Family are encouraged to report perceived risks to care and to ask questions if they do not understand what they are told or what they should do.
[2020-07-22] MEDS: LEVOTHYROXINE SODIUM 75 MCG TABLET PO (06:10)
[2020-07-22] MEDS: GABAPENTIN 100 MG CAPSULE PO ×3 (06:10→22:02)
--- NOTE | 2020-07-22 06:53 | PCRCNOTE ---
Window of time for administration has passed. See next scheduled administration.
[2020-07-22 08:35] LABS: Glucose Point of Care 82 (65-105)
[2020-07-22] MEDS: carvediloL 6.25 MG TABLET PO ×2 (09:37→21:10)
[2020-07-22] MEDS: THERAPEUTIC MULTIVITAMINS/MINERALS TAB (*BKC) 1 TABLET PO (09:38)
[2020-07-22] MEDS: DEXAMETHASONE 2 MG TABLET PO (09:38)
[2020-07-22] MEDS: PANTOPRAZOLE SODIUM IV 40 MG VIAL IV PUSH (09:38)
[2020-07-22] MEDS: ZINC SULFATE 220 MG CAPSULE PO (09:38)
[2020-07-22] MEDS: risperiDONE 1 MG TABLET 2 MG PO ×2 (09:38→21:10)
[2020-07-22] MEDS: buPROPion HCL XL (24 HR) 150 MG TABCR PO (09:38)
[2020-07-22] MEDS: FUROSEMIDE 20 MG TABLET PO ×2 (09:38→18:36)
[2020-07-22] MEDS: ATORVASTATIN 10 MG TABLET PO (09:39)
[2020-07-22] MEDS: CITALOPRAM HYDROBROMIDE 20 MG TABLET 40 MG PO (09:39)
[2020-07-22] MEDS: TOLNAFTATE 1% POWDER 45 GM BTL 1 APPLIC TOPICAL ×2 (09:39→21:10)
[2020-07-22] MEDS: ASCORBIC ACID 500 MG TABLET 1000 MG PO (09:39)
[2020-07-22] MEDS: ENOXAPARIN 40 MG/0.4 ML SYRINGE SUB-Q (09:39)
[2020-07-22 12:31] LABS: Glucose Point of Care 134 (65-105)
[2020-07-22 13:58] LABS: Hematocrit 31.7 % (37.0-47.0); Hemoglobin 10.2 g/dL (12.0-15.0); Mean Corpuscular HGB Conc 32.2 g/dl (32-36); Mean Corpuscular Hemoglobin 32.6 pg (26-34); Mean Corpuscular Volume 101.3 fl (80-100); Mean Platelet Volume 11.2 fl (7.4-10.4); Platelet Count Result 164 k/mm3 (150-375); Red Blood Count 3.13 M/mm3 (4.2-5.4); Red Cell Distribution Width 19.9 % (11.5-14.5); White Blood Count 13.7 K/mm3 (4.5-10.0)
[2020-07-22 14:10] LABS: Anion Gap 1 mmol/L (8-16); Blood Urea Nitrogen 16 mg/dL (7-17); Calcium 8.5 mg/dL (8.4-10.2); Carbon Dioxide 39 mmol/L (22-30); Chloride 99 mmol/L (98-107); Estimated CRCL calculation 84 ml/min; Estimated Glomerular Filt Rate > 60; Glucose 180 mg/dL (65-105); Potassium 3.6 mmol/L (3.4-5.0); Sodium 139 mmol/L (137-145)
--- NOTE | 2020-07-22 15:51 | PC.NURSE ---
This patient, Princess Barraza, was transferred to [[facility] ] on 07/22/20 at 1410. Personal belongings sent with patient. Report given to [musical instruments assembler RN ]. Appropriate documentation sent with patient.
--- NOTE | 2020-07-22 16:45 | PM.IMPN ---
Progress Note: A&P Assessment and Plan (1) Acute respiratory failure: Qualifiers: Respiratory failure complication: hypercapnia Qualified Code(s): J96.02 - Acute respiratory failure with hypercapnia Code(s): J96.00 - Acute respiratory failure, unspecified whether with hypoxia or hypercapnia Status: Acute Assessment and Plan: Pt found on rounds at rehab to be unresponsive with her O2 off. Intubated in ED. Acute on chronic respiratory failure thought secondary to congestive heart failure and/or pneumonia. COVID negative. Cultures as mentioned below. Continue Rocephin and finished 10 day course today. Wean O2 as tolerated. . (2) Severe sepsis: Code(s): A41.9 - Sepsis, unspecified organism; R65.20 - Severe sepsis without septic shock Status: Resolved Assessment and Plan: Severe sepsis with shock seen with leukocytosis, tachypnea and tachycardia. Afebrile. Lactic acid normal. UCx growing E coli. BCx 2/2 growing coag-negative staph but unclear if contaminant or true infection. On ceftriaxone Day 10. Repeat blood cultures NGTD. Echo does not show any obvious vegetations. Able to be weaned off Levophed 07/16. Not sure why she is on dexamethasone at this time but appears that was on her home med list. Weaning steroids as BP tolerates. (3) Acute on chronic systolic and diastolic heart failure, NYHA class 4: Code(s): I50.43 - Acute on chronic combined systolic (congestive) and diastolic (congestive) heart failure Status: Acute Assessment and Plan: Probable some component of acute on chronic combined systolic and diastolic heart failure. Echo with EF 25% in grade 1 diastolic dysfunction with wall motion abnormalities. BNP 4000. +fluid balance (+6.2L now) and appears less edematous. Continue po lasix. Coreg able to be resumed. Watch BP closely. (4) Pneumonia: Onset Date: ~07/13/20 Qualifiers: Laterality: unspecified laterality Lung location: unspecified part of lung Pneumonia type: due to unspecified organism Qualified Code(s): J18.9 - Pneumonia, unspecified organism Code(s): J18.9 - Pneumonia, unspecified organism Status: Acute Assessment and Plan: Suspect pneumonia on chest x-ray. No history of cough or fever. BCx positive but unclear if true infection. Repeat BCx NGTD. Continue Rocephin today and stop Speech therpay has seen the patient and recommends a modified diet (5) Altered mental status: Qualifiers: Altered mental status type: unspecified Qualified Code(s): R41.82 - Altered mental status, unspecified Code(s): R41.82 - Altered mental status, unspecified Status: Acute Assessment and Plan: Head CT showing no acute intracranial findings. Her altered mental status was secondary to hypercapnia and sepsis. Mental status improved and probably close to baseline but will monitor as she improves. Start PT/OT (6) Thrombocytopenia: Code(s): D69.6 - Thrombocytopenia, unspecified Status: Acute Assessment and Plan: Mild thrombocytopenia which has been present intermittently in the past. B12 normal. Platelet count better overall. Continue to monitor. (7) Chronic kidney disease, stage 3: Qualifiers: Chronic kidney disease stage 3 subtype: unspecified whether 3a or 3b Qualified Code(s): N18.30 - Chronic kidney disease, stage 3 unspecified Code(s): N18.3 - Chronic kidney disease, stage 3 (moderate) Status: Chronic Assessment and Plan: Creatinine 1.2 on admission and has become normal. Related to above. Continue to monitor. (8) UTI (urinary tract infection): Qualifiers: Urinary tract infection type: site unspecified Hematuria presence: without hematuria Qualified Code(s): N39.0 - Urinary tract infection, site not specified Code(s): N39.0 - Urinary tract infection, site not specified
[2020-07-22 17:14] LABS: Glucose Point of Care 127 (65-105)
[2020-07-22] MEDS: MELATONIN 5 MG TABLET 10 MG PO (21:10)
[2020-07-22 21:20] LABS: Glucose Point of Care 137 (65-105)
[2020-07-22] MEDS: IPRATROPIUM BR 0.02% INH SOLN 0.5 MG/2.5 ML VIAL INHALATION (21:46)
[2020-07-22] MEDS: ALBUTEROL SULFATE NEB 2.5 MG/0.5 ML INH INHALATION (21:46)
--- NOTE | 2020-07-22 21:53 | PC.NURSE ---
2119 - Respiratory was called regarding scheduled breathing treatments. Brian, RT made aware of pt need for treatment. States will be up [place].
[2020-07-22] MEDS: LORazepam (*CRX) 0.5 MG TABLET PO (22:02)
[2020-07-23] VITALS (18 sets, daily range): BP systolic 94–131; BP diastolic 50–71; PULSE 66–92; RESP 16–22; TEMP 36.1–36.7; O2SAT 90–100
--- NOTE | 2020-07-23 02:18 | PC.NURSE ---
8-9 beat run of VTach noted on monitor. Pt sleeping. Attempted to call hospitalist at 0204 and 0216 - no answer.
--- NOTE | 2020-07-23 02:21 | PC.NURSE ---
0220 - Dr. Castillo returned call. Orders received for CBC without diff, BMP, and Magnesium in AM.
[2020-07-23] MEDS: ALBUTEROL SULFATE NEB 2.5 MG/0.5 ML INH INHALATION ×3 (02:54→15:09)
[2020-07-23] MEDS: IPRATROPIUM BR 0.02% INH SOLN 0.5 MG/2.5 ML VIAL INHALATION ×3 (02:54→15:09)
[2020-07-23 05:33] LABS: Mean Corpuscular HGB Conc 32.3 g/dl (32-36); Mean Corpuscular Hemoglobin 31.8 pg (26-34); Mean Corpuscular Volume 98.7 fl (80-100); Mean Platelet Volume 11.1 fl (7.4-10.4); Platelet Count Result 181 k/mm3 (150-375); Red Blood Count 3.14 M/mm3 (4.2-5.4); Red Cell Distribution Width 19.6 % (11.5-14.5); White Blood Count 10.8 K/mm3 (4.5-10.0)
[2020-07-23 05:50] LABS: Blood Urea Nitrogen 15 mg/dL (7-17); Calcium 8.5 mg/dL (8.4-10.2); Carbon Dioxide > 40 mmol/L (22-30); Chloride 96 mmol/L (98-107); Estimated CRCL calculation 74 ml/min; Estimated Glomerular Filt Rate > 60; Glucose 84 mg/dL (65-105); Magnesium 1.8 mg/dL (1.6-2.3); Potassium 3.2 mmol/L (3.4-5.0); Sodium 139 mmol/L (137-145)
[2020-07-23] MEDS: GABAPENTIN 100 MG CAPSULE PO ×3 (06:05→21:42)
[2020-07-23] MEDS: LEVOTHYROXINE SODIUM 75 MCG TABLET PO (06:05)
[2020-07-23] MEDS: DEXAMETHASONE 2 MG TABLET PO (09:13)
[2020-07-23] MEDS: ASCORBIC ACID 500 MG TABLET 1000 MG PO (09:14)
[2020-07-23] MEDS: ATORVASTATIN 10 MG TABLET PO (09:16)
[2020-07-23] MEDS: carvediloL 6.25 MG TABLET PO ×2 (09:17→21:42)
[2020-07-23] MEDS: buPROPion HCL XL (24 HR) 150 MG TABCR PO (09:17)
[2020-07-23] MEDS: CITALOPRAM HYDROBROMIDE 20 MG TABLET 40 MG PO (09:18)
[2020-07-23] MEDS: ENOXAPARIN 40 MG/0.4 ML SYRINGE SUB-Q (09:19)
[2020-07-23] MEDS: FUROSEMIDE 20 MG TABLET PO ×2 (09:19→18:34)
[2020-07-23] MEDS: PANTOPRAZOLE SODIUM IV 40 MG VIAL IV PUSH (09:20)
[2020-07-23] MEDS: THERAPEUTIC MULTIVITAMINS/MINERALS TAB (*BKC) 1 TABLET PO (09:20)
[2020-07-23] MEDS: ZINC SULFATE 220 MG CAPSULE PO (09:21)
[2020-07-23] MEDS: risperiDONE 1 MG TABLET 2 MG PO ×2 (09:21→21:42)
[2020-07-23] MEDS: POTASSIUM CHLORIDE 20 MEQ TABLET 40 MEQ PO ×2 (09:23→12:05)
[2020-07-23 09:41] LABS: Glucose Point of Care 93 (65-105)
[2020-07-23] MEDS: TOLNAFTATE 1% POWDER 45 GM BTL 1 APPLIC TOPICAL (09:43)
[2020-07-23 12:16] LABS: Glucose Point of Care 140 (65-105)
--- NOTE | 2020-07-23 13:54 | PCOTNOTE ---
Attempted to see patient this pm, however patient refused. Pt stated, I just got covered up with two blankets.
--- NOTE | 2020-07-23 14:39 | PC.NURSE ---
[address] Barriga regarding pts inconsistent rhythm and pacer function, order given to interrogate pacemaker. Spoke with Reilly from [employer] and pts pacer was interrogated at bedside using the [employer] device in house at the hospital. Results transmitted to Reilly and he faxed over report of pacer interrogation, Dr. Barriga updated.
[2020-07-23 16:03] LABS: Glucose Point of Care 204 (65-105)
[2020-07-23] MEDS: INSULIN ASPART (*BKC) 100 UNITS/ML SUB-Q (16:37)
--- NOTE | 2020-07-23 17:14 | PM.IMPN ---
Progress Note: A&P Assessment and Plan (1) Acute respiratory failure: Qualifiers: Respiratory failure complication: hypercapnia Qualified Code(s): J96.02 - Acute respiratory failure with hypercapnia Code(s): J96.00 - Acute respiratory failure, unspecified whether with hypoxia or hypercapnia Status: Acute Assessment and Plan: Pt found on rounds at rehab to be unresponsive with her O2 off. Intubated in ED. Acute on chronic respiratory failure thought secondary to congestive heart failure and/or pneumonia. COVID negative. Cultures as mentioned below. Continue Rocephin and finished 10 day course 07/22. Wean O2 as tolerated. . (2) Severe sepsis: Code(s): A41.9 - Sepsis, unspecified organism; R65.20 - Severe sepsis without septic shock Status: Resolved Assessment and Plan: Severe sepsis with shock seen with leukocytosis, tachypnea and tachycardia. Afebrile. Lactic acid normal. UCx grew E coli. BCx / growing coag-negative staph but unclear if contaminant or true infection. finished ceftriaxone Day 10. Repeat blood cultures NGTD. Echo does not show any obvious vegetations. Able to be weaned off Levophed 07/16. Not sure why she is on dexamethasone at this time but appears that was on her home med list. Weaning steroids as BP tolerates. (3) Acute on chronic systolic and diastolic heart failure, NYHA class 4: Code(s): I50.43 - Acute on chronic combined systolic (congestive) and diastolic (congestive) heart failure Status: Acute Assessment and Plan: Probable some component of acute on chronic combined systolic and diastolic heart failure. Echo with EF 25% in grade 1 diastolic dysfunction with wall motion abnormalities. BNP 4000. +fluid balance ) and appears less edematous. Continue po lasix. Coreg able to be resumed. Watch BP closely. (4) Pneumonia: Onset Date: ~07/13/20 Qualifiers: Laterality: unspecified laterality Lung location: unspecified part of lung Pneumonia type: due to unspecified organism Qualified Code(s): J18.9 - Pneumonia, unspecified organism Code(s): J18.9 - Pneumonia, unspecified organism Status: Acute Assessment and Plan: Suspect pneumonia on chest x-ray. No history of cough or fever. BCx positive but unclear if true infection. Repeat BCx NGTD. Continue Rocephin until 07/22 Speech therpay has seen the patient and recommends a modified diet (5) Altered mental status: Qualifiers: Altered mental status type: unspecified Qualified Code(s): R41.82 - Altered mental status, unspecified Code(s): R41.82 - Altered mental status, unspecified Status: Acute Assessment and Plan: Head CT showing no acute intracranial findings. Her altered mental status was secondary to hypercapnia and sepsis. Mental status improved and probably close to baseline but will monitor as she improves. Start PT/OT (6) Thrombocytopenia: Code(s): D69.6 - Thrombocytopenia, unspecified Status: Acute Assessment and Plan: Mild thrombocytopenia which has been present intermittently in the past. B12 normal. Platelet count normal today 161K. Continue to monitor. (7) Chronic kidney disease, stage 3: Qualifiers: Chronic kidney disease stage 3 subtype: unspecified whether 3a or 3b Qualified Code(s): N18.30 - Chronic kidney disease, stage 3 unspecified Code(s): N18.3 - Chronic kidney disease, stage 3 (moderate) Status: Chronic Assessment and Plan: Creatinine 1.2 on admission and has become normal. Related to above. Continue to monitor. (8) UTI (urinary tract infection): Qualifiers: Urinary tract infection type: site unspecified Hematuria presence: without hematuria Qualified Code(s): N39.0 - Urinary tract infection, site not specified Code(s): N39.0 - Urinary tract infection, site not specified Status:
--- NOTE | 2020-07-23 17:20 | PC.NURSE ---
Patient report received from Jacqueline Richards RN. All questions answered and care assumed. Pt resting comfortably in bed with no acute distress noted and no complaints. VSS. Will continue to monitor and address needs as they arise.
--- NOTE | 2020-07-23 18:49 | PC.NURSE ---
Pt had large soft, almost liquid BM. Buttock, legs, and vaginal tissue is very red and excoriated. Barrier cream and fungal powder applied. This is the patient's third BM of the day. Dr. Barriga notified and will order medication to decrease bowel movements.
[2020-07-23] MEDS: LOPERAMIDE HCL 2 MG CAPSULE PO (19:15)
[2020-07-23] MEDS: MELATONIN 5 MG TABLET 10 MG PO (21:42)
[2020-07-23] MEDS: LORazepam (*CRX) 0.5 MG TABLET PO (21:42)
[2020-07-23 21:52] LABS: Glucose Point of Care 144 (65-105)
[2020-07-24] VITALS (10 sets, daily range): BP systolic 95–111; BP diastolic 51–71; PULSE 70–93; RESP 16–18; TEMP 36.3–36.8; O2SAT 93–98
[2020-07-24] MEDS: LEVOTHYROXINE SODIUM 75 MCG TABLET PO (06:04)
[2020-07-24] MEDS: GABAPENTIN 100 MG CAPSULE PO ×3 (06:30→20:55)
[2020-07-24 08:34] LABS: Glucose Point of Care 88 (65-105)
--- NOTE | 2020-07-24 09:06 | PCOTNOTE ---
Attempted to see patient this am, however patient refused. Explained benefits of OT and reasoning for therapy. I'm not up for it. If you want to wash me up, go ahead. I'm just so weak.
[2020-07-24] MEDS: ALBUTEROL SULFATE NEB 2.5 MG/0.5 ML INH INHALATION (09:27)
[2020-07-24] MEDS: IPRATROPIUM BR 0.02% INH SOLN 0.5 MG/2.5 ML VIAL INHALATION (09:27)
--- NOTE | 2020-07-24 09:55 | PC.NURSE ---
DR. VILLAFANA HERE TO SEE PT. CONDITION UPDATE GIVEN. LAB TO COME DRAW BLOOD ORDERED.
[2020-07-24 10:41] LABS: Basophils Percent Auto 0.1 % (0.2-1.2); Eosinophils Absolute Auto 0.1 K/mm3 (0-0.3); Eosinophils Percent Auto 1.4 % (0-4.4); Hematocrit 29.2 % (37.0-47.0); Hemoglobin 9.5 g/dL (12.0-15.0); Immature Granulocyte Absolute 0.08 K/mm3 (0.00-0.031); Immature Granulocyte Percent A 0.8 % (0-0.5); Lymphocytes Absolute Auto 0.89 K/mm3 (0.9-3.2); Lymphocytes Percent Auto 9.4 % (18.3-44.2); Mean Corpuscular HGB Conc 32.5 g/dl (32-36); Mean Corpuscular Hemoglobin 32.4 pg (26-34); Mean Corpuscular Volume 99.7 fl (80-100); Mean Platelet Volume 10.8 fl (7.4-10.4); Monocytes Absolute Auto 0.3 K/mm3 (0.1-0.6); Monocytes Percent Auto 3.6 % (2.6-8.5); Neutrophils Percent Auto 84.7 % (45.5-73.1); Platelet Count Result 183 k/mm3 (150-375); Red Blood Count 2.93 M/mm3 (4.2-5.4); Red Cell Distribution Width 19.7 % (11.5-14.5); White Blood Count 9.5 K/mm3 (4.5-10.0)
[2020-07-24 10:55] LABS: Blood Urea Nitrogen 14 mg/dL (7-17); Calcium 8.2 mg/dL (8.4-10.2); Carbon Dioxide > 40 mmol/L (22-30); Chloride 97 mmol/L (98-107); Estimated CRCL calculation 82 ml/min; Estimated Glomerular Filt Rate > 60; Glucose 164 mg/dL (65-105); Magnesium 1.6 mg/dL (1.6-2.3); Potassium 3.4 mmol/L (3.4-5.0); Sodium 137 mmol/L (137-145)
[2020-07-24] MEDS: PANTOPRAZOLE SODIUM IV 40 MG VIAL IV PUSH (11:21)
[2020-07-24] MEDS: TOLNAFTATE 1% POWDER 45 GM BTL 1 APPLIC TOPICAL ×2 (11:21→21:58)
[2020-07-24] MEDS: ENOXAPARIN 40 MG/0.4 ML SYRINGE SUB-Q (11:21)
[2020-07-24] MEDS: DEXAMETHASONE 2 MG TABLET PO (11:22)
[2020-07-24] MEDS: ATORVASTATIN 10 MG TABLET PO (11:22)
[2020-07-24] MEDS: CITALOPRAM HYDROBROMIDE 20 MG TABLET 40 MG PO (11:22)
[2020-07-24] MEDS: ASCORBIC ACID 500 MG TABLET 1000 MG PO (11:22)
[2020-07-24] MEDS: buPROPion HCL XL (24 HR) 150 MG TABCR PO (11:23)
[2020-07-24] MEDS: THERAPEUTIC MULTIVITAMINS/MINERALS TAB (*BKC) 1 TABLET PO (11:27)
[2020-07-24] MEDS: FUROSEMIDE 20 MG TABLET PO (11:27)
[2020-07-24] MEDS: carvediloL 6.25 MG TABLET PO ×2 (11:27→20:54)
[2020-07-24] MEDS: risperiDONE 1 MG TABLET 2 MG PO ×2 (11:27→20:53)
[2020-07-24] MEDS: ZINC SULFATE 220 MG CAPSULE PO (11:28)
--- NOTE | 2020-07-24 11:30 | PC.NURSE ---
INCONTINENT OF COPIOUS MUSHY SOFT, ORANGE/BROWN STOOL. PERICARE AND LINEN CHANGE COMPLETED. MACERATION TO BUTTOCKS AND INNER THIGHS NOTED. PROTECTIVE CREAM AND ANTIFUNGAL POWDER APPLIED TO AREAS. WALTERS CATHETER DISCONTINUED. TOLERATED WELL.
[2020-07-24] MEDS: LOPERAMIDE HCL 2 MG CAPSULE PO (12:51)
--- NOTE | 2020-07-24 13:35 | PC.NURSE ---
DR. VILLAFANA RETURNS. UPDATED ON LAB RESULTS AND CONDITION.
--- NOTE | 2020-07-24 15:45 | PC.NURSE ---
REPORT CALLED TO [facility], TANYA DAUGHERTY, AT [phone]. NOTIFIED DAUGHTER, TANYA LINDQUIST, THAT PT. WILL BE DISCHARGING BACK TO [facility]. DISCHARGE PACKET FAXED TO [facility] BY JUSTIN Thompson RN, CARE COORDINATION. [facility] TRANSFER SERVICE REQUESTED FROM [facility]. APPROX ETA ON AMBULANCE IS 1.5 TO 2 HOURS PER DISPATCHER.
--- NOTE | 2020-07-24 15:49 | PCDIET ---
Nutrition Follow-Up Complete: Inadequate oral intake related to oral intubation as evidenced by NPO status. Patient to meet estimated nutritional needs. Goal: Progressing towards goal. Continue goal. Pt current nutrition is puree, heart healthy, level 3 moderately thick liquids Nutrition recommendation: agree Last recorded weight is 109.9 kg, up from admit wt of 106.5kg Bowel Motility: copious BM noted from chart, pt may benefit from banatrol or soluble fiber Labs Reviewed: Glucose 164, Hgb/Hct 9.5, 29.2 Meds Noted:Protonix, Zinc, Dexamethasone, Synthroid, MTV, Albuterol, Wellbutrin, Lipitor, Vit C Additional Notes: Pt with possible d/c tonight after COVID - test. Appetite good per RN, no documented intakes. Pt states appetite still low and does not like pureed, thick diet. Ensure compact offered to help meet needs. One Ensure compact provides 220 kcal, 9 g protein, 32g CHO, 26 essential vitamins and minerals, and is an excellent source of plant based omega 3 fatty acids ALA. Edu also provided on foods that are naturally pureed like oats, mashed potatoes for pt to try. We will continue to monitor for adequate intake every five days.
--- NOTE | 2020-07-24 18:17 | PM.DS ---
DS: Admitting Diagnosis Admitting Diagnosis Admitting Diagnosis: Acute Respiratory Failure w/hypcapnia/metabolic en DS: Discharge Diagnosis Discharge Diagnosis (1) Acute respiratory failure: Qualifiers: Respiratory failure complication: hypercapnia Qualified Code(s): J96.02 - Acute respiratory failure with hypercapnia Code(s): J96.00 - Acute respiratory failure, unspecified whether with hypoxia or hypercapnia Status: Acute Assessment and Plan: Pt found on rounds at rehab to be unresponsive with her O2 off. Intubated in ED. Acute on chronic respiratory failure thought secondary to congestive heart failure and/or pneumonia. COVID negative. Cultures as mentioned below. Continued Rocephin and finished 10 day course 07/22. Weaned O2 to 2 L nasal cannula . (2) Severe sepsis: Code(s): A41.9 - Sepsis, unspecified organism; R65.20 - Severe sepsis without septic shock Status: Resolved Assessment and Plan: Severe sepsis with shock seen with leukocytosis, tachypnea and tachycardia. Afebrile. Lactic acid normal. UCx grew E coli. BCx / growing coag-negative staph but unclear if contaminant or true infection. finished ceftriaxone Day 10. Repeat blood cultures NGTD. Echo does not show any obvious vegetations. Able to be weaned off Levophed 07/16. Not sure why she is on dexamethasone at this time but appears that was on her home med list. Weaning steroids to 2 mg at discharge. (3) Acute on chronic systolic and diastolic heart failure, NYHA class 4: Code(s): I50.43 - Acute on chronic combined systolic (congestive) and diastolic (congestive) heart failure Status: Acute Assessment and Plan: Probable some component of acute on chronic combined systolic and diastolic heart failure. Echo with EF 25% in grade 1 diastolic dysfunction with wall motion abnormalities. BNP 4000. and appears less edematous. Continue po lasix. Coreg able to be resumed. On low-dose. (4) Pneumonia: Onset Date: ~07/13/20 Qualifiers: Laterality: unspecified laterality Lung location: unspecified part of lung Pneumonia type: due to unspecified organism Qualified Code(s): J18.9 - Pneumonia, unspecified organism Code(s): J18.9 - Pneumonia, unspecified organism Status: Acute Assessment and Plan: Suspect pneumonia on chest x-ray. No history of cough or fever. BCx positive but unclear if true infection. Repeat BCx NGTD. Continue Rocephin until 07/22 Speech therpay has seen the patient and recommends a modified diet puree with thickened liquids (5) Altered mental status: Qualifiers: Altered mental status type: unspecified Qualified Code(s): R41.82 - Altered mental status, unspecified Code(s): R41.82 - Altered mental status, unspecified Status: Acute Assessment and Plan: Head CT showing no acute intracranial findings. Her altered mental status was secondary to hypercapnia and sepsis. Mental status improved and probably close to baseline PT/OT while here (6) Thrombocytopenia: Code(s): D69.6 - Thrombocytopenia, unspecified Status: Acute Assessment and Plan: Mild thrombocytopenia which has been present intermittently in the past. B12 normal. Platelet count normalized above 150 K and thought secondary to sepsis primarily (7) Chronic kidney disease, stage 3: Qualifiers: Chronic kidney disease stage 3 subtype: unspecified whether 3a or 3b Qualified Code(s): N18.30 - Chronic kidney disease, stage 3 unspecified Code(s): N18.3 - Chronic kidney disease, stage 3 (moderate) Status: Chronic Assessment and Plan: Creatinine 1.2 on admission and has become normal, 0.8 at discharge. Related to above. Continue to monitor with BMP in 1 week (8) UTI (urinary tract infection): Qualifiers: Urinary tract infection type: site unspecified Hematuria
[2020-07-24 18:30] LABS: SARS-CoV-2 RNA PCR Negative
--- NOTE | 2020-07-24 18:30 | PC.NURSE ---
CALL RECEIVED FROM [facility] LOGISTICS ANALYST: MY REQUEST PRISON TRANSPORT HAS BEEN CANCELLED DUE TO VOLUME OF REQUESTS FOR TRANSPORT. CALL PLACED TO [facility] FOR BLS TRANSPORT TO [facility]. APPROX ETA OF [facility] FOR TRANSPORT IS 2029 TO 2044.
[2020-07-24 19:09] LABS: Glucose Point of Care 160 (65-105)
--- NOTE | 2020-07-24 19:15 | PC.NURSE ---
PRE TRANSFER COVID TEST RESULTS BACK. NEGATIVE RESULT. COPY OF NEGATIVE RESULTS PLACED IN TRANSFER ENVELOPE.
[2020-07-24 23:15] LABS: Glucose Point of Care 127 (65-105)
== END 2020-07-25 | DRG 871 ==
LOC: ANHED 08:28 → ANHICU 08:35 → ANHIMU 07-19 14:15 → ANHCPC 07-22 14:16
PROVIDERS: Emergency Medicine; Internal Medicine; Admitting Provider Internal Medicine; Emergency Provider Emergency Medicine; PCP Family Medicine; Visit Provider Internal Medicine
DX: A41.9 Sepsis, unspecified organism (principal); J96.02 Acute respiratory failure with hypercapnia; G93.41 Metabolic encephalopathy; J18.9 Pneumonia, unspecified organism; I50.43 Acute on chronic combined systolic (congestive) and diastolic (congestive) heart failure; R65.21 Severe sepsis with septic shock; N39.0 Urinary tract infection, site not specified; N17.9 Acute kidney failure, unspecified; N18.4 Chronic kidney disease, stage 4 (severe); F41.1 Generalized anxiety disorder; Z20.828 Contact with and (suspected) exposure to other viral communicable diseases; D69.6 Thrombocytopenia, unspecified; Z87.891 Personal history of nicotine dependence; E03.9 Hypothyroidism, unspecified; R73.9 Hyperglycemia, unspecified; B96.20 Unspecified Escherichia coli [E. coli] as the cause of diseases classified elsewhere
CPT/HCPCS: 31500; 36415; 36600; 51702; 70450; 71045; 80048; 80053; 80069; 80202; 80307; 81001; 82306; 82375; 82607; 82805; 83036; 83050; 83605; 83735; 83880; 84100; 84439; 84443; 84480; 85025; 85027; 85055; 85380; 85610; 85730; 86140; 87040; 87077; 87086; 87088; 87186; 87635; 92526; 92610; 92611; 93005; 94002; 94003; 94640; 94660; 96361; 96365; 96366; 96367; 96368; 96372; 96375; 96376; 97110; 97161; 97167; 99291; A9270; C1751; C8929; C9113; C9803; G0378; J0330; J0696; J1650; J1815; J1940; J2250; J3010; J3370; J3475; J3480; J7030; J7040; J7060; J8540; Q9957; U0003

== ENCOUNTER 2020-08-31 08:10 | Inpatient (IN) | payer MEDICARE, MEDICAID, SELFPAY ==
[2020-08-31] VITALS (43 sets, daily range): BP systolic 86–140; BP diastolic 50–127; PULSE 90–158; RESP 15–34; TEMP 35.8–36.6; O2SAT 88–100
--- NOTE | ~2020-08-31 | US_ITS ---
EXAMINATION: US venous doppler E DATE: 09/01/2020 12:39 INDICATION: Left upper limb swelling. TECHNIQUE: Grayscale ultrasound images without and with compression and Doppler ultrasound images of the left upper extremity veins were obtained. COMPARISON: CT cervical spine 10/13/2019 FINDINGS: The left internal jugular vein is not visualized and was very small on the prior CT. The visualized p ortions of the left subclavian vein, axillary vein, brachial veins, basilic vein, cephalic vein, radi al vein, and ulnar vein are patent. IMPRESSION: 1. No deep venous thrombosis. Reviewed, dictated and finalized at location A. RINARY TECHNOLOGY INSTRUCTOR
--- NOTE | ~2020-08-31 | NM_ITS ---
EXAMINATION: NM pulmonary perfusion DATE: 08/31/2020 14:40 INDICATION: Shortness of breath. TECHNIQUE: 5.13 mCi Tc-99m MAA was administered intravenously for perfusion images. Scintigraphic im ages of the chest were obtained. COMPARISON: Chest single view 08/31/2020 FINDINGS: Perfusion images show large defects in the left lower lobe. There are small and moderate sized defect s in left upper lobe. There are small and moderate sized defects in right lower lobe with stripe sign . The radiograph demonstrates a diffuse interstitial pattern, consistent with mild pulmonary edema. IMPRESSION: 1. Nondiagnostic (intermediate probability for pulmonary embolism). Reviewed, dictated and finalized at location A. ER ERECTOR
--- NOTE | ~2020-08-31 | US_ITS ---
EXAMINATION: US venous doppler LE EXAM DATE: 09/04/2020 10:52 INDICATION: DVT. Leg swelling. TECHNIQUE: Multiple grayscale, color flow and Doppler images of the lower extremity deep venous syste ms bilaterally were obtained and reviewed. Comparison is made to prior examination from 11/25/2016. FINDINGS: RIGHT SIDE Common femoral: -------- Normal. Profunda femoral: ------- Normal. Femoral: Normal. Popliteal: Normal. Posterior tibial: ---------Not well visualized. Peroneal: Not well visualized. Gastrocnemius: Not well visualized. Soleus: Not well visualized. Greater saphenous: ----- Normal. Lesser saphenous: ------ Not visualized. LEFT SIDE Common femoral: -------- Normal. Profunda femoral: -------Thrombosed. Femoral: Thrombosed. Popliteal: Thrombosed. Posterior tibial: ---------Not well visualized. Peroneal: Not well visualized. Gastrocnemius: Not visualized. Soleus: Not visualized. Greater saphenous: ----- Normal. Lesser saphenous: ------ Not visualized. IMPRESSION: 1. Left profunda, femoral and popliteal DVT. I discussed DVT with Lauryn Goode at 09/04/2020 10:58 REPAIR DEPARTMENT SUPERVISOR. Reviewed, dictated and finalized at location B. IR DEPARTMENT SUPERVISOR
--- NOTE | ~2020-08-31 | XR_ITS ---
EXAMINATION: XR chest ET placement INDICATION: Respiratory failure TECHNIQUE: Portable AP chest at 0553 hours COMPARISON: 0034 hours FINDINGS: An endotracheal tube has been inserted which ends 1.8 cm above the jose maria. The nasogastric tube has been inserted which ends in the stomach. A right subclavian central venous catheter has been inserted which ends with its tip in the distal superior vena cava. There is now complete opacificati on of the left hemithorax. Patchy opacities throughout the right lung persist without significant guille nge. There is no pneumothorax. The cardiac silhouette is obscured. Coronary artery stents are noted. A triple lead cardiac pacemaker of the left chest wall ends with leads in expected locations. Vertebr oplasty changes noted in the thoracic spine. Healed left-sided rib fractures are noted. IMPRESSION: 1. Inserted tubes and lines in adequate position. 2. Development of complete opacification of the left hemithorax which may be due to pneumonia and/or atelectasis and/or effusion. Reviewed, dictated and finalized at location A. TS ADMINISTRATOR IMPRESSION: 1. Inserted tubes and lines in adequate position. 2. Development of complete opacification of the left hemithorax which may be du e to pneumonia and/or atelectasis and/or effusion.
--- NOTE | ~2020-08-31 | XR_ITS ---
EXAMINATION: XR chest 1V portable INDICATION: Hypoxia TECHNIQUE: Portable AP chest at 0034 hours COMPARISON: 08/31/2020 FINDINGS: A moderate-sized left pleural effusion has developed. Developing airspace opacities are pre sent in the left mid and lower lung zones. There is no pneumothorax. Cardiomegaly is noted. There are coronary artery stents. A triple lead cardiac pacemaker of the left chest wall ends with leads in ex pected locations. Vertebroplasty change is noted in the midthoracic spine. Surgical clips in the righ t upper quadrant are likely from prior cholecystectomy. IMPRESSION: 1. Moderate-sized left pleural effusion. 2. Developing airspace opacities of the left mid and lower lung zones, consistent with atelectasis an d/or pneumonia and/or effusion. Reviewed, dictated and finalized at location A. ND LAYER IMPRESSION: 1. Moderate-sized left pleural effusion. 2. Developing airspace opacities of the left mid and lower lung zones, consiste nt with atelectasis and/or pneumonia and/or effusion.
--- NOTE | ~2020-08-31 | XR_ITS ---
XR chest 1V portable 08/31/2020 08:55 Indication: Shortness of breath Procedure: AP portable chest Comparison: 07/19/2020 Findings: Cardiomegaly. Mild interstitial edema. Pacemaker leads stable. There are vertebroplasty guille nges in the upper thoracic spine. Impression: 1: Cardiomegaly with mild interstitial edema. Reviewed, dictated and finalized at location A. ID GEAR TESTER Impression: 1: Cardiomegaly with mild interstitial edema.
--- NOTE | ~2020-08-31 | XR_ITS ---
EXAMINATION: XR abdomen NG/feed tube insert INDICATION: OG placement TECHNIQUE: Portable AP KUB-NG at 0554 hours COMPARISON: 07/13/2020 FINDINGS: The nasogastric tube is in the stomach. There is complete opacification of the visualized l eft hemithorax. The cardiac silhouette is obscured. Surgical clips in the right upper quadrant are li greg from prior cholecystectomy. No dilated loops of bowel are evident. IMPRESSION: 1. Nasogastric tube in the stomach. Reviewed, dictated and finalized at location A. PLANNER
--- NOTE | 2020-08-31 08:19 | ECG_ITS ---
Measurements Intervals [place] Rate: 93 P: 87 SD: 166 QRS: -66 QRSD: 114 T: 79 QT: 364 QTc: 453 Interpretive Statements ELECTRONIC ATRIAL PACEMAKER WITH INHIBITION ELECTRONIC VENTRICULAR PACEMAKER ATRIAL PREMATURE COMPLEX BASELINE ARTIFACT- I, II, III, AVR, AVL, AVF, V1-V6 NO FURTHER INTERPRETATION IS POSSIBLE ATYPICAL ECG Electronically Signed On 08-31-2020 16:25:32 CAN TENDER by Gabe Garcia D.O.
--- NOTE | 2020-08-31 08:45 | ED.GENADULT ---
HPI - General Adult General Chief complaint: Shortness of Breath/Dyspnea Stated complaint: SOB Time Seen by Provider: 08/31/20 08:17 Source: patient History of Present Illness HPI narrative: Patient is a 65 y/o female complaining of severe SOB starting 4 hours ago. There is no alleviating or exacerbating factor. She has no cough, chest pain or fever. Related Data Home Medications Medication Instructions Recorded Confirmed bupropion HCl 150 mg PO DAILY 10/23/19 07/13/20 cetirizine 10 mg PO DAILY 10/23/19 07/13/20 ergocalciferol (vitamin D2) 50,000 unit PO WEEKLY 10/23/19 07/13/20 [Vitamin D2] magnesium oxide 400 mg PO BID 10/23/19 07/13/20 risperidone 2 mg PO BID 10/23/19 07/13/20 citalopram 40 mg PO DAILY 10/27/19 07/13/20 pantoprazole 40 mg PO DAILY 10/27/19 07/13/20 carvedilol 6.25 mg PO BID 06/16/20 07/13/20 fluticasone propionate 1 spray INTRANASAL BID 06/16/20 07/13/20 guaifenesin 400 mg PO TID 06/16/20 07/13/20 lidocaine [Lidoderm] 1 patch TRANSDERMAL DAILY 06/16/20 07/13/20 loperamide 2 mg PO Q4H PRN 06/16/20 07/13/20 metoclopramide HCl [Reglan] 5 mg PO TID 06/16/20 07/13/20 potassium chloride 10 meq PO BID 06/16/20 07/13/20 trazodone 50 mg PO HS 06/16/20 07/13/20 ascorbic acid (vitamin C) 1 g PO DAILY 07/13/20 07/13/20 atorvastatin 10 mg PO DAILY 07/13/20 07/13/20 multivitamin with minerals 1 tablet PO DAILY 07/13/20 07/13/20 [Multiple Vitamin-Minerals] zinc sulfate 220 mg PO DAILY 07/13/20 07/13/20 Allergies Allergy/AdvReac Type Severity Reaction Status Date / Time No Known Allergies Allergy Verified 08/31/20 09:09 Review of Systems Constitutional: Constitutional: Denies chills, Denies fever(s), Denies headache(s) and Denies weakness Eyes: Eyes: Denies blurry vision ENT: Denies headache(s) and Denies neck pain Cardiovascular: Cardiovascular: Denies chest pain and Reports dyspnea Respiratory: Respiratory: Denies cough and Reports dyspnea Gastrointestinal: Gastrointestinal: Denies abdominal pain, Denies diarrhea, Denies nausea and Denies vomiting Genitourinary: Genitourinary: Denies hematuria and Denies dysuria Musculoskeletal: Musculoskeletal: Denies back pain and Denies neck pain Neurologic: Denies headache(s) and Denies weakness [facility] Past Medical History Medical History Abnormality of gait and mobility Acquired hypothyroidism Ambulatory dysfunction Anemia Chronic Anxiety Artificial pacemaker Atherosclerotic heart disease of [place] coronary artery without angina pectoris Benzodiazepine abuse Bowel obstruction With multiple bowel resections CAD (coronary artery disease) CAD (coronary artery disease) Cardiomyopathy CHF (congestive heart failure) Chronic abdominal wound infection Chronic anemia Chronic combined systolic (congestive) and diastolic (congestive) heart failure Chronic diarrhea Chronic kidney disease Chronic pain syndrome Chronic pain syndrome CKD (chronic kidney disease) Combined systolic and diastolic cardiac dysfunction Echo April 2017 demonstrating EF of 20% with diastolic dysfunction Combined systolic and diastolic heart failure DDD (degenerative disc disease) With chronic back pain Depression Edema due to congestive heart failure Essential (primary) hypertension Extreme obesity with alveolar hypoventilation ISAURO (generalized anxiety disorder) Generalized anxiety disorder GERD (gastroesophageal reflux disease) With reflux esophagitis and gastric ulcer May 2016 Headache Heart attack Hernia History of blood transfusion HTN (hypertension) Hyperlipidemia Hyponatremia Ischemic cardiomyopathy with implantable cardioverter-defibrillator (ICD) Echocardiogram April 2017 with EF of 20% MDD (major depressive disorder), recurrent severe, without psychosis Mixed hyperlipidemia Morbid (severe) obesity due to excess calories Myocardial infarction Open wound of abdominal wall w/o penetration into peritoneal ca
--- NOTE | 2020-08-31 09:04 | PC.NURSE ---
Multiple attempts made for IV access without success.
[2020-08-31 09:20] LABS: Basophils Absolute Auto 0.1 K/mm3 (0.0-0.1); Basophils Percent Auto 0.4 % (0.2-1.2); Eosinophils Absolute Auto 0.1 K/mm3 (0-0.3); Eosinophils Percent Auto 0.4 % (0-4.4); Hemoglobin 13.3 g/dL (12.0-15.0); Immature Granulocyte Absolute 0.09 K/mm3 (0.00-0.031); Immature Granulocyte Percent A 0.6 % (0-0.5); Lymphocytes Absolute Auto 1.02 K/mm3 (0.9-3.2); Lymphocytes Percent Auto 6.3 % (18.3-44.2); Mean Corpuscular HGB Conc 32.4 g/dl (32-36); Mean Corpuscular Hemoglobin 32.4 pg (26-34); Mean Corpuscular Volume 99.8 fl (80-100); Mean Platelet Volume 10.1 fl (7.4-10.4); Monocytes Absolute Auto 0.7 K/mm3 (0.1-0.6); Monocytes Percent Auto 4.1 % (2.6-8.5); Neutrophils Absolute Auto 14.4 K/mm3 (1.3-6.7); Neutrophils Percent Auto 88.2 % (45.5-73.1); Platelet Count Result 173 k/mm3 (150-375); Red Blood Count 4.11 M/mm3 (4.2-5.4); Red Cell Distribution Width 15.2 % (11.5-14.5); White Blood Count 16.3 K/mm3 (4.5-10.0)
--- NOTE | 2020-08-31 09:55 | PC.NURSE ---
Phlebotomy called to attempt lab draw. Pt resting on stretcher with call light in reach. Respirations non-labored. VSS.
--- NOTE | 2020-08-31 10:17 | PC.NURSE ---
Pt. would not allow manual BP to be obtained even tho rational then changed mind as I was leaving. Manual BP obtained. Pt. stated she didn't want to be alone. Pt. informed do not have staff which can stay with her constantly. Pt. states she wants to leave then. Dr. Montero aware of pt.'s manual BP and that pt. wants to leave. Pt. will not leave mask over nose and mouth despite being asked multiple times.
[2020-08-31 10:50] LABS: D Dimer 1.81 ug/mL (<0.48)
[2020-08-31 10:52] LABS: Alanine Aminotransferase 23 U/L (4-35); Albumin Level 2.4 g/dL (3.5-5.1); Alkaline Phosphatase 146 U/L (38-126); Anion Gap 1 mmol/L (8-16); Aspartate Amino Transferase 31 U/L (14-36); Bilirubin,Total 0.5 mg/dL (0.2-1.3); Blood Urea Nitrogen 17 mg/dL (7-17); Calcium 7.9 mg/dL (8.4-10.2); Carbon Dioxide 36 mmol/L (22-30); Chloride 97 mmol/L (98-107); Estimated CRCL calculation 84 ml/min; Estimated Glomerular Filt Rate > 60; Glucose 100 mg/dL (65-105); Potassium 2.8 mmol/L (3.4-5.0); Sodium 134 mmol/L (137-145)
[2020-08-31 11:01] LABS: NT Pro B Type Natriuretic Pept 2700 PG/ML (5-100); Troponin I < 0.012 ng/mL (0.000-0.034)
--- NOTE | 2020-08-31 11:05 | PC.NURSE ---
received report from Chayo HERNANDEZ. patient sent here from [place] with reported RA sat 88% that improved greatly when her home O2 was placed back on. patient is bed bound. needs surgery on her vocal cords. patient has whispering voice. on O2 now. patient has been very difficult during this ED visit. she has been belgerent with all staff. has been pressing her call light frequently and requesting that staff stay in the room with her.
--- NOTE | 2020-08-31 11:05 | PC.NURSE ---
Pt making several statements to staff that she would like to leave. Still do not have labs on this pt yet. Pt being very rude to staff.
--- NOTE | 2020-08-31 11:09 | PC.NURSE ---
pt. insistent she arrived with boots on her feet; conferred with Chayo who cared for pt. upon arrival, she explained to pt. she arrived only with a gown on. Pt. states she has boots to put on her feet, again informed pt. she did arrive with any boots, she told me to shut up . LEs elevated on pillows. Asked pt. what other needs she had while in room, pt. made a shooing motion with her hands and told me to get out. Again asked pt. about needs before leaving room and informed pt. she would be rounded on hourly. Pt. told me to shut up. Asked pt. again what needs she had before leaving the room. Room door had not shut all the way and pt. rang call light, asked pt. what assistance she needed. Point to her watch, informed pt. I did not know what that meant, how may I assist her. Pt. indicated she had been for hours , was attempting to inform pt. had her first lab results and was attempting to explain 3 hour troponin, pt. made mocking motions- tilting head from side to side and opening and closing mouth. I informed pt. I would update her on her POC when she was receptive to the information.
--- NOTE | 2020-08-31 11:15 | PC.NURSE ---
this RN to patient's bedside with charge nurse Phyl. patient asked if she needs anything at this time. any repositioning or updates on her condition. patient rude to charge nurse. started pointing at her watch and pointing at the door. attempted to kick charge nurse out of her room. see notes.
--- NOTE | 2020-08-31 11:30 | PC.NURSE ---
patient needs IV access for CT of chest PE protocol. patient updated. patient states she is ok if we attempt for IV access. #20 in (L) AC but infilitrated with second flush. Blaine RN to bedside with ultrasound to place IV. CT aware. patient given swab for dry mouth.
--- NOTE | 2020-08-31 11:50 | PC.NURSE ---
patient has IV access in left AC. CT notified.
--- NOTE | 2020-08-31 12:26 | PC.NURSE ---
patient to CT
--- NOTE | 2020-08-31 13:05 | PC.NURSE ---
patient back from CT. IV infilitrated. contrast all in her left arm. will discuss with provider.
--- NOTE | 2020-08-31 13:10 | PC.NURSE ---
VQ scan ordered. patient updated.
[2020-08-31] MEDS: POTASSIUM CHLORIDE 20 MEQ TABLET 40 MEQ PO ×2 (13:15→23:44)
[2020-08-31] MEDS: ACETAMINOPHEN 325 MG TABLET 650 MG (13:42)
--- NOTE | 2020-08-31 14:16 | PC.NURSE ---
3 HOUR TROPONIN DRAWN AND SENT TO LAB.
--- NOTE | 2020-08-31 14:19 | PC.NURSE ---
Patient taken to VQ scan at this time.
[2020-08-31 14:45] LABS: Troponin I < 0.012 ng/mL (0.000-0.034)
--- NOTE | 2020-08-31 14:53 | PC.NURSE ---
patient back from . resting on stretcher. watching TV. alert. on laster hand. refuses to wear BP cuff. waiting for results.
--- NOTE | 2020-08-31 15:10 | PC.NURSE ---
provider at bedside. VQ scan intermediate. patient continues to feel more dyspneic than usual. MD discussed admission with patient. will proceed with admission upstairs. waiting for orders to be placed.
--- NOTE | 2020-08-31 15:37 | PC.NURSE ---
admission orders placed. tray ordered for patient. SBAR completed. waiting for bed assignment.
[2020-08-31] MEDS: FUROSEMIDE INJ 40 MG/4 ML VIAL IV PUSH (15:45)
[2020-08-31] MEDS: ENOXAPARIN 100 MG/ML SYRINGE SUB-Q (15:45)
--- NOTE | 2020-08-31 15:48 | PC.NURSE ---
patient now states she cannot be admitted. she has an important MD appointment tomorrow with the surgeon who is going to fix her vocal cords. provider aware.
--- NOTE | 2020-08-31 16:17 | PC.NURSE ---
pt. was refusing admission because has a procedure scheduled tomorrow to fix her vocal cords; myself and Dr. Montero at bedside; explained reason for admission to pt. again; at this time pt. agrees to admission. Marriage Performer made aware pt. is staying
--- NOTE | 2020-08-31 16:54 | ECG_ITS ---
Measurements Intervals [place] Rate: 148 P: PA: 0 QRS: 85 QRSD: 142 T: 72 QT: 321 QTc: 505 Interpretive Statements ATRIAL FIBRILLATION WITH RAPID VENTRICULAR RESPONSE ELECTRONIC PACEMAKER VENTRICULAR COMPLEXES AND FUSION COMPLEX INTRAVENTRICULAR CONDUCTION DELAY ANTERIOR INFARCT, AGE INDETERMINATE BASELINE ARTIFACT- I, II, III, AVR, AVL, AVF, V1-V6 ABNORMAL ECG Electronically Signed On 09-01-2020 7:10:10 DATA STEWARD by Gabe Garcia D.O.
--- NOTE | 2020-08-31 17:04 | PC.NURSE ---
pt. was provided 2 different meal trays, neither were satisfactory to her
[2020-08-31] MEDS: dilTIAZem HCl INJ 25 MG/5 ML VIAL 10 MG IV PUSH (17:23)
--- NOTE | 2020-08-31 17:32 | PC.NURSE ---
patient medicated as ordered. cardizem gtt started as ordered. patient repositioned. 2nd trop drawn. waiting for bed assignment upstairs. call light in reach. patient is aware of all.
[2020-08-31 17:55] LABS: Troponin I < 0.012 ng/mL (0.000-0.034)
--- NOTE | 2020-08-31 18:50 | PC.NURSE ---
report given to RN on IMU. will transfer patient to 205.
--- NOTE | 2020-08-31 19:27 | ADMGEN ---
This patient, Princess Barraza, was admitted to IMU Room 205-01. Patient/family oriented to hospital policies and general routines including ID bracelet, bed and alarms, visiting hours, pain management, procedures, bathroom and other care routines, personal items, smoking policy, room service/diet, and visiting hours. Information on how to activate the Rapid Response Team has been discussed. Patient/Family are encouraged to report perceived risks to care and to ask questions if they do not understand what they are told or what they should do.
[2020-08-31 20:36] LABS: Anion Gap 0 mmol/L (8-16); Blood Urea Nitrogen 16 mg/dL (7-17); Calcium 7.7 mg/dL (8.4-10.2); Carbon Dioxide 35 mmol/L (22-30); Chloride 98 mmol/L (98-107); Estimated CRCL calculation 84 ml/min; Estimated Glomerular Filt Rate > 60; Glucose 140 mg/dL (65-105); Magnesium 1.6 mg/dL (1.6-2.3); Potassium 3.3 mmol/L (3.4-5.0); Sodium 133 mmol/L (137-145)
--- NOTE | 2020-08-31 22:00 | PM.IMHP ---
H&P: HPI History of Present Illness Date/Time: 08/31/20 21:30 Chief Complaint: shortness of breath for few hours Narrative: Princess Barraza is a 65 year old female with a past medical history of ischemic cardiomyopathy, systolic and diastolic congestive heart failure and chronic debility who presented to the ER from [facility] via EMS due to severe shortness of breath that started 4 hours prior to arrival. The patient reports that she has not been having any cough or congestion. She has been afebrile and had a negative COVID test 2 days ago. She denies any chest pain or palpitations. However on arrival to the ER the patient was noted to be in AFib RVR with heart rate of 148. She has chronic Dependent edema in her lower extremities and to a greater extent and her buttocks and groin. She denies any orthopnea or paroxysmal nocturnal dyspnea. she has been taking her medications as directed. She eats the meals provided to her from the shelter. She denies a history of COPD. She has been wheezing more than usual. She has not noticed a change in her bowel habits but does have a history of chronic diarrhea in the past. She does not think she has had any melena or hematochezia. She reports her shortness of breath has improved since arrival to the IMU. At shelter EMS was told that the patient uses oxygen chronically 2 L. However, the patient had been weaned off oxygen prior to her discharge from the hospital in July. The patient states I have not used oxygen in months. When EMS arrived at the patient's care facility patient was satting 89% on room air. She was placed on 2 L nasal cannula with improvement in her oxygen saturations up to 98%. Review of Systems Review of Systems: Narrative: 12 systems were reviewed with pertinent positives and negatives per HPI. Except as documented in the HPI, all other systems were reviewed and are negative. [facility] Past Medical History Medical History (Updated 08/31/20 @ 22:14 by Patricia Castillo DO) Acquired hypothyroidism Ambulatory dysfunction Anemia Chronic Anxiety Artificial pacemaker Atherosclerotic heart disease of [place] coronary artery without angina pectoris Benzodiazepine abuse Bowel obstruction With multiple bowel resections CAD (coronary artery disease) CHF (congestive heart failure) echo June 2020: Severe left ventricular enlargement, severe left ventricular systolic dysfunction with EF of 20-25%, grade 1 diastolic dysfunction, multiple ventricular salmeron are akinetic and hypokinetic, moderate left atrial enlargement, mild mitral valve regurgitation, mild tricuspid regurgitation, mild pulmonary hypertension with RVSP of 41, mild pulmonic regurgitation, small pericardial effusion Chronic abdominal wound infection Chronic anemia Chronic combined systolic (congestive) and diastolic (congestive) heart failure Chronic diarrhea Chronic kidney disease Chronic pain syndrome CKD (chronic kidney disease) Combined systolic and diastolic cardiac dysfunction Echo April 2017 demonstrating EF of 20% with diastolic dysfunction DDD (degenerative disc disease) With chronic back pain Essential (primary) hypertension Extreme obesity with alveolar hypoventilation Generalized anxiety disorder GERD (gastroesophageal reflux disease) With reflux esophagitis and gastric ulcer May 2016 Hernia History of blood transfusion HTN (hypertension) Hyperlipidemia Hyponatremia Ischemic cardiomyopathy with implantable cardioverter-defibrillator (ICD) Echocardiogram April 2017 with EF of 20% MDD (major depressive disorder), recurrent severe, without psychosis Mixed hyperlipidemia Myocardial infarction Open wound of abdominal wall w/o penetration into peritoneal cavity Chronic Osteoporosis Pancreatitis Post-menopausal Primary generalized (osteo)arthritis Radius fracture SBO (small bowel obstruction) September 04, 2019 Slow transit constipation UTI (urinary tract
--- NOTE | 2020-08-31 23:05 | PCRCNOTE ---
Pt states she does not wear a CPAP or BiPAP machine at home. She does not want to wear one here.
[2020-08-31] MEDS: MAGNESIUM SULF 2 GM/WATER 50ML 2 GM/50 ML BAG IVPB (23:44)
[2020-08-31] MEDS: risperiDONE 1 MG TABLET 2 MG PO (23:44)
[2020-08-31] MEDS: MELATONIN 5 MG TABLET 10 MG PO (23:44)
[2020-08-31] MEDS: GABAPENTIN 100 MG CAPSULE PO (23:44)
[2020-09-01] VITALS (16 sets, daily range): BP systolic 88–122; BP diastolic 40–88; PULSE 71–119; RESP 18–24; TEMP 35.8–36.6; O2SAT 94–100
[2020-09-01] MEDS: LEVOTHYROXINE SODIUM 75 MCG TABLET PO (05:46)
[2020-09-01] MEDS: METOCLOPRAMIDE HCL 5 MG TABLET PO ×3 (05:46→18:16)
[2020-09-01 07:39] LABS: Hematocrit 37.3 % (37.0-47.0); Hemoglobin 12.6 g/dL (12.0-15.0); Immature Platelet Fraction Pct 3.9 % (0.9-11.2); Mean Corpuscular HGB Conc 33.8 g/dl (32-36); Mean Corpuscular Hemoglobin 32.6 pg (26-34); Mean Corpuscular Volume 96.6 fl (80-100); Mean Platelet Volume 10.1 fl (7.4-10.4); Platelet Count Result 147 k/mm3 (150-375); Red Blood Count 3.86 M/mm3 (4.2-5.4); Red Cell Distribution Width 15.2 % (11.5-14.5); White Blood Count 16.7 K/mm3 (4.5-10.0)
[2020-09-01 08:11] LABS: Anion Gap 2 mmol/L (8-16); Blood Urea Nitrogen 16 mg/dL (7-17); Calcium 7.9 mg/dL (8.4-10.2); Carbon Dioxide 28 mmol/L (22-30); Chloride 103 mmol/L (98-107); Estimated CRCL calculation 84 ml/min; Estimated Glomerular Filt Rate > 60; Glucose 88 mg/dL (65-105); Potassium 4.2 mmol/L (3.4-5.0); Sodium 133 mmol/L (137-145)
[2020-09-01] MEDS: LIDOCAINE 5% PATCH 1 PATCH TRANSDERM (10:22)
[2020-09-01] MEDS: guaiFENesin 12 HR 600 MG TABCR PO ×2 (10:22→22:02)
[2020-09-01] MEDS: ASCORBIC ACID 500 MG TABLET 1000 MG PO (10:23)
[2020-09-01] MEDS: GABAPENTIN 100 MG CAPSULE PO ×3 (10:23→18:13)
[2020-09-01] MEDS: POTASSIUM CHLORIDE 10 MEQ TABLET.ER 20 MEQ PO (10:24)
[2020-09-01] MEDS: CITALOPRAM HYDROBROMIDE 20 MG TABLET 40 MG PO (10:24)
[2020-09-01] MEDS: ATORVASTATIN 10 MG TABLET PO (10:25)
[2020-09-01] MEDS: MAGNESIUM OXIDE 400 MG TABLET PO ×2 (10:25→18:15)
[2020-09-01] MEDS: carvediloL 6.25 MG TABLET PO ×2 (10:26→22:02)
[2020-09-01] MEDS: MICONAZOLE NITRATE 2% CREAM 30 GM TUBE 1 APPLIC TOPICAL ×2 (10:26→22:04)
[2020-09-01] MEDS: buPROPion HCL XL (24 HR) 150 MG TABCR PO (10:26)
[2020-09-01] MEDS: LIOTHYRONINE SODIUM 5 MCG TABLET PO (10:26)
[2020-09-01] MEDS: SPIRONOLACTONE 50 MG TABLET PO (10:26)
[2020-09-01] MEDS: LORATADINE 10 MG TABLET PO (10:26)
[2020-09-01] MEDS: risperiDONE 1 MG TABLET 2 MG PO ×2 (10:28→22:02)
[2020-09-01] MEDS: PANTOPRAZOLE 40 MG TABLET PO (10:28)
[2020-09-01] MEDS: THERAPEUTIC MULTIVITAMINS/MINERALS TAB (*BKC) 1 TABLET PO (10:28)
[2020-09-01] MEDS: ZINC SULFATE 220 MG CAPSULE PO (10:29)
[2020-09-01] MEDS: FUROSEMIDE INJ 40 MG/4 ML VIAL IV PUSH ×2 (10:36→18:13)
--- NOTE | 2020-09-01 13:28 | PM.CNCAR ---
Assessment and Plan Additional Plan 65-year-old female with severe ischemic cardiomyopathy. She has at a very low ejection fraction for about 20 years as I mentioned above. She has had 2 echocardiograms done in this hospital within the last couple of months both with similar findings. She not surprisingly is still experiencing shortness of breath and was brought to the hospital again last night. It is very unusual that she told me in the office and my nurse practitioner 9 months ago that she wanted involvement with me is her physician going forward but then is telling staff in the hospital that I am her v belt finisher. In that setting I have agreed to see her again in consultation despite those comments in the past. She is currently receiving some intravenous furosemide I will continue that for the time being. I am going to try adding a low dose of Entresto to her regimen as she has a very low ejection fraction appears to have normal creatinine and would likely benefit significantly hemodynamically of this would be tolerated. Will have to watch her potassium as we do this and a good chance we will have to stop potassium supplementation. It seems that her celery tier is not seeing her either for her ICD checks I will have our [employer] rep assess the status of her defibrillator while she is here as it sounds like that has not been followed up for quite a while. Hung Krause MD [facility] History of Present Illness History of Present Illness Consult date/time: 09/01/20 13:28 Consult reason: chest pain and shortness of breath Reason For Visit: SOB Narrative: This is a 65-year-old white female who is known to me from previous care who has a history of coronary artery disease and a relatively severe ischemic cardiomyopathy. I am seeing her at the request of the hospitalist today to participate in her care and evaluation. The patient states that she became relatively severely short of breath last evening she lives in a local intermediate facility or skilled care facility of some sort and was brought to the emergency room with the symptoms. In the emergency room her evaluation showed it to be in some mild pulmonary edema by exam and by chest x-ray. In the emergency room she was transiently tachycardic and was interpreted by the staff down there to have had an episode of atrial fibrillation. She is currently in a sinus rhythm with atrial sensing and ventricular pacing. Other than feeling extremely weak she has noted significant complaints at this time she has a very soft voice and is somewhat difficult to hear her history in this fashion. Her history of ischemic cardiomyopathy dates back to June of 2000 when we 1st saw this patient in the [facility] in acute anterior wall infarction. She had presented unfortunately late in the event and underwent angiographically successful LAD stenting at that time but she presented too late to be of much benefit with revascularization she also had a chronic total occlusion of her circumflex at that time as well. As 1 would expect since then she has had a very low ejection fraction and symptoms of shortness of breath. She also has had a number of other medical comorbidities that are related to morbid obesity and previous abdominal surgeries. I last saw this patient in February of 2018 in the office at which time she expressed dissatisfaction with our care and indicated she did not wish to see me in the office any longer and was going to become established with a different v belt finisher. Despite that we were asked to see the patient in the hospital here in October of 2019 when she was hospitalized for noncardiac reasons. Upon discharge she was announced to our nurse practitioner that she did not wish to follow up with me either in an was going to establish with v belt finisher elsewhere. Despite all that she tells the staff in the hospital during this admission that I am her v belt finisher and wishes to see me in consult
--- NOTE | 2020-09-01 15:58 | PM.IMPN ---
Progress Note: A&P Assessment and Plan (1) Dyspnea: Qualifiers: Dyspnea type: unspecified Qualified Code(s): R06.00 - Dyspnea, unspecified Code(s): R06.00 - Dyspnea, unspecified Status: Acute Assessment and Plan: Likely secondary to fluid overload Currently diuresing Monitor I/O's (2) Hypokalemia: Code(s): E87.6 - Hypokalemia Status: Acute Assessment and Plan: Replace as needed (3) Atrial fibrillation with rapid ventricular response: Code(s): I48.91 - Unspecified atrial fibrillation Status: Acute Assessment and Plan: On Diltiazem drip initially On Carvedilol at home (4) Paralysis of left vocal cord: Code(s): J38.01 - Paralysis of vocal cords and larynx, unilateral Status: Acute Assessment and Plan: Will follow up in the outpatient setting for this. (5) Chronic kidney disease, stage 3: Qualifiers: Chronic kidney disease stage 3 subtype: unspecified whether 3a or 3b Qualified Code(s): N18.30 - Chronic kidney disease, stage 3 unspecified Code(s): N18.3 - Chronic kidney disease, stage 3 (moderate) Status: Chronic Assessment and Plan: Continue to monitor Bun/cr Daily BMP as patient is being diuresed. (6) Paroxysmal atrial fibrillation: Code(s): I48.0 - Paroxysmal atrial fibrillation Status: Acute Assessment and Plan: Off of Diltiazem drip. (7) Acute on chronic systolic and diastolic heart failure, NYHA class 4: Code(s): I50.43 - Acute on chronic combined systolic (congestive) and diastolic (congestive) heart failure Status: Acute Assessment and Plan: Continue diuresis. Appreciate Cardiology note. Subjective Date/time seen: 09/01/20 15:58 States that she had appointment today to get an injection in her vocal cords but instead had to come to the hospital. Review of Systems Review of Systems: Narrative: Unable to get review as patient has vocal cord disturbance Exam Narrative: Exam Narrative: Lying in bed. Const: General: comfortable, no acute distress, alert and awake Nutritional Appearance: overweight Orientation/consciousness: patient oriented x3 HENMT: Head: normal to inspection and normocephalic Ears: hearing grossly normal bilaterally General nose exam: Normal external nose present Face and sinus: normal facial exam Neck: Neck: no lymphadenopathy, supple and no JVD Resp: Effort & Inspection: able to speak in complete sentences Auscultation: clear to auscultation bilaterally Cardio: Jugular venous distension: no JVD Rate: regular rate Rhythm: regular rhythm GI: GI Palp: Yes Soft to palpation and Yes No hepatosplenomegaly present Skin: Lesions: no lesions Rashes: no rashes Wounds: no wounds Neuro: General: patient oriented x3 and CN's II-XI intact bilaterally Cranial nerves: Yes CN's II-XII intact bilaterally and Yes Equal, round and reactive pupils present Cognition (Neuro): normal cognition Speech: normal speech Gait exam (Neuro): Normal gait present Motor exam (neuro): 5/5 motor strength present throughout Extrem: General: pedal edema bilaterally 4+ Objective Data Vital Signs Vital Signs: Vital Signs - 24 hr 08/31/20 16:00 08/31/20 16:15 08/31/20 16:30 Temperature Pulse Rate 130 H 110 H 117 H Respiratory Rate 20 17 34 H Blood Pressure Pulse Oximetry 08/31/20 16:45 08/31/20 17:00 08/31/20 17:07 Temperature Pulse Rate 139 H 140 H 140 H Respiratory Rate 21 H 21 H 21 H Blood Pressure 102/63 Pulse Oximetry 08/31/20 17:15 08/31/20 17:17 08/31/20 17:30 Temperature Pulse Rate 116 H 158 H 91 Respiratory Rate 19 17 15 Blood Pressure 98/60 L 93/74 L Pulse Oximetry 08/31/20 17:32 08/31/20 17:33 08/31/20 17:45 Temperature Pulse Rate 111 H 105 H 90 Respiratory Rate 15 18 15 Blood Pressure 94/63 L Pulse Oximetry 08/31/20 17:47 08/31/20 18:00 08/31/20 18:03 Temperatur
--- NOTE | 2020-09-01 18:16 | PC.NURSE ---
Entrestro was sent way late by pharmacy so RN nonadministered today's 0900 dose.
[2020-09-01] MEDS: traZODone HCL 50 MG TABLET PO (22:01)
[2020-09-01] MEDS: SACUBITRIL/VALSARTAN 24-26 MG TABLET 1 TAB PO (22:02)
[2020-09-01] MEDS: MELATONIN 5 MG TABLET 10 MG PO (22:02)
[2020-09-02] VITALS (16 sets, daily range): BP systolic 100–138; BP diastolic 50–85; PULSE 70–98; RESP 20–24; TEMP 35.8–36.6; O2SAT 93–100
[2020-09-02] MEDS: LEVOTHYROXINE SODIUM 75 MCG TABLET PO (06:04)
[2020-09-02] MEDS: METOCLOPRAMIDE HCL 5 MG TABLET PO ×2 (06:04→15:32)
[2020-09-02] MEDS: LIDOCAINE 5% PATCH 1 PATCH TRANSDERM (09:29)
[2020-09-02] MEDS: FUROSEMIDE INJ 40 MG/4 ML VIAL IV PUSH ×2 (09:30→17:56)
[2020-09-02] MEDS: THERAPEUTIC MULTIVITAMINS/MINERALS TAB (*BKC) 1 TABLET PO (09:31)
[2020-09-02] MEDS: ASCORBIC ACID 500 MG TABLET 1000 MG PO (09:32)
[2020-09-02] MEDS: LORazepam (*CRX) 0.5 MG TABLET PO ×2 (09:32→15:32)
[2020-09-02] MEDS: MAGNESIUM OXIDE 400 MG TABLET PO ×2 (09:32→17:56)
[2020-09-02] MEDS: GABAPENTIN 100 MG CAPSULE PO ×3 (09:32→17:56)
[2020-09-02] MEDS: MICONAZOLE NITRATE 2% CREAM 30 GM TUBE 1 APPLIC TOPICAL ×2 (09:32→21:29)
[2020-09-02] MEDS: ZINC SULFATE 220 MG CAPSULE PO (09:32)
[2020-09-02] MEDS: risperiDONE 1 MG TABLET 2 MG PO ×2 (09:34→21:28)
[2020-09-02] MEDS: LIOTHYRONINE SODIUM 5 MCG TABLET PO (09:35)
[2020-09-02] MEDS: SACUBITRIL/VALSARTAN 24-26 MG TABLET 1 TAB PO ×2 (09:35→21:28)
[2020-09-02] MEDS: SPIRONOLACTONE 50 MG TABLET PO (09:35)
[2020-09-02] MEDS: CITALOPRAM HYDROBROMIDE 20 MG TABLET 40 MG PO (09:35)
[2020-09-02] MEDS: buPROPion HCL XL (24 HR) 150 MG TABCR PO (09:35)
[2020-09-02] MEDS: guaiFENesin 12 HR 600 MG TABCR PO ×2 (09:35→21:28)
[2020-09-02] MEDS: carvediloL 6.25 MG TABLET PO ×2 (09:36→21:28)
[2020-09-02] MEDS: ATORVASTATIN 10 MG TABLET PO (09:36)
[2020-09-02] MEDS: PANTOPRAZOLE 40 MG TABLET PO (09:36)
[2020-09-02] MEDS: LORATADINE 10 MG TABLET PO (09:36)
--- NOTE | 2020-09-02 14:25 | PM.IMPN ---
Progress Note: A&P Assessment and Plan (1) Dyspnea: Qualifiers: Dyspnea type: unspecified Qualified Code(s): R06.00 - Dyspnea, unspecified Code(s): R06.00 - Dyspnea, unspecified Status: Acute Assessment and Plan: Likely secondary to fluid overload Currently diuresing Monitor I/O's (2) Hypokalemia: Code(s): E87.6 - Hypokalemia Status: Acute Assessment and Plan: Potassium 4.2 today, continue to monitor with the spironolactone and Entresto (3) Atrial fibrillation with rapid ventricular response: Code(s): I48.91 - Unspecified atrial fibrillation Status: Acute Assessment and Plan: On Diltiazem drip initially On Carvedilol with 3 usual home dose and controlled the response (4) Paralysis of left vocal cord: Code(s): J38.01 - Paralysis of vocal cords and larynx, unilateral Status: Acute Assessment and Plan: Will follow up in the outpatient setting for this. (5) Chronic kidney disease, stage 3: Qualifiers: Chronic kidney disease stage 3 subtype: unspecified whether 3a or 3b Qualified Code(s): N18.30 - Chronic kidney disease, stage 3 unspecified Code(s): N18.3 - Chronic kidney disease, stage 3 (moderate) Status: Chronic Assessment and Plan: Continue to monitor Bun/cr stable at 16 and 0.7 today (6) Paroxysmal atrial fibrillation: Code(s): I48.0 - Paroxysmal atrial fibrillation Status: Acute Assessment and Plan: Off of Diltiazem drip. And on Coreg only. No full-dose anticoagulation with history of GI bleeding (7) Acute on chronic systolic and diastolic heart failure, NYHA class 4: Code(s): I50.43 - Acute on chronic combined systolic (congestive) and diastolic (congestive) heart failure Status: Acute Assessment and Plan: Continue diuresis. With the Coreg and Entresto has been added Additional Plan the patient reports that she has not used oxygen since May. She is at a recurrence of hypoxic respiratory failure likely due to CHF exacerbation /atrial fibrillation. Will place patient on IV Lasix. She did receive 1 dose of IV Lasix in the ER as well as potassium supplementation due to hypokalemia Subjective Date/time seen: 09/02/20 14:25 Interval history: Date of visit 09/02 65-year-old with ischemic cardiomyopathy and atrial fibrillation admitted with increasing shortness of breath. Recently discharged after treatment was probable pneumonia. Feeling better this a.m. but distraught that nurse had not come into the room Exam Narrative: Exam Narrative: Blood pressure 138/58 pulse is 84 and more regular saturating 96% motor 3 L afebrile Patient would not let me listen to her lungs or heart, upset that nurse was not there Extremities edema much decreased with subsequent wrinkling of the skin, dorsalis pedis posterior tibial 1+ Neuro alert but upset with voice hoarseness as before Objective Data Vital Signs Vital Signs: Vital Signs - 24 hr 09/01/20 16:00 09/01/20 18:00 09/01/20 20:00 Temperature 36.3 C L 36.4 C Pulse Rate 89 83 88 Respiratory Rate 18 20 Blood Pressure 113/63 96/60 L Pulse Oximetry 99 100 09/01/20 22:00 09/01/20 22:02 09/01/20 23:39 Temperature 36.6 C Pulse Rate 106 H 99 90 Respiratory Rate 18 Blood Pressure 88/40 L Pulse Oximetry 99 09/02/20 00:00 09/02/20 01:03 09/02/20 02:00 Temperature Pulse Rate 97 74 Respiratory Rate Blood Pressure 100/56 L Pulse Oximetry 99 09/02/20 04:00 09/02/20 07:57 09/02/20 08:00 Temperature 36.6 C Pulse Rate 86 85 Respiratory Rate 20 Blood Pressure 110/60 Pulse Oximetry 97 94 09/02/20 09:00 09/02/20 09:36 09/02/20 10:00 Temperature 36.0 C L Pulse Rate 98 70 97 Respiratory Rate 22 H Blood Pressure 135/85 Pulse Oximetry 98 09/02/20 12:00 09/02/20 13:06 Temperature 35.8 C L Pulse Rate 85 84 Respiratory Rate 24 H Blood Pressure 138/5
[2020-09-02] MEDS: ACETAMINOPHEN 325 MG TABLET 650 MG PO ×2 (15:30→22:54)
--- NOTE | 2020-09-02 15:53 | PM.PNCARD ---
Progress Note: A&P Assessment and Plan (1) Atrial fibrillation with rapid ventricular response: Code(s): I48.91 - Unspecified atrial fibrillation Status: Acute Assessment and Plan: off diltiazem infusion, heart rate control. Continue carvedilol 6.25 mg twice daily. Continue therapy in for now. Patient not an anticoagulation candidate due to history of GI bleed (2) Acute on chronic systolic and diastolic heart failure, NYHA class 4: Code(s): I50.43 - Acute on chronic combined systolic (congestive) and diastolic (congestive) heart failure Status: Acute Assessment and Plan: Improving the IV diuresis. Entresto initiated yesterday for chronic CHF and severe LV dysfunction. IV Lasix. Accurate input and output, daily weight. Monitor renal function electrolytes closely. Replete as needed but monitor with initiation of Entresto. Monitor BP closely, avoid symptomatic hypotension. BP somewhat labile overnight improved this a.m.. (3) Ischemic cardiomyopathy: Code(s): I25.5 - Ischemic cardiomyopathy Status: Acute Assessment and Plan: chronic severe LV systolic dysfunction. Optimize medical management. Continue carvedilol, Entresto, spironolactone. continue statin. Aspirin 81 mg advised if patient able to tolerate. (4) Atherosclerotic heart disease of [place] coronary artery without angina pectoris: Code(s): I25.10 - Atherosclerotic heart disease of [place] coronary artery without angina pectoris Status: Acute Assessment and Plan: No anginal symptoms. Medical management. Patient not a candidate for further intervention in the past per Dr. Krause is notes. (5) ICD (implantable cardioverter-defibrillator) in place: Code(s): Z95.810 - Presence of automatic (implantable) cardiac defibrillator Status: Acute Assessment and Plan: Awaiting ICD interrogation of [employer] device. Subjective Date/time seen: Date of service: 09/02/20 15:53 Follow-up for severe ischemic cardiomyopathy, CHF patient denied chest pain or significant shortness of breath at this time but states he was in pain. Patient states she was frustrated as the nurse would not come in repeatedly asked to be changed. In speaking with the nurse patient repeatedly calls for the nurse with her button despite not requiring new attention and having just left her room. The pt apparently continues to claim no one is responding to because they don't like changing diapers . patient would not allow me to listen to her lungs or her heart until after the nurse returned to her room. apparently, she had the same request of the hospitalist Dr. Barriga. I was able to examine her lower extremities which revealed minimal edema. patient was in no apparent distress appear to be breathing comfortably with a soft and hoarse voice making it somewhat difficult to hear. Review of Systems Review of Systems: All systems reviewed & are unremarkable except as noted in HPI and below Constitutional: Constitutional: Reports as per HPI, Reports lethargy and Reports weakness Eyes: Eyes: Reports as per HPI and Reports no additional eye complaints ENT: Reports system reviewed and no additional complaints, except as documented and Reports as per HPI Cardiovascular: Cardiovascular: Reports as per HPI, Denies chest pain, Denies palpitations and Reports dyspnea Respiratory: Respiratory: Reports as per HPI and Reports dyspnea Gastrointestinal: Gastrointestinal: Reports as per HPI and Reports no additional gastrointestinal complaints Genitourinary: Genitourinary: Reports as per HPI Musculoskeletal: Musculoskeletal: Reports as per HPI, Reports back pain and Reports myalgias Integumentary/Breasts: Skin/Breast: Reports system reviewed and no additional complaints, except as docu and Reports as per HPI Neurologic: Reports system reviewed and no additional complaints, except as documented, Reports as per HPI and Rep
--- NOTE | 2020-09-02 18:05 | PC.NURSE ---
This patient, Princess Barraza[facility] at 1805. Personal belongings sent with patient. Report given to Pat HERNANDEZ. Appropriate documentation sent with patient.
[2020-09-02] MEDS: MELATONIN 5 MG TABLET 10 MG PO (21:27)
[2020-09-02] MEDS: traZODone HCL 50 MG TABLET PO (21:28)
[2020-09-03] VITALS (9 sets, daily range): BP systolic 100–122; BP diastolic 55–69; PULSE 63–108; RESP 16–26; TEMP 35.5–36.6; O2SAT 91–100
[2020-09-03 05:51] LABS: Basophils Percent Auto 0.3 % (0.2-1.2); Eosinophils Absolute Auto 0.1 K/mm3 (0-0.3); Eosinophils Percent Auto 0.5 % (0-4.4); Hematocrit 36.5 % (37.0-47.0); Hemoglobin 11.6 g/dL (12.0-15.0); Immature Granulocyte Absolute 0.06 K/mm3 (0.00-0.031); Immature Granulocyte Percent A 0.5 % (0-0.5); Lymphocytes Absolute Auto 0.85 K/mm3 (0.9-3.2); Lymphocytes Percent Auto 6.6 % (18.3-44.2); Mean Corpuscular HGB Conc 31.8 g/dl (32-36); Mean Corpuscular Volume 100.6 fl (80-100); Mean Platelet Volume 9.9 fl (7.4-10.4); Monocytes Absolute Auto 0.6 K/mm3 (0.1-0.6); Neutrophils Absolute Auto 11.3 K/mm3 (1.3-6.7); Neutrophils Percent Auto 87.1 % (45.5-73.1); Platelet Count Result 132 k/mm3 (150-375); Red Blood Count 3.63 M/mm3 (4.2-5.4); Red Cell Distribution Width 15.7 % (11.5-14.5); White Blood Count 12.9 K/mm3 (4.5-10.0)
[2020-09-03] MEDS: METOCLOPRAMIDE HCL 5 MG TABLET PO ×2 (06:44→16:39)
[2020-09-03] MEDS: LEVOTHYROXINE SODIUM 75 MCG TABLET PO (06:44)
[2020-09-03 06:53] LABS: Anion Gap 0 mmol/L (8-16); Blood Urea Nitrogen 25 mg/dL (7-17); Calcium 7.7 mg/dL (8.4-10.2); Carbon Dioxide 34 mmol/L (22-30); Chloride 98 mmol/L (98-107); Estimated CRCL calculation 55 ml/min; Estimated Glomerular Filt Rate 50; Glucose 92 mg/dL (65-105); Potassium 3.6 mmol/L (3.4-5.0); Sodium 132 mmol/L (137-145)
[2020-09-03] MEDS: LORATADINE 10 MG TABLET PO (09:31)
[2020-09-03] MEDS: ACETAMINOPHEN 325 MG TABLET 650 MG PO ×2 (09:31→16:38)
[2020-09-03] MEDS: CITALOPRAM HYDROBROMIDE 20 MG TABLET 40 MG PO (09:31)
[2020-09-03] MEDS: SACUBITRIL/VALSARTAN 24-26 MG TABLET 1 TAB PO ×2 (09:32→21:58)
[2020-09-03] MEDS: PANTOPRAZOLE 40 MG TABLET PO (09:32)
[2020-09-03] MEDS: THERAPEUTIC MULTIVITAMINS/MINERALS TAB (*BKC) 1 TABLET PO (09:32)
[2020-09-03] MEDS: carvediloL 6.25 MG TABLET PO (09:32)
[2020-09-03] MEDS: GABAPENTIN 100 MG CAPSULE PO ×3 (09:32→16:38)
[2020-09-03] MEDS: ZINC SULFATE 220 MG CAPSULE PO (09:33)
[2020-09-03] MEDS: LIOTHYRONINE SODIUM 5 MCG TABLET PO (09:33)
[2020-09-03] MEDS: SPIRONOLACTONE 50 MG TABLET PO (09:33)
[2020-09-03] MEDS: ATORVASTATIN 10 MG TABLET PO (09:33)
[2020-09-03] MEDS: buPROPion HCL XL (24 HR) 150 MG TABCR PO (09:33)
[2020-09-03] MEDS: risperiDONE 1 MG TABLET 2 MG PO ×2 (09:33→21:57)
[2020-09-03] MEDS: MAGNESIUM OXIDE 400 MG TABLET PO ×2 (09:33→16:38)
[2020-09-03] MEDS: guaiFENesin 12 HR 600 MG TABCR PO ×2 (09:34→21:58)
[2020-09-03] MEDS: ASCORBIC ACID 500 MG TABLET 1000 MG PO (09:34)
[2020-09-03] MEDS: FUROSEMIDE 40 MG TABLET PO ×2 (09:34→16:39)
[2020-09-03] MEDS: MICONAZOLE NITRATE 2% CREAM 30 GM TUBE 1 APPLIC TOPICAL ×2 (09:35→21:58)
[2020-09-03] MEDS: LORazepam (*CRX) 0.5 MG TABLET PO (09:39)
--- NOTE | 2020-09-03 17:08 | PM.IMPN ---
Progress Note: A&P Assessment and Plan (1) Dyspnea: Qualifiers: Dyspnea type: unspecified Qualified Code(s): R06.00 - Dyspnea, unspecified Code(s): R06.00 - Dyspnea, unspecified Status: Acute Assessment and Plan: Likely secondary to fluid overload Currently diuresing and bun and creatinine slightly higher so change to po lasix Monitor I/O's (2) Hypokalemia: Code(s): E87.6 - Hypokalemia Status: Acute Assessment and Plan: Potassium 3.9 today, continue to monitor with the spironolactone and Entresto (3) Atrial fibrillation with rapid ventricular response: Code(s): I48.91 - Unspecified atrial fibrillation Status: Acute Assessment and Plan: On Diltiazem drip initially On Carvedilol with her usual home dose and controlled the response (4) Paralysis of left vocal cord: Code(s): J38.01 - Paralysis of vocal cords and larynx, unilateral Status: Acute Assessment and Plan: Will follow up in the outpatient setting for this. (5) Chronic kidney disease, stage 3: Qualifiers: Chronic kidney disease stage 3 subtype: unspecified whether 3a or 3b Qualified Code(s): N18.30 - Chronic kidney disease, stage 3 unspecified Code(s): N18.3 - Chronic kidney disease, stage 3 (moderate) Status: Chronic Assessment and Plan: Continue to monitor Bun/cr up to 25 and 1,1 today so change IV lasix to po (6) Paroxysmal atrial fibrillation: Code(s): I48.0 - Paroxysmal atrial fibrillation Status: Acute Assessment and Plan: Off of Diltiazem drip. And on Coreg only. No full-dose anticoagulation with history of GI bleeding (7) Acute on chronic systolic and diastolic heart failure, NYHA class 4: Code(s): I50.43 - Acute on chronic combined systolic (congestive) and diastolic (congestive) heart failure Status: Acute Assessment and Plan: Continue diuresis now po. With the Coreg and Entresto has been added Subjective Date/time seen: 09/03/20 17:08 Interval history: Date of visit 09/03 65-year-old with ischemic cardiomyopathy and atrial fibrillation admitted with increasing shortness of breath. Recently discharged after treatment was probable pneumonia. Feeling better this a.m. with less sob Exam Narrative: Exam Narrative: Blood pressure 104/66 pulse is 62 and more regular saturating 96% motor 2 L afebrile Lungs clear today CV regular rate rhythm Abdomen obese nontender Extremities without edema with residual wrinkling of skin from previous edema Neuro alert oriented but continues to be mildly upset Objective Data Vital Signs Vital Signs: Vital Signs - 24 hr 09/02/20 17:26 09/02/20 18:00 09/02/20 20:00 Temperature 36.1 C L 36.1 C L Pulse Rate 73 85 84 Respiratory Rate 20 20 Blood Pressure 120/58 L 108/50 L Pulse Oximetry 93 100 09/02/20 21:28 09/03/20 00:00 09/03/20 01:29 Temperature 35.9 C L Pulse Rate 76 76 80 Respiratory Rate 20 Blood Pressure 114/56 L Pulse Oximetry 92 09/03/20 04:00 09/03/20 08:00 09/03/20 09:32 Temperature 36.2 C L 36.1 C L Pulse Rate 104 H 68 86 Respiratory Rate 20 18 Blood Pressure 122/58 L 121/69 Pulse Oximetry 95 98 09/03/20 12:00 09/03/20 16:00 Temperature 35.7 C L Pulse Rate 63 70 Respiratory Rate 18 Blood Pressure 101/66 Pulse Oximetry 95 Intake/Output Intake/Output: Intake & Output 08/31/20 09/01/20 09/02/20 09/03/20 23:59 23:59 23:59 23:59 Intake Total 1430 840 380 Output Total 2100 800 1000 Balance -670 40 -620 Meds/Results Medications: Active Medications Generic Name Dose Route Start Last Admin Trade Name Jacques PRN Reason Stop Dose Admin Acetaminophen 650 mg 08/31/20 22:22 09/03/20 16:38 Acetaminophen 325 Mg Tablet PO 650 mg Q4H PRN Administration Mild Pain (1-3) Or Fever Ascorbic Acid 1,000 mg 09/01/20 09:00 09/03/20 09:34 Ascorbic Acid 500 Mg Tablet PO 1,000 mg
[2020-09-03] MEDS: MELATONIN 5 MG TABLET 10 MG PO (21:57)
[2020-09-03] MEDS: traZODone HCL 50 MG TABLET PO (21:58)
[2020-09-04] VITALS (48 sets, daily range): BP systolic 42–126; BP diastolic 18–83; PULSE 0–134; RESP 0–30; TEMP 33.1–36.6; O2SAT 72–100; BMI 39.3
--- NOTE | 2020-09-04 | ECHO_ITS ---
Patient Info Name: Princess Barraza Age: 65 years : 1955 Gender: Female Ht: 65 in Wt: 236 lbs BSA: 2.27 m2 HR: 101 bpm BP: 66 / 39 mmHg Technical Quality: Good Exam Date: 09/04/2020 9:05 AM Exam Location: [facility] Patient Status: Inpatient Admit Date: 09/01/2020 Staff Ordering Physician: Andrés Franklin MD Dance Therapist: Ludmila Burton RDCS Attending Provider: Elvira Hidalgo MD Exam Type: CA echo doppler color flow Study Info Complete two-dimensional, color flow and Doppler transthoracic echocardiogram is performed. Summary 1. Complete two-dimensional, color flow and Doppler transthoracic echocardiogram is performed. 2. Left ventricular chamber dimension is severely enlarged. 3. Left ventricular systolic function is severely reduced, estimated at 20-25%. 4. The left ventricular diastolic function is grade I diastolic dysfunction. 5. There is sessile thrombus visualized in the left ventricle.It measures 1.8x1.5 cm. 6. E/e' 22.0 is elevated. 7. Right ventricular chamber dimension is normal. 8. Right ventricular systolic function is normal. 9. There is mild mitral valve regurgitation. 10. There is mild tricuspid valve regurgitation. 11. No pulmonary hypertension, estimated pulmonary arterial systolic pressure is 31 mmHg. 12. There is trivial pericardial effusion. No Tamponade. 13. Left pleural effusion. Left Ventricle Left ventricular chamber dimension is severely enlarged. Left ventricular systolic function is severely reduced, estimated at 20-25%. There is no increased left ventricular wall thickness. Left ventricular septal wall motion is abnormal with septal motion related to pacing. The left ventricular diastolic function is grade I diastolic dysfunction. There is sessile thrombus visualized in the left ventricle.It measures 1.8x1.5 cm. E/e' 22.0 is elevated. Right Ventricle Right ventricular chamber dimension is normal. Right ventricular systolic function is normal. Linear artifact in right ventricle suggestive of catheter(s), pacemaker lead(s), or ICD lead(s). Left Atria Left atrial chamber dimension is normal. Right Atria Right atrial chamber dimension is normal. Atrial Septum Intact interatrial septum visualized by color flow imaging. Aortic Valve The aortic valve is trileaflet. There is no aortic valve sclerosis. There is no aortic valve stenosis. There is no aortic valve regurgitation. Pulmonic Valve The pulmonic valve is normal. There is no pulmonic valve stenosis. There is no pulmonic regurgitation. Mitral Valve The mitral valve has thickened leaflets. There is no mitral valve stenosis. There is mild mitral valve regurgitation. Tricuspid Valve The tricuspid valve leaflets are normal. There is no significant tricuspid valve stenosis. There is mild tricuspid valve regurgitation. No pulmonary hypertension, estimated pulmonary arterial systolic pressure is 31 mmHg. Pericardium/Pleural There is trivial pericardial effusion. No Tamponade. Inferior Vena Cava Normal inferior vena cava with >50% collapse upon inspiration consistent with normal right atrial pressure, 5 mmHg. Aorta The aortic root size at the sinus of Valsalva is normal. The prox ascending aorta size is normal. Left Ventricular Outflow Tract Name Value Normal
[2020-09-04 00:37] LABS: Alveolar/Arterial O2 Gradient 213.8 mmHg; Base Excess ABG 0.6 mEq/l (+/-2.0); Carboxyhemoglobin 0.8 % THb (0-2.0); HCO3 ABG 30.4 mEq/l (22.0-26.0); Methemoglobin ABG 0.3 %THb (0-1.5); Oxygen Content ABG 14.7 %vol (16.0-22.0); Oxyhemoglobin 83.2 % THb (90.0-100.0); PO2 ABG 55.4 mmHg (80.0-100.0); PO2 FiO2 Ratio Arterial Blood 1.11 %; Reduced Hemoglobin 15.7 %THb (0-5.0); Total Hemoglobin 12.6 g/dL (12.0-18.0)
[2020-09-04 00:38] LABS: PCO2 ABG 77.6 mmHg (35.0-45.0); pH ABG 7.211 (7.350-7.450)
[2020-09-04 00:39] LABS: Device NON-REBREATHER MASK; Modified Allen's Test Unable to perform; Oxygen Saturation ABG 80.9 % (95.0-100.0); Site Drawn RIGHT RADIAL
[2020-09-04 00:40] LABS: Fractional Inspired Oxygen 100 %
--- NOTE | 2020-09-04 00:55 | PC.NURSE ---
Call placed to Jordyn daughter and RAJAN and informed of patient condition. Informed that patient was a DNR according to her (patient) wishes but that we would be placing her on a bipap machine to help her breath and give her IV fluids for her low BP. Daughter agreed with current care.
[2020-09-04] MEDS: SODIUM CHLORIDE 0.9% IV 500 ML 999 ML IV CONT (01:00)
--- NOTE | 2020-09-04 01:42 | PM.CCN ---
Critical Care Event Note Summary Code activated: No Narrative: 09/04/2020 at 12:20 a.m. A rapid response was called just after midnight due to respiratory distress. The patient was found to be hypoxic in complaining of shortness of breath. She she had low blood pressures measuring 70/44. Her pulse ox was difficult to obtain due to fingernail Frisian. Her pulse ox was fluctuating between 82 and 100%. A stat ABG was obtained which demonstrated acute on chronic hypercapnic respiratory failure.Was a mixed specimen but demonstrated significant respiratory acidosis. PH of 7.21 pCO2 77 PO2 55 bicarb of 30 with a reduced hemoglobin of 15% pulse ox of 80. The patient was repetitively stating that she wanted to . The patient had been placed on a non-rebreather with improvement in her pulse ox. Patient was not cooperative with interventions and was continually pulling her non-rebreather off. The patient appeared confused GENERAL: Chronically ill-appearing, obese HEENT: Mucous membranes are tacky, head is normocephalic atraumatic, nasal cannula and non-rebreather in place CARDIOVASCULAR: Irregularly irregular, rate controlled RESPIRATORY: Significant decreased breath sounds bilaterally, mild tachypnea ABDOMEN: Obese, nontender, positive bowel sounds INTEGUMENT: Generalized pallor, normal temperature to touch, non jaundice NEUROLOGIC: Alert, oriented to person and place I did not assess orientation to time the patient responded well to redirection, moving bilateral upper extremities equally, hoarse voice PSYCHIATRIC: Intermittently uncooperative, stating that she wants to EXTREMITIES: Generalized anasarca : Deferred Assessment and plan: 1. Acute on chronic hypercapnic hypoxic respiratory failure: Likely secondary to obesity hypoventilation syndrome and possible underlying pneumonia given the patient's leukocytosis, hypotension and low body temperature. Patient will be placed on broad-spectrum antibiotic coverage with vanc, Zosyn and Levaquin for possible of hospital-acquired pneumonia. The patient has been placed on BiPAP she is pulling tidal volumes between 404 80 with settings of 18 of over 8 with a rate of 24. Will wean FiO2 to maintain oxygen saturations between 90 and 92. The patient is being transferred to IMU. 2. Possible hospital-acquired pneumonia: Chest x-ray reviewed and demonstrated possible infiltrate versus pulmonary edema and pleural effusions. Overall patient had poor lung volumes. Continue antibiotic therapy as discussed above. Blood cultures have been ordered. Will also check a lactic acid 3. hypotension: Patient was given 500 mL bolus. Her repeat systolic blood pressure was 117. Patient has been initiated on on antibiotic therapy as discussed above. 40 minutes spent in critical care activities. This case had a high probability of a clinically significant, sudden, or life threatening deterioration of this patient's condition which required my full and direct attention, intervention and personal management. Critical care time: 30 - 74 mins
--- NOTE | 2020-09-04 03:00 | PC.NURSE ---
This patient, Princess Barraza, was transferred to [IMU 202] on 09/04/20 at 0300. Personal belongings sent with patient. Report given to [Radha HERNANDEZ]. Appropriate documentation sent with patient.
--- NOTE | 2020-09-04 03:11 | PC.NURSE ---
PCT called at 2345 to notify she was unable to find a blood pressure with either automatic or manual cuff. Charge nurse Wendi Stroud and myself both attempted to find a blood pressure and were unable to do so. Pt O2 sats at this time also dropped to low 80s and pt appeared to have worsening SOB. Rapid response was called on this pt at 0002. Pt AOx3 and drowsy at time of event.
[2020-09-04 03:13] LABS: Alveolar/Arterial O2 Gradient 588.5 mmHg; Base Excess ABG -0.2 mEq/l (+/-2.0); Fractional Inspired Oxygen 100 %; HCO3 ABG 29.4 mEq/l (22.0-26.0); Oxygen Content ABG 13.4 %vol (16.0-22.0); Oxyhemoglobin 77.7 % THb (90.0-100.0); PO2 FiO2 Ratio Arterial Blood 0.49 %; Total Hemoglobin 12.3 g/dL (12.0-18.0)
[2020-09-04 03:14] LABS: PCO2 ABG 75.4 mmHg (35.0-45.0); PO2 ABG 49.1 mmHg (80.0-100.0); pH ABG 7.209 (7.350-7.450)
[2020-09-04 03:15] LABS: Device BIPAP; Expiratory Pressure 8 cmH2O; Inspiratory Pressure 18 cmH2O; Oxygen Saturation ABG 74.8 % (95.0-100.0); Site Drawn RIGHT BRACHIAL
--- NOTE | 2020-09-04 04:46 | PC.NURSE ---
This patient, Princess Barraza, was received from [[id number] ] on 09/04/20 at 0300. Patient/family oriented to unit policies and routines
--- NOTE | 2020-09-04 04:47 | PC.NURSE ---
This patient, Princess Barraza, was transferred to [ICU 12 ] on 09/04/20 at 0430. Personal belongings sent with patient. Report given to [ Kalli buckner]. Appropriate documentation sent with patient.
[2020-09-04] MEDS: SODIUM CHLORIDE 0.9% IV 1,000 ML 999 ML ×4 (05:00→07:56)
[2020-09-04] MEDS: NOREPINEPHRINE 8 MG/D5W 250 ML 8 MG/250 ML BAG 9.38 MG IV CONT (05:15)
[2020-09-04 05:36] LABS: Basophils Percent Auto 0.2 % (0.2-1.2); Eosinophils Percent Auto 0.1 % (0-4.4); Hematocrit 36.8 % (37.0-47.0); Hemoglobin 11.5 g/dL (12.0-15.0); Immature Granulocyte Absolute 0.09 K/mm3 (0.00-0.031); Immature Granulocyte Percent A 0.6 % (0-0.5); Lymphocytes Absolute Auto 0.47 K/mm3 (0.9-3.2); Lymphocytes Percent Auto 3.2 % (18.3-44.2); Mean Corpuscular HGB Conc 31.3 g/dl (32-36); Mean Corpuscular Hemoglobin 31.4 pg (26-34); Mean Corpuscular Volume 100.5 fl (80-100); Mean Platelet Volume 10.4 fl (7.4-10.4); Monocytes Absolute Auto 0.6 K/mm3 (0.1-0.6); Monocytes Percent Auto 3.9 % (2.6-8.5); Neutrophils Absolute Auto 13.6 K/mm3 (1.3-6.7); Platelet Count Result 121 k/mm3 (150-375); Red Blood Count 3.66 M/mm3 (4.2-5.4); Red Cell Distribution Width 15.6 % (11.5-14.5); White Blood Count 14.8 K/mm3 (4.5-10.0)
[2020-09-04 06:15] LABS: Alveolar/Arterial O2 Gradient 587.9 mmHg; Fractional Inspired Oxygen 100 %; Methemoglobin ABG 0.3 %THb (0-1.5); Oxygen Content ABG 13.1 %vol (16.0-22.0); Oxyhemoglobin 74.9 % THb (90.0-100.0); PO2 FiO2 Ratio Arterial Blood 0.46 %; Reduced Hemoglobin 23.8 %THb (0-5.0); Total Hemoglobin 12.4 g/dL (12.0-18.0)
[2020-09-04 06:16] LABS: PCO2 ABG 78.8 mmHg (35.0-45.0); pH ABG 7.198 (7.350-7.450)
[2020-09-04 06:17] LABS: Arterial Blood Gas PEEP 7 cmH2O; Arterial Blood Gas Tidal Volume 350 ml; Arterial Blood Gas Vent Mode CMV; Arterial Blood Gas Ventilator rate 30 /MIN; Device VENTILATOR; Oxygen Saturation ABG 70.6 % (95.0-100.0); PO2 ABG 46.3 mmHg (80.0-100.0); Site Drawn RIGHT BRACHIAL
[2020-09-04] MEDS: FENTANYL 2,500MCG/NS250ML(*CRX 2,500 MCG/250 ML BAG IV CONT (06:40)
[2020-09-04 07:24] LABS: Alveolar/Arterial O2 Gradient 559.1 mmHg; Carboxyhemoglobin 0.8 % THb (0-2.0); Fractional Inspired Oxygen 100 %; HCO3 ABG 28.6 mEq/l (22.0-26.0); Methemoglobin ABG 0.3 %THb (0-1.5); Oxygen Content ABG 16.8 %vol (16.0-22.0); Oxygen Saturation ABG 89.6 % (95.0-100.0); Oxyhemoglobin 89.6 % THb (90.0-100.0); PO2 FiO2 Ratio Arterial Blood 0.73 %; Reduced Hemoglobin 9.3 %THb (0-5.0); Total Hemoglobin 13.3 g/dL (12.0-18.0)
[2020-09-04] MEDS: MIDAZOLAM HCL (*CRX) 2 MG/2 ML VIAL (07:30)
[2020-09-04] MEDS: VASOPRESSIN INJ 100 UNITS in DEXTROSE 5% 95 ML IV CONT (07:35)
--- NOTE | 2020-09-04 07:41 | P.PCNBED_ITS ---
Procedures Central Line Placement Right SC: Central Line Date: 09/04/20 Central Line Time: 04:30 Performed Emergently - Given emergent patient condition, temporal constraints may have precluded informed consent.: Yes Time Out Performed: Yes Patient Position: trendelenburg Patient placed on monitor/pulse ox: Yes Provider Prep: mask, sterile gown, sterile gloves, Max. sterile barrier precautions, cap and hand hygiene with conventional soap/water or alcohol based hand rub Central line prep: 2% Chlorhexidine scrub and sterile full body sheet applied Local anesthesia used: lidocaine 1% Amount of anesthesia used (ml): 3 Sterile US Technique with sterile gel/sterile probe covers: Yes Central line lumen inserted: triple Faroese: 7 Length (cm): 16 Depth of Insertion (cm): 16 Post Procedure: sutured in place, good blood return, all ports aspirated, flushed, capped, transparent dressing, hemostatic product, antimicrobial product, securement product and aseptic technique maintained throughout procedure Post procedure x-ray: tip of catheter in good position Patient tolerated procedure: well Complications: hematoma at puncture site Additional comments: Initial attempt was made for right femoral venous catheter but this was unable to be performed due the patient's body habitus. Intubation Intubation Date: 09/04/20 Intubation Time: 04:20 Sedative: etomidate Mg given: 30 Laryngoscope: fiber optic video scope ET tube size: 7.5 Tube secured depth (cm): 24 Tube secured location: lips Tube placement confirmation: visualized tube passing through cords, equal breath sounds bilaterally, no breath sounds over epigastrium and confirmation by c apnometry Patient tolerated procedure: well Intubation complications: hypoxia Additional comments: ET tube was initially placed at 25 cm. There were decreased breath sounds in the left lung. ET tube was pulled back to 24 cm. Chest x-ray was reviewed post intubation. ET tube approximately 2 cm above the jose maria. Arterial Line Arterial Line Date: 09/04/20 Arterial Line Time: 07:00 Perfomed Emergently - Given emergent patient conditions, temporal constraints may have precluded informed consent: Yes Time Out Performed: Yes Patient Position: supine Pathology Secretary/Transcriptionist Prep: sterile gown, sterile gloves, mask and hat Site: right and femoral Site Prep: chlorhexidine and sterile drape Skin Anesthesia: none Technique used: ultrasound-guided Size (Gauge): 20 Length: 12 cm Closure/Dressing: suture, transparent dressing, hemostatic product, antimicrobial product and securement product Patient tolerated procedure: well
[2020-09-04 07:43] LABS: pH ABG 7.166 (7.350-7.450)
[2020-09-04 07:44] LABS: Arterial Blood Gas PEEP 12 cmH2O; Arterial Blood Gas Tidal Volume 350 ml; Arterial Blood Gas Vent Mode CMV; Arterial Blood Gas Ventilator rate 30 /MIN; Device VENTILATOR; PCO2 ABG 80.9 mmHg (35.0-45.0); Site Drawn ARTLINE
[2020-09-04] MEDS: EPINEPHrine INJ 1 MG in DEXTROSE 5% IN WATER 250 ML 30.12 MG IV CONT (07:46)
[2020-09-04] MEDS: SODIUM BICARBONATE 8.4% 50 MEQ/50 ML SYRINGE (07:55)
--- NOTE | 2020-09-04 08:09 | PM.CCN ---
Critical Care Event Note Summary Code activated: No Narrative: Approximately 4:00 a.m. nursing staff called to notify me that the patient's ABG had worsened. The patient had been placed on BiPAP. BiPAP settings had been adjusted to 22/8 with an increased backup rate for respiratory. Despite these changes the patient started developing and hypoxia and was having decreased tidal volumes compared to prior. Her blood pressure that had initially improved with fluid bolus earlier in the evening was not obtainable. An additional IV fluid bolus was ordered. The patient was also more somnolent with decreased respiratory effort. The patient was initially a DNR. Despite discussion of the likely poor outcome for the patient, the patient's daughter was contacted and the daughter stated that she was not ready to ?let her Reyes go? the patient's code status was changed to full code. The patient was transferred to the ICU and intubated. The patient received minimal sedation during intubation. The patient's blood pressures remain low despite repeat fluid bolus. A central line was attempted in the right femoral but I was unable to reach the vessel due to fat deposition. Subsequently the right subclavian was prepped and right subclavian line was placed on 2nd attempt. I did receive blood return on 1st attempt but the patient moved and initial flash was lost. After central line was placed patient was started on pressors with Levophed and dopamine. The patient's blood pressures were difficult to obtain. Subsequently a right femoral arterial line was placed. The patient was started on Levophed and dopamine. She received 2 L of normal saline bolus throughout the course of resuscitation. She had been started on Zosyn, Levaquin and vancomycin during prior rapid response. The patient initially had oxygen saturations post intubation of his 88-93%. Vent settings were tidal volume of 350 peep of 8 rate of 24 in 100% FiO2. Initially the patient was pulling tidal volumes of around 300. However following central line placement patient was noted to be pulling tidal volumes of 180-230. Chest x-ray did not demonstrate any pneumothorax. The vent was alarming high pressures. The patient's case was discussed with the protocol manager recommended increase PEEP to 12. At this point the patient's blood pressures had improved marginally and low-dose sedation was initiated as the patient was bucking the vent. The patient's blood pressure than rapidly declined even with low-dose sedation. Despite increasing pressors patient's blood pressure did not respond. At that time when the femoral art line was placed. 09/04/20 09/04/20 09/04/20 00:16 02:41 06:09 Puncture Site Right radial Right brachial Right brachial ABG pH 7.211 L* 7.209 L* 7.198 L* ABG pCO2 77.6 H* 75.4 H* 78.8 H* ABG pO2 55.4 L 49.1 L* 46.3 L* ABG PO2/FiO2 Ratio 1.11 0.49 0.46 ABG HCO3 30.4 H 29.4 H 30.0 H ABG O2 Saturation 80.9 L* 74.8 L* 70.6 L* ABG O2 Content 14.7 L 13.4 L 13.1 L ABG Base Excess 0.6 -0.2 0.0 A-a Gradient 213.8 588.5 587.9 Oxyhemoglobin 83.2 L 77.7 L 74.9 L Carboxyhemoglobin 0.8 1.0 Reduced Hemoglobin 15.7 H 23.8 H Total Hemoglobin 12.6 12.3 12.4 O2 Delivery Device Non-rebreather mask Bipap Ventilator O2 Liters/Min 15.0 Not Reportable Not Reportable Vent Rate 30 FiO2 100 100 100 09/04/20 07:17 Puncture Site Artline ABG pH 7.166 L* ABG pCO2 80.9 H* ABG pO2 73.0 L ABG PO2/FiO2 Ratio 0.73 ABG HCO3 28.6 H ABG O2 Saturation 89.6 L ABG O2 Content 16.8 ABG Base Excess -2.0 A-a Gradient 559.1 Oxyhemoglobin 89.6 L Carboxyhemoglobin 0.8 Reduced Hemoglobin 9.3 H Total Hemoglobin 13.3 O2 Delivery Device Ventilator O2 Liters/Min Not Reportable Vent Rate 30 FiO2 100 GENERAL: Acutely ill-appearing, morbidly obese HEENT: Pupils are equal and reactive, positive conjunctival pallor, ET tube measuring 24 at the lip, OG tube in pl
--- NOTE | 2020-09-04 08:32 | PC.NURSE ---
This patient, Princess Barraza, was received from [facility] on 09/04/20 at 0430. Patient/family oriented to unit policies and routines
[2020-09-04] MEDS: SODIUM BICARBONATE 8.4% 50 MEQ/50 ML SYRINGE 100 MEQ IV PUSH (08:36)
[2020-09-04] MEDS: CALCIUM CHLOR 1,000MG/100ML NS 1,000 MG/100 ML BAG 100 MG IVPB (08:51)
--- NOTE | 2020-09-04 09:10 | WPDCNINT ---
Assessment and Plan Assessment and plan (1) Acute respiratory failure: Qualifiers: Respiratory failure complication: hypercapnia Qualified Code(s): J96.02 - Acute respiratory failure with hypercapnia Code(s): J96.00 - Acute respiratory failure, unspecified whether with hypoxia or hypercapnia Status: Acute Assessment and Plan: Acute Respiratory failure secondary to congestive heart failure, shock, pneumonia, baseline obesity hypoventilation syndrome Patient had high peak pressures this morning and ETT was obstructed. ETT patency was checked by pushing in bougie in and later rescue catheterization was performed to remove secretion plugs through ETT. Although pressures are better patient continues to have high peak pressure due to her morbid obesity. Continue full mechanical ventilation support to prevent hypoxemia/hypercarbia and end organ damage. Patient continues to be hypoxic. Peep increased to 12. Sedation started prevent patient ventilator dyssynchrony. May need paralytic Will tolerate permissive hypercapnia and treat acidosis with bicarb ABG and PCXR reviewed and will repeat in am. Low tidal volume ventilation strategy to prevent volutrauma Bronchodilators (2) Shock: Code(s): R57.9 - Shock, unspecified Status: Acute Assessment and Plan: Mix shock secondary to sepsis and cardiogenic due to cardiomyopathy Patient is in severe shock and currently on Levophed epinephrine and vasopressin at high doses I will give patient another 500 cc of saline bolus the patient is overall volume overloaded but may be intravascularly dry Sodium bicarb IV push and IV fluids sodium bicarb started IV calcium administered and patient responded Stress dose steroids Check stat echo (3) Chronic kidney disease, stage 3: Qualifiers: Chronic kidney disease stage 3 subtype: unspecified whether 3a or 3b Qualified Code(s): N18.30 - Chronic kidney disease, stage 3 unspecified Code(s): N18.3 - Chronic kidney disease, stage 3 (moderate) Status: Chronic Assessment and Plan: Monitor creatinine, urine output and electrolytes (4) Paroxysmal atrial fibrillation: Code(s): I48.0 - Paroxysmal atrial fibrillation Status: Acute Assessment and Plan: Patient currently in paced rhythm. Dopamine discontinued due to tachycardia Coreg and Cardizem have been stopped due to shock May need amiodarone if goes into RVR (5) Acute on chronic systolic and diastolic heart failure, NYHA class 4: Code(s): I50.43 - Acute on chronic combined systolic (congestive) and diastolic (congestive) heart failure Status: Acute Assessment and Plan: Diuretics have been stopped due to severe shock Patient has EF of 20-25% and baseline and has AICD and permanent pacemaker Check Stat echo (6) Ischemic cardiomyopathy: Code(s): I25.5 - Ischemic cardiomyopathy Status: Acute (7) Pneumonia: Onset Date: ~07/13/20 Qualifiers: Laterality: unspecified laterality Lung location: unspecified part of lung Pneumonia type: due to unspecified organism Qualified Code(s): J18.9 - Pneumonia, unspecified organism Code(s): J18.9 - Pneumonia, unspecified organism Status: Acute Assessment and Plan: Blood cultures and sputum cultures Empiric broad-spectrum antibiotics in the form of vancomycin and Zosyn (8) Paralysis of left vocal cord: Code(s): J38.01 - Paralysis of vocal cords and larynx, unilateral Status: Acute Assessment and Plan: No intervention at this time. Patient is currently intubated (9) Acidosis: Code(s): E87.2 - Acidosis Status: Acute Assessment and Plan: Mixed acidosis Will tolerate permissive hypercapnia Several pushes of IV bicarb given due to severe shock and acidosis Patient on IV bicarbonate infusion (10) Suspected COVID-19 virus infection: Code(s): Z20.822 - Contact with an
[2020-09-04] MEDS: LEVOTHYROXINE SODIUM INJ 100 MCG/5 ML VIAL 37.5 MCG IV PUSH (09:13)
[2020-09-04] MEDS: PANTOPRAZOLE SODIUM IV 40 MG VIAL IV PUSH (09:14)
[2020-09-04] MEDS: ENOXAPARIN 40 MG/0.4 ML SYRINGE SUB-Q (09:14)
[2020-09-04] MEDS: MICONAZOLE NITRATE 2% CREAM 30 GM TUBE 1 APPLIC TOPICAL (09:14)
[2020-09-04 09:22] LABS: Anion Gap 0 mmol/L (8-16); Blood Urea Nitrogen 27 mg/dL (7-17); Calcium 7.3 mg/dL (8.4-10.2); Carbon Dioxide 39 mmol/L (22-30); Chloride 96 mmol/L (98-107); Estimated CRCL calculation 44 ml/min; Estimated Glomerular Filt Rate 38; Glucose 236 mg/dL (65-105); Potassium 3.4 mmol/L (3.4-5.0); Sodium 135 mmol/L (137-145)
[2020-09-04 09:30] LABS: NT Pro B Type Natriuretic Pept 1330 PG/ML (5-100)
[2020-09-04] MEDS: SODIUM BICARBONATE 8.4% 150 MEQ in DEXTROSE 5% 1,000 ML 950 ML 50 MEQ IV CONT (09:38)
--- NOTE | 2020-09-04 09:49 | PM.PNCARD ---
Progress Note: A&P Assessment and Plan (1) Acute respiratory failure: Qualifiers: Respiratory failure complication: hypercapnia Qualified Code(s): J96.02 - Acute respiratory failure with hypercapnia Code(s): J96.00 - Acute respiratory failure, unspecified whether with hypoxia or hypercapnia Status: Acute Assessment and Plan: Combination of CHF and a possible underlying pneumonia. Currently on a ventilator. Receiving antibiotics for possible pneumonia. Echocardiogram reviewed and analyzed myself shows an apical LV thrombus. The right ventricle is small in size and with hyperdynamic function. Doubt pulmonary embolism. patient will need IV heparin (2) Shock: Code(s): R57.9 - Shock, unspecified Status: Acute Assessment and Plan: Combination of septic and cardiogenic shock. On Levophed. Echocardiogram done this morning shows LV hypertrophy thrombosis. She remained anticoagulation. (3) Atrial fibrillation with rapid ventricular response: Code(s): I48.91 - Unspecified atrial fibrillation Status: Acute Assessment and Plan: Currently paced rhythm and Coreg is on hold. (4) CHF (congestive heart failure): Qualifiers: Heart failure chronicity: unspecified Heart failure type: unspecified Qualified Code(s): I50.9 - Heart failure, unspecified Code(s): I50.9 - Heart failure, unspecified Status: Acute Assessment and Plan: Patient has underlying severe ischemic cardiomyopathy with ejection fraction 25%. Currently requiring pressors. Patient was DNR and that was available time intubated. She had long-standing history of severe systolic heart failure . poor prognosis (5) LV (left ventricular) mural thrombus: Code(s): I51.3 - Intracardiac thrombosis, not elsewhere classified Status: Acute Assessment and Plan: start IV heparin Additional Plan 65-year-old female with severe ischemic cardiomyopathy. She has at a very low ejection fraction for about 20 years . She has had 2 echocardiograms done in this hospital within the last couple of months both with similar findings. She not surprisingly is still experiencing shortness of breath and was brought to the hospital again for that reason. It is very unusual that she told me in the office and my nurse practitioner 9 months ago that she wanted involvement with me is her physician going forward but then is telling staff in the hospital that I am her marine equipment sales engineer. In that setting I have agreed to see her again in consultation despite those comments in the past. She is currently receiving some intravenous furosemide I will continue that for the time being. I am going to try adding a low dose of Entresto to her regimen as she has a very low ejection fraction appears to have normal creatinine and would likely benefit significantly hemodynamically of this would be tolerated. Will have to watch her potassium as we do this and a good chance we will have to stop potassium supplementation. It seems that her car pilot is not seeing her either for her ICD checks I will have our [employer] rep assess the status of her defibrillator while she is here as it sounds like that has not been followed up for quite a while. Hung Krause MD [facility] Subjective Date/time seen: Date of service 09/04/20 09:49 Apparently rapid response was called around midnight because of increasing shortness of breath. The patient was found to be hypoxic in complaining of shortness of breath. She she had low blood pressures measuring 70/44. Her pulse ox was difficult to obtain due to fingernail Bur[place]. Her pulse ox was fluctuating between 82 and 100%. A stat ABG was obtained which demonstrated acute on chronic hypercapnic respiratory failure.Was a mixed specimen but demonstrated significant respiratory acidosis. PH of 7.21 pCO2 77 PO2 55 bicarb of 30 with a reduced hemoglobin of 15% pulse ox of 80. The patient w
[2020-09-04] MEDS: EPINEPHrine INJ 1 MG in DEXTROSE 5% IN WATER 250 ML 150.6 MG IV CONT (09:52)
[2020-09-04] MEDS: NOREPINEPHRINE 8 MG/D5W 250 ML 8 MG/250 ML BAG 75 MG IV CONT (10:48)
[2020-09-04 10:52] LABS: Basophils Absolute Auto 0.1 K/mm3 (0.0-0.1); Basophils Percent Auto 0.4 % (0.2-1.2); Hematocrit 37.4 % (37.0-47.0); Hemoglobin 12.5 g/dL (12.0-15.0); Immature Granulocyte Absolute 0.14 K/mm3 (0.00-0.031); Immature Granulocyte Percent A 0.6 % (0-0.5); Lymphocytes Absolute Auto 0.36 K/mm3 (0.9-3.2); Lymphocytes Percent Auto 1.5 % (18.3-44.2); Mean Corpuscular HGB Conc 33.4 g/dl (32-36); Mean Corpuscular Hemoglobin 32.5 pg (26-34); Mean Corpuscular Volume 97.1 fl (80-100); Monocytes Absolute Auto 0.7 K/mm3 (0.1-0.6); Monocytes Percent Auto 2.7 % (2.6-8.5); Neutrophils Absolute Auto 22.9 K/mm3 (1.3-6.7); Neutrophils Percent Auto 94.8 % (45.5-73.1); Nucleated Red Blood Cells Perc 0.1 % (0.0-0.2); Platelet Count Result 131 k/mm3 (150-375); Red Blood Count 3.85 M/mm3 (4.2-5.4); Red Cell Distribution Width 15.1 % (11.5-14.5); White Blood Count 24.2 K/mm3 (4.5-10.0)
[2020-09-04] MEDS: HEPARIN SOD/D5W 100 UNITS/ML 25,000 UNITS/250 ML BAG 14 UNITS IV CONT (11:07)
[2020-09-04 11:11] LABS: INR 1.2; Prothrombin Time 16.1 Seconds (11.1-14.7)
[2020-09-04 11:12] LABS: Partial Thromboplastin Time 43.4 SECONDS (22.3-36.8)
[2020-09-04 11:15] LABS: Troponin I < 0.012 ng/mL (0.000-0.034)
[2020-09-04] MEDS: EPINEPHrine INJ 1 MG in DEXTROSE 5% IN WATER 250 ML 240.96 MG IV CONT (11:27)
[2020-09-04] MEDS: EPINEPHrine INJ 4 MG in DEXTROSE 5% IN WATER 250 ML 60.96 MG IV CONT (12:02)
[2020-09-04 12:36] LABS: Add Urine Microscopic? YES; Appearance Urine Clear (Clear); Bacteria Urine Trace /hpf; Bilirubin Urine Negative (Negative); Blood Urine 1+ (Negative); Color Urine Straw (Yellow); Glucose Urine UA 2+ mg/dL (Negative); Ketones Urine Negative (Negative); Leukocyte Esterase Ur Negative LEU/UL (Negative); Mucus Urine Rare /lpf; Nitrate Urine Negative (Negative); Protein Urine Negative (Negative); Specific Grav Ur 1.011 (1.001-1.035); Urobilinogen Urine Negative mg/dL (<2.0)
--- NOTE | 2020-09-04 12:50 | P.PNCROSS_ITS ---
Event Note Event Note Event Note: Patient's Doppler showed DVT in in left femoral popliteal and profundus vein. Diagnosis of PE was considered in light of her hypoxia and shock. Patient has elevated creatinine hence CTA was not an option. She had a V/Q scan done early in the course which was intermediate. She had multiple other reasons to explain or shock including sepsis and cardiomyopathy. A stat echocardiogram was performed and Her echocardiogram showed clot in LV but but not in RV and RV did not look dilated. Empiric treatment with TPA was deferred and Patient was started on heparin infusion consultation with production administrator. Earlier spoke to patient's daughter and updated her with patient's status. She came to visit patient and and she initially met with heating systems installer in conference room later I met with her in presence of heating systems installer. I went over overnight events and events of this morning and we again discussed goals of care. Patient's daughter who is her POA has decided, in accordance with pt's wishes, to discontinue all medical therapy and institute comfort measures only. I will use opioids, anxiolytics and other agents on as needed basis to promote comfort and discontinue all medical therapy, lab testing and invasive monitoring. Additional critical care time spent 30 minutes
[2020-09-04] MEDS: LORazepam INJ (*CRX) 2 MG/ML VIAL IV PUSH (12:56)
[2020-09-04] MEDS: MORPHINE SULFATE INJ (*CRX) 10 MG/ML AMP 5 MG IV PUSH (12:57)
--- NOTE | 2020-09-04 13:43 | PM.EVENT ---
Event Note Event Note Event Note: Patient was made comfort care and she ventrally went into PEA. Due to pacemaker she continued to have electrical activity but had no palpable pulses in either femoral or carotid arteries. No pulses could be obtained by Doppler or cardiac sounds auscultated. Patient was pronounced at 1:40 p.m.
--- NOTE | 2020-09-04 15:11 | PC.NURSE ---
1305 Patient extubated and IV drips stopped as ordered. Patient's daughter in room to be with patient.
[2020-09-04 17:44] LABS: SARS-CoV-2 RNA PCR Negative
--- NOTE | 2020-09-07 16:57 | PM.DDS ---
Discharge Sum: Prov Provider Primary care physician: Nikki Deng MD Admitting provider: Elvira Hidalgo MD Consults: 08/31/20 Consult to Physician Routine Comment: Consulting Provider: Hung Krause Reason for consultation: a fib with rvr Has provider been notified: Yes 09/04/20 Consult to Physician Routine Comment: md is aware of consult Consulting Provider: Andrés Franklin call circuit worker/MD group to consult: Bed And Breakfast Operator Reason for consultation: Acute on chronic hypercapnic hypoxic respiratory failure Has provider been notified: Yes Discharge Sum: Diag Contributing Factors (1) Atrial fibrillation with rapid ventricular response: (2) Paralysis of left vocal cord: (3) Chronic kidney disease, stage 3: (4) Paroxysmal atrial fibrillation: (5) Acute on chronic systolic and diastolic heart failure, NYHA class 4: Discharge Sum: Summary Date and Time Date of admission: 09/01/20 10:56 Date of : 09/04/20 Summary Details: Date of 09/04/2020 date of this dictation 09/07/2020 65-year-old female with history of atrial fibrillation not on anticoagulation due to previous GI bleed and history of combined congestive heart failure admitted on 08/31 for complaints of shortness of breath. She was having CO2 retention and worsening heart failure and treated with BiPAP and diuretics as she has been in the past and quickly improved. On the a.m. for early she became acutely short of breath, was having CO2 retention, and will falling blood pressure despite the fact that she had a DNR status daughter and her decided to be intubated and mechanically ventilated. She was transferred to ICU after intubation and found to have DVT which had not been present on Doppler early in the course for hospitalization(although she always refused chemical DVT prophylaxis). It was thought she may have had a pulmonary emboli, possible ischemic event, or early sepsis that precipitated the symptoms. She is treated with anticoagulants, antibiotics, and ventilator support. Shortly after arrival to the ICU , her family did arrange to see her and realized how critical she was and with her poor baseline health status, decided to withdrawal medical care and she shortly thereafter. Cause of acute on chronic respiratory failure secondary to possible pulmonary emboli, sepsis, or ischemia. Additional Data Attending physician: Elvira Hidalgo MD
== END 2020-09-04 13:40 | disposition expired | DRG 291 ==
LOC: ANHED 15:19 → ANHIMU 17:48 → ANHICU 09-04 10:41 → ANH2MED 09-09 09:26 → ANHICU 09-09 09:26 → ANHIMU 09-09 09:26
PROVIDERS: Internal Medicine; Admitting Provider Internal Medicine; Emergency Provider Emergency Medicine; PCP Family Medicine; Visit Provider Internal Medicine
DX: I13.0 Hypertensive heart and chronic kidney disease with heart failure and stage 1 through stage 4 chronic kidney disease, or unspecified chronic kidney disease (principal); J96.22 Acute and chronic respiratory failure with hypercapnia; J96.21 Acute and chronic respiratory failure with hypoxia; J18.9 Pneumonia, unspecified organism; A41.9 Sepsis, unspecified organism; R65.21 Severe sepsis with septic shock; I26.99 Other pulmonary embolism without acute cor pulmonale; I50.42 Chronic combined systolic (congestive) and diastolic (congestive) heart failure; I48.20 Chronic atrial fibrillation, unspecified; E66.2 Morbid (severe) obesity with alveolar hypoventilation; I82.412 Acute embolism and thrombosis of left femoral vein; I82.432 Acute embolism and thrombosis of left popliteal vein; R57.0 Cardiogenic shock; N18.30 Chronic kidney disease, stage 3 unspecified; Z20.822 Contact with and (suspected) exposure to COVID-19; E03.9 Hypothyroidism, unspecified; F41.8 Other specified anxiety disorders; D64.9 Anemia, unspecified; I25.10 Atherosclerotic heart disease of native coronary artery without angina pectoris; K21.9 Gastro-esophageal reflux disease without esophagitis; E78.5 Hyperlipidemia, unspecified; I25.5 Ischemic cardiomyopathy; M81.0 Age-related osteoporosis without current pathological fracture; E55.9 Vitamin D deficiency, unspecified; J38.00 Paralysis of vocal cords and larynx, unspecified; M15.9 Polyosteoarthritis, unspecified; G89.4 Chronic pain syndrome; E87.6 Hypokalemia; I95.9 Hypotension, unspecified; I51.3 Intracardiac thrombosis, not elsewhere classified; Z66 Do not resuscitate; I25.2 Old myocardial infarction; Z68.37 Body mass index [BMI] 37.0-37.9, adult; Z95.0 Presence of cardiac pacemaker; Z90.710 Acquired absence of both cervix and uterus; Z95.5 Presence of coronary angioplasty implant and graft; Z90.49 Acquired absence of other specified parts of digestive tract; Z95.1 Presence of aortocoronary bypass graft; Z87.891 Personal history of nicotine dependence
CPT/HCPCS: 36415; 36600; 71045; 78580; 80048; 80053; 81001; 82375; 82805; 83050; 83605; 83735; 83880; 84484; 85025; 85027; 85055; 85380; 85610; 85730; 86140; 87040; 93005; 93306; 93970; 93971; 94002; 96372; 96374; 96375; 96376; 99285; A9270; A9540; C9113; C9803; G0378; J0171; J1644; J1650; J1940; J1956; J2060; J2250; J2270; J2543; J3010; J3370; J3475; J7030; J7040; J7060; J7070; U0003; U0005